=== PATIENT | male | born 1945 | race Caucasian/White ===

== ENCOUNTER 2016-05-21 11:07 | Observation (INO) | payer MEDICARE ==
[~2016-05-21] VITALS: Ht 165.1 cm; Wt 73.2 kg
[~2016-05-21 11:07] MED LIST changes: -ALDA25TA2 PO; -AMLO10TA2 PO; -ATOR40TA PO; -BENZ200C44 PO; -BISO10TA PO; -BISO5TAB5 PO; -DIGO0.127 PO; -ECOT81TA5 PO; -FERR325T PO; -FURO20TA2 PO; -FURO40TA2 PO; -HYDR10T PO; -LEVO50TA5 PO; -LISI40TAB PO; -NITR4TASL SL; -OMEP20CA3 PO; -OPTI0.5D5 OU; -PLAV75TA38 PO; -PROT1TAB2 PO; -RANI150T PO
[2016-05-21] MEDS ORDERED: ATOR40TA PO (11:36)
[2016-05-21] MEDS ORDERED: LEVO50TA5 PO (11:36)
[2016-05-21] MEDS ORDERED: DIGO0.127 PO (11:36)
[2016-05-21] MEDS ORDERED: PROT1TAB2 PO (11:36)
[2016-05-21] MEDS ORDERED: ALLO100T PO (11:36)
[2016-05-21] MEDS ORDERED: PLAV75TA38 PO (11:36)
[2016-05-21] MEDS ORDERED: ECOT81TA5 PO (11:36)
[2016-05-21] MEDS ORDERED: LISI40TAB PO (11:36)
[2016-05-21] MEDS ORDERED: FURO20TA2 PO (11:36)
[2016-05-21] MEDS ORDERED: AMLO10TA2 PO (11:36)
[2016-05-21] MEDS ORDERED: BISO10TA PO (11:36)
[2016-05-21 12:00] LABS: BASO % 0.5 % (0.0-1.0); EOS # 0.1 K/mm3 (0.0-0.50); EOS % 1.3 % (0.0-3.0); LARGE UNSTAINED CELL # 0.2 K/mm3 (0.0-0.4); MEAN CORPUSCULAR HEMOGLOBIN 33.9 pg (27.0-33.0); MEAN CORPUSCULAR HGB CONC 33.2 g/dl (32.0-36.5); MEAN CORPUSCULAR VOLUME 102.2 fl (80.0-96.0); MONO # 0.6 K/mm3 (0.0-0.8); MONO % 7.6 % (0.0-5.0); NEUTROPHILS # 6.4 K/mm3 (1.8-7.7); NEUTROPHILS % 78.7 % (36.0-66.0); PLATELET COUNT, AUTOMATED 271 k/mm3 (150-450); RED CELL DISTRIBUTION WIDTH 15.5 % (11.5-14.5); WHITE BLOOD COUNT 8.1 K/mm3 (4.0-10.0)
[2016-05-21 12:06] LABS: INR 1.14
[2016-05-21 12:20] LABS: ALBUMIN 3.9 GM/DL (3.2-5.2); ALBUMIN/GLOBULIN RATIO 1.08 (1.00-1.93); ALKALINE PHOSPHATASE 52 U/L (45-117); ALT/SGPT 45 U/L (12-78); ANION GAP 10 MEQ/L (8-16); AST/SGOT 20 U/L (15-37); BILIRUBIN,DIRECT 0.2 MG/DL (0.0-0.2); BILIRUBIN,TOTAL 0.8 MG/DL (0.2-1.0); BLOOD UREA NITROGEN 24 MG/DL (7-18); CALCIUM LEVEL 8.7 MG/DL (8.8-10.2); CARBON DIOXIDE LEVEL 22 MEQ/L (21-32); CHLORIDE LEVEL 102 MEQ/L (98-107); GLOMERULAR FILTRATION RATE 49.1 (>42); GLUCOSE, FASTING 101 MG/DL (83-110); POTASSIUM SERUM 4.1 MEQ/L (3.5-5.1); SODIUM LEVEL 134 MEQ/L (136-145); TOTAL PROTEIN 7.5 GM/DL (6.4-8.2)
[2016-05-21 12:29] LABS: DIGOXIN LEVEL 1.2 NG/ML (0.5-2.0)
[2016-05-21 13:22] LABS: MAGNESIUM LEVEL 2.5 MG/DL (1.8-2.4)
[2016-05-21] MEDS ORDERED: FUROSEMIDE 40 MG/4 ML VIAL (J1940) IV ONE (14:30)
[2016-05-21 14:38] LABS: T UPTAKE 39 % (33-40); THYROXINE (T4) 9.1 UG/DL (4.5-12.0)
--- NOTE | 2016-05-21 14:42 | HPEPDOC ---
Medical History and Physical Date of Admission 05/21/16 History and Physical ATTENDING: Dr. Black PCP: Dr Cerda Shipping Coordinator: Dr Newell CC: AICD discharge this AM. Sent to ED by Dr Newell. HPI: 70yoM with a past medical history significant for Ischemic CMP, AICD. Pt was treated for flu with tamiflu approximately 4 weeks ago as per Pt. States he has not been feeling better. Went back to PCP reporting fatigue, cough with clear sputum, chills, rhinorrhea, ORTIZ 1 weeks ago. Was treated with Prednisone and tessalon. He did not feel better and went back with persistent weakness and cough Tuesday. Prednisone was d/cd and was started on Levaquin 750mg daily. He still did not feel well with persistent cough. wheeze and clear sputum, and went again today. Tests were ordered and he went home to rest. When he lied down he had an AICD discharge. He had no CP/heaviness/SOB, lightheadedness, dizziness, palpitaions or assoc symptoms. He was referred to ED as per Dr Newell. Denies any ORTIZ, CP, abdominal pain, N/V/D or changes in bowel or bladder habits. Upon presentation to the hospital the patient was found to have B/L pleural effusions, thus the hospitalist team was consulted. PMHx: Ischemic CMP/Systolic CHF Cath 12/11 [facility] EF 25%. TTE 03/14 EF 35%. 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 ROS: As noted in HPI, otherwise 11pt ROS of systems reviewed and unremarkable. PE: GEN: 70yoM, appears stated age. Well-nourished, well developed. No acute distress. Alert and oriented x 3. Pleasant, interactive. HEENT: Normocephalic, atraumatic. Pupils are equal, round, and reactive to light. Extraocular movements are intact. No nystagmus appreciated. Sclera are nonicteric. Conjunctiva without injection. Nose midline. Nasal turbinates without bogginess. EACs both patent BL. TMs both visualized and ceballos with good cone of light, no bulging or erythema. No facial asymmetry. Moist mucous membranes. Dentition fair. Pharynx pink and moist, no cobblestoning. Neck supple , trachea midline. No lymphadenopathy or thyromegaly appreciated. CHEST: Regular rate and rhythm, +S1, +S2. systolic murmur noted. JVD elevated. LUNGS:reduced BS and insp rales bases bilaterally. No wheezes, rhonchi. Breathing appears symmetric and easy. Patient is speaking in full sentences. No accessory muscle use. ABD: Round, soft, non-tender, non-distended. +Bowel sounds throughout. No rebound or guarding. No costovertebral angle tenderness. EXT: Pulses 2+ bilaterally dorsalis pedis and radial. No lower extremity edema appreciated. SKIN: [place], dry, warm. Capillary refill <2sec. No rashes. NEURO: Alert and oriented x 3. Cranial nerves III-XII are intact. No focal deficits appreciated. CXR: Bilateral perihilar and lower lobe infiltrates (left greater than right). Small left effusion. CT: Chest Pending EKG: SR, first degree AVB, occas PVC, ST-T abn. BC x 2pending Resp panel pending. LA 1.6 A&P: HPI: 70yoM with a past medical history significant for Ischemic CMP, AICD. Pt was treated for flu with tamiflu approximately 4 weeks ago as per Pt. States he has not been feeling better. Went back to PCP reporting fatigue, cough with clear sputum, chills, rhinorrhea, ORTIZ 1 weeks ago. Was treated with Prednisone and tessalon. He did not feel better and went back with persistent weakness and cough Tuesday. Prednisone was d/cd and was started on Levaquin 750mg daily. He still did not feel well with persistent cough. wheeze and clear sputum, and went again today. Tests were ordered and he went home to rest. When he lied down he had an AICD discharge. He had no CP/heaviness/SOB, lightheadedness, dizziness, palpitaions or assoc symptoms. He was referred to ED as per Dr Newell. The patient will be admitted to PCU for at least [address] Black's service. The pt is discussed and reviewed with Dr Pena. 1. Ischemic CMP/Systolic CHF. Pt with signs of fluid overload and decompensation on exam. Hold PO Lasix. IV Lasix 40mg IV Q8 for net neg ordered. Monitor Labs. I/O, daily WT. Dig level WNL. 2. Recent influenza and URI. BC x 2 pending. Respiratory panel pending. Pt s/p tx with Tamiflu and Levaquin. Have not added any additional antibiotic at this time pending further results. 3. CAD/Cardiac stent. CIP/Troponin x 3. Zebeta with hold paramters/ASA/Plavix 4. HTN. Continue Norvasc, (ACEI on hold) 5. AICD/S/P AICD discharge. PCU/TM. Dr Newell to follow. K WNL. Mag 2.5. 6. RALPH. Baseline SCr 1.28, 1.55 today. No further Levaquin. Avoid nephrotoxins. Hold ACEI. 7. Hypothyroid. Continue Supplement. TSH noted to be 4.53. Recheck TFT in AM. 8. Gout. Allopurinol 9. HLD. Statin. 10. GERD. PPI. DVT prophylaxis. The patient is a full code. Vital Signs Vital Signs Label Value Date Time Patient Temperature 97.4 degrees F 05/21/16 1416 Temperature Source Oral 05/21/16 1416 Pulse 66 05/21/16 1307 Respiratory Rate 18 bpm 05/21/16 1416 Blood Pressure Assessment 168/70 (102) 05/21/16 1351 Source Automatic Cuff (NIBP) Bedside Pulse Oximetry 95 % 05/21/16 1416 Bedside Pulse Oximetry 92 % 05/21/16 1307 Item Value Date Time Oxygen Delivery Method Room Air 05/21/16 1108 Laboratory Data Labs 24H Laboratory Tests 2 05/21/16 11:27: White Blood Count 8.1, Red Blood Count 3.13L, Hemoglobin 10.6L, Hematocrit 32.0L , Mean Corpuscular Volume 102.2H, Mean Corpuscular Hemoglobin 33.9H, Mean Corpuscular Hemoglobin Concent 33.2, Red Cell Distribution Width 15.5H, Platelet Count 271, Neutrophils (%) (Auto) 78.7H, Lymphocytes (%) (Auto) 10.0L, Monocytes (%) (Auto) 7.6H, Eosinophils (%) (Auto) 1.3, Basophils (%) (Auto) 0.5 , Neutrophils # (Auto) 6.4, Lymphocytes # (Auto) 1.0L, Monocytes # (Auto) 0.6, Eosinophils # (Auto) 0.1, Basophils # (Auto) 0.0, Large Unclassified Cells # 0.2 , Large Unclassified Cells % 2.0 05/21/16 11:49: Aspartate Amino Transf (AST/SGOT) 20, Alanine Aminotransferase (ALT/SGPT) 45, Alkaline Phosphatase 52, Total Bilirubin 0.8, Direct Bilirubin 0.2, Albumin 3.9 , Albumin/Globulin Ratio 1.08, Anion Gap 10, B-Type Natriuretic Peptide 1040H, Calcium Level 8.7L, Creatine Kinase MB 1.7, Creatine Kinase MB Relative Index 2.17, Digoxin Level 1.2, Glomerular Filtration Rate 49.1, Lactic Acid Level 1.6 , Magnesium Level 2.5H, Prothromb Time International Ratio 1.14, Prothrombin Time 14.7H, Thyroid Stimulating Hormone (TSH) 4.530H, Total Creatine Kinase 78, Total Protein 7.5, Troponin I < 0.02 CBC/BMP Laboratory Tests 05/21/16 11:27 Red Blood Count 3.13 L, Mean Corpuscular Volume 102.2 H, Mean Corpuscular Hemoglobin 33.9 H, Mean Corpuscular Hemoglobin Concent 33.2, Red Cell Distribution Width 15.5 H, Neutrophils (%) (Auto) 78.7 H, Lymphocytes (%) (Auto ) 10.0 L, Monocytes (%) (Auto) 7.6 H, Eosinophils (%) (Auto) 1.3, Basophils (%) (Auto) 0.5, Neutrophils # (Auto) 6.4, Lymphocytes # (Auto) 1.0 L, Monocytes # ( Auto) 0.6, Eosinophils # (Auto) 0.1, Basophils # (Auto) 0.0 05/21/16 11:49 Microbiology Microbiology 05/21/16 Blood Culture, Received Pending 05/21/16 Blood Culture, Received Pending 05/21/16 Respiratory Virus Panel (PCR) (BRIAN), Received Pending Home Medications Scheduled Allopurinol (Allopurinol) 100 Mg Tab 100 MG PO DAILY Amlodipine Besylate (Amlodipine Besylate) 10 Mg Tab 10 MG PO QHS Aspirin (Ecotrin Low Strength) 81 Mg Tab 81 MG PO DAILY Atorvastatin Calcium (Atorvastatin Calcium) 40 Mg Tab 40 MG PO QHS Bisoprolol Fumarate (Bisoprolol Fumarate) 5 Mg Tab 5 MG PO BID Clopidogrel Bisulfate (Plavix) 75 Mg Tab 75 MG PO DAILY Digoxin (Digox) 0.125 Mg Tab 0.125 MG PO QHS Ferrous Sulfate (Ferrous Sulfate) 325 Mg Tab 325 MG PO BID Furosemide (Furosemide) 20 Mg Tab 20 MG PO DAILY Levofloxacin Hemihydrate (Levofloxacin) 750 Mg Tab 750 MG PO DAILY STARTED 05/18/16 FOR 5 DAYS, HAS ONE TABLET LEFT FOR 05/22/16 THEN IS TO START 500MG DAILY FOR 5 DAYS ON 05/23/16 Levothyroxine Sodium (Synthroid) 50 Mcg Tab 50 MCG PO DAILY Lisinopril (Lisinopril) 40 Mg Tab 40 MG PO DAILY Omeprazole (Omeprazole) 20 Mg Cap 20 MG PO QHS Ranitidine HCl (Ranitidine HCl) 150 Mg Tab 1 TAB PO QHS Scheduled PRN (Refresh Optive 0.5-0.9 %) 1 Jose A Jose A 1 DROP OU QID PRN PRN DRY EYES Benzonatate (Benzonatate) 200 Mg Cap 200 MG PO TID PRN PRN COUGH Hydroxyzine HCl (Hydroxyzine HCl) 10 Mg Tab 10 MG PO QID PRN PRN ITCHING Nitroglycerin (Nitrostat) 0.4 Mg Subl 0.4 MG SL Q5MP PRN PRN CHEST PAIN Allergies Coded Allergies: Penicillins (Verified Allergy, Unknown, 06/05/12) Penicillins Cross Reactors (Verified Allergy, Unknown, 06/05/12) Quinolones (Verified Allergy, Unknown, 06/05/12) Sulfa Antibiotics (Verified Allergy, Unknown, 09/25/14) Lidya Escamilla May 21, 2016 14:42
--- NOTE | 2016-05-21 15:10 | REP ---
CT CHEST WITHOUT IV CONTRAST: CT of the chest is performed without IV contrast. Moderate bilateral pleural effusions are seen with adjacent bibasilar atelectasis/infiltrate. There are mild patchy infiltrates in the upper lobes diffusely. Calcified granuloma is seen in the right lower lobe as well as in the left lower lobe. Several mediastinal and hilar lymph nodes are present measuring up to 10 mm in short access dimension, not significantly enlarged. There are atherosclerotic calcifications of the arterial structures. There is no aneurysm of the thoracic aorta. There is cardiomegaly. There is no pericardial effusion. There are degenerative changes of the spine. Left adrenal adenoma is again seen and was present on prior studies. IMPRESSION: Moderate bilateral effusions with bilateral infiltrates. Findings are suggestive of CHF and pulmonary edema. However, underlying pneumonia cannot be excluded. Signed by Dae Ayala MD 05/21/2016 04:18 P
[2016-05-21] MEDS ORDERED: BENZ200C44 PO (15:48)
[2016-05-21] MEDS ORDERED: HYDR10T PO (15:48)
[2016-05-21] MEDS ORDERED: OMEP20CA3 PO (15:48)
[2016-05-21] MEDS ORDERED: NITR4TASL SL (15:48)
[2016-05-21] MEDS ORDERED: RANI150T PO (15:48)
[2016-05-21] MEDS ORDERED: BISO5TAB5 PO (15:48)
[2016-05-21] MEDS ORDERED: FERR325T PO (15:48)
[2016-05-21] MEDS ORDERED: OPTI0.5D5 OU (15:48)
--- NOTE | 2016-05-21 16:28 | ECGEPIP ---
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
[2016-05-21 16:45] VITALS: BP 163/79
[2016-05-21 20:00] VITALS: BP 169/78
[2016-05-21] MEDS: DIGOXIN 0.125 MG TAB PO SCH (20:28)
[2016-05-21] MEDS: BISOPROLOL FUMARATE 5 MG TAB PO SCH (20:28)
[2016-05-21] MEDS: LISINOPRIL 40 MG TAB PO SCH (20:28)
--- NOTE | 2016-05-21 20:39 | CR ---
DATE OF CONSULTATION: 05/21/2016 Referring provider: WYATT Villa Diagnosis: Ventricular tachycardia, stp. ICD discharge Mr. Li called me this morning complaining about receiving implantable cardioverter defibrillator (ICD) shock. He made telephonic transmission and it indeed revealed very fast ventricular tachycardia, degenerating to ventricular fibrillation terminated by single ICD discharge. This is the first time ever that received a shock. When I talked to him, he was telling me that he has not been feeling well for about two weeks and consequently I instructed to go to emergency room for further evaluation. In the emergency room, he was relatively comfortable. His brain natriuretic peptide (BNP) though was very high over 1000, and consequently the imaging of the chest was performed. Chest x-ray is suggestive of bilateral pleural effusions and mild congestive heart failure (CHF). CT scan indeed reveals moderate bilateral pleural effusions and no distinct infiltrates as such. He was consequently admitted for further management. Mr. Li is known to me. He has known severe cardiomyopathy with low left ventricular ejection fraction with concomitant coronary artery disease. He has been clinically stable on standard medication therapy. He tells me that approximately two weeks ago, he had symptoms of upper respiratory infection that included runny nose, some sore throat, some cough and fever. He also felt a little more short of breath than baseline, but not much. After a few days when his symptoms were not improving, he was prescribed a Z-Hardeep, but even completed the Z-Hardeep did not bring relief and he was prescribed Levaquin. He took approximately three days. This morning he actually went to see Dr. Cerda, his primary care physician. He was sent to have an x-ray and blood work and when he came home, he ate some breakfast. He felt tired, sat on the couch, and as he was putting on his blanket, he suddenly felt "weird." He describes a sensation like "frying meyer." Shortly thereafter he received a shock. He denies any recent chest discomfort. He does admit that his dyspnea is worse than his baseline, but not much. He did not notice any change in his weight. There were no recent palpitations. PAST MEDICAL HISTORY: 1. Coronary artery disease. Cardiac catheterization in November 2013, revealed single-vessel coronary artery disease and he received drug-eluting stent to right coronary artery. Ejection fraction was 25%. Last evaluation of ejection fraction was multiple-gaited acquisition (MUGA) scan in February 2014, that revealed calculated left ventricular ejection fraction (LVEF) 26%. 2. Gout. 3. Hypertension. 4. Gastroesophageal reflux disease (GERD). 5. Dyslipidemia. 6. Carotid artery disease. Last carotid ultrasound was May 2015, revealing 50-70% right internal carotid artery stenosis. SURGICAL HISTORY Is positive for pyloric resection in 1962, ICD implant in May 2014, and bilateral cataract surgery. ALLERGIES: He reports allergies to PENICILLIN and PENICILLIN ANALOGS causing anaphylactic shock, and allergy to SULFA OUTPATIENT MEDICATIONS: - allopurinol 100 a day - amlodipine 10 a day - aspirin 81 a day - Lipitor 40 a day - bisoprolol five twice a day - clopidogrel 25 a day - digoxin 0.125 a day - furosemide 20 mg a day - levothyroxine 50 mcg a day - lisinopril 40 a day - omeprazole 20 a day - ranitidine 150 a day FAMILY HISTORY: Father of coronary artery disease in premature age. Same applies for his mother. SOCIAL HISTORY: The patient is and has children. He is retired from [employer]. He quit smoking 2013. He has 1-2 beers a day. REVIEW OF SYSTEMS: He denies any history of stroke. There was recent fever, cough and sore throat as per history of present illness (HPI). No recent chest pain, no palpitations. No syncope, near syncope. No abdominal pain, nausea, vomiting or diarrhea. No peripheral edema. No change in his weight and no visible bleeding. PHYSICAL EXAMINATION: Mr. Li is an elderly man who appears approximately his age. When I walked into the room, he was sleeping almost in horizontal position. Blood pressure 163/79, heart rate in 60s. He is afebrile. Saturation is 98% on room air. His weight was documented at 77.1 kg. He is alert and oriented and appropriate. His jugular venous pulse (JVP) is about 2 cm above clavicle. Lungs are surprisingly clear to auscultation. I do not appreciate any wheezing or crackles. Heart exam reveals somewhat muffled heart sounds but regular rhythm. No gallop. I do not appreciate any murmur or rubs either. Abdomen is obese but soft. No shifting dullness. I do not appreciate hepatosplenomegaly. There is no peripheral edema. Peripheral pulses are palpable. LABORATORY DATA: WBC count 8.1, hemoglobin 10.6, hematocrit 32 and platelet count 271,000. Basic metabolic panel potassium 4.1, BUN 24, creatinine 1.5, glucose 101. Normal liver function test. Magnesium is 2.5. Negative cardiac enzymes times two. BNP is 1040. TSH is 4.5. IMAGING: Chest x-ray as per HPI. There is a cardiomegaly, vascular redistribution. Probably small bilateral pleural effusions and appropriate position of ICD lead in RV apex. The CT of the chest revealed bilateral pleural effusions approximately moderate. No distinct infiltrate. ECG reveals presence of sinus rhythm with nonspecific repolarization abnormalities and suggestive of LVH. There is an isolated paced ventricular beat. ASSESSMENT AND PLAN: Mr. Li is a 70-year-old man who has known probably nonischemic cardiomyopathy with concomitant coronary artery disease. He received shock for fast ventricular tachycardia that was appropriate. He is in a decompensated congestive heart failure even though the volume overload is fairly minor. I am not certain what precipitated his ventricular tachycardia (VT). I suspect that the infection and possibly quinolone antibiotic may have played a role. In any case, I do not see convincing evidence for underlying bacterial infection. It is probable that his illness started with viral infection about two weeks ago. I would continue chronic beta-adela, angiotension-converting enzyme (SALLIE) inhibitor and digoxin. The digoxin level is relatively low which is appropriate. I would diurese him with IV Lasix as has been ordered. I will add spironolactone while monitoring his potassium level and renal function. I hope that there will not be any recurrent arrhythmias and he will be able to be discharged home with fairly modest diuresis. If there are recurrent events or if there is deteriorating renal function or recurring dyspnea, then more aggressive diuresis may be undertaken. I talked about the patient with Dr. Arevalo, but I do not believe that he necessarily has to see the patient over the weekend. But please if you have problems with management, contact him with questions over the weekend. Otherwise I will be back on Tuesday. I believe it is likely that he will be discharged before though. ANNIE
[2016-05-21] MEDS: FUROSEMIDE 40 MG/4 ML VIAL (J1940) IV SCH (23:25)
[2016-05-21 23:59] VITALS: BP 168/77
[2016-05-22 04:00] VITALS: BP 150/72
[2016-05-22 04:52] LABS: BASO % 0.4 % (0.0-1.0); EOS # 0.1 K/mm3 (0.0-0.50); EOS % 1.6 % (0.0-3.0); LARGE UNSTAINED CELL # 0.2 K/mm3 (0.0-0.4); LARGE UNSTAINED CELL % 2.1 % (0.0-4.0); LYMPH # 1.2 K/mm3 (1.5-4.5); MEAN CORPUSCULAR HEMOGLOBIN 33.5 pg (27.0-33.0); MEAN CORPUSCULAR HGB CONC 32.8 g/dl (32.0-36.5); MEAN CORPUSCULAR VOLUME 102.1 fl (80.0-96.0); MONO # 0.6 K/mm3 (0.0-0.8); MONO % 8.2 % (0.0-5.0); NEUTROPHILS # 5.9 K/mm3 (1.8-7.7); NEUTROPHILS % 74.8 % (36.0-66.0); PLATELET COUNT, AUTOMATED 289 k/mm3 (150-450); RED CELL DISTRIBUTION WIDTH 15.4 % (11.5-14.5); WHITE BLOOD COUNT 7.9 K/mm3 (4.0-10.0)
[2016-05-22 05:23] LABS: ALBUMIN 3.5 GM/DL (3.2-5.2); ALBUMIN/GLOBULIN RATIO 1.17 (1.00-1.93); BILIRUBIN,TOTAL 0.6 MG/DL (0.2-1.0); CALCIUM LEVEL 8.2 MG/DL (8.8-10.2); CREATININE FOR GFR 1.56 MG/DL (0.70-1.30); GLOMERULAR FILTRATION RATE 46.9 (>42); MAGNESIUM LEVEL 2.2 MG/DL (1.8-2.4); PERCENT SATURATION 12.1 % (19.7-37.4); POTASSIUM SERUM 4.8 MEQ/L (3.5-5.1); THYROXINE (T4) 9.2 UG/DL (4.5-12.0); TOTAL PROTEIN 6.5 GM/DL (6.4-8.2)
[2016-05-22 08:00] VITALS: BP 170/77
[2016-05-22] MEDS: ATORVASTATIN 20 MG TAB PO SCH (08:07)
[2016-05-22] MEDS: FUROSEMIDE 40 MG/4 ML VIAL (J1940) IV SCH ×3 (08:07→23:29)
[2016-05-22] MEDS: LEVOTHYROXINE 0.05 MG TAB (50 MCG) PO SCH (08:07)
[2016-05-22] MEDS: PANTOPRAZOLE 40MG TAB (PROTONIX) PO SCH (08:07)
[2016-05-22] MEDS: ASPIRIN 81 MG ENTERIC TAB PO SCH (08:07)
[2016-05-22] MEDS: SPIRONOLACTONE 12.5MG PER 1/2 TABLET PO SCH (08:07)
[2016-05-22] MEDS: BISOPROLOL FUMARATE 5 MG TAB PO SCH ×2 (08:07→20:52)
[2016-05-22] MEDS: CLOPIDOGREL 75 MG TAB PO SCH (08:08)
[2016-05-22] MEDS: LISINOPRIL 40 MG TAB PO SCH (08:08)
[2016-05-22] MEDS: ALLOPURINOL 100 MG TAB PO SCH (08:08)
[2016-05-22] MEDS: amLODIPine 10 MG TAB PO SCH (08:08)
[2016-05-22] MEDS: ENOXAPARIN 40 MG/0.4 ML SYRINGE (J1650) SC SCH (08:08)
--- NOTE | 2016-05-22 11:13 | IPNPDOC ---
Subjective Date Seen The patient was seen on 05/22/16. Subjective Chief Complaint/HPI The patient is a 70-year-old male admitted with a reason for visit of CHF. Events since last encounter Feeling better, sob has improved a little and cough seems a little better, had low grade fever last night. no nausea or vomiting or diarrhea , no chest pain. Objective Physical Examination General Exam: Positive: Alert, Cooperative, No Acute Distress Eye Exam: Positive: Conjunctiva & lids normal, EOMI, PERRLA, Negative: Sclera icteric ENT Exam: Positive: Atraumatic, Mucous membr. moist/pink, Pharynx Normal Neck Exam: Positive: Supple, Negative: JVD, thyromegaly Chest Exam: Positive: Diminished, Rales Heart Exam: Positive: Normal S1, Normal S2, Rate Normal, Regular Rhythm, Negative: Murmurs, Rubs Telemetry: Positive: PVCs Abdomen Exam: Positive: Normal bowel sounds, Soft, Negative: Hepatospenomegaly, Tenderness Extremity Exam: Positive: Normal pulses, Negative: Clubbing, Cyanosis, Edema Skin Exam: Positive: Nl turgor and temperature, Negative: Breakdown, Rash Assessment /Plan Problems (1) AICD discharge Status: Acute Problem Text: had fast v tach and AICD discharged appropriately this was probably due to respiratory infection and being on quinolone. (2) Congestive heart disease Status: Acute Problem Text: systolic and diastolic congestive heart failure will continue with lasix before AICD EF was about 25% now upto 55% has ischemic cardiomyopathy (3) Mitral regurgitation Status: Chronic Problem Text: from degenerative mitral valve disease (4) Right heart failure Status: Chronic (5) Pulmonary hypertension Status: Chronic (6) CAD (coronary artery disease) Status: Chronic Problem Text: s/p stenting in the past. (7) Gout Status: Chronic (8) Hypothyroid Status: Chronic (9) Hyperlipidemia Status: Chronic (10) Hypertension Status: Chronic Plan/VTE VTE Prophylaxis Ordered?: Yes VS, I&O, 24H, Fishbone Vital Signs/I&O Vital Signs Date Time Temp Pulse Resp B/P Pulse Ox O2 Delivery O2 Flow Rate FiO2 05/22/16 08:07 70 170/77 05/22/16 08:00 100.2 20 92 Room Air I&O- Last 24 Hours up to 6 AM 05/22/16 06:00 Intake Total 560 ml Output Total 4350 ml Balance -3790 ml Laboratory Data 24H LABS Laboratory Tests 2 05/21/16 11:27: White Blood Count 8.1, Red Blood Count 3.13L, Hemoglobin 10.6L, Hematocrit 32.0L , Mean Corpuscular Volume 102.2H, Mean Corpuscular Hemoglobin 33.9H, Mean Corpuscular Hemoglobin Concent 33.2, Red Cell Distribution Width 15.5H, Platelet Count 271, Neutrophils (%) (Auto) 78.7H, Lymphocytes (%) (Auto) 10.0L, Monocytes (%) (Auto) 7.6H, Eosinophils (%) (Auto) 1.3, Basophils (%) (Auto) 0.5 , Neutrophils # (Auto) 6.4, Lymphocytes # (Auto) 1.0L, Monocytes # (Auto) 0.6, Eosinophils # (Auto) 0.1, Basophils # (Auto) 0.0, Large Unclassified Cells # 0.2 , Large Unclassified Cells % 2.0 05/21/16 11:49: Aspartate Amino Transf (AST/SGOT) 20, Alanine Aminotransferase (ALT/SGPT) 45, Alkaline Phosphatase 52, Total Bilirubin 0.8, Direct Bilirubin 0.2, Albumin 3.9 , Albumin/Globulin Ratio 1.08, Anion Gap 10, B-Type Natriuretic Peptide 1040H, Calcium Level 8.7L, Creatine Kinase MB 1.7, Creatine Kinase MB Relative Index 2.17, Digoxin Level 1.2, Free Thyroxine Index 3.5, Glomerular Filtration Rate 49.1, Lactic Acid Level 1.6, Magnesium Level 2.5H, Prothromb Time International Ratio 1.14, Prothrombin Time 14.7H, Thyroid Stimulating Hormone (TSH) 4.530H, Thyroxine (T4) 9.1, Total Creatine Kinase 78, Total Protein 7.5, Triiodothyronine (T3) Uptake 39, Troponin I < 0.02 05/21/16 17:44: Creatine Kinase MB 1.3, Creatine Kinase MB Relative Index 1.68, Total Creatine Kinase 77, Troponin I 0.04# 05/22/16 04:00: White Blood Count 7.9, Red Blood Count 3.27L, Hemoglobin 10.9L, Hematocrit 33.4L , Mean Corpuscular Volume 102.1H, Mean Corpuscular Hemoglobin 33.5H, Mean Corpuscular Hemoglobin Concent 32.8, Red Cell Distribution Width 15.4H, Platelet Count 289, Neutrophils (%) (Auto) 74.8H, Lymphocytes (%) (Auto) 13.0L, Monocytes (%) (Auto) 8.2H, Eosinophils (%) (Auto) 1.6, Basophils (%) (Auto) 0.4 , Neutrophils # (Auto) 5.9, Lymphocytes # (Auto) 1.2L, Monocytes # (Auto) 0.6, Eosinophils # (Auto) 0.1, Basophils # (Auto) 0.0, Large Unclassified Cells # 0.2 , Large Unclassified Cells % 2.1, Aspartate Amino Transf (AST/SGOT) 20, Alanine Aminotransferase (ALT/SGPT) 38, Alkaline Phosphatase 52, Total Bilirubin 0.6, Albumin 3.5, Albumin/Globulin Ratio 1.17, Anion Gap 11, Calcium Level 8.2L, Creatine Kinase MB 1.4, Creatine Kinase MB Relative Index 2.33, Free Thyroxine Index 3.6, Glomerular Filtration Rate 46.9, Magnesium Level 2.2, Thyroid Stimulating Hormone (TSH) 3.960H, Thyroxine (T4) 9.2, Total Creatine Kinase 60, Total Protein 6.5, Triiodothyronine (T3) Uptake 39, Troponin I 0.03#, Blood Urea Nitrogen 23H, Creatinine 1.56H, Sodium Level 139, Potassium Level 4.8, Chloride Level 103, Carbon Dioxide Level 25, Iron Level 44L, Total Iron Binding Capacity 364, Transferrin % Saturation 12.1L 05/22/16 09:55: Creatine Kinase MB 1.1, Creatine Kinase MB Relative Index 1.74, Total Creatine Kinase 63, Troponin I 0.02# CBC/BMP Laboratory Tests 05/21/16 11:27 Red Blood Count 3.13 L, Mean Corpuscular Volume 102.2 H, Mean Corpuscular Hemoglobin 33.9 H, Mean Corpuscular Hemoglobin Concent 33.2, Red Cell Distribution Width 15.5 H, Neutrophils (%) (Auto) 78.7 H, Lymphocytes (%) (Auto ) 10.0 L, Monocytes (%) (Auto) 7.6 H, Eosinophils (%) (Auto) 1.3, Basophils (%) (Auto) 0.5, Neutrophils # (Auto) 6.4, Lymphocytes # (Auto) 1.0 L, Monocytes # ( Auto) 0.6, Eosinophils # (Auto) 0.1, Basophils # (Auto) 0.0 05/21/16 11:49 05/22/16 04:00 Red Blood Count 3.27 L, Mean Corpuscular Volume 102.1 H, Mean Corpuscular Hemoglobin 33.5 H, Mean Corpuscular Hemoglobin Concent 32.8, Red Cell Distribution Width 15.4 H, Neutrophils (%) (Auto) 74.8 H, Lymphocytes (%) (Auto ) 13.0 L, Monocytes (%) (Auto) 8.2 H, Eosinophils (%) (Auto) 1.6, Basophils (%) (Auto) 0.4, Neutrophils # (Auto) 5.9, Lymphocytes # (Auto) 1.2 L, Monocytes # ( Auto) 0.6, Eosinophils # (Auto) 0.1, Basophils # (Auto) 0.0, Calcium Level 8.2 L , Aspartate Amino Transf (AST/SGOT) 20, Alanine Aminotransferase (ALT/SGPT) 38, Alkaline Phosphatase 52, Total Bilirubin 0.6, Total Protein 6.5, Albumin 3.5 Microbiology Microbiology 05/21/16 Blood Culture, Received Pending 05/21/16 Blood Culture, Received Pending 05/21/16 Respiratory Virus Panel (PCR) (BRIAN) - Final, Complete CAREN STEWART MD May 22, 2016 11:13
[2016-05-22 12:00] VITALS: BP 169/74
[2016-05-22 16:00] VITALS: BP 137/65
[2016-05-22 20:00] VITALS: BP 141/65
[2016-05-22] MEDS: DIGOXIN 0.125 MG TAB PO SCH (20:51)
[2016-05-22 23:59] VITALS: BP 162/70
[2016-05-23 04:00] VITALS: BP 139/72
[2016-05-23 05:20] LABS: BASO % 0.4 % (0.0-1.0); EOS # 0.2 K/mm3 (0.0-0.50); EOS % 1.8 % (0.0-3.0); LARGE UNSTAINED CELL # 0.3 K/mm3 (0.0-0.4); LARGE UNSTAINED CELL % 3.8 % (0.0-4.0); LYMPH # 1.7 K/mm3 (1.5-4.5); LYMPH % 15.3 % (24.0-44.0); MEAN CORPUSCULAR HEMOGLOBIN 33.2 pg (27.0-33.0); MEAN CORPUSCULAR HGB CONC 32.5 g/dl (32.0-36.5); MEAN CORPUSCULAR VOLUME 102.3 fl (80.0-96.0); MONO # 0.9 K/mm3 (0.0-0.8); MONO % 9.8 % (0.0-5.0); NEUTROPHILS # 6.1 K/mm3 (1.8-7.7); PLATELET COUNT, AUTOMATED 319 k/mm3 (150-450); RED CELL DISTRIBUTION WIDTH 15.2 % (11.5-14.5); WHITE BLOOD COUNT 8.8 K/mm3 (4.0-10.0)
[2016-05-23 05:33] LABS: ALBUMIN 3.5 GM/DL (3.2-5.2); ALKALINE PHOSPHATASE 54 U/L (45-117); ALT/SGPT 36 U/L (12-78); ANION GAP 11 MEQ/L (8-16); AST/SGOT 20 U/L (15-37); BILIRUBIN,TOTAL 0.7 MG/DL (0.2-1.0); BLOOD UREA NITROGEN 28 MG/DL (7-18); CALCIUM LEVEL 8.8 MG/DL (8.8-10.2); CARBON DIOXIDE LEVEL 28 MEQ/L (21-32); CHLORIDE LEVEL 99 MEQ/L (98-107); CREATININE FOR GFR 1.78 MG/DL (0.70-1.30); GLOMERULAR FILTRATION RATE 40.3 (>42); GLUCOSE, FASTING 116 MG/DL (83-110); MAGNESIUM LEVEL 2.1 MG/DL (1.8-2.4); POTASSIUM SERUM 4.4 MEQ/L (3.5-5.1); SODIUM LEVEL 138 MEQ/L (136-145); TOTAL PROTEIN 7.4 GM/DL (6.4-8.2)
[2016-05-23] MEDS ORDERED: ALDA25TA2 PO (07:33)
[2016-05-23] MEDS ORDERED: FURO40TA2 PO (07:33)
[2016-05-23 08:00] VITALS: BP 158/72
[2016-05-23] MEDS: ALLOPURINOL 100 MG TAB PO SCH (08:01)
[2016-05-23 08:08] VITALS: BP 158/72
[2016-05-23] MEDS: PANTOPRAZOLE 40MG TAB (PROTONIX) PO SCH (08:08)
[2016-05-23] MEDS: LISINOPRIL 40 MG TAB PO SCH (08:08)
[2016-05-23] MEDS: BISOPROLOL FUMARATE 5 MG TAB PO SCH (08:08)
[2016-05-23] MEDS: amLODIPine 10 MG TAB PO SCH (08:08)
[2016-05-23] MEDS: LEVOTHYROXINE 0.05 MG TAB (50 MCG) PO SCH (08:08)
[2016-05-23] MEDS: ASPIRIN 81 MG ENTERIC TAB PO SCH (08:08)
[2016-05-23] MEDS: SPIRONOLACTONE 12.5MG PER 1/2 TABLET PO SCH (08:08)
[2016-05-23] MEDS: CLOPIDOGREL 75 MG TAB PO SCH (08:08)
[2016-05-23] MEDS: ENOXAPARIN 40 MG/0.4 ML SYRINGE (J1650) SC SCH (08:09)
[2016-05-23] MEDS: ATORVASTATIN 20 MG TAB PO SCH (08:09)
[2016-05-23] MEDS ORDERED: FUROSEMIDE 40 MG TAB PO SCH (09:00)
--- NOTE | 2016-05-23 13:33 | ECGEPIP ---
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 Electronically Signed On 05-23-2016 13:33:09 EDT by Reynold Arevalo
--- NOTE | 2016-05-23 13:36 | ECGEPIP ---
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 Electronically Signed On 05-23-2016 13:36:32 EDT by Reynold Arevalo
--- NOTE | 2016-05-23 16:05 | DSES ---
DATE OF ADMISSION: 05/21/2016 DATE OF DISCHARGE: 05/23/2016 PRIMARY CARE PROVIDER: Dr. Cerda SUPERVISOR FEED HOUSE: Dr. Newell DISCHARGE DIAGNOSES: 1. AICD discharge for fast rate ventricular tachycardia. 2. History of diastolic congestive heart failure (CHF) exacerbation. 3. Ischemic cardiomyopathy. 4. History of coronary artery disease, status post stents. 5. Mitral regurgitation from mitral valve disease. 6. Pulmonary hypertension. 7. Right heart failure. 8. Gout. 9. Hypothyroidism. 10. Hyperlipidemia. 11. Hypertension. 12. Chronic kidney disease stage III. 13. Coronary artery disease with 50 to 70% right internal carotid artery stenosis. 14. Gastroesophageal reflux disease (GERD). 15. AICD implant in May 2014. 16. History of pyloric resection in 1962. 17. Rate control atrial fibrillation seen on EKG. 18. Nonischemic cardiomyopathy. DISCHARGE MEDICATIONS: - Lasix 40 mg by mouth daily - spironolactone 12.5 mg by mouth daily - allopurinol 100 mg by mouth daily - amlodipine 10 mg by mouth at bedtime - aspirin 81 mg daily - atorvastatin 40 mg at bedtime - bisoprolol 5 mg by mouth by mouth twice a day - 75 mg by mouth daily - digoxin 0.125 mg at bedtime - ferrous sulfate 325 mg by mouth twice a day - hydroxyzine 10 mg by mouth four times a day as needed for itching - Synthroid 50 mcg by mouth daily - Lisinopril 40 mg by mouth daily - nitroglycerin 0.4 mg sublingually every 5 minutes as needed for chest pain - omeprazole 20 mg by mouth at bedtime - ranitidine one tablet by mouth at bedtime - Refresh tears HOSPITAL COURSE: This is a 70-year-old male with a history of non-ischemic cardiomyopathy with concomitant coronary artery disease and had an ejection fraction of 25% in 2013. Cardiac catheterization revealed single vessel coronary artery disease and got a drug eluting stent in the right coronary artery. The patient had an AICD placement in May 2015, now with ejection fraction of around 50%, came in after AICD discharge for rapid ventricular tachycardia and also acute exacerbation of chronic systolic and diastolic congestive heart failure. The AICD discharge was thought to be related to an upper respiratory infection that the patient had been battling for the past 2 weeks prior to admission, along with being on fluoroquinolones prescribed by his primary care provider. CT scan in the hospital showed moderate bilateral pleural effusions with no distinct infiltrates so that the patient was diagnosed with congestive heart failure exacerbation. The patient was aggressive diuresed in the hospital with loss of 2.5 kg of weight over 2 days with resolution of his symptoms with improvement in his basic metabolic panel (BMP). The patient was monitored in telemetry. The patient did have some PVCs and also two short runs of nonsustained ventricular tachycardia and also one episode of rate control atrial fibrillation with a rate around 50 to 55, for which the patient was asymptomatic. The patient was seen by Dr. Newell and a followup appointment with him has been arranged in 1 week. At present, the patient is functioning at baseline, stable vitals and symptom free and is going to be discharged home in stable condition. PHYSICAL EXAMINATION: VITAL SIGNS: Temperature 99.1, pulse 60, respiratory rate 20, blood pressure 158/72, pulse oximetry 97% on room air. GENERAL : The patient is awake, alert, oriented times three. Sitting on the chair in no acute distress. HEENT: Normocephalic, atraumatic. Moist mucous membranes. Anicteric eyes. CHEST: Clear to auscultation. CARDIOVASCULAR: S1, S2. Irregular. No rub, murmur, or gallop. ABDOMEN: Soft, nontender. Bowel sounds present. EXTREMITIES: No edema. LABORATORY DATA: WBC 8.8, hemoglobin 11.6, platelets 319. Sodium 138, potassium 4.4, chloride 99, bicarbonate 28, BUN 28, creatinine 1.78, glucose 116, calcium 8.1, magnesium 2.2. Liver function tests are normal. BNP 140. Blood cultures are negative after 24 hours. Respiratory panel: Negative. DISPOSITION: The patient is discharged home in stable condition. DISCHARGE INSTRUCTIONS: The patient is to followup with Dr. Newell within 1 week. The patient is to followup with primary care provider in 2 weeks. 2-gram sodium diet. Fluid restriction of 1.8 liters. Activity as tolerated.
== END 2016-05-23 10:42 | disposition home or self-care (01) ==
LOC: M ED 12:47 → M ED INP 15:41 → INTOOBSV 15:41 → M PCU 16:42
PROVIDERS: ADMIT Internal Medicine; ATTEND Internal Medicine Nephrology
DX: I47.2 Ventricular tachycardia (principal); T82.198A Other mechanical complication of other cardiac electronic device, initial encounter; Y71.2 Prosthetic and other implants, materials and accessory cardiovascular devices associated with adverse incidents; I50.43 Acute on chronic combined systolic (congestive) and diastolic (congestive) heart failure; I42.9 Cardiomyopathy, unspecified; I25.10 Atherosclerotic heart disease of native coronary artery without angina pectoris; I34.9 Nonrheumatic mitral valve disorder, unspecified; I27.2 Other secondary pulmonary hypertension; M10.9 Gout, unspecified; E03.9 Hypothyroidism, unspecified; E78.5 Hyperlipidemia, unspecified; I12.9 Hypertensive chronic kidney disease with stage 1 through stage 4 chronic kidney disease, or unspecified chronic kidney disease; N18.3 Chronic kidney disease, stage 3 (moderate); I65.21 Occlusion and stenosis of right carotid artery; K21.9 Gastro-esophageal reflux disease without esophagitis; I48.91 Unspecified atrial fibrillation; J20.9 Acute bronchitis, unspecified; J90 Pleural effusion, not elsewhere classified; R91.8 Other nonspecific abnormal finding of lung field; R50.9 Fever, unspecified; M54.5 Low back pain; M25.551 Pain in right hip; M25.552 Pain in left hip; Z88.0 Allergy status to penicillin; Z88.2 Allergy status to sulfonamides; Z88.1 Allergy status to other antibiotic agents; Z79.899 Other long term (current) drug therapy; Z79.82 Long term (current) use of aspirin; Z79.02 Long term (current) use of antithrombotics/antiplatelets; Z79.2 Long term (current) use of antibiotics; Z87.891 Personal history of nicotine dependence; Z86.73 Personal history of transient ischemic attack (TIA), and cerebral infarction without residual deficits
CPT/HCPCS: 36415; 71020; 71250; 80053; 80162; 82550; 82553; 83550; 83605; 83735; 83880; 84436; 84443; 84479; 84484; 85025; 85610; 87040; 87486; 87581; 87633; 87798; 93005; 93041; 94760; 96372; 96374; 96376; 99285; G0378; J1650; J1940

== ENCOUNTER → 2016-05-21 | Outpatient (CLI) | payer MEDICARE ==
[~2016-05-21] MED LIST: ADAL30TA OR; ALBU17IN INH; ALDA25TA2 PO; ALLO100T PO; AMLO10TA2 PO; ASPI81TA83 OR; ATOR40TA PO; BENZ200C44 PO; BISO10TA PO; BISO5TAB5 PO; CIAL5TAB PO; CLOBETASOL CREAM TOP; DIGO0.127 PO; ECOT81TA5 PO; FERR325T PO; FURO20TA2 PO; FURO40TA2 PO; HYDR10T PO; LASI40TA PO; LEVO50TA5 PO; LEVO750T33 PO; LISI40TAB PO; NIFE60TA OR; NITR4TASL SL; NYSTPOW4 TOP; OMEP20CA3 PO; OPTI0.5D5 OU; PLAV75TA38 PO; PRED10TA PO; PROT1TAB2 PO; RANI150T PO; TYLE325T5 PO; ZANT150T OR; lotrimin TOP
--- NOTE | 2016-05-21 09:39 | REP ---
Clinical: Acute bronchitis and dyspnea. Comparison: 07/20/2014. Findings: Bilateral perihilar and bibasilar infiltrates (left greater than right) and possible small left effusion noted. No pneumothorax. Mediastinum and cardiac silhouette stable. Skeletal structures intact. Impression: Bilateral perihilar and lower lobe infiltrates (left greater than right). Small left effusion. Signed by Chase Garcia MD 05/21/2016 09:31 A
[2016-05-21 13:30] LABS: BASO % 0.2 % (0.0-1.0); EOS # 0.1 K/mm3 (0.0-0.50); EOS % 0.9 % (0.0-3.0); LARGE UNSTAINED CELL # 0.2 K/mm3 (0.0-0.4); LARGE UNSTAINED CELL % 3.1 % (0.0-4.0); LYMPH # 1.1 K/mm3 (1.5-4.5); LYMPH % 13.4 % (24.0-44.0); MEAN CORPUSCULAR HEMOGLOBIN 33.6 pg (27.0-33.0); MEAN CORPUSCULAR HGB CONC 32.6 g/dl (32.0-36.5); MEAN CORPUSCULAR VOLUME 103.2 fl (80.0-96.0); MONO # 0.7 K/mm3 (0.0-0.8); MONO % 8.8 % (0.0-5.0); NEUTROPHILS # 5.7 K/mm3 (1.8-7.7); NEUTROPHILS % 73.7 % (36.0-66.0); PLATELET COUNT, AUTOMATED 282 k/mm3 (150-450); RED CELL DISTRIBUTION WIDTH 15.3 % (11.5-14.5); WHITE BLOOD COUNT 7.8 K/mm3 (4.0-10.0)
[2016-05-21 13:56] LABS: ALBUMIN/GLOBULIN RATIO 1.25 (1.00-1.93); BILIRUBIN,TOTAL 0.8 MG/DL (0.2-1.0); CALCIUM LEVEL 9.3 MG/DL (8.8-10.2); CREATININE FOR GFR 1.55 MG/DL (0.70-1.30); GLOMERULAR FILTRATION RATE 47.3 (>42); POTASSIUM SERUM 5.1 MEQ/L (3.5-5.1); TOTAL PROTEIN 7.2 GM/DL (6.4-8.2)
== END ==
LOC: M SMT 08:37
PROVIDERS: ATTEND Emergency Medicine
DX: J20.9 Acute bronchitis, unspecified (principal); J90 Pleural effusion, not elsewhere classified; R91.8 Other nonspecific abnormal finding of lung field

== ENCOUNTER → 2016-06-10 | Outpatient (REF) | payer MEDICARE ==
[~2016-06-10] MED LIST changes: +ALDA25TA2 PO; +AMLO10TA2 PO; +ATOR40TA PO; +BENZ200C44 PO; +BISO10TA PO; +BISO5TAB5 PO; +DIGO0.127 PO; +ECOT81TA5 PO; +FERR325T PO; +FURO20TA2 PO; +FURO40TA2 PO; +HYDR10T PO; +LEVO50TA5 PO; +LISI40TAB PO; +NITR4TASL SL; +OMEP20CA3 PO; +OPTI0.5D5 OU; +PLAV75TA38 PO; +PROT1TAB2 PO; +RANI150T PO; +SPIR25TA2 PO
== END ==
LOC: M LAB REF 10:20
PROVIDERS: ATTEND Internal Medicine Cardiovascular Disease
DX: I50.22 Chronic systolic (congestive) heart failure (principal); I48.0 Paroxysmal atrial fibrillation; Z98.61 Coronary angioplasty status

== ENCOUNTER 2016-06-12 00:37 | Emergency (ER) | payer MEDICARE ==
[~2016-06-12] VITALS: Ht 166.4 cm; Wt 73.5 kg
[~2016-06-12 00:37] MED LIST changes: -SPIR25TA2 PO
[2016-06-12] MEDS ORDERED: CETACAINE SPRAY 20GM (FLOOR STOCK) As Ordered ONE (00:52)
[2016-06-12] MEDS ORDERED: SPIR25TA2 PO (00:53)
[2016-06-12 04:24] LABS: MEAN CORPUSCULAR HEMOGLOBIN 34.4 pg (27.0-33.0); MEAN CORPUSCULAR HGB CONC 34.2 g/dl (32.0-36.5); MEAN CORPUSCULAR VOLUME 100.7 fl (80.0-96.0); RED CELL DISTRIBUTION WIDTH 14.1 % (11.5-14.5); WHITE BLOOD COUNT 5.3 K/mm3 (4.0-10.0)
[2016-06-12 04:33] LABS: ALBUMIN 3.5 GM/DL (3.2-5.2); ALBUMIN/GLOBULIN RATIO 1.13 (1.00-1.93); BILIRUBIN,TOTAL 0.2 MG/DL (0.2-1.0); CALCIUM LEVEL 7.7 MG/DL (8.8-10.2); CREATININE FOR GFR 1.46 MG/DL (0.70-1.30); GLOMERULAR FILTRATION RATE 50.7 (>42); POTASSIUM SERUM 4.9 MEQ/L (3.5-5.1); TOTAL PROTEIN 6.6 GM/DL (6.4-8.2)
[2016-06-12 06:34] VITALS: BP 117/58
--- NOTE | 2016-06-12 08:36 | REP ---
REASON: Dyspnea. COMPARISON: 05/21/2016 There is cardiomegaly, status quo. There is a single chamber bipolar pacemaker device with AICD status quo. The lung gallegos have cleared compared to the prior exam. No acute patchy parenchymal opacities or pleural effusions have developed. There is no change in the osseous structures. IMPRESSION: Cardiomegaly and other findings as described above, but no evidence of acute cardiopulmonary disease. Signed by Asad Goodson DO 06/12/2016 08:49 A
== END 2016-06-12 06:42 | disposition home or self-care (01) ==
LOC: M ED 02:06
DX: I50.9 Heart failure, unspecified (principal); I51.7 Cardiomegaly; I10 Essential (primary) hypertension; I25.10 Atherosclerotic heart disease of native coronary artery without angina pectoris; K21.9 Gastro-esophageal reflux disease without esophagitis; D64.9 Anemia, unspecified; Z95.0 Presence of cardiac pacemaker; Z95.5 Presence of coronary angioplasty implant and graft; Z87.891 Personal history of nicotine dependence; Z88.0 Allergy status to penicillin; Z88.2 Allergy status to sulfonamides; Z79.899 Other long term (current) drug therapy; Z79.82 Long term (current) use of aspirin; Z79.02 Long term (current) use of antithrombotics/antiplatelets; Z79.01 Long term (current) use of anticoagulants

== ENCOUNTER → 2016-06-22 | Outpatient (CLI) | payer MEDICARE ==
[~2016-06-22] MED LIST changes: +SPIR25TA2 PO
[2016-06-22 19:03] LABS: CALCIUM LEVEL 8.7 MG/DL (8.8-10.2); CREATININE FOR GFR 1.81 MG/DL (0.70-1.30); GLOMERULAR FILTRATION RATE 39.5 (>42); PERCENT SATURATION 21.1 % (19.7-37.4)
[2016-06-22 19:07] LABS: POTASSIUM SERUM 5.7 MEQ/L (3.5-5.1)
[2016-06-22 20:06] LABS: MEAN CORPUSCULAR HEMOGLOBIN 33.6 pg (27.0-33.0); MEAN CORPUSCULAR HGB CONC 32.2 g/dl (32.0-36.5); MEAN CORPUSCULAR VOLUME 104.5 fl (80.0-96.0); RED CELL DISTRIBUTION WIDTH 16.7 % (11.5-14.5); WHITE BLOOD COUNT 6.5 K/mm3 (4.0-10.0)
== END ==
LOC: M SMT 15:35
PROVIDERS: ATTEND Internal Medicine Cardiovascular Disease
DX: D64.9 Anemia, unspecified (principal); I48.91 Unspecified atrial fibrillation; I42.9 Cardiomyopathy, unspecified

== ENCOUNTER → 2016-06-25 | Outpatient (CLI) | payer MEDICARE ==
[2016-06-25 13:47] LABS: ALBUMIN 3.7 GM/DL (3.2-5.2); ALBUMIN/GLOBULIN RATIO 1.23 (1.00-1.93); ALKALINE PHOSPHATASE 51 U/L (45-117); ALT/SGPT 27 U/L (12-78); ANION GAP 8 MEQ/L (8-16); AST/SGOT 19 U/L (15-37); BILIRUBIN,TOTAL 0.3 MG/DL (0.2-1.0); BLOOD UREA NITROGEN 44 MG/DL (7-18); CALCIUM LEVEL 8.5 MG/DL (8.8-10.2); CARBON DIOXIDE LEVEL 22 MEQ/L (21-32); CHLORIDE LEVEL 100 MEQ/L (98-107); CREATININE FOR GFR 1.87 MG/DL (0.70-1.30); GLOMERULAR FILTRATION RATE 38.1 (>42); GLUCOSE, FASTING 107 MG/DL (83-110); SODIUM LEVEL 130 MEQ/L (136-145); TOTAL PROTEIN 6.7 GM/DL (6.4-8.2)
[2016-06-25 13:48] LABS: POTASSIUM SERUM 5.5 MEQ/L (3.5-5.1)
[2016-06-25 13:52] LABS: MEAN CORPUSCULAR HEMOGLOBIN 34.5 pg (27.0-33.0); MEAN CORPUSCULAR HGB CONC 32.9 g/dl (32.0-36.5); MEAN CORPUSCULAR VOLUME 104.9 fl (80.0-96.0); RED CELL DISTRIBUTION WIDTH 17.1 % (11.5-14.5); WHITE BLOOD COUNT 5.9 K/mm3 (4.0-10.0)
== END ==
LOC: M SMT 09:56
PROVIDERS: ATTEND Internal Medicine Cardiovascular Disease
DX: I50.9 Heart failure, unspecified (principal); D64.9 Anemia, unspecified

== ENCOUNTER → 2016-06-30 | Outpatient (REF) | payer MEDICARE | LOC: M LAB REF 06:05 | PROVIDERS: ATTEND Internal Medicine Cardiovascular Disease | DX: D64.9 Anemia, unspecified (principal); I50.9 Heart failure, unspecified ==

== ENCOUNTER → 2016-07-01 | Outpatient (CLI) | payer MEDICARE ==
[2016-07-01 18:19] LABS: CALCIUM LEVEL 9.2 MG/DL (8.8-10.2); CREATININE FOR GFR 1.57 MG/DL (0.70-1.30); GLOMERULAR FILTRATION RATE 46.6 (>42)
[2016-07-01 18:21] LABS: POTASSIUM SERUM 5.8 MEQ/L (3.5-5.1)
[2016-07-01 18:23] LABS: PERCENT SATURATION 7.4 % (19.7-37.4)
[2016-07-01 20:05] LABS: MEAN CORPUSCULAR HEMOGLOBIN 35.4 pg (27.0-33.0); MEAN CORPUSCULAR HGB CONC 32.2 g/dl (32.0-36.5); MEAN CORPUSCULAR VOLUME 110.1 fl (80.0-96.0); RED CELL DISTRIBUTION WIDTH 15.9 % (11.5-14.5); WHITE BLOOD COUNT 5.3 K/mm3 (4.0-10.0)
== END ==
LOC: M SMT 10:13
PROVIDERS: ATTEND Internal Medicine Cardiovascular Disease
DX: D64.9 Anemia, unspecified (principal)

== ENCOUNTER → 2016-07-29 | Outpatient (CLI) | payer MEDICARE ==
[2016-07-29 14:40] LABS: BASO % 0.3 % (0.0-1.0); EOS # 0.1 K/mm3 (0.0-0.50); EOS % 2.1 % (0.0-3.0); LARGE UNSTAINED CELL # 0.1 K/mm3 (0.0-0.4); LYMPH # 1.1 K/mm3 (1.5-4.5); LYMPH % 17.7 % (24.0-44.0); MEAN CORPUSCULAR HEMOGLOBIN 33.5 pg (27.0-33.0); MEAN CORPUSCULAR HGB CONC 30.9 g/dl (32.0-36.5); MEAN CORPUSCULAR VOLUME 108.3 fl (80.0-96.0); MONO # 0.5 K/mm3 (0.0-0.8); MONO % 7.4 % (0.0-5.0); NEUTROPHILS # 4.5 K/mm3 (1.8-7.7); NEUTROPHILS % 70.5 % (36.0-66.0); PLATELET COUNT, AUTOMATED 313 k/mm3 (150-450); RED CELL DISTRIBUTION WIDTH 16.2 % (11.5-14.5); WHITE BLOOD COUNT 6.4 K/mm3 (4.0-10.0)
[2016-07-29 14:52] LABS: ALBUMIN 3.7 GM/DL (3.2-5.2); ALBUMIN/GLOBULIN RATIO 1.12 (1.00-1.93); ALKALINE PHOSPHATASE 59 U/L (45-117); ALT/SGPT 26 U/L (12-78); ANION GAP 9 MEQ/L (8-16); AST/SGOT 21 U/L (15-37); BILIRUBIN,TOTAL 0.5 MG/DL (0.2-1.0); BLOOD UREA NITROGEN 16 MG/DL (7-18); CARBON DIOXIDE LEVEL 28 MEQ/L (21-32); CHLORIDE LEVEL 101 MEQ/L (98-107); CHOLESTEROL LEVEL 168 MG/DL (<200); CREATININE FOR GFR 1.25 MG/DL (0.70-1.30); FREE T4 1.24 NG/DL (0.76-1.46); GLOMERULAR FILTRATION RATE > 60.0 (>42); GLUCOSE, FASTING 99 MG/DL (83-110); MAGNESIUM LEVEL 2.3 MG/DL (1.8-2.4); PERCENT SATURATION 60.7 % (19.7-37.4); SODIUM LEVEL 138 MEQ/L (136-145); TOTAL IRON BINDING CAPACITY 471 UG/DL (250-450); TRIGLYCERIDES LEVEL 82 MG/DL (<150)
== END ==
LOC: M SMT 09:08
PROVIDERS: ATTEND Emergency Medicine
DX: I10 Essential (primary) hypertension (principal); D50.9 Iron deficiency anemia, unspecified; E78.2 Mixed hyperlipidemia; E03.9 Hypothyroidism, unspecified; M10.9 Gout, unspecified; I47.2 Ventricular tachycardia

== ENCOUNTER → 2016-09-14 | Outpatient (CLI) | payer MEDICARE ==
[~2016-09-14] MED LIST changes: -ATOR40TA PO; +ATOR40TA75 PO; -BENZ200C44 PO; +BENZ200C53 PO; +DEMA20TA6 PO; +ELIQ2.5T PO; +FERR1TAB8 PO; -FERR325T PO; +FLAX100012 PO; +HYDR-643 PO; -HYDR10T PO; +HYDR10TAB PO; +LEVO750T13 PO; -LEVO750T33 PO; +LISI2.5T4 PO; +PLAV1TAB2 PO; -PLAV75TA38 PO; +TORS100T PO
[2016-09-14 12:59] LABS: CALCIUM LEVEL 9.2 MG/DL (8.8-10.2); CREATININE FOR GFR 1.51 MG/DL (0.70-1.30); GLOMERULAR FILTRATION RATE 48.6 (>42); POTASSIUM SERUM 4.7 MEQ/L (3.5-5.1)
== END ==
LOC: M SMT 08:50
PROVIDERS: ATTEND Internal Medicine Cardiovascular Disease
DX: I48.91 Unspecified atrial fibrillation (principal); I10 Essential (primary) hypertension; I42.9 Cardiomyopathy, unspecified

== ENCOUNTER → 2016-09-22 | Outpatient (CLI) | payer MEDICARE ==
[~2016-09-22] VITALS: Ht 165.1 cm; Wt 78.0 kg
[~2016-09-22] MED LIST changes: +ASPIRIN 81 MG CHEW TABLET As Ordered ONE; +ASPIRIN 81 MG CHEW TABLET PO ONE; +LIDOCAINE 2% INJ 100 MG/5 ML SDV (FOR ANES.) As Ordered ONE; +NS 1,000 ML IV SCH; +PHENYLephrine HCL 500 MCG/5 ML (100MCG/ML) SYRINGE (J2370) As Ordered ONE; +PROPOFOL 500 MG/50 ML VIAL As Ordered ONE
--- NOTE | 2016-09-22 11:39 | ROOR ---
Patient Name: Marvin Li Procedure Date: 09/22/2016 11:00 AM Date of : 1945 Age: 71 Room: [facility] Gender: Male Note Status: Finalized Procedure: Upper GI endoscopy Indications: Iron deficiency anemia Providers: DO Christopher Cruz MD: PERLA NGUYEN MD Requesting Provider: Medicines: Propofol per Anesthesia Complications: No immediate complications. Estimated blood loss: Minimal. Procedure: Pre-Anesthesia Assessment: - Prior to the procedure, a History and Physical was performed, and patient medications and allergies were reviewed. The patient is competent. The risks and benefits of the procedure and the sedation options and risks were discussed with the patient. All questions were answered and informed consent was obtained. Patient identification and proposed procedure were verified by the physician, the nurse, the anesthesiologist and the domestic technician in the endoscopy suite. Mental Status Examination: alert and oriented. Airway Examination: normal oropharyngeal airway and neck mobility. Respiratory Examination: clear to auscultation. CV Examination: normal. Prophylactic Antibiotics: The patient does not require prophylactic antibiotics. Prior Anticoagulants: The patient has taken no previous anticoagulant or antiplatelet agents. ASA Grade Assessment: II - A patient with mild systemic disease. After reviewing the risks and benefits, the patient was deemed in satisfactory condition to undergo the procedure. The anesthesia plan was to use monitored anesthesia care (MAC). Immediately prior to administration of medications, the patient was re-assessed for adequacy to receive sedatives. The heart rate, respiratory rate, oxygen saturations, blood pressure, adequacy of pulmonary ventilation, and response to care were monitored throughout the procedure. The physical status of the patient was re-assessed after the procedure. The Endoscope was introduced through the mouth, and advanced to the second part of duodenum. The upper GI endoscopy was accomplished without difficulty. The patient tolerated the procedure well. Findings: The Z-line was irregular. Biopsies were taken with a cold forceps for histology. Estimated blood loss was minimal. A small hiatal hernia was present. Non-severe esophagitis with bleeding was found. Biopsies were taken with a cold forceps for histology. Impression: - Z-line irregular. Biopsied. - Small hiatal hernia. - Non-severe reflux esophagitis. Rule out Ruiz's esophagus. Biopsied. Recommendation: - Patient has a contact number available for emergencies. The signs and symptoms of potential delayed complications were discussed with the patient. Return to normal activities tomorrow. Written discharge instructions were provided to the patient. - Telephone my office for pathology results in 1 week. Dae Burks DO 09/22/2016 11:38:37 AM This report has been signed electronically. Number of Addenda: 0 Note Initiated On: 09/22/2016 11:00 AM Estimated Blood Loss: Estimated blood loss was minimal.
--- NOTE | 2016-09-22 11:46 | ROOR ---
Patient Name: Marvin Li Procedure Date: 09/22/2016 11:00 AM Date of : 1945 Age: 71 Room: [facility] Gender: Male Note Status: Finalized Procedure: Colonoscopy Indications: Iron deficiency anemia Providers: DO Christopher Cruz MD: PERLA NGUYEN MD Requesting Provider: Medicines: Propofol per Anesthesia Complications: No immediate complications. Procedure: Pre-Anesthesia Assessment: - Prior to the procedure, a History and Physical was performed, and patient medications and allergies were reviewed. The patient is competent. The risks and benefits of the procedure and the sedation options and risks were discussed with the patient. All questions were answered and informed consent was obtained. Patient identification and proposed procedure were verified by the physician, the nurse, the insert molding operator and the theater technician in the endoscopy suite. Mental Status Examination: alert and oriented. Airway Examination: normal oropharyngeal airway and neck mobility. Respiratory Examination: clear to auscultation. CV Examination: normal. Prophylactic Antibiotics: The patient does not require prophylactic antibiotics. Prior Anticoagulants: The patient has taken aspirin. ASA Grade Assessment: III - A patient with severe systemic disease. After reviewing the risks and benefits, the patient was deemed in satisfactory condition to undergo the procedure. The anesthesia plan was to use monitored anesthesia care (MAC). Immediately prior to administration of medications, the patient was re-assessed for adequacy to receive sedatives. The heart rate, respiratory rate, oxygen saturations, blood pressure, adequacy of pulmonary ventilation, and response to care were monitored throughout the procedure. The physical status of the patient was re-assessed after the procedure. The Colonoscope was introduced through the anus and advanced to the cecum, identified by the appendiceal orifice, ileocecal valve and palpation. The colonoscopy was performed without difficulty. The patient tolerated the procedure well. Findings: Multiple small and large-mouthed diverticula were found in the sigmoid colon. Three hyperplastic polyps were found in the sigmoid colon and transverse colon. The polyps were less than 5 mm in size. These polyps were removed with a jumbo cold forceps. Resection and retrieval were complete. Estimated blood loss was minimal. The exam was otherwise without abnormality on direct and retroflexion views. Impression: - Diverticulosis in the sigmoid colon. - Three less than 5 mm polyps in the sigmoid colon and in the transverse colon, removed with a jumbo cold forceps. Resected and retrieved. - The examination was otherwise normal on direct and retroflexion views. Recommendation: - Patient has a contact number available for emergencies. The signs and symptoms of potential delayed complications were discussed with the patient. Return to normal activities tomorrow. Written discharge instructions were provided to the patient. - Repeat colonoscopy in 5-10 years for surveillance based on pathology results. - Return to my office PRN. Dae Burks DO 09/22/2016 11:46:03 AM This report has been signed electronically. Number of Addenda: 0 Note Initiated On: 09/22/2016 11:00 AM Estimated Blood Loss: Estimated blood loss was minimal.
[2016-09-22 12:12] VITALS: BP 150/81
== END ==
LOC: M OPP 10:19
PROVIDERS: ATTEND Surgery
DX: D50.9 Iron deficiency anemia, unspecified (principal); K57.30 Diverticulosis of large intestine without perforation or abscess without bleeding; D12.5 Benign neoplasm of sigmoid colon; D12.3 Benign neoplasm of transverse colon; K44.9 Diaphragmatic hernia without obstruction or gangrene; K21.0 Gastro-esophageal reflux disease with esophagitis; I11.9 Hypertensive heart disease without heart failure; E78.00 Pure hypercholesterolemia, unspecified; I50.9 Heart failure, unspecified; I48.91 Unspecified atrial fibrillation; E03.9 Hypothyroidism, unspecified; J44.9 Chronic obstructive pulmonary disease, unspecified; M10.9 Gout, unspecified; Z87.891 Personal history of nicotine dependence; Z86.010 Personal history of colon polyps; Z79.899 Other long term (current) drug therapy; Z79.82 Long term (current) use of aspirin; Z88.0 Allergy status to penicillin; Z88.1 Allergy status to other antibiotic agents; Z88.2 Allergy status to sulfonamides; Z95.810 Presence of automatic (implantable) cardiac defibrillator; Z96.89 Presence of other specified functional implants; Z86.74 Personal history of sudden cardiac arrest
CPT/HCPCS: 43239; 45380; 88305; J2370

== ENCOUNTER → 2016-09-28 | Outpatient (CLI) | payer MEDICARE ==
[~2016-09-28] MED LIST changes: -ASPIRIN 81 MG CHEW TABLET As Ordered ONE; -ASPIRIN 81 MG CHEW TABLET PO ONE; -LIDOCAINE 2% INJ 100 MG/5 ML SDV (FOR ANES.) As Ordered ONE; -NS 1,000 ML IV SCH; -PHENYLephrine HCL 500 MCG/5 ML (100MCG/ML) SYRINGE (J2370) As Ordered ONE; -PROPOFOL 500 MG/50 ML VIAL As Ordered ONE
--- NOTE | 2016-09-28 13:57 | REP ---
CHEST, TWO VIEWS: HISTORY: Cough. COMPARISON: 06/12/2016. A minimal increase in interstitial markings is present in the lungs. There is blunting of the right costophrenic angle due to a small pleural effusion. The cardiac silhouette is enlarged. The pulmonary vasculature is prominent. IMPRESSION: Findings consistent with interstitial edema or infiltrates. Signed by Petey Cain MD 09/28/2016 02:03 P
== END ==
LOC: M SMT 11:35
PROVIDERS: ATTEND Internal Medicine Cardiovascular Disease
DX: R06.02 Shortness of breath (principal); R05 Cough

== ENCOUNTER 2016-09-30 03:33 | Inpatient (IN) | payer MEDICARE ==
[~2016-09-30] VITALS: Ht 167.6 cm; Wt 75.1 kg
[~2016-09-30 03:33] MED LIST changes: -DEMA20TA6 PO; -ELIQ2.5T PO; -FLAX100012 PO; -HYDR10TAB PO; -LISI2.5T4 PO; -TORS100T PO
[2016-09-30] MEDS ORDERED: NITROGLYCERIN 2% OINT 1 GM *U/D* PKT TOP ONE (05:45)
[2016-09-30] MEDS ORDERED: FUROSEMIDE 100 MG/10 ML VIAL (J1940) IV ONE (05:45)
[2016-09-30 06:11] LABS: BASO # 0.1 K/mm3 (0.0-0.2); BASO % 1.4 % (0.0-1.0); EOS # 0.1 K/mm3 (0.0-0.50); EOS % 1.1 % (0.0-3.0); LARGE UNSTAINED CELL # 0.2 K/mm3 (0.0-0.4); LARGE UNSTAINED CELL % 2.1 % (0.0-4.0); LYMPH # 1.1 K/mm3 (1.5-4.5); LYMPH % 11.9 % (24.0-44.0); MEAN CORPUSCULAR HEMOGLOBIN 33.8 pg (27.0-33.0); MEAN CORPUSCULAR HGB CONC 33.3 g/dl (32.0-36.5); MEAN CORPUSCULAR VOLUME 101.3 fl (80.0-96.0); MONO # 0.4 K/mm3 (0.0-0.8); MONO % 5.2 % (0.0-5.0); NEUTROPHILS % 78.3 % (36.0-66.0); PLATELET COUNT, AUTOMATED 192 k/mm3 (150-450); RED CELL DISTRIBUTION WIDTH 15.1 % (11.5-14.5); WHITE BLOOD COUNT 7.7 K/mm3 (4.0-10.0)
[2016-09-30 06:39] LABS: ABG BASE EXCESS 0.6 (-2.0-2.0); ABG HCO3 23.7 MEQ/L (22.0-26.0); ABG PARTIAL PRESSURE CO2 33.8 mmHg (35.0-45.0); ABG PARTIAL PRESSURE O2 70.9 mmHg (75.0-100.0); ABG STANDARD HCO3 24.9 MEQ/L (22.0-26.0); ABG TOTAL CO2 24.7 MEQ/L (23.0-31.0); ABG pH (ARTERIAL) 7.463 UNITS (7.350-7.450)
[2016-09-30] MEDS: IPRATROPIUM 0.5MG/ALBUTEROL 2.5MG INH SOL UD 3ML (DUONEB)(J7620) NEB SCH ×3 (07:07→07:24)
[2016-09-30 07:38] LABS: CALCIUM LEVEL 9.1 MG/DL (8.8-10.2); CREATININE FOR GFR 1.52 MG/DL (0.70-1.30); GLOMERULAR FILTRATION RATE 48.2 (>42)
--- NOTE | 2016-09-30 08:36 | REP ---
PA and lateral chest: Comparison is 09/28/2016. There is cardiomegaly, unchanged. There is a single lead pacemaker entering from the right, unchanged. On the lateral view there is effacement right costophrenic angle. This is difficult to lateralize on the PA view but it is compatible with a pleural effusion. The vinicio, mediastinum, and bony thorax unremarkable. Impression: Pleural effusion as described. Cardiomegaly and pacemaker, unchanged. Signed by Dae Worley MD 09/30/2016 08:26 A
[2016-09-30] MEDS ORDERED: NITROGLYCERIN 0.4 MG SUBL TABLET SL PRN (10:15)
[2016-09-30 12:18] VITALS: BP 180/81
[2016-09-30] MEDS: FUROSEMIDE 40 MG/4 ML VIAL (J1940) IV SCH ×2 (12:43→17:45)
[2016-09-30] MEDS: ASPIRIN 81 MG ENTERIC TAB PO SCH (12:43)
[2016-09-30] MEDS: ALLOPURINOL 100 MG TAB PO SCH (12:44)
[2016-09-30] MEDS: LEVOTHYROXINE 50MCG TABLET (0.05MG) PO SCH (12:44)
[2016-09-30] MEDS: ATORVASTATIN 20 MG TAB PO SCH (12:44)
[2016-09-30 13:18] LABS: CALCIUM LEVEL 9.4 MG/DL (8.8-10.2); CREATININE FOR GFR 1.67 MG/DL (0.70-1.30); GLOMERULAR FILTRATION RATE 43.3 (>42); MAGNESIUM LEVEL 2.1 MG/DL (1.8-2.4); POTASSIUM SERUM 4.3 MEQ/L (3.5-5.1)
[2016-09-30] MEDS: HEPARIN SOD (PORCINE) 5000 UNITS/ML VIAL SC SCH ×2 (14:15→21:09)
[2016-09-30 16:00] VITALS: BP 135/82
--- NOTE | 2016-09-30 17:06 | HPEPDOC ---
General Date of Admission Sep 30, 2016 at 10:03 Chief Complaint The patient is a 71-year-old male Presented to the ER with complaints of worsening shortness of breath. History of Present Illness Patient is a 71 year old male with a PMHx of Systolic heart failure 2/ 2 Ischemic cardiomyopathy s/p AICD (EF: 02/2014: of 35%), CAD s/p PCI (Hx of [place], JEAN at RCA), A. fibrillation (not on anticoagulation), HTN, DLP, TIA, Hypothyroidism, MELVINA and Gout who presented to the ER with complaints of shortness of breath. Patient has noted that he has been short of breath since his admission in April 2016. He notes that he has been following outpatient with cardiology and has had his Lasix dose adjusted. He was previously on 40mg earlier this month and was increased to 60mg daily. He was taken off spironolactone because of low blood pressure. Patient has noted that over the last few days he has been having worsening shortness of breath, orthopnea of 1 pillow and PND. He reports a productive cough with clear sputum. Denies any fevers and chills. Denies any chest pain or palpitations. Patient was diagnosed with atrial fibrillation 04/2016 and was started on rate control and anticoagulation with Eliquis. He noted that he had stool guiac tests completed as well that were positive and he was found to be anemic. He was taken off anticoagulation and was sent for an EGD and Colonoscopy that turned out to be negative for any acute pathology. Denies any nausea, vomiting, abdominal pain, constipation, diarrhea or dysuria. Home Medications Scheduled Allopurinol (Allopurinol) 100 Mg Tab, 100 MG PO DAILY, (Reported) Aspirin (Ecotrin Low Strength) 81 Mg Tab, 81 MG PO DAILY, (Reported) Atorvastatin Calcium (Atorvastatin Calcium) 40 Mg Tab, 40 MG PO DAILY, (Reported ) Bisoprolol Fumarate (Bisoprolol Fumarate) 5 Mg Tab, 5 MG PO BID, (Reported) Ferrous Sulfate (Ferrous Sulfate) 325 Mg Tab, 325 MG PO BID, (Reported) Furosemide (Lasix) 40 Mg Tab, 60 MG PO DAILY, (Reported) Levothyroxine Sodium (Synthroid) 50 Mcg Tab, 50 MCG PO DAILY, (Reported) Omeprazole (Omeprazole) 20 Mg Cap, 20 MG PO QHS, (Reported) Ranitidine HCl (Ranitidine HCl) 150 Mg Tab, 1 TAB PO QHS, (Reported) Scheduled PRN Nitroglycerin (Nitrostat) 0.4 Mg Subl, 0.4 MG SL Q5MP PRN for CHEST PAIN, ( Reported) Allergies Coded Allergies: Penicillins (Verified Allergy, Unknown, 09/15/16) Penicillins Cross Reactors (Verified Allergy, Unknown, 06/05/12) Quinolones (Verified Allergy, Unknown, 06/05/12) Sulfa Antibiotics (Verified Allergy, Unknown, 09/25/14) Past Medical History Medical History Systolic heart failure 2/2 Ischemic cardiomyopathy s/p AICD (EF: 02/2014: of 35%) , CAD s/p PCI (Hx of [place], JEAN at RCA), A. 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 Review of Symptoms Other systems Constitutional: Denies weight loss, change in appetite, or recent trauma Eyes: No visual changes or eye pain Ears, Nose, Throat: Denies nose bleeds, or difficulty swallowing Cardiovascular: Denies chest pain, sweating Respiratory: Positive cough and shortness of breath; No wheezing GI: Rell nausea, vomiting, abdominal pain, diarrhea or constipation : Denies pain with urination or frequency Musculoskeletal: Denies joint pain or swelling Neuro / Psych: Denies muscle weakness or sensory loss Skin: No skin rashes noted All other review of systems negative; otherwise stated in history of present illness Vital Signs - Vitals: BP 180/81, HR 82, RR 18, Sat 95%RA, Temp 97.6F - General: Lying in bed, No acute distress, Speaking in full sentences, AAOx3 - HEENT: NC, AT, PERRLA - CVS: IrIr, +S1S2 - Lungs: Fair air entry bilaterally, Mild crackles bilaterally - Abdomen: Soft, Non-distended, Non-tender, + Bowel sounds x 4 - Extremities: Trace lower extremity edema, No calf tenderness - Neuro: No focal motor or sensory deficit - Skin: No visible rashes Laboratory Data Labs 24H Laboratory Tests 2 09/30/16 05:55: White Blood Count 7.7, Red Blood Count 4.15L, Hemoglobin 14.0, Hematocrit 42.1, Mean Corpuscular Volume 101.3H, Mean Corpuscular Hemoglobin 33.8H, Mean Corpuscular Hemoglobin Concent 33.3, Red Cell Distribution Width 15.1H, Platelet Count 192, Neutrophils (%) (Auto) 78.3H, Lymphocytes (%) (Auto) 11.9L, Monocytes (%) (Auto) 5.2H, Eosinophils (%) (Auto) 1.1, Basophils (%) (Auto) 1.4H , Neutrophils # (Auto) 6.0, Lymphocytes # (Auto) 1.1L, Monocytes # (Auto) 0.4, Eosinophils # (Auto) 0.1, Basophils # (Auto) 0.1, Large Unclassified Cells % 2.1 , Large Unclassified Cells # 0.2, B-Type Natriuretic Peptide 1630H 09/30/16 06:19: Blood Gas Bicarbonate Standard 24.9, Arterial Blood pH 7.463H, Arterial Blood Partial Pressure CO2 33.8L, Arterial Blood Partial Pressure O2 70.9L, Arterial Blood Total CO2 24.7, Arterial Blood HCO3 23.7, Arterial Blood Base Excess 0.6, Arterial Blood Oxygen Saturation 93.0L 09/30/16 07:08: Anion Gap 10, Glomerular Filtration Rate 48.2, Blood Urea Nitrogen 34H, Creatinine 1.52H, Sodium Level 136, Potassium Level 4.0, Chloride Level 102, Carbon Dioxide Level 24, Calcium Level 9.1, Total Creatine Kinase 232, Creatine Kinase MB 6.8H, Creatine Kinase MB Relative Index 2.93, Troponin I 0.02 09/30/16 12:45: Anion Gap 11, Glomerular Filtration Rate 43.3, Blood Urea Nitrogen 35H, Creatinine 1.67H, Sodium Level 136, Potassium Level 4.3, Chloride Level 97L, Carbon Dioxide Level 28, Calcium Level 9.4, Total Creatine Kinase 225, Creatine Kinase MB 6.3H, Creatine Kinase MB Relative Index 2.80, Troponin I 0.02, Magnesium Level 2.1 CBC/BMP Laboratory Tests 09/30/16 05:55 Red Blood Count 4.15 L, Mean Corpuscular Volume 101.3 H, Mean Corpuscular Hemoglobin 33.8 H, Mean Corpuscular Hemoglobin Concent 33.3, Red Cell Distribution Width 15.1 H, Neutrophils (%) (Auto) 78.3 H, Lymphocytes (%) (Auto ) 11.9 L, Monocytes (%) (Auto) 5.2 H, Eosinophils (%) (Auto) 1.1, Basophils (%) (Auto) 1.4 H, Neutrophils # (Auto) 6.0, Lymphocytes # (Auto) 1.1 L, Monocytes # (Auto) 0.4, Eosinophils # (Auto) 0.1, Basophils # (Auto) 0.1 09/30/16 07:08 Calcium Level 9.1 09/30/16 12:45 Calcium Level 9.4, Total Creatine Kinase 225 Plan / VTE VTE Prophylaxis Ordered?: Yes Plan Plan Shortness of breath likely 2/2 decompensated systolic heart failure - Presented with worsening shortness of breath, orthopnea and PND - Physical reveals crackles at bilateral lung bases and trace LE edema, no appreciable JVD - BNP elevated at 1630 - CXR 09/30: pleural effusions noted on right - s/p Lasix 80mg IV in ER - will continue with fluid restrictions, Lasix net negative protocol - Will get follow CXR in [place] Systolic heart failure 2/2 Ischemic cardiomyopathy s/p AICD - EF: 02/2014: of 35% - Will get repeat ECHO at this time CAD s/p PCI - Hx of AR - JEAN at RCA - Will trend cardiac markers - c/w ASA A. fibrillation - EKG with rate controlled atrial fibrillation - rate controlled with bisoprolol - not on anticoagulation for anemia and GI bleed history HTN - c/w bisoprolol DLP - c/w atorvastatin TIA - c/w ASA Hypothyroidism - c/w levothyroxine Iron deficiency anemia - c/w ferrous sulfate Gout - c/w allopurinol GERD - c/w Famotidine and Omeprazole DVT prophylaxis - Will start Heparin ANDRES SMALLS MD Sep 30, 2016 17:06
[2016-09-30 20:00] VITALS: BP 139/88
[2016-09-30] MEDS: FERROUS SULFATE 325MG TAB PO SCH (21:06)
[2016-09-30] MEDS: FAMOTIDINE 20 MG TAB PO SCH (21:06)
[2016-09-30] MEDS: OMEPRAZOLE 20 MG CAP PO SCH (21:07)
[2016-09-30] MEDS: BISOPROLOL FUMARATE 5 MG TAB PO SCH (21:08)
[2016-09-30 21:14] VITALS: BP 147/87
--- NOTE | 2016-09-30 21:36 | ECGEPIP ---
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
[2016-09-30 22:19] LABS: CALCIUM LEVEL 8.8 MG/DL (8.8-10.2); CREATININE FOR GFR 1.81 MG/DL (0.70-1.30); GLOMERULAR FILTRATION RATE 39.4 (>42); MAGNESIUM LEVEL 2.1 MG/DL (1.8-2.4)
[2016-09-30 23:59] VITALS: BP 149/85
[2016-10-01] MEDS: FUROSEMIDE 40 MG/4 ML VIAL (J1940) IV SCH ×3 (01:30→17:41)
[2016-10-01 04:00] VITALS: BP 145/93
[2016-10-01 05:34] LABS: BASO % 0.7 % (0.0-1.0); EOS # 0.1 K/mm3 (0.0-0.50); EOS % 1.7 % (0.0-3.0); LARGE UNSTAINED CELL # 0.2 K/mm3 (0.0-0.4); LARGE UNSTAINED CELL % 2.7 % (0.0-4.0); LYMPH % 15.8 % (24.0-44.0); MEAN CORPUSCULAR HEMOGLOBIN 34.3 pg (27.0-33.0); MEAN CORPUSCULAR HGB CONC 33.9 g/dl (32.0-36.5); MONO # 0.6 K/mm3 (0.0-0.8); MONO % 9.5 % (0.0-5.0); NEUTROPHILS # 4.4 K/mm3 (1.8-7.7); NEUTROPHILS % 69.6 % (36.0-66.0); PLATELET COUNT, AUTOMATED 175 k/mm3 (150-450); RED CELL DISTRIBUTION WIDTH 15.2 % (11.5-14.5); WHITE BLOOD COUNT 6.3 K/mm3 (4.0-10.0)
[2016-10-01 05:48] LABS: ALBUMIN 3.4 GM/DL (3.2-5.2); ALBUMIN/GLOBULIN RATIO 1.1 (1.00-1.93); BILIRUBIN,TOTAL 1.1 MG/DL (0.2-1.0); CALCIUM LEVEL 8.9 MG/DL (8.8-10.2); CREATININE FOR GFR 1.56 MG/DL (0.70-1.30); GLOMERULAR FILTRATION RATE 46.8 (>42); MAGNESIUM LEVEL 2.1 MG/DL (1.8-2.4); POTASSIUM SERUM 3.5 MEQ/L (3.5-5.1); TOTAL PROTEIN 6.5 GM/DL (6.4-8.2)
[2016-10-01] MEDS: HEPARIN SOD (PORCINE) 5000 UNITS/ML VIAL SC SCH ×3 (06:05→21:17)
[2016-10-01] MEDS: LEVOTHYROXINE 50MCG TABLET (0.05MG) PO SCH (06:06)
[2016-10-01 08:00] VITALS: BP 172/82
[2016-10-01] MEDS: ATORVASTATIN 20 MG TAB PO SCH (08:52)
[2016-10-01] MEDS: ASPIRIN 81 MG ENTERIC TAB PO SCH (08:52)
[2016-10-01] MEDS: FERROUS SULFATE 325MG TAB PO SCH ×2 (08:52→21:17)
[2016-10-01] MEDS: ALLOPURINOL 100 MG TAB PO SCH (08:52)
[2016-10-01] MEDS: BISOPROLOL FUMARATE 5 MG TAB PO SCH ×2 (08:52→21:17)
--- NOTE | 2016-10-01 09:27 | REP ---
Portable chest, single AP view, the patient semi upright, 07:03 a.m.: Comparison is 09/30/2016. There is effacement of the right lateral costophrenic angle compatible with a small right pleural effusion. The lung gallegos otherwise clear. Cardiac size is enlarged, unchanged. Pacemaker/AICD is again identified entering from the right, unchanged. Impression: Small right pleural effusion. Cardiomegaly Signed by Dae Worley MD 10/01/2016 09:18 A
--- NOTE | 2016-10-01 11:27 | IPNPDOC ---
Text Note Date of Service The patient was seen on 10/01/16. NOTE Subjective: Patient is a 71 year old male with a PMHx of Systolic heart failure 2/ 2 Ischemic cardiomyopathy s/p AICD (EF: 02/2014: of 35%), CAD s/p PCI (Hx of [place], JEAN at RCA), A. fibrillation (not on anticoagulation), HTN, DLP, TIA, Hypothyroidism, MELVINA and Gout who presented to the ER with complaints of shortness of breath. He noted PND and orthopnea. He was found to have decompensated systolic heart failure and admitted to PCU. Patient was seen and examined at the bedside. Currently he notes that his breathing has improved. He still notes a mild cough. Objective: Vitals (See below) General: Lying in bed, no acute distress, comfortable, AAOx3 HEENT: NC, AT CVS: IrIr, +S1S2 Lungs: Fair air entry b/l, mild crackles at right lung base Abdomen: Soft, ND, NT, +BSx4 Extremities: No appreciable lower extremity edema, - Calf tenderness Assessment and plan: 1. Dyspnea - likely 2/2 decompensated systolic heart failure - 2/2 Ischemic cardiomyopathy s/p AICD - Presented with worsening shortness of breath, orthopnea and PND - improving - Physical reveals mild right sided crackles, no appreciable JVD - BNP elevated on admission at 1630 - EF from 02/2014 of 35%; will get repeat ECHO - CXR 09/30 and 10/01: pleural effusions noted on right - Has remained negative fluid balance - Will decrease dose of Laix 2. CAD s/p PCI - Hx of [place] - JEAN at RCA - Negative enzymes x 3 sets - c/w ASA 3. A. fibrillation - EKG with rate controlled atrial fibrillation - rate controlled with bisoprolol - not on anticoagulation for anemia and GI bleed history - Will have outpatient follow up with Cardiology for restarting anticoagulation 4. HTN - c/w bisoprolol 5. DLP - c/w atorvastatin 6. TIA - c/w ASA 7. Hypothyroidism - c/w levothyroxine 8. Iron deficiency anemia - c/w ferrous sulfate 9. Gout - c/w allopurinol 10. GERD - c/w Famotidine and Omeprazole 11. DVT prophylaxis - c/w Heparin VS,Fishbone, I+O VS, Fishbone, I+O Laboratory Tests 8/3/17 12:45 Calcium Level 9.4, Total Creatine Kinase 225 09/30/16 21:46 Calcium Level 8.8 10/01/16 05:12 Calcium Level 8.9, Red Blood Count 4.03 L, Mean Corpuscular Volume 101.0 H, Mean Corpuscular Hemoglobin 34.3 H, Mean Corpuscular Hemoglobin Concent 33.9, Red Cell Distribution Width 15.2 H, Neutrophils (%) (Auto) 69.6 H, Lymphocytes ( %) (Auto) 15.8 L, Monocytes (%) (Auto) 9.5 H, Eosinophils (%) (Auto) 1.7, Basophils (%) (Auto) 0.7, Neutrophils # (Auto) 4.4, Lymphocytes # (Auto) 1.0 L, Monocytes # (Auto) 0.6, Eosinophils # (Auto) 0.1, Basophils # (Auto) 0.0, Aspartate Amino Transf (AST/SGOT) 33, Alanine Aminotransferase (ALT/SGPT) 35, Alkaline Phosphatase 49, Total Bilirubin 1.1 H, Total Protein 6.5, Albumin 3.4 Vital Signs Date Time Temp Pulse Resp B/P (MAP) Pulse Ox O2 Delivery O2 Flow Rate FiO2 10/01/16 08:52 99 172/82 10/01/16 08:00 97.8 18 98 Room Air I&O- Last 24 Hours up to 6 AM 10/01/16 06:00 Intake Total 960 ml Output Total 4200 ml Balance -3240 ml ANDRES SMALLS MD Oct 01, 2016 11:27
[2016-10-01] MEDS ORDERED: SLF 3 ML SYR IV PRN (11:30)
[2016-10-01 12:00] VITALS: BP 160/86
--- NOTE | 2016-10-01 13:00 | ECGEPIP ---
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 Isolated PVC. Prominent precordial voltage with strain pattern in keeping with LVH. Different precordial lead placement from 09/30/16. Electronically Signed On 10-01-2016 13:00:38 EDT by Juan Izquierdo
[2016-10-01] MEDS: SLF 3 ML SYR IV SCH (14:03)
[2016-10-01 16:00] VITALS: BP 156/80
[2016-10-01 20:00] VITALS: BP 133/89
[2016-10-01] MEDS: OMEPRAZOLE 20 MG CAP PO SCH (21:17)
[2016-10-01] MEDS: FAMOTIDINE 20 MG TAB PO SCH (21:17)
[2016-10-02] VITALS: BP 138/89
[2016-10-02] MEDS: SLF 3 ML SYR IV SCH ×2 (00:29→05:37)
[2016-10-02 04:00] VITALS: BP 138/82
[2016-10-02] MEDS ORDERED: ONDANSETRON 4MG/2ML VIAL (J2405) IV ONE (05:30)
[2016-10-02 05:33] LABS: BASO # 0.1 K/mm3 (0.0-0.2); EOS # 0.1 K/mm3 (0.0-0.50); EOS % 1.6 % (0.0-3.0); LARGE UNSTAINED CELL # 0.1 K/mm3 (0.0-0.4); LARGE UNSTAINED CELL % 1.8 % (0.0-4.0); LYMPH # 1.2 K/mm3 (1.5-4.5); LYMPH % 14.4 % (24.0-44.0); MEAN CORPUSCULAR HEMOGLOBIN 33.8 pg (27.0-33.0); MEAN CORPUSCULAR HGB CONC 32.7 g/dl (32.0-36.5); MEAN CORPUSCULAR VOLUME 103.4 fl (80.0-96.0); MONO # 0.4 K/mm3 (0.0-0.8); MONO % 5.5 % (0.0-5.0); NEUTROPHILS # 5.7 K/mm3 (1.8-7.7); NEUTROPHILS % 75.7 % (36.0-66.0); PLATELET COUNT, AUTOMATED 222 k/mm3 (150-450); RED CELL DISTRIBUTION WIDTH 15.3 % (11.5-14.5); WHITE BLOOD COUNT 7.5 K/mm3 (4.0-10.0)
[2016-10-02] MEDS: FUROSEMIDE 40 MG/4 ML VIAL (J1940) IV SCH (05:36)
[2016-10-02] MEDS: HEPARIN SOD (PORCINE) 5000 UNITS/ML VIAL SC SCH (05:36)
[2016-10-02] MEDS: LEVOTHYROXINE 50MCG TABLET (0.05MG) PO SCH (05:36)
[2016-10-02 05:54] LABS: ALBUMIN 3.7 GM/DL (3.2-5.2); ALBUMIN/GLOBULIN RATIO 0.95 (1.00-1.93); BILIRUBIN,TOTAL 1.1 MG/DL (0.2-1.0); CALCIUM LEVEL 9.5 MG/DL (8.8-10.2); CREATININE FOR GFR 1.91 MG/DL (0.70-1.30); GLOMERULAR FILTRATION RATE 37.1 (>42); MAGNESIUM LEVEL 2.3 MG/DL (1.8-2.4); POTASSIUM SERUM 4.4 MEQ/L (3.5-5.1); TOTAL PROTEIN 7.6 GM/DL (6.4-8.2)
[2016-10-02 08:00] VITALS: BP 136/77
[2016-10-02] MEDS: ATORVASTATIN 20 MG TAB PO SCH (08:36)
[2016-10-02 08:37] VITALS: BP 136/77
[2016-10-02] MEDS: BISOPROLOL FUMARATE 5 MG TAB PO SCH (08:37)
[2016-10-02] MEDS: ASPIRIN 81 MG ENTERIC TAB PO SCH (08:37)
[2016-10-02] MEDS: FERROUS SULFATE 325MG TAB PO SCH (08:37)
[2016-10-02] MEDS: ALLOPURINOL 100 MG TAB PO SCH (08:37)
[2016-10-02] MEDS ORDERED: LASI40TA PO (10:18)
--- NOTE | 2016-10-02 16:24 | DSES ---
DATE OF ADMISSION: 09/30/2016 DATE OF DISCHARGE: 10/02/2016 PRIMARY CARE PHYSICIAN: Epi Cerda. REFERRING PHYSICIAN: None. CONSULTING PHYSICIAN: None. CONDITION ON DISCHARGE: Stable. FINAL DIAGNOSIS: Decompensated systolic heart failure. PROCEDURES: None. HISTORY OF PRESENT ILLNESS: The patient is a 71-year-old male with past medical history of systolic heart failure secondary to ischemic cardiomyopathy, status post automatic implantable cardioverter defibrillator (AICD), ejection fraction in February 2014, of 35%, coronary artery disease status post percutaneous coronary intervention (PCI), history of myocardial infarction (NC), drug-eluting stent in the right coronary artery, atrial fibrillation not on anticoagulation, hypertension, dyslipidemia, transient ischemic attack (TIA), hypothyroidism, iron-deficiency anemia, and gout, who presented to the emergency room (ER) with complaints of shortness of breath. He was noted to have paroxysmal nocturnal dyspnea (PND) and orthopnea. He was found to have decompensated systolic heart failure and admitted to progressive care unit (PCU). The patient was seen and examined at bedside. HOSPITAL COURSE: 1. Dyspnea, likely secondary to decompensated systolic heart failure secondary to ischemic cardiomyopathy status post AICD. Presented with worsening shortness of breath, orthopnea, PND. Has been improving. Has completely resolved throughout hospital course. Physical reveals mild crackles on admission and trace lower extremity edema. However, upon discharge, there have been no crackles and no lower extremity edema. No jugular venous distention (JVD) was appreciated throughout hospital course. Brain natriuretic peptide (BNP) was elevated at admission at 1630. Ejection fraction from February 2014, was 35%. Repeat echocardiogram was acquired. Chest x-ray on 09/30 and 10/01 revealed pleural effusion on the right side. The patient had remained in negative fluid balance throughout the last 48 hours, throughout hospital course. The patient was put on Lasix intravenous (IV) throughout the hospital course to maintain this status, and has been transitioned back to oral Lasix upon discharge. 2. Coronary artery disease status post PCI. History of NC, drug-eluting stent placement on the right coronary artery. Negative enzymes times three tests. Continue aspirin. 3. Atrial fibrillation. Electrocardiogram (EKG) with rate-controlled atrial fibrillation. Rate control with bisoprolol. Not on any anticoagulation for anemia and gastrointestinal (GI) bleed history. The patient recently has had a GI evaluation with a colonoscopy and esophagogastroduodenoscopy (EGD), and has been negative for any cause for bleeding. The patient will be referred to his outpatient automation consultant for restarting his anticoagulation. 4. Hypertension. Continue with bisoprolol. 5. Dyslipidemia. Continue with atorvastatin. 6. TIA. Continue with aspirin. 7. Hypothyroidism. Continue with levothyroxine. 8. Iron-deficiency anemia. Continue with ferrous sulfate. 9. Gout. Continue with allopurinol. 10. Gastroesophageal reflux disease (GERD). Continue with ranitidine and omeprazole. 11. Deep venous thrombosis (DVT) prophylaxis. Continue with heparin. DISCHARGE MEDICATIONS: The patient is being discharged home with the following medication list: - allopurinol 100 mg by mouth daily - aspirin 81 mg by mouth daily - atorvastatin 40 mg by mouth daily - bisoprolol 5 mg by mouth twice a day - ferrous sulfate 325 mg by mouth twice a day - levothyroxine 50 mcg by mouth daily - nitroglycerin 0.4 mg sublingual every five minutes as needed for chest pain - omeprazole 20 mg by mouth at bedtime - ranitidine one tablet by mouth at bedtime Changes in medications include: Lasix new dose is 40 mg in the morning and 20 mg in the evening. DISCHARGE INSTRUCTIONS: The patient has been advised to followup with his primary care provider and cardiology within the next seven days. He has been advised to remain compliant with treatment plan and medications, and return to the emergency room if he experiences any problems. TIME SPENT ON DISCHARGE: 35 minutes.
--- NOTE | 2016-10-03 06:53 | ECHO ---
DATE OF STUDY: 10/01/2016 REFERRING PHYSICIAN: Dr. Lars Smith INDICATION: Heart failure. HEIGHT: 168 cm. WEIGHT: 77 kilograms. 2D MEASUREMENTS: Left atrium: 2.8 cm Aortic root: 3.1 cm Ventricular septum: 1.03 cm Posterior wall: 1.11 cm Left ventricle diastole: 5.0 cm LVOT: 2.3 cm Inferior vena cava: 2.4 cm DOPPLER MEASUREMENTS: Aortic valve velocity: 164 cm/s Mild aortic regurgitation. LVOT velocity: 56.4 cm/s LVOT VTI: 9.0 cm Mild mitral regurgitation. Mild tricuspid regurgitation. Estimated right ventricle systolic pressure: 50-60 mmHg assuming a right atrial pressure of 10-20 mmHg Mild to moderate regurgitation. Pulmonary artery systolic pressure: 49 mmHg by pulmonary acceleration time method MITRAL ANNULAR TISSUE DOPPLER: E prime lateral: 6.9 cm/s DESCRIPTION: Rhythm was probably atrial fibrillation. This was a moderately technically difficult echocardiogram. This was a 2D, M-mode, color flow Doppler, and pulse wave Doppler examination and included mitral annular tissue Doppler. No pericardial effusion. CONCLUSIONS: 1. Left ventricle normal in size and diastole, but dilated in systole. Severe reduction overall left ventricle (LV) systolic function. Left ventricular ejection fraction (LVEF) 20% by visual estimate. Appearance is low cardiac output state. 2. Multiple regional wall motion abnormalities as follows: Akinesis of the basal, mid, and apical inferior V segments. Probably kinesis of the basal and mid antral septal segments. Basal intraseptal segment was several hypokinetic and mid inferior segment was probably akinetic. The apical cap segment and the septal-apical, anterior-apical, and lateral-apical segments were probably hypokinetic. Hypokinesis of the basal and mid inferolateral segments. Probably normal contraction of the basal and mid anterolateral segments. Technically difficulty but suspect hypokinesis of the basal and mid anterior segments. 3. Suggestive of moderate elevation of estimated right ventricle systolic pressure (50-60 mmHg). Moderate tricuspid regurgitation. Normal right ventricle (RV) size and systolic function. 4. Moderate left atrial dilatation. 5. Moderate aortic valve sclerosis of a three-cusp aortic valve. No aortic stenosis. Mild aortic regurgitation. 6. Mild mitral annular calcification. Mild mitral regurgitation. 7. Presence of an ICD coursing toward the right ventricular apex position.
== END 2016-10-02 11:28 | disposition home or self-care (01) | DRG 293 ==
LOC: M ED 03:33 → M ED INP 10:03 → M PCU 12:03
PROVIDERS: ADMIT Internal Medicine; ATTEND Internal Medicine
DX: I11.0 Hypertensive heart disease with heart failure (principal); I50.23 Acute on chronic systolic (congestive) heart failure; I25.5 Ischemic cardiomyopathy; I25.10 Atherosclerotic heart disease of native coronary artery without angina pectoris; I25.2 Old myocardial infarction; I48.91 Unspecified atrial fibrillation; D50.9 Iron deficiency anemia, unspecified; E78.5 Hyperlipidemia, unspecified; K21.9 Gastro-esophageal reflux disease without esophagitis; E03.9 Hypothyroidism, unspecified; M10.9 Gout, unspecified; Z79.82 Long term (current) use of aspirin; Z79.899 Other long term (current) drug therapy; Z88.0 Allergy status to penicillin; Z88.2 Allergy status to sulfonamides; Z88.1 Allergy status to other antibiotic agents; Z95.810 Presence of automatic (implantable) cardiac defibrillator; Z87.891 Personal history of nicotine dependence; Z86.73 Personal history of transient ischemic attack (TIA), and cerebral infarction without residual deficits

== ENCOUNTER 2016-10-07 05:26 | Observation (INO) | payer MEDICARE ==
[~2016-10-07] VITALS: Ht 165.1 cm; Wt 77.4 kg
[2016-10-07] MEDS ORDERED: ELIQ2.5T PO (05:41)
[2016-10-07] MEDS ORDERED: FLAX100012 PO (05:41)
[2016-10-07] MEDS ORDERED: BISO5TAB5 PO (05:41)
[2016-10-07] MEDS ORDERED: TORS100T PO (05:41)
[2016-10-07] MEDS ORDERED: HYDR10TAB PO (05:41)
[2016-10-07 06:34] LABS: BASO % 0.7 % (0.0-1.0); EOS # 0.1 K/mm3 (0.0-0.50); EOS % 0.9 % (0.0-3.0); LARGE UNSTAINED CELL # 0.1 K/mm3 (0.0-0.4); LARGE UNSTAINED CELL % 1.2 % (0.0-4.0); LYMPH # 0.9 K/mm3 (1.5-4.5); LYMPH % 12.3 % (24.0-44.0); MEAN CORPUSCULAR HEMOGLOBIN 33.2 pg (27.0-33.0); MEAN CORPUSCULAR HGB CONC 32.1 g/dl (32.0-36.5); MEAN CORPUSCULAR VOLUME 103.6 fl (80.0-96.0); MONO # 0.4 K/mm3 (0.0-0.8); MONO % 5.3 % (0.0-5.0); NEUTROPHILS # 5.6 K/mm3 (1.8-7.7); NEUTROPHILS % 79.7 % (36.0-66.0); PLATELET COUNT, AUTOMATED 241 k/mm3 (150-450); RED CELL DISTRIBUTION WIDTH 15.5 % (11.5-14.5); WHITE BLOOD COUNT 7.1 K/mm3 (4.0-10.0)
[2016-10-07 06:50] LABS: ALBUMIN 3.7 GM/DL (3.2-5.2); ALBUMIN/GLOBULIN RATIO 0.95 (1.00-1.93); BILIRUBIN,DIRECT 0.5 MG/DL (0.0-0.2); BILIRUBIN,TOTAL 1.3 MG/DL (0.2-1.0); CALCIUM LEVEL 8.7 MG/DL (8.8-10.2); CREATININE FOR GFR 1.63 MG/DL (0.70-1.30); GLOMERULAR FILTRATION RATE 44.5 (>42); POTASSIUM SERUM 4.3 MEQ/L (3.5-5.1); TOTAL PROTEIN 7.6 GM/DL (6.4-8.2)
[2016-10-07 06:56] LABS: ABG BASE EXCESS -1.7 (-2.0-2.0); ABG HCO3 20.6 MEQ/L (22.0-26.0); ABG PARTIAL PRESSURE CO2 28.8 mmHg (35.0-45.0); ABG PARTIAL PRESSURE O2 68.7 mmHg (75.0-100.0); ABG STANDARD HCO3 22.9 MEQ/L (22.0-26.0); ABG TOTAL CO2 21.5 MEQ/L (23.0-31.0); ABG pH (ARTERIAL) 7.472 UNITS (7.350-7.450)
--- NOTE | 2016-10-07 07:13 | ECGEPIP ---
Stationary ECG Study [facility] - ED Test Date: 2016-10-07 Pat Name: BRYCE KNOX Department: Room: - Gender: M Typer: nereida : 1945 Requested By: CHASE WATERS Order Number: [id number] Reading MD: Marina Mead Measurements Intervals [place] Rate: 92 P: [place]: 0 QRS: -16 QRSD: 92 T: 60 QT: 395 QTc: 489 Interpretive Statements ATRIAL FIBRILLATION ST DEVIATION AND MODERATE T-WAVE ABNORMALITY, CONSIDER ISCHEMIA LVH Electronically Signed On 10-07-2016 7:13:18 EDT by Marina Mead
[2016-10-07] MEDS ORDERED: NITROGLYCERIN 0.4 MG SUBL TABLET SL PRN (09:15)
--- NOTE | 2016-10-07 09:42 | REP ---
PA and lateral chest: Comparisons are 10/01/2016 and 09/30/2016. Cardiomegaly and pacemaker are unchanged. There is a pleural effusion on the lateral view. This may be bilateral. The lung gallegos otherwise clear. The vinicio, mediastinum, and bony thorax are unremarkable. Signed by Dae Worley MD 10/07/2016 07:53 A
[2016-10-07] MEDS: APIXABAN 2.5 MG TAB (ELIQUIS) PO SCH ×2 (10:28→21:30)
[2016-10-07] MEDS: **hydrALAZINE** 10 MG TAB PO SCH ×3 (10:29→21:29)
[2016-10-07] MEDS: BISOPROLOL FUMARATE 5 MG TAB PO SCH ×2 (10:29→21:28)
[2016-10-07] MEDS: ATORVASTATIN 20 MG TAB PO SCH (10:34)
[2016-10-07] MEDS: ALLOPURINOL 100 MG TAB PO SCH (11:21)
[2016-10-07] MEDS: TORSEMIDE 20 MG TAB PO SCH (11:21)
[2016-10-07] MEDS: LEVOTHYROXINE 50MCG TABLET (0.05MG) PO SCH (11:21)
[2016-10-07] MEDS: ASPIRIN 81 MG ENTERIC TAB PO SCH (11:31)
[2016-10-07] MEDS: hydrALAZINE INJ 20 MG/ML VIAL IV SCH ×2 (12:00→18:00)
--- NOTE | 2016-10-07 16:59 | HPEPDOC ---
Medical History and Physical Date of Admission Oct 07, 2016 at 09:15 History and Physical PRIMARY CARE PROVIDER: Dr. Cerda ATTENDING: Cecilia Mabry CHIEF COMPLAINT: Shortness of breath HISTORY OF PRESENT ILLNESS: This is a 71-year-old male past medical history of ischemic cardiomyopathy EF 20 % on 09/2016, CAD status post PCI, atrial fibrillation on Eliquis, history of TIA , hypertension, hypothyroidism, CK D stage III baseline creatinine 1.5-1.6, gout , hypothyroidism, hyperlipidemia who presents complaining of shortness of breath. Patient states she was recently discharged and followed up with Dr. Newell, who had changed his Lasix to torsemide however he has not started this yet. He also states he had recently had a colonoscopy, and was restarted on anticoagulation (Eliquis). The patient does states that last nights he developed watery diarrhea that was nonbloody in nature. He had eaten pork/potato/corn at the time. He then developed bilious nonbloody vomiting. This has all subsided since then. He does have two-pillow orthopnea, increased lower extremity edema, PND. Denies chest pain/palpitations/syncopal episodes. PAST MEDICAL HISTORY: As per HPI PAST SURGICAL HISTORY: Pyloric resection 1962, Appendectomy, AICD 05/2014, Bilateral cataracts 2014 SOCIAL HISTORY: Occasionally drinks per. History of 20 year tobacco use, quit in 2013. Lives with . FAMILY HISTORY: Noncontributory ALLERGIES: Please see below. REVIEW OF SYSTEMS: HEENT: Denies sore throat/headache CARDIOVASCULAR: Denies chest pain/palpitations RESPIRATORY: + shortness of breath/cough GASTROINTESTINAL: denies nausea/vomiting GENITOURINARY: Denies dysuria/urinary urgency. MUSCULOSKELETAL: Denies myalgias/arthralgias NEUROLOGICAL: Denies any focal weakness HOME MEDICATIONS: Please see below. PHYSICAL EXAMINATION: Vitals: (see below) General: No acute distress, laying comfortably in bed. HEENT: Moist mucous membranes. Neck: Mild JVD. No lymphadenopathy Cardiac: RRR, No murmurs Pulm: Coarse crackles at the bases b/l. No wheezing, rhonchi Abd: NT/ND + BS Ext: 1+ pitting edema BLE. No cyanosis LABORATORY DATA: See below. IMAGING: CXR 10/07/16 There is a pleural effusion on the lateral view. This may be bilateral. The lung gallegos otherwise clear. The vinicio, mediastinum, and bony thorax are unremarkable. MICROBIOLOGY: Please see below. ASSESSMENT/PLAN: 1. Acute decompensated systolic heart failure- EF of 20% on 09/2016 status post ICD. We will continue the patient's torsemide which she has not started yet. We'll also trend cardiac enzymes. EKG with atrial fibrillation that's rate controlled, minimal ST changes which have been noted on prior EKGs as well. 2. History of CAD status post PCI- continue home meds 3. Hypothyroidism- continue home meds 4. Atrial fibrillation- rate controlled. Continue Eliquis 5. Hypertension- uncontrolled. Increase hydralazine. Continue the rest of home medications 6. History of TIA on aspirin and statin 7. History of hyperlipidemia on statin 8. CK D stage III at baseline currently 1.5-1.6 9. Gastroenteritis - resolved. DVT prophy - Eliquis Vital Signs Vital Signs Date Time Temp Pulse Resp B/P (MAP) Pulse Ox O2 Delivery O2 Flow Rate FiO2 10/07/16 16:28 139/76 (97) 10/07/16 16:13 84 91 10/07/16 15:28 18 Room Air 10/07/16 14:42 97.3 Laboratory Data Labs 24H Laboratory Tests 2 10/07/16 06:17: White Blood Count 7.1, Red Blood Count 4.41, Hemoglobin 14.7, Hematocrit 45.7, Mean Corpuscular Volume 103.6H, Mean Corpuscular Hemoglobin 33.2H, Mean Corpuscular Hemoglobin Concent 32.1, Red Cell Distribution Width 15.5H, Platelet Count 241, Neutrophils (%) (Auto) 79.7H, Lymphocytes (%) (Auto) 12.3L, Monocytes (%) (Auto) 5.3H, Eosinophils (%) (Auto) 0.9, Basophils (%) (Auto) 0.7 , Neutrophils # (Auto) 5.6, Lymphocytes # (Auto) 0.9L, Monocytes # (Auto) 0.4, Eosinophils # (Auto) 0.1, Basophils # (Auto) 0.0, Large Unclassified Cells % 1.2 , Large Unclassified Cells # 0.1, Anion Gap 12, Glomerular Filtration Rate 44.5 , Calcium Level 8.7L, Aspartate Amino Transf (AST/SGOT) 30, Alanine Aminotransferase (ALT/SGPT) 36, Alkaline Phosphatase 55, Total Bilirubin 1.3H, Direct Bilirubin 0.5H, Total Creatine Kinase 224, Creatine Kinase MB 7.9H, Creatine Kinase MB Relative Index 3.52, Troponin I 0.02, B-Type Natriuretic Peptide 2510H, Total Protein 7.6, Albumin 3.7, Albumin/Globulin Ratio 0.95L, Amylase Level 76, Lipase 171 10/07/16 06:33: Blood Gas Bicarbonate Standard 22.9, Arterial Blood pH 7.472H, Arterial Blood Partial Pressure CO2 28.8L, Arterial Blood Partial Pressure O2 68.7L, Arterial Blood Total CO2 21.5L, Arterial Blood HCO3 20.6L, Arterial Blood Base Excess - 1.7, Arterial Blood Oxygen Saturation 93.2L CBC/BMP Laboratory Tests 10/07/16 06:17 Red Blood Count 4.41, Mean Corpuscular Volume 103.6 H, Mean Corpuscular Hemoglobin 33.2 H, Mean Corpuscular Hemoglobin Concent 32.1, Red Cell Distribution Width 15.5 H, Neutrophils (%) (Auto) 79.7 H, Lymphocytes (%) (Auto ) 12.3 L, Monocytes (%) (Auto) 5.3 H, Eosinophils (%) (Auto) 0.9, Basophils (%) (Auto) 0.7, Neutrophils # (Auto) 5.6, Lymphocytes # (Auto) 0.9 L, Monocytes # ( Auto) 0.4, Eosinophils # (Auto) 0.1, Basophils # (Auto) 0.0 Home Medications Scheduled Allopurinol (Allopurinol) 100 Mg Tab, 100 MG PO DAILY Apixaban Base (Eliquis) 2.5 Mg Tab, 2.5 MG PO BID Aspirin (Ecotrin Low Strength) 81 Mg Tab, 81 MG PO DAILY Atorvastatin Calcium (Atorvastatin Calcium) 40 Mg Tab, 40 MG PO DAILY Bisoprolol Fumarate (Bisoprolol Fumarate) 5 Mg Tab, 5 MG PO BID Ferrous Sulfate (Ferrous Sulfate) 325 Mg Tab, 325 MG PO BID Hydralazine HCl (Hydralazine HCl) 10 Mg Tab, 10 MG PO TID Levothyroxine Sodium (Synthroid) 50 Mcg Tab, 50 MCG PO DAILY Omeprazole (Omeprazole) 20 Mg Cap, 20 MG PO QHS Ranitidine HCl (Ranitidine HCl) 150 Mg Tab, 1 TAB PO QHS Torsemide (Torsemide) 100 Mg Tab, 100 MG PO DAILY Scheduled PRN Nitroglycerin (Nitrostat) 0.4 Mg Subl, 0.4 MG SL Q5MP PRN for CHEST PAIN Allergies Coded Allergies: Penicillins (Verified Allergy, Unknown, 09/15/16) Penicillins Cross Reactors (Verified Allergy, Unknown, 06/05/12) Quinolones (Verified Allergy, Unknown, 06/05/12) Sulfa Antibiotics (Verified Allergy, Unknown, 09/25/14) CECILIA MABRY MD Oct 07, 2016 16:59
[2016-10-07 18:05] VITALS: BP 140/76
[2016-10-07] MEDS: OMEPRAZOLE 20 MG CAP PO SCH (21:30)
[2016-10-07 23:59] VITALS: BP 142/76
[2016-10-08] VITALS (7 sets, daily range): BP systolic 129–146; BP diastolic 58–83
[2016-10-08 01:59] LABS: CALCIUM LEVEL 9.4 MG/DL (8.8-10.2); CREATININE FOR GFR 1.54 MG/DL (0.70-1.30); GLOMERULAR FILTRATION RATE 47.5 (>42); MAGNESIUM LEVEL 2.1 MG/DL (1.8-2.4); POTASSIUM SERUM 4.2 MEQ/L (3.5-5.1)
[2016-10-08] MEDS: LEVOTHYROXINE 50MCG TABLET (0.05MG) PO SCH (05:11)
[2016-10-08] MEDS: hydrALAZINE INJ 20 MG/ML VIAL IV SCH ×2 (05:13)
[2016-10-08] MEDS: SLF 3 ML SYR IV SCH ×3 (06:00→21:54)
[2016-10-08] MEDS: TORSEMIDE 20 MG TAB PO SCH (08:59)
[2016-10-08] MEDS: BISOPROLOL FUMARATE 10 MG TAB PO SCH ×2 (08:59→21:53)
[2016-10-08] MEDS: ATORVASTATIN 20 MG TAB PO SCH (09:00)
[2016-10-08] MEDS ORDERED: SLF 3 ML SYR IV PRN (09:00)
[2016-10-08] MEDS: APIXABAN 2.5 MG TAB (ELIQUIS) PO SCH ×2 (09:00→21:54)
[2016-10-08] MEDS: LISINOPRIL *2.5 MG* TAB PO SCH ×2 (09:00→21:54)
[2016-10-08] MEDS: ALLOPURINOL 100 MG TAB PO SCH (09:00)
[2016-10-08] MEDS: ASPIRIN 81 MG ENTERIC TAB PO SCH (09:00)
[2016-10-08] MEDS: SPIRONOLACTONE 25 MG TAB PO SCH (09:01)
--- NOTE | 2016-10-08 14:04 | REP ---
Renal ultrasound: The kidneys are in the low normal size range. The right kidney measures 9.5 x 5.2 by 4.0 cm. The left kidney measures 9.5 x 4.4 x 4.5 cm. Renal cortical echogenicity is normal bilaterally. There is a right renal exophytic 7.7 cm cyst. There are no renal calculi or masses. There is no hydronephrosis. Impression: 7.7 cm exophytic left renal cyst. Otherwise, negative renal ultrasound. Bladder ultrasound: The bladder is incompletely distended and cannot be further evaluated. Signed by Dae Worley MD 10/08/2016 01:55 P
--- NOTE | 2016-10-08 16:51 | IPNPDOC ---
Text Note Date of Service The patient was seen on 10/08/16. NOTE Subjective: Feeling well. Dyspnea improved. No CP/palpitations. Has asymptomatic VT overnight. PHYSICAL EXAMINATION: Vitals: (see below) General: No acute distress, laying comfortably in bed. HEENT: Moist mucous membranes. Neck: Mild JVD. No lymphadenopathy Cardiac: RRR, No murmurs Pulm: Coarse crackles at the bases b/l. No wheezing, rhonchi Abd: NT/ND + BS Ext: trace pitting edema BLE. No cyanosis LABORATORY DATA: See below. IMAGING: CXR 10/07/16 There is a pleural effusion on the lateral view. This may be bilateral. The lung gallegos otherwise clear. The vinicio, mediastinum, and bony thorax are unremarkable. Renal u/s 10/08/16 Impression: 7.7 cm exophytic left renal cyst. Otherwise, negative renal ultrasound. MICROBIOLOGY: Please see below. ASSESSMENT/PLAN: 1. Acute decompensated systolic heart failure- EF of 20% on 09/2016 status post ICD. We will continue the patient's torsemide which she has not started yet. We'll also trend cardiac enzymes. EKG with atrial fibrillation that's rate controlled, minimal ST changes which have been noted on prior EKGs as well. Started on ACEi/spirolactone. Spoke with Dr. Newell, and will increase BB dose, hold off on amiodarone. Restart ACEi/spironolactone, which was initially d/c outpt when pt had worsening renal function. Cont to monitor renal function. 2. History of CAD status post PCI- continue home meds 3. Hypothyroidism- continue home meds 4. Atrial fibrillation- rate controlled. Continue Eliquis 5. Hypertension- uncontrolled. Increase hydralazine. Continue the rest of home medications 6. History of TIA on aspirin and statin 7. History of hyperlipidemia on statin 8. CK D stage III at baseline currently 1.5-1.6 9. Gastroenteritis - resolved. 10. Left renal cyst - outpt nephro f/u. DVT prophy - Eliquis VS,Fishbone, I+O VS, Fishbone, I+O Laboratory Tests 10/08/16 01:18 Calcium Level 9.4, Total Creatine Kinase 195 Vital Signs Date Time Temp Pulse Resp B/P (MAP) Pulse Ox O2 Delivery O2 Flow Rate FiO2 10/08/16 16:30 97.5 79 20 140/58 (85) 96 Room Air I&O- Last 24 Hours up to 6 AM 10/08/16 06:00 Intake Total 1074 ml Output Total 4325 ml Balance -3251 ml CECILIA MABRY MD Oct 08, 2016 16:51
--- NOTE | 2016-10-08 19:20 | ECGEPIP ---
Stationary ECG Study [facility] Test Date: 2016-10-08 Pat Name: BRYCE KNOX Department: Room: [place] [address] Gender: M Grip Boss: MEGGAN : 1945 Requested By: CELE TORRES Order Number: [id number] Reading MD: Radames Mueller Measurements Intervals Turner Rate: 92 P: ID: 0 QRS: -8 QRSD: 93 T: 180 QT: 388 QTc: 480 Interpretive Statements ATRIAL FIBRILLATION ST DEVIATION AND MODERATE T-WAVE ABNORMALITY, CONSIDER LATERAL ISCHEMIA COMPARED TO THE LAST 2 TRACINGS IN THE SYSTEM, NO SIGNIFICANT CHANGES Electronically Signed On 10-08-2016 19:19:58 EDT by Radames Mueller
[2016-10-08] MEDS: OMEPRAZOLE 20 MG CAP PO SCH (21:54)
[2016-10-09] MEDS ORDERED: ACETAMINOPHEN TAB 650MG DOSE (2X325MG) PO PRN (00:30)
[2016-10-09] MEDS: SLF 3 ML SYR IV SCH (05:36)
[2016-10-09] MEDS: LEVOTHYROXINE 50MCG TABLET (0.05MG) PO SCH (06:06)
[2016-10-09 07:50] VITALS: BP 145/73
[2016-10-09 08:45] VITALS: BP 145/73
[2016-10-09] MEDS: ASPIRIN 81 MG ENTERIC TAB PO SCH (08:45)
[2016-10-09] MEDS: BISOPROLOL FUMARATE 10 MG TAB PO SCH (08:45)
[2016-10-09] MEDS: APIXABAN 2.5 MG TAB (ELIQUIS) PO SCH (08:45)
[2016-10-09] MEDS: TORSEMIDE 20 MG TAB PO SCH (08:45)
[2016-10-09] MEDS: LISINOPRIL *2.5 MG* TAB PO SCH (08:46)
[2016-10-09] MEDS: ALLOPURINOL 100 MG TAB PO SCH (08:46)
[2016-10-09] MEDS: ATORVASTATIN 20 MG TAB PO SCH (08:46)
[2016-10-09] MEDS: SPIRONOLACTONE 25 MG TAB PO SCH (08:46)
[2016-10-09 09:12] LABS: MEAN CORPUSCULAR HEMOGLOBIN 33.9 pg (27.0-33.0); MEAN CORPUSCULAR HGB CONC 32.9 g/dl (32.0-36.5); MEAN CORPUSCULAR VOLUME 103.2 fl (80.0-96.0); RED CELL DISTRIBUTION WIDTH 15.1 % (11.5-14.5); WHITE BLOOD COUNT 5.3 K/mm3 (4.0-10.0)
[2016-10-09 09:14] LABS: CALCIUM LEVEL 8.8 MG/DL (8.8-10.2); CREATININE FOR GFR 1.63 MG/DL (0.70-1.30); GLOMERULAR FILTRATION RATE 44.5 (>42); MAGNESIUM LEVEL 2.3 MG/DL (1.8-2.4)
[2016-10-09 09:22] LABS: POTASSIUM SERUM 3.3 MEQ/L (3.5-5.1)
[2016-10-09] MEDS ORDERED: POTASSIUM CHLORIDE 10 MEQ SR TABLET PO ONE (10:15)
[2016-10-09] MEDS ORDERED: DEMA20TA6 PO (10:20)
[2016-10-09] MEDS ORDERED: SPIR25TA2 PO (10:20)
[2016-10-09] MEDS ORDERED: LISI2.5T4 PO (10:20)
[2016-10-09] MEDS ORDERED: BISO10TA PO (10:20)
--- NOTE | 2016-10-09 12:12 | DS.PDOC ---
Discharge Summary General Date of Admission Oct 07, 2016 at 09:15 Date of Discharge 10/09/16 Attending Physician: CECILIA MABRY MD Discharge Summary PROCEDURES PERFORMED DURING STAY: None. ADMITTING/DISCHARGE DIAGNOSES: 1. Acute decompensated systolic heart failure 2. Nonsustained ventricular tachycardia, asymptomatic 2. History of CAD status post PCI 4. Atrial fibrillation 5. Hypertension 6. History of TIA on aspirin and statin 7. History of hyperlipidemia on statin 8. CKD stage III at baseline currently 1.5-1.6 9. Gastroenteritis - resolved. 10. Left renal cyst - Pt preferred to have outpt nephro f/u 11. Hypothyroidism COMPLICATIONS/CHIEF COMPLAINT: Shortness of breath HISTORY OF PRESENT ILLNESS/HOSPITAL COURSE: This is a 71-year-old male past medical history of ischemic cardiomyopathy EF of 20% on 10/14 status post ICD, CAD, atrial fibrillation on Eliquis who presents complaining of dyspnea on exertion as well as lower extremity edema. Patient was recently seen by his barmaid , and had been started on Eliquis and Torsemide. Patient states he has not started taking this torsemide. Patient was admitted and was noted to have nonsustained ventricular tachycardia for which his beta adela was increased. Given that the patient has ischemic cardiomyopathy, his SALLIE inhibitor as well as spironolactone was restarted. I had spoken to and he agrees with this plan. These medications were initially stopped this patient's renal function was deteriorating a few months ago however given that his baseline creatinine is 1.1-1.6, we will continue to monitor. The patient also had a prescription to have an outpatient renal ultrasound done by his welder tech. He did have his ultrasound completed here, which is noted below. The patient was updated on the results of this ultrasound and prefers to have outpatient nephrology follow-up. Patient is symptomatically improved. His dyspnea has resolved. He is hemodynamically stable and ready to be discharged home. Patient is to return to ED if symptoms worsen. DISCHARGE MEDICATIONS: Please see below. ALLERGIES: Please see below. PHYSICAL EXAMINATION ON DISCHARGE: Vitals: (see below) General: No acute distress, laying comfortably in bed. HEENT: Moist mucous membranes. Neck: No JVD or lymphadenopathy Cardiac: RRR, No murmurs Pulm: Clear to auscultation b/l. No wheezing, rhonchi Abd: NT/ND + BS Ext: No edema or cyanosis LABORATORY DATA: Please see below. IMAGING: CXR 10/07/16 There is a pleural effusion on the lateral view. This may be bilateral. The lung gallegos otherwise clear. The vinicio, mediastinum, and bony thorax are unremarkable. Renal u/s 10/08/16 Impression: 7.7 cm exophytic left renal cyst. Otherwise, negative renal ultrasound. PROGNOSIS: ACTIVITY: As tolerated. DIET: DISCHARGE PLAN/DISPOSITION: DISCHARGE INSTRUCTIONS: 1. DISCHARGE CONDITION: Stable. TIME SPENT ON DISCHARGE: Greater than 30 minutes. Vital Signs/I&Os Vital Signs Date Time Temp Pulse Resp B/P (MAP) Pulse Ox O2 Delivery O2 Flow Rate FiO2 10/09/16 08:45 73 145/73 10/09/16 07:50 98.0 20 97 Room Air I&O- Last 24 Hours up to 6 AM 10/09/16 06:00 Intake Total 860 ml Output Total 2600 ml Balance -1740 ml Laboratory Data Labs 24H Laboratory Tests 2 10/09/16 08:42: Anion Gap 11, Glomerular Filtration Rate 44.5, Blood Urea Nitrogen 52H, Creatinine 1.63H, Sodium Level 142, Potassium Level 3.3#L, Chloride Level 102, Carbon Dioxide Level 29, Calcium Level 8.8, Magnesium Level 2.3 CBC/BMP Laboratory Tests 10/09/16 08:42 Red Blood Count 3.94 L, Mean Corpuscular Volume 103.2 H, Mean Corpuscular Hemoglobin 33.9 H, Mean Corpuscular Hemoglobin Concent 32.9, Red Cell Distribution Width 15.1 H, Calcium Level 8.8 Discharge Medications Scheduled Allopurinol (Allopurinol) 100 Mg Tab, 100 MG PO DAILY, (Reported) Apixaban Base (Eliquis) 2.5 Mg Tab, 2.5 MG PO BID, (Reported) Aspirin (Ecotrin Low Strength) 81 Mg Tab, 81 MG PO DAILY, (Reported) Atorvastatin Calcium (Atorvastatin Calcium) 40 Mg Tab, 40 MG PO DAILY, (Reported ) Bisoprolol Fumarate (Zebeta) 10 Mg Tab, 10 MG PO BID Ferrous Sulfate (Ferrous Sulfate) 325 Mg Tab, 325 MG PO BID, (Reported) Levothyroxine Sodium (Synthroid) 50 Mcg Tab, 50 MCG PO DAILY, (Reported) Lisinopril (Lisinopril) 2.5 Mg Tab, 2.5 MG PO DAILY Omeprazole (Omeprazole) 20 Mg Cap, 20 MG PO QHS, (Reported) Ranitidine HCl (Ranitidine HCl) 150 Mg Tab, 1 TAB PO QHS, (Reported) Spironolactone (Spironolactone) 25 Mg Tab, 25 MG PO QAM Torsemide (Demadex) 20 Mg Tab, 60 MG PO DAILY Scheduled PRN Nitroglycerin (Nitrostat) 0.4 Mg Subl, 0.4 MG SL Q5MP PRN for CHEST PAIN, ( Reported) Allergies Coded Allergies: Penicillins (Verified Allergy, Unknown, 09/15/16) Penicillins Cross Reactors (Verified Allergy, Unknown, 06/05/12) Quinolones (Verified Allergy, Unknown, 06/05/12) Sulfa Antibiotics (Verified Allergy, Unknown, 09/25/14) CECILIA MABRY MD Oct 09, 2016 12:12
== END 2016-10-09 12:02 | disposition home or self-care (01) ==
LOC: M ED 05:26 → M ED INP 09:15 → M PCU 18:06
PROVIDERS: ADMIT Internal Medicine; ATTEND Internal Medicine
DX: I50.21 Acute systolic (congestive) heart failure (principal); I47.2 Ventricular tachycardia; I25.10 Atherosclerotic heart disease of native coronary artery without angina pectoris; I48.91 Unspecified atrial fibrillation; I13.0 Hypertensive heart and chronic kidney disease with heart failure and stage 1 through stage 4 chronic kidney disease, or unspecified chronic kidney disease; Z86.73 Personal history of transient ischemic attack (TIA), and cerebral infarction without residual deficits; E78.5 Hyperlipidemia, unspecified; N18.3 Chronic kidney disease, stage 3 (moderate); N28.1 Cyst of kidney, acquired; J90 Pleural effusion, not elsewhere classified; E03.9 Hypothyroidism, unspecified; I25.5 Ischemic cardiomyopathy; Z98.61 Coronary angioplasty status; R06.02 Shortness of breath; R60.0 Localized edema; R06.01 Orthopnea; K21.9 Gastro-esophageal reflux disease without esophagitis; D50.9 Iron deficiency anemia, unspecified; Z79.899 Other long term (current) drug therapy; Z79.01 Long term (current) use of anticoagulants; Z79.82 Long term (current) use of aspirin; Z88.0 Allergy status to penicillin; Z88.2 Allergy status to sulfonamides; Z95.810 Presence of automatic (implantable) cardiac defibrillator; Z87.891 Personal history of nicotine dependence
CPT/HCPCS: 36415; 36600; 71020; 76775; 80048; 80076; 82150; 82550; 82553; 82803; 83690; 83735; 83880; 84484; 85025; 85027; 93005; 99285; G0378

== ENCOUNTER → 2016-10-14 | Outpatient (CLI) | payer MEDICARE ==
[~2016-10-14] MED LIST changes: +DEMA20TA6 PO; +ELIQ2.5T PO; +FLAX100012 PO; +HYDR10TAB PO; +LISI2.5T4 PO; +TORS100T PO
[2016-10-14 13:53] LABS: MEAN CORPUSCULAR HEMOGLOBIN 33.6 pg (27.0-33.0); MEAN CORPUSCULAR HGB CONC 32.3 g/dl (32.0-36.5); RED CELL DISTRIBUTION WIDTH 14.8 % (11.5-14.5); WHITE BLOOD COUNT 6.6 K/mm3 (4.0-10.0)
[2016-10-14 13:57] LABS: CALCIUM LEVEL 9.5 MG/DL (8.8-10.2); CREATININE FOR GFR 1.81 MG/DL (0.70-1.30); GLOMERULAR FILTRATION RATE 39.4 (>42)
[2016-10-14 14:17] LABS: POTASSIUM SERUM 5.7 MEQ/L (3.5-5.1)
== END ==
LOC: M SMT 09:36
PROVIDERS: ATTEND Internal Medicine Cardiovascular Disease
DX: I50.9 Heart failure, unspecified (principal); I48.91 Unspecified atrial fibrillation

== ENCOUNTER → 2016-10-18 | Outpatient (REF) | payer MEDICARE | LOC: M LAB REF 15:45 | PROVIDERS: ATTEND Nurse Practitioner Family | DX: L08.9 Local infection of the skin and subcutaneous tissue, unspecified (principal) ==

== ENCOUNTER 2017-01-24 10:43 | Inpatient (IN) | payer MEDICARE ==
[~2017-01-24] VITALS: Ht 165.1 cm; Wt 80.0 kg
[2017-01-24] MEDS ORDERED: HYDR10TAB PO (11:07)
[2017-01-24] MEDS ORDERED: TORS20TA2 PO (11:07)
[2017-01-24] MEDS ORDERED: NS 500 ML IV ONE (11:30)
[2017-01-24 12:10] LABS: BASO % 0.4 % (0.0-1.0); EOS % 0.4 % (0.0-3.0); IMMATURE GRANULOCYTE % 0.7 % (0-0); LYMPH # 0.6 10^3/uL (1.5-4.5); MEAN CORPUSCULAR HEMOGLOBIN 34.7 pg (27.0-33.0); MEAN CORPUSCULAR HGB CONC 33.2 g/dl (32.0-36.5); MEAN CORPUSCULAR VOLUME 104.4 fl (80.0-96.0); MONO # 0.6 10^3/uL (0.0-0.8); MONO % 5.4 % (0.0-5.0); NEUTROPHILS # 9.2 10^3/uL (1.8-7.7); NEUTROPHILS % 87.1 % (36.0-66.0); PLATELET COUNT, AUTOMATED 318 10^3/uL (150-450); RED CELL DISTRIBUTION WIDTH 14.2 % (11.5-14.5); WHITE BLOOD COUNT 10.6 10^3/uL (4.0-10.0)
[2017-01-24] MEDS ORDERED: ONDANSETRON 4MG/2ML VIAL (J2405) IV ONE ×2 (13:00)
[2017-01-24] MEDS ORDERED: MORPHINE 2 MG/ML 1ML SYRINGE IV ONE (13:00)
--- NOTE | 2017-01-24 13:01 | REP ---
Clinical: Cough. Comparison: 10/07/2016. Findings: Stable cardiomegaly and single lead pacemaker. Lung gallegos are clear. No focal consolidation, effusion, or pneumothorax. Skeletal structures intact. Impression: Stable portable chest x-ray. No acute cardiopulmonary process. Signed by Chase Garcia MD 01/24/2017 12:52 P
[2017-01-24 13:10] LABS: ALBUMIN 3.5 GM/DL (3.2-5.2); ALBUMIN/GLOBULIN RATIO 0.81 (1.00-1.93); BILIRUBIN,DIRECT 0.1 MG/DL (0.0-0.2); BILIRUBIN,TOTAL 0.5 MG/DL (0.2-1.0); CALCIUM LEVEL 9.5 MG/DL (8.8-10.2); CREATININE FOR GFR 1.41 MG/DL (0.70-1.30); GLOMERULAR FILTRATION RATE 52.6 (>42); POTASSIUM SERUM 4.2 MEQ/L (3.5-5.1); TOTAL PROTEIN 7.8 GM/DL (6.4-8.2)
--- NOTE | 2017-01-24 13:34 | REP ---
Clinical: Back pain with vomiting and diarrhea. Comparison: 12/11/2009. Findings: Lung bases demonstrate chronic fibroatelectatic changes. Liver, spleen, pancreas, gallbladder, bilateral adrenal glands and kidneys are within normal limits for noncontrast evaluation. The enteric system is without obstruction or acute inflammatory process. Sigmoid diverticulosis noted without acute diverticulitis. Pelvis demonstrates normal bladder and age appropriate prostate/seminal vesicles. Small fat containing left inguinal hernia remains stable. No ascites. No adenopathy. No free air. Atherosclerotic changes of the aorta noted without aneurysm. Musculoskeletal structures demonstrate degenerative changes. Impression: Diverticulosis without acute diverticulitis. Stable small fat containing left inguinal hernia. Chronic-appearing changes. No acute abdominopelvic pathology appreciated. Signed by Chase Garcia MD 01/24/2017 01:25 P
[2017-01-24] MEDS ORDERED: ISOVUE-370 76% 100ML VIAL (Q9967) As Ordered ONE (14:20)
--- NOTE | 2017-01-24 15:09 | REP ---
Clinical: Abdominal pain with nausea and vomiting. Comparison: 12/11/2009 Technique: Axial contrast enhanced images from the lung bases to the pubic symphysis using 100 ml Isovue 370 intravenous contrast material with coronal and sagittal re-formations. Findings: Lung bases demonstrate mild stable fibroatelectatic changes although trace acute atelectasis cannot be excluded. Cardiomegaly. Fatty infiltration to the liver noted. Spleen, pancreas, gallbladder, bilateral adrenal glands and kidneys are relatively normal / stable. Bilateral renal cysts including 6.2 cm exophytic left renal cyst remain stable. No perinephric stranding or hydroureteronephrosis. The enteric system is without obstruction or acute inflammatory process. Sigmoid diverticula noted without acute diverticulitis. Pelvis demonstrates normal bladder and age appropriate prostate/seminal vesicles. Small fat containing left inguinal hernia identified. Atherosclerotic changes of the aorta and vasculature noted without aneurysm or dissection. Musculoskeletal structures demonstrate degenerative changes without acute focal osseous abnormality. Impression: 1. Trace basilar atelectasis. 2. Sigmoid diverticulosis without acute diverticulitis. 3. Stable chronic changes including renal cysts. 4. No acute abdominopelvic pathology appreciated. Signed by Chase Garcia MD 01/24/2017 03:01 P
[2017-01-24] MEDS ORDERED: NITROGLYCERIN 0.4 MG SUBL TABLET SL PRN (15:15)
[2017-01-24] MEDS ORDERED: DEXTROMETHORPHAN 60MG/10ML SUSP 90ML BTL(DELSYM) PO PRN (16:15)
[2017-01-24] MEDS: **hydrALAZINE** 10 MG TAB PO SCH (16:19)
[2017-01-24] MEDS: ASPIRIN 81 MG ENTERIC TAB PO SCH (16:19)
[2017-01-24] MEDS: ATORVASTATIN 20 MG TAB PO SCH (16:20)
--- NOTE | 2017-01-24 16:23 | HPEPDOC ---
General Date of Admission 01/24/2017 Primary Care Physician: PERLA NGUYEN MD Other Providers Cardiology: Osiris Attending Physician: ERENDIRA RICHARDSON MD Chief Complaint The patient is a 71-year-old male admitted with a reason for visit of Nausea/ Emesis. Source: Patient Exam Limitations: No limitations Timing/Duration: Day(s) (1-2 days) Associated Symptoms: Cough (x3-4 weeks; productive of white sputum), Fever ( Subjective), Chills, Malaise, Nausea, Vomiting History of Present Illness Mr. Li is a 71 year old male who presents to [facility]'s Emergency Department with nausea/vomiting and diarrhea for 2 days, productive cough for 3-4 weeks, and worsening back pain for several weeks. Past medical history is significant for: congestive heart failure with reduced ejection fraction 20%, atrial fibrillation, hypothyroidism, chronic kidney disease-III, iron deficiency anemia, gout, gastroesophageal reflux disease, dyslipidemia, history of transient ischemic attack, hiatal hernia, left inguinal hernia, tubular adenoma, Ruiz's esophagus, ischemic cardiomyopathy, hypertension. Starting yesterday morning, Mr. Li reports sudden onset of diarrhea and vomiting; he states he has had 6-7 episodes of each, seemingly simultaneously, over the last two days. He denies any precipitating factors such as abnormal or unusual foods or activities; however, his was recently sick with identical symptoms 2-3 weeks ago. He also complains of a cough for the last 3- 4 weeks, productive for clear sputum, as well as rhinorrhea with clear mucus. Has been using Mucinex which provides some relief. During this time he also states he has an intermittent subjective fever, along with non-rigorous chills and night sweats. He admits to some weight gain, but states he has also been eating more; he states this is out of convenience and boredom rather than an increased appetite. Lastly, he also states he has had worsening back pain in the midthoracic region for the last several weeks; he also has a small 1cm healed burn dawson on the right mid thoracic region. He denies hemoptysis, hematemesis, abdominal pain, chest pain, melena, hematochezia. Reports dark stool due to iron supplementation. Hospitalist service was consulted for patient to be admitted for further medical management. Home Medications Scheduled Allopurinol (Allopurinol) 100 Mg Tab, 100 MG PO DAILY, (Reported) Apixaban Base (Eliquis) 2.5 Mg Tab, 2.5 MG PO BID, (Reported) Aspirin (Ecotrin Low Strength) 81 Mg Tab, 81 MG PO DAILY, (Reported) Atorvastatin Calcium (Atorvastatin Calcium) 40 Mg Tab, 40 MG PO DAILY, (Reported ) Bisoprolol Fumarate (Zebeta) 10 Mg Tab, 10 MG PO BID Ferrous Sulfate (Ferrous Sulfate) 325 Mg Tab, 325 MG PO BID, (Reported) Hydralazine HCl (Hydralazine HCl) 10 Mg Tab, 20 MG PO DAILY, (Reported) Levothyroxine Sodium (Synthroid) 50 Mcg Tab, 50 MCG PO DAILY, (Reported) Omeprazole (Omeprazole) 20 Mg Cap, 20 MG PO QHS, (Reported) Ranitidine HCl (Ranitidine HCl) 150 Mg Tab, 1 TAB PO QHS, (Reported) Torsemide (Torsemide) 20 Mg Tab, 20 MG PO BID, (Reported) Scheduled PRN Loperamide Hcl (Imodium A-D) 2 Mg Tab, 2 MG PO Q2HP PRN for DIARRHEA after each loose bowel movemement Nitroglycerin (Nitrostat) 0.4 Mg Subl, 0.4 MG SL Q5MP PRN for CHEST PAIN, ( Reported) Allergies Coded Allergies: Penicillins (Verified Allergy, Unknown, 09/15/16) Penicillins Cross Reactors (Verified Allergy, Unknown, 06/05/12) Quinolones (Verified Allergy, Unknown, 06/05/12) Sulfa Antibiotics (Verified Allergy, Unknown, 09/25/14) Past Medical History Medical History 1. Congestive heart failure with reduced ejection fraction 20% 2. Ischemic cardiomyopathy 3. Hypertension 4. Hypothyroidism 5. Atrial fibrillation 6. Iron deficiency anemia 7. Dyslipidemia 8. History of transient ischemic attack 9. Gastroesophageal reflux disease 10. Hiatal hernia 11. Gout 12. Tubular adenoma 13. Ruiz's esophagus 14. History of left inguinal hernia Surgical History 1. AICD placement 2. Colonoscopy 3. EGD 4. Bilateral blepharoplasty 5. Bilateral cataract surgery 6. Appendectomy 7. 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) Tobacco use: 100 pack-year history Alcohol use: Beer or scotch every night Drugs: Denies ever Travel history: Domestic and international ([place]) Review of Symptoms Constitutional: Reports: Chills, Fever, Malaise, Night Sweats, Denies: Weakness, Weight Loss Eyes: Denies: Pain, Vision change ENT: Denies: Head Aches, Ear Pain, Dysphagia Skin: Denies: Rash, Lesions, Jaundice, Breakdown Pulmonary: Reports: Cough, Denies: Dyspnea, Pleuritic Chest Pain Cardiovascular: Reports: Orthopnea (Only for last several weeks), Denies: Chest Pain, Palpitations, Lt Headedness Gastrointestinal: Reports: Nausea, Vomiting, Diarrhea, Denies: Abdominal Pain, Constipation, Melena, Hematochezia Genitourinary: Denies: Dysuria, Frequency, Incontinence Hematologic: Denies: Bruising, Bleeding Excessively Musculoskeletal: Reports: Back Pain (Midthoracic back pain), Denies: Neck Pain, Joint Pain, Muscle Pain, Spasms Neurological: Denies: Weakness, Numbness, Change in speech, Confusion Psych: Reports: Mood Normal, Denies: Depression, Memory Issues Physical Examination General Exam: Positive: Alert, No Acute Distress Eye Exam: Positive: Conjunctiva & lids normal, EOMI, Negative: Sclera icteric ENT Exam: Positive: Atraumatic, Mucous membr. moist/pink, Pharynx Normal Neck Exam: Positive: Supple, Negative: JVD, thyromegaly Chest Exam: Positive: Clear to auscultation (Except right lower lobe), Normal air movement, Rales (Right lower lobe) Heart Exam: Positive: Rate Normal, Irregular Rhythm, Normal S1, Normal S2, Negative: Murmurs, Rubs Telemetry: Positive: Atrial fibrillation Abdomen Exam: Positive: Normal bowel sounds, Soft, Negative: Tenderness, Hepatospenomegaly Extremity Exam: Positive: Normal pulses, Negative: Clubbing, Cyanosis, Edema Skin Exam: Positive: Nl turgor and temperature, Other skin issue (Healed burn on right midthoracic back, approx 1cm in diameter), Negative: Breakdown, Lesion Neuro Exam: Positive: Normal Speech, Cranial Nerves 3-12 NL Psych Exam: Positive: Mental status NL, Mood NL, Oriented x 3 Other physical findings Chest X-Ray Impression: Stable portable chest x-ray. No acute cardiopulmonary process. CT Abdomen/Pelvis without contrast Impression: Diverticulosis without acute diverticulitis. Stable small fat containing left inguinal hernia. Chronic-appearing changes. No acute abdominopelvic pathology appreciated. CT Abdomen/Pelvis with contrast Impression: Trace basilar atelectasis. Sigmoid diverticulosis without acute diverticulitis. Stable chronic changes including renal cysts. No acute abdominopelvic pathology appreciated. Vital Signs Vital Signs Date Time Temp Pulse Resp B/P (MAP) Pulse Ox O2 Delivery O2 Flow Rate FiO2 01/24/17 13:02 18 01/24/17 11:20 01/24/17 10:59 97.5 98 96 Room Air Height (in): 65 Weight (kg): 77.27 BMI (kg): 28.3 Laboratory Data Labs 24H Laboratory Tests 2 01/24/17 11:58: Immature Granulocyte % (Auto) 0.7H, White Blood Count 10.6H, Red Blood Count 3.17L, Hemoglobin 11.0L, Hematocrit 33.1L, Mean Corpuscular Volume 104.4H, Mean Corpuscular Hemoglobin 34.7H, Mean Corpuscular Hemoglobin Concent 33.2, Red Cell Distribution Width 14.2, Platelet Count 318, Neutrophils (%) (Auto) 87.1H, Lymphocytes (%) (Auto) 6.0L, Monocytes (%) (Auto) 5.4H, Eosinophils (%) (Auto) 0.4, Basophils (%) (Auto) 0.4, Neutrophils # (Auto) 9.2H, Lymphocytes # (Auto) 0.6L, Monocytes # (Auto) 0.6, Eosinophils # (Auto) 0.0, Basophils # (Auto) 0.0, Immature Granulocyte # (Auto) 0.1H, Nucleated Red Blood Cells % (auto) 0.0, Anion Gap 10, Glomerular Filtration Rate 52.6, Lactic Acid Level 1.8, Calcium Level 9.5, Aspartate Amino Transf (AST/SGOT) 19, Alanine Aminotransferase (ALT/ SGPT) 19, Alkaline Phosphatase 73, Total Bilirubin 0.5, Direct Bilirubin 0.1, Total Creatine Kinase 91, Creatine Kinase MB 3.9H, Creatine Kinase MB Relative Index 4.28H, Troponin I < 0.02, C-Reactive Protein, Quantitative 0.93H, NT-Pro-B -Type Natriuretic Peptide 6329H, Total Protein 7.8, Albumin 3.5, Albumin/ Globulin Ratio 0.81L, Amylase Level 80, Lipase 151 01/24/17 13:30: Total Creatine Kinase 86, Creatine Kinase MB 3.8H, Creatine Kinase MB Relative Index 4.41H, Troponin I < 0.02 CBC/BMP Laboratory Tests 01/24/17 11:58 Red Blood Count 3.17 L, Mean Corpuscular Volume 104.4 H, Mean Corpuscular Hemoglobin 34.7 H, Mean Corpuscular Hemoglobin Concent 33.2, Red Cell Distribution Width 14.2, Neutrophils (%) (Auto) 87.1 H, Lymphocytes (%) (Auto) 6.0 L, Monocytes (%) (Auto) 5.4 H, Eosinophils (%) (Auto) 0.4, Basophils (%) ( Auto) 0.4, Neutrophils # (Auto) 9.2 H, Lymphocytes # (Auto) 0.6 L, Monocytes # ( Auto) 0.6, Eosinophils # (Auto) 0.0, Basophils # (Auto) 0.0 Microbiology Microbiology 01/24/17 Blood Culture, Received Pending 01/24/17 Blood Culture, Received Pending Plan / VTE VTE Prophylaxis Ordered?: Yes (Eliquis 2.5mg BID) Plan Plan Nausea/vomiting, diarrhea - Suspected viral origin - No antibiotics at this time based on imaging; very mild leukocytosis likely reactive - Clear liquid diet - Ondanestron 4mg IV every 6 hours as needed for nausea/vomiting Cough - Mucinex - Dextromethorphan Back pain - Acetaminophen 650mg by mouth every 4 hours as needed for mild pain or fever Atrial fibrillation - Apixaban 2.5mg by mouth twice a day - Remote telemetry Hyperlipidemia - Atorvastatin 40mg by mouth every day Hypertension - Hydralazine 20mg by mouth every day - Bisoprolol 10mg by mouth twice a day - Torsemide 20mg by mouth every day at 9am and 5pm CAD - Aspirin 81mg by mouth every day - Nitroglycerin 0.4mg sublingual every 5 hours as needed for chest pain Hypothyroidism - Levothyroxine 50mcg by mouth daily at 6am Iron deficiency - Ferrous Sulfate 325mg by mouth twice a day Gastroesophageal reflux disease with history of Ruiz's esophagus - Omeprazole 20mg by mouth every day at bed time - Femotidine 20mg by mouth every day at bed time Gout - Allopurinol 100mg by mouth every day Disposition Admit: Medical-surgical with remote telemetry Anticipated hospitalization: 2 nights Attending: Dr. Vaca Diet: Continue Current (Clear liquids) Activity: Continue Current (Activity as tolerated) Diagnostics: Check Labs, Repeat Labs in AM, Obtain Cultures Anticipated Discharge: Home GME ATTESTATION GME ATTESTATION My faculty preceptor for this patient encounter was physically present during the encounter and was fully available. All aspects of the patient interview, examination, medical decision making process, and medical care plan development were reviewed and approved by the faculty preceptor. The faculty preceptor is aware and concurs with the plan as stated in the body of this note and will attest to such by his/her cosignature. ATTENDING NOTE I have both independently examined this patient as well as reviewed the H&P. I have discussed in detail with the resident the findings and plan of treatment as documented in the residents note. I will continue to follow the patient and offer further guidance to the patients care as necessary during this hospital stay. FRANCES Najera MD, DO Jan 24, 2017 15:06 ERENDIRA RICHARDSON MD Jan 31, 2017 09:30
[2017-01-24] MEDS: ALLOPURINOL 100 MG TAB PO SCH (16:48)
[2017-01-24] MEDS: TORSEMIDE 20 MG TAB PO SCH (16:48)
[2017-01-24 18:00] VITALS: BP 160/90
--- NOTE | 2017-01-24 18:32 | ECGEPIP ---
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
[2017-01-24] MEDS: ACETAMINOPHEN TAB 650MG DOSE (2X325MG) PO PRN (20:01)
[2017-01-24] MEDS: APIXABAN 2.5 MG TAB (ELIQUIS) PO SCH (20:53)
[2017-01-24] MEDS: guaiFENesin ER 600 MG TAB PO SCH (20:53)
[2017-01-24] MEDS: OMEPRAZOLE 20 MG CAP PO SCH (20:53)
[2017-01-24] MEDS: FERROUS SULFATE 325MG TAB PO SCH (20:53)
[2017-01-24] MEDS: BISOPROLOL FUMARATE 10 MG TAB PO SCH (20:54)
[2017-01-24] MEDS: FAMOTIDINE 20 MG TAB PO SCH (20:54)
[2017-01-24] MEDS: ONDANSETRON 4MG/2ML VIAL (J2405) IV PRN (20:54)
[2017-01-24 22:00] VITALS: BP 140/71
[2017-01-25 06:00] VITALS: BP 154/81
[2017-01-25 06:22] LABS: MEAN CORPUSCULAR HEMOGLOBIN 34.8 pg (27.0-33.0); MEAN CORPUSCULAR HGB CONC 33.1 g/dl (32.0-36.5); MEAN CORPUSCULAR VOLUME 105.1 fl (80.0-96.0); PLATELET COUNT, AUTOMATED 313 10^3/uL (150-450); RED CELL DISTRIBUTION WIDTH 14.2 % (11.5-14.5); WHITE BLOOD COUNT 9.1 10^3/uL (4.0-10.0)
[2017-01-25 06:41] LABS: ALBUMIN 3.4 GM/DL (3.2-5.2); ALBUMIN/GLOBULIN RATIO 0.74 (1.00-1.93); BILIRUBIN,TOTAL 0.6 MG/DL (0.2-1.0); CALCIUM LEVEL 9.4 MG/DL (8.8-10.2); CREATININE FOR GFR 1.69 MG/DL (0.70-1.30); GLOMERULAR FILTRATION RATE 42.7 (>42); MAGNESIUM LEVEL 2.2 MG/DL (1.8-2.4); POTASSIUM SERUM 4.8 MEQ/L (3.5-5.1)
[2017-01-25] MEDS: LEVOTHYROXINE 50MCG TABLET (0.05MG) PO SCH (06:56)
[2017-01-25] MEDS: APIXABAN 2.5 MG TAB (ELIQUIS) PO SCH ×2 (09:25→20:27)
[2017-01-25] MEDS: ATORVASTATIN 20 MG TAB PO SCH (09:25)
[2017-01-25] MEDS: guaiFENesin ER 600 MG TAB PO SCH ×2 (09:25→20:27)
[2017-01-25] MEDS: ACETAMINOPHEN TAB 650MG DOSE (2X325MG) PO PRN ×3 (09:25→21:51)
[2017-01-25] MEDS: ALLOPURINOL 100 MG TAB PO SCH (09:25)
[2017-01-25] MEDS: TORSEMIDE 20 MG TAB PO SCH ×2 (09:26→17:49)
[2017-01-25] MEDS: ASPIRIN 81 MG ENTERIC TAB PO SCH (09:26)
[2017-01-25] MEDS: FERROUS SULFATE 325MG TAB PO SCH ×2 (09:26→20:26)
[2017-01-25] MEDS: **hydrALAZINE** 10 MG TAB PO SCH (09:28)
[2017-01-25] MEDS: BISOPROLOL FUMARATE 10 MG TAB PO SCH ×2 (09:28→20:26)
[2017-01-25] MEDS ORDERED: MORPHINE 4 MG/ML 1ML SYRINGE IV ONE (10:15)
[2017-01-25] MEDS ORDERED: DEXTROMETHORPHAN 60MG/10ML SUSP 90ML BTL(DELSYM) PO PRN (11:45)
--- NOTE | 2017-01-25 13:50 | IPN ---
DATE: 01/25/2017 Patient is seen and examined at the bedside. Chart has been reviewed. The patient continues to have persistent pleuritic cough. No fever or chills. No nausea or vomiting. Diarrhea has subsided. He has had no repeat episodes in the hospital. No fevers or chills overnight. Troponins are negative times three. The patient has chronic kidney disease, currently at baseline 1.4 to 1.6, respiratory panel is negative. Sputum culture is pending. Vitals: Temperature 98.2, pulse 81, respiratory rate 20, blood pressure 143/81, 95% on room air. Generally, patient is awake, alert and oriented times three, answering questions appropriately. Face is symmetric. Tongue is midline. Moist mucous membranes. Lungs are clear to auscultation. No wheezing, rales or rhonchi. Heart S1, S2 sinus rhythm. Abdomen is soft, nontender, nondistended. Positive bowel sounds times four quadrants. Extremities no clubbing, cyanosis, or pitting edema. CT abdomen and pelvis diverticulosis without acute diverticulitis, chronic changes. Left inguinal hernia. No acute abdominopelvic pathology. Trace basilar atelectasis. ASSESSMENT/PLAN: This is a 71-year-old male who complains of two days nausea, vomiting and diarrhea, cough for 3-4 weeks, history of congestive heart failure (CHF), ejection fraction of 20%, atrial fibrillation, hypothyroidism, chronic kidney disease stage III, iron deficiency anemia, reflux, dyslipidemia, transient ischemic attack (TIA), hiatal hernia, Ruiz's, ischemic cardiomyopathy and hypertension, who presents with complaints of pleuritic chest pain, abdominal pain, nausea, vomiting and diarrhea, which have all subsided. CURRENT ISSUES: 1. Nausea, vomiting, and diarrhea. Possible viral gastroenteritis. No antibiotics. On clear liquids. Advance as tolerated. On Zofran as needed. Had cough, no signs of heart failure or acute infiltrate. No empiric antibiotics. 2. Chronic back pain. 3. Atrial fibrillation on apixaban. 4. Hyperlipidemia on atorvastatin. 5. Hydralazine. 6. Hypertension. On hydralazine, bisoprolol and torsemide. 7. Chronic kidney disease stage III at baseline creatinine. 8. Coronary artery disease on aspirin and nitroglycerin. 9. Hypothyroidism on levothyroxine. 10. Iron deficiency on ferrous sulfate. 11. Reflux and history of Ruiz's esophagus on omeprazole, famotidine, gout and allopurinol.
[2017-01-25 14:00] VITALS: BP 145/76
[2017-01-25] MEDS: FAMOTIDINE 20 MG TAB PO SCH (20:27)
[2017-01-25] MEDS: OMEPRAZOLE 20 MG CAP PO SCH (20:27)
[2017-01-25] MEDS: ONDANSETRON 4MG/2ML VIAL (J2405) IV PRN (21:51)
[2017-01-25 22:00] VITALS: BP 149/70
[2017-01-26] MEDS: ACETAMINOPHEN TAB 650MG DOSE (2X325MG) PO PRN ×4 (05:46→20:04)
[2017-01-26] MEDS: LEVOTHYROXINE 50MCG TABLET (0.05MG) PO SCH (05:46)
[2017-01-26 06:00] VITALS: BP 155/54
[2017-01-26 06:06] LABS: MEAN CORPUSCULAR HEMOGLOBIN 34.6 pg (27.0-33.0); MEAN CORPUSCULAR HGB CONC 32.7 g/dl (32.0-36.5); MEAN CORPUSCULAR VOLUME 105.8 fl (80.0-96.0); PLATELET COUNT, AUTOMATED 299 10^3/uL (150-450); RED CELL DISTRIBUTION WIDTH 14.1 % (11.5-14.5); WHITE BLOOD COUNT 9.2 10^3/uL (4.0-10.0)
[2017-01-26] MEDS ORDERED: IMOD2TAB16 PO (06:48)
[2017-01-26 06:54] LABS: ALBUMIN 3.3 GM/DL (3.2-5.2); ALBUMIN/GLOBULIN RATIO 0.75 (1.00-1.93); BILIRUBIN,TOTAL 0.5 MG/DL (0.2-1.0); CALCIUM LEVEL 8.8 MG/DL (8.8-10.2); CREATININE FOR GFR 1.78 MG/DL (0.70-1.30); GLOMERULAR FILTRATION RATE 40.2 (>42); MAGNESIUM LEVEL 1.9 MG/DL (1.8-2.4); POTASSIUM SERUM 3.8 MEQ/L (3.5-5.1); TOTAL PROTEIN 7.7 GM/DL (6.4-8.2)
--- NOTE | 2017-01-26 08:50 | REPUSA ---
CLINICAL HISTORY: Cough. TECHNIQUE: Multiple axial CT images were obtained through chest with IV contrast material. MPR suh l and sagittal sequences were obtained. COMMENTS: Comparison to prior exam performed on 05/21/2016. Decreased bilateral pleural effusions. Decreased bilateral basilar consolidations/ airspace disease in the lower lobes. Unchanged cardiomegaly. Unchanged pacemaker wires. There is no evidence of pleural or parenchymal mass. The visualized portions of the liver are of uniform attenuation without mass or defect. There is no i ntra or extrahepatic biliary ductal dilatation. The spleen is unremarkable. The visualized pancreas i s of normal contour and attenuation characteristics. There is no evidence of adrenal mass. The visual ized portions of the kidneys present no abnormalities. The bony structures are free of lytic or blastic lesions. Multilevel degenerative changes are seen in volving the thoracic spine. Scattered calcifications are seen involving the aorta and visualized ariel r branches compatible with atherosclerosis. IMPRESSION: Decreased bilateral pleural effusions. Decreased bilateral basilar consolidations/ airspace disease in the lower lobes. Unchanged cardiomegaly. Unchanged pacemaker wires. Diffuse bilateral groundglass densities of the lungs. Thank you for your kind referral of this patient.
[2017-01-26] MEDS ORDERED: INFLUENZA VIRUS VACCINE HIGH DOSE 0.5 ML SYRINGE (90662) IM ONE (09:00)
[2017-01-26] MEDS ORDERED: NS 1,000 ML IV SCH (09:45)
[2017-01-26] MEDS ORDERED: IPRATROPIUM 0.5MG/ALBUTEROL 2.5MG INH SOL UD 3ML (DUONEB)(J7620) NEB ONE (10:00)
[2017-01-26] MEDS: BISOPROLOL FUMARATE 10 MG TAB PO SCH ×2 (10:17→20:03)
[2017-01-26] MEDS: ATORVASTATIN 20 MG TAB PO SCH (10:17)
[2017-01-26] MEDS: ALLOPURINOL 100 MG TAB PO SCH (10:18)
[2017-01-26] MEDS: ASPIRIN 81 MG ENTERIC TAB PO SCH (10:18)
[2017-01-26] MEDS: FERROUS SULFATE 325MG TAB PO SCH ×2 (10:18→20:03)
[2017-01-26] MEDS: guaiFENesin ER 600 MG TAB PO SCH ×2 (10:18→20:03)
[2017-01-26] MEDS: APIXABAN 2.5 MG TAB (ELIQUIS) PO SCH ×2 (10:18→20:02)
[2017-01-26] MEDS: **hydrALAZINE** 10 MG TAB PO SCH (10:19)
--- NOTE | 2017-01-26 10:24 | IPN ---
DATE: 01/26/2017 Patient is seen and examined at the bedside. Chart has been reviewed. This morning, patient stated that he had three loose bowel movements yesterday. Creatinine increased to 1.78 this morning. He denies any shortness of breath. No chest pain, pressure or tightness. The patient complains of slight discomfort when he takes a deep breath. Heart rate has been irregular which is chronic. Ventricular rate of 83 to 97. No palpitations or lightheadedness. No abdominal pain. No constipation. No dysuric, urgency or frequency. Temperature 98.9, pulse 87, respiratory rate 20, blood pressure 155/54, 94% on room air. Generally, the patient is awake, alert and oriented times three, answering questions appropriately. Pupils are round and reactive to light and accommodation. Extraocular muscles are intact. No jugular venous distention. No thyromegaly. Lungs diminished with occasional wheezing. Heart: S1, S2, irregularly irregular. Abdomen is soft, nontender, nondistended. Positive bowel sounds times four quadrants. No rebound or guarding. Extremities: No cyanosis, clubbing or any pitting edema. Skin: Healed burn right mid thoracic back. LABORATORY DATA: CBC, metabolic panel and microbiology have been reviewed. GI panel and respiratory panel are all negative. Creatinine is 1.78, increased from admission of 1.41. ASSESSMENT/PLAN: This is a 71-year-old male with history of chronic kidney disease Stage 3, congestive heart failure, ejection fraction 20%, chronic atrial fibrillation on anticoagulation, iron deficiency anemia, gout, reflux, dysliipidemia, history of transient ischemic attack, hiatal hernia, left inguinal hernia, Ruiz's esophagus, ischemic cardiomyopathy, and hypertension admitted due to complaints of nausea, vomiting and diarrhea for 2 days and productive cough for 3-4 weeks, and worsening back pain for the past few weeks. The patient developed acute on chronic renal failure due to dehydration from diarrhea. GI panel is negative. Patient has the following issues: 1. Acute on chronic renal failure Stage 3. The patient's torsemide has been discontinued. He will be given one liter of fluids at 70 mL/hr. Monitor for respiratory distress and congestive heart failure exacerbation. Ins and out. Daily weights. Avoid nephrotoxins. Renally dose all medications. 2. Diarrhea. GI panel is negative. Loperamide as needed after each bowel movement. 3. Pleuritic chest pain. Troponins are negative. Chest x-ray has no infiltrate or consolidation. Will obtain CT of the chest. 4. Atrial fibrillation, rate controlled. Continue on Zebeta 10 twice a day, apixaban 2.5 twice a day. 5. Gout. On allopurinol. 6. History of ischemic cardiomyopathy. On aspirin, Lipitor, bisoprolol. 7. Hypothyroidism. On levothyroxine. 8. Hypertension. Stable on hydralazine, bisoprolol.
[2017-01-26] MEDS: IPRATROPIUM 0.5MG/ALBUTEROL 2.5MG INH SOL UD 3ML (DUONEB)(J7620) NEB SCH ×3 (11:04→21:11)
[2017-01-26 14:00] VITALS: BP 142/71
[2017-01-26] MEDS: ONDANSETRON 4MG/2ML VIAL (J2405) IV PRN (14:49)
[2017-01-26] MEDS: OMEPRAZOLE 20 MG CAP PO SCH (20:02)
[2017-01-26] MEDS: FAMOTIDINE 20 MG TAB PO SCH (20:03)
[2017-01-26 20:28] LABS: CALCIUM LEVEL 8.5 MG/DL (8.8-10.2); CREATININE FOR GFR 1.67 MG/DL (0.70-1.30); GLOMERULAR FILTRATION RATE 43.3 (>42); POTASSIUM SERUM 3.6 MEQ/L (3.5-5.1)
[2017-01-26 22:00] VITALS: BP 142/79
[2017-01-27] MEDS: ACETAMINOPHEN TAB 650MG DOSE (2X325MG) PO PRN (04:39)
[2017-01-27 06:00] VITALS: BP 134/70
[2017-01-27] MEDS: LEVOTHYROXINE 50MCG TABLET (0.05MG) PO SCH (06:05)
[2017-01-27] MEDS ORDERED: predniSONE 20 MG TAB PO ONE (06:30)
[2017-01-27] MEDS ORDERED: IPRATROPIUM 0.5MG/ALBUTEROL 2.5MG INH SOL UD 3ML (DUONEB)(J7620) NEB ONE (06:30)
[2017-01-27 06:54] LABS: MEAN CORPUSCULAR HEMOGLOBIN 34.2 pg (27.0-33.0); MEAN CORPUSCULAR HGB CONC 31.9 g/dl (32.0-36.5); MEAN CORPUSCULAR VOLUME 107.5 fl (80.0-96.0); PLATELET COUNT, AUTOMATED 260 10^3/uL (150-450); RED CELL DISTRIBUTION WIDTH 13.7 % (11.5-14.5); WHITE BLOOD COUNT 7.6 10^3/uL (4.0-10.0)
[2017-01-27 07:09] LABS: ALBUMIN 3.1 GM/DL (3.2-5.2); ALBUMIN/GLOBULIN RATIO 0.78 (1.00-1.93); BILIRUBIN,TOTAL 0.5 MG/DL (0.2-1.0); CALCIUM LEVEL 8.6 MG/DL (8.8-10.2); CREATININE FOR GFR 1.35 MG/DL (0.70-1.30); GLOMERULAR FILTRATION RATE 55.3 (>42); MAGNESIUM LEVEL 1.9 MG/DL (1.8-2.4); POTASSIUM SERUM 3.5 MEQ/L (3.5-5.1); TOTAL PROTEIN 7.1 GM/DL (6.4-8.2)
[2017-01-27] MEDS: IPRATROPIUM 0.5MG/ALBUTEROL 2.5MG INH SOL UD 3ML (DUONEB)(J7620) NEB SCH (07:19)
[2017-01-27 09:00] VITALS: BP 148/80
[2017-01-27] MEDS: BISOPROLOL FUMARATE 10 MG TAB PO SCH (09:03)
[2017-01-27] MEDS: ALLOPURINOL 100 MG TAB PO SCH (09:03)
[2017-01-27 09:04] VITALS: BP 148/80
[2017-01-27] MEDS: **hydrALAZINE** 10 MG TAB PO SCH (09:04)
[2017-01-27] MEDS: ATORVASTATIN 20 MG TAB PO SCH (09:05)
[2017-01-27] MEDS: guaiFENesin ER 600 MG TAB PO SCH (09:05)
[2017-01-27] MEDS: APIXABAN 2.5 MG TAB (ELIQUIS) PO SCH (09:05)
[2017-01-27] MEDS: ASPIRIN 81 MG ENTERIC TAB PO SCH (09:05)
[2017-01-27] MEDS: FERROUS SULFATE 325MG TAB PO SCH (09:05)
--- NOTE | 2017-01-27 12:26 | DSES ---
DATE OF ADMISSION: 01/24/2017 DATE OF DISCHARGE: 01/27/2017 PRIMARY DISCHARGE DIAGNOSES: 1. Gastroenteritis. 2. Acute on chronic renal failure secondary to dehydration. 3. History of congestive heart failure compensated. 4. Chronic atrial fibrillation on anticoagulation. 5. Iron deficiency anemia. 6. History of transient ischemic attack (TIA). 7. History of reflux. 8. Dyslipidemia. 9. Hiatal hernia. 10. History of Ruiz's esophagus. 11. Hypertension. DISCHARGE MEDICATIONS: - loperamide as needed for each bowel movement - allopurinol 100 mg daily - Eliquis 2.5 mg twice daily - aspirin 81 mg daily - atorvastatin 40 daily - bisoprolol 10 twice daily - ferrous sulfate 325 mg twice daily - hydralazine 20 daily - levothyroxine 50 mcg daily - nitroglycerine 0.4 as needed - Prilosec 20 daily - ranitidine one tablet daily at bedtime - torsemide 20 twice daily DISCHARGE INSTRUCTIONS: Repeat basic metabolic panel regarding acute on chronic renal failure and dehydration secondary to diarrhea to be done on 01/28/[address] Dilip Cerda. HOSPITAL COURSE: This is a 71-year-old male who presented to the emergency room with complaints of nausea, vomiting, abdominal pain, pleuritic chest, pain, malaise, and vomiting for 2 days with productive cough 3-4 weeks. Chest x-ray was unremarkable with no acute cardiopulmonary process. CT abdomen and pelvis was negative for acute pathology. Patient had no white count, no fever. He had three diarrhea episodes with microbiology showing negative GI panel. No Clostridium difficile. No bacterial diarrhea. Respiratory panel was negative. Urine culture, sputum culture pending. Blood culture is negative. CT chest shows bibasilar ground glass densities on the lungs. Patient was given nebulizer treatments with significant improvement. Patient did develop acute kidney injury due to dehydration from diarrhea with creatinine of 1.78 from baseline of 1.3- 1.6 given 1 liter of IV fluids which resolved to 1.35 with no signs of congestive heart failure decompensation. Patient is discharged in stable condition FOLLOWUP ISSUES: A repeat basic metabolic panel as outpatient on 01/28/2017 and call results to his primary care physician Dr. Dilip Cerda for adjustment diuretics if needed. LABS ON DISCHARGE 01/27/2017: White count 7.6, hemoglobin 10, hematocrit 31, platelet count 260. Metabolic panel: Sodium 135, potassium 3.5, chloride 100, bicarbonate 27, BUN 23, creatinine 1.35, previous creatinine was 1.78. Glucose of 10.6 Microbiology: GI panel on 01/25 negative. Respiratory panel negative. 01/24 urine culture final negative. Gram stain on 01/24 sputum culture: Few gram positive rods, few gram negative rods. Blood culture on 01/24 no growth. Imaging studies: Chest x-ray 01/24 no acute cardiopulmonary process. CT abdomen and pelvis 01/24/2017 shows trace basal atelectasis, sigmoid diverticulosis without acute diverticulitis, stable chronic changes including renal cysts. No acute abdominal or pelvic pathology. TIME SPENT ON DISCHARGE: 30 minutes. MTDD
== END 2017-01-27 11:58 | disposition home or self-care (01) | DRG 392 ==
LOC: M ED 10:43 → M ED INP 15:36 → M MSPAV 18:02
PROVIDERS: ADMIT Hospitalist; ATTEND General Practice
DX: A08.4 Viral intestinal infection, unspecified (principal); I13.0 Hypertensive heart and chronic kidney disease with heart failure and stage 1 through stage 4 chronic kidney disease, or unspecified chronic kidney disease; N17.9 Acute kidney failure, unspecified; I50.9 Heart failure, unspecified; I25.5 Ischemic cardiomyopathy; E03.9 Hypothyroidism, unspecified; I48.2 Chronic atrial fibrillation; E86.0 Dehydration; D50.9 Iron deficiency anemia, unspecified; E78.5 Hyperlipidemia, unspecified; M54.6 Pain in thoracic spine; K21.9 Gastro-esophageal reflux disease without esophagitis; K40.90 Unilateral inguinal hernia, without obstruction or gangrene, not specified as recurrent; K44.9 Diaphragmatic hernia without obstruction or gangrene; K22.70 Barrett's esophagus without dysplasia; N18.3 Chronic kidney disease, stage 3 (moderate); M10.9 Gout, unspecified; Z86.73 Personal history of transient ischemic attack (TIA), and cerebral infarction without residual deficits; Z95.810 Presence of automatic (implantable) cardiac defibrillator; Z87.891 Personal history of nicotine dependence; Z90.49 Acquired absence of other specified parts of digestive tract; Z79.82 Long term (current) use of aspirin; Z88.0 Allergy status to penicillin; Z88.1 Allergy status to other antibiotic agents; Z88.2 Allergy status to sulfonamides; Z79.899 Other long term (current) drug therapy

== ENCOUNTER → 2017-01-28 | Outpatient (CLI) | payer MEDICARE ==
[~2017-01-28] MED LIST changes: +IMOD2TAB16 PO; +TORS20TA2 PO
[2017-01-28 14:29] LABS: CALCIUM LEVEL 9.2 MG/DL (8.8-10.2); CREATININE FOR GFR 1.33 MG/DL (0.70-1.30); GLOMERULAR FILTRATION RATE 56.3 (>42); MAGNESIUM LEVEL 2.4 MG/DL (1.8-2.4); POTASSIUM SERUM 4.5 MEQ/L (3.5-5.1)
== END ==
LOC: M SMT 08:36
PROVIDERS: ATTEND General Practice
DX: R19.7 Diarrhea, unspecified (principal); N18.3 Chronic kidney disease, stage 3 (moderate)

== ENCOUNTER → 2017-04-06 | Outpatient (CLI) | payer MEDICARE ==
[2017-04-06 11:01] LABS: BASO % 0.4 % (0.0-1.0); EOS # 0.2 10^3/uL (0.0-0.50); EOS % 2.9 % (0.0-3.0); HEMATOCRIT 37.8 % (42.0-52.0); HEMOGLOBIN 11.7 g/dl (14.0-18.0); IMMATURE GRANULOCYTE % 0.4 % (0-0); LYMPH # 0.9 10^3/uL (1.5-4.5); MEAN CORPUSCULAR HEMOGLOBIN 32.7 pg (27.0-33.0); MEAN CORPUSCULAR VOLUME 105.6 fl (80.0-96.0); MONO # 0.6 10^3/uL (0.0-0.8); MONO % 10.8 % (0.0-5.0); NEUTROPHILS # 3.5 10^3/uL (1.8-7.7); NEUTROPHILS % 68.5 % (36.0-66.0); PLATELET COUNT, AUTOMATED 312 10^3/uL (150-450); RED BLOOD COUNT 3.58 10^6/uL (4.30-6.10); RED CELL DISTRIBUTION WIDTH 14.8 % (11.5-14.5); WHITE BLOOD COUNT 5.1 10^3/uL (4.0-10.0)
[2017-04-06 11:35] LABS: ALBUMIN 3.5 GM/DL (3.2-5.2); ALBUMIN/GLOBULIN RATIO 0.83 (1.00-1.93); ALKALINE PHOSPHATASE 82 U/L (45-117); ALT/SGPT 23 U/L (12-78); ANION GAP 11 MEQ/L (8-16); AST/SGOT 18 U/L (7-37); BILIRUBIN,TOTAL 0.7 MG/DL (0.2-1.0); BLOOD UREA NITROGEN 32 MG/DL (7-18); CALCIUM LEVEL 9.2 MG/DL (8.8-10.2); CARBON DIOXIDE LEVEL 28 MEQ/L (21-32); CHLORIDE LEVEL 103 MEQ/L (98-107); CHOLESTEROL LEVEL 118 MG/DL (<200); CHOLESTEROL RISK RATIO 3.025 (<5); FREE T4 1.13 NG/DL (0.76-1.46); GLUCOSE, FASTING 109 MG/DL (70-100); HDL CHOLESTEROL 39 MG/DL (>40); IRON (FE) 55 UG/DL (65-175); LDL CHOLESTEROL 44.6 MG/DL (<100); MAGNESIUM LEVEL 2.4 MG/DL (1.8-2.4); NON-HDL-C 79 MG/DL; PERCENT SATURATION 12.1 % (19.7-50.0); POTASSIUM SERUM 4.6 MEQ/L (3.5-5.1); SODIUM LEVEL 142 MEQ/L (136-145); TOTAL IRON BINDING CAPACITY 455 UG/DL (250-450); TOTAL PROTEIN 7.7 GM/DL (6.4-8.2); TRIGLYCERIDES LEVEL 172 MG/DL (<150)
== END ==
LOC: M SMT 08:33
DX: D50.9 Iron deficiency anemia, unspecified (principal); E78.2 Mixed hyperlipidemia; I47.2 Ventricular tachycardia; M10.9 Gout, unspecified; I11.0 Hypertensive heart disease with heart failure; I50.9 Heart failure, unspecified; I48.91 Unspecified atrial fibrillation
CPT/HCPCS: 83735

== ENCOUNTER → 2017-04-06 | Outpatient (CLI) | payer MEDICARE ==
[2017-04-06 11:07] LABS: HEMATOCRIT 37.7 % (42.0-52.0); HEMOGLOBIN 11.8 g/dl (14.0-18.0); MEAN CORPUSCULAR HGB CONC 31.3 g/dl (32.0-36.5); MEAN CORPUSCULAR VOLUME 105.3 fl (80.0-96.0); PLATELET COUNT, AUTOMATED 314 10^3/uL (150-450); RED BLOOD COUNT 3.58 10^6/uL (4.30-6.10); RED CELL DISTRIBUTION WIDTH 14.8 % (11.5-14.5)
[2017-04-06 11:28] LABS: ANION GAP 10 MEQ/L (8-16); BLOOD UREA NITROGEN 32 MG/DL (7-18); CALCIUM LEVEL 9.3 MG/DL (8.8-10.2); CARBON DIOXIDE LEVEL 29 MEQ/L (21-32); CHLORIDE LEVEL 102 MEQ/L (98-107); CREATININE FOR GFR 1.27 MG/DL (0.70-1.30); FERRITIN 68 NG/ML (26-388); GLOMERULAR FILTRATION RATE 59.3 (>42); GLUCOSE, FASTING 109 MG/DL (70-100); IRON (FE) 55 UG/DL (65-175); PERCENT SATURATION 11.9 % (19.7-50.0); POTASSIUM SERUM 4.3 MEQ/L (3.5-5.1); SODIUM LEVEL 141 MEQ/L (136-145); TOTAL IRON BINDING CAPACITY 463 UG/DL (250-450)
== END ==
LOC: M SMT 08:38
DX: D64.9 Anemia, unspecified (principal); I50.9 Heart failure, unspecified; I48.91 Unspecified atrial fibrillation

== ENCOUNTER → 2017-04-12 | Outpatient (CLI) | payer MEDICARE | LOC: M SMT 11:19 | DX: J84.9 Interstitial pulmonary disease, unspecified (principal); I50.9 Heart failure, unspecified; J90 Pleural effusion, not elsewhere classified; Z95.0 Presence of cardiac pacemaker | CPT/HCPCS: 71046 ==

== ENCOUNTER 2017-04-15 07:19 | Inpatient (IN) | payer MEDICARE ==
[2017-04-15 07:56] LABS: BASO % 0.6 % (0.0-1.0); EOS % 0.4 % (0.0-3.0); HEMATOCRIT 37.1 % (42.0-52.0); HEMOGLOBIN 11.8 g/dl (14.0-18.0); IMMATURE GRANULOCYTE % 0.3 % (0-3.0); LYMPH # 0.8 10^3/uL (1.5-4.5); LYMPH % 11.6 % (24.0-44.0); MEAN CORPUSCULAR HEMOGLOBIN 32.9 pg (27.0-33.0); MEAN CORPUSCULAR HGB CONC 31.8 g/dl (32.0-36.5); MEAN CORPUSCULAR VOLUME 103.3 fl (80.0-96.0); MONO # 0.8 10^3/uL (0.0-0.8); MONO % 11.5 % (0.0-5.0); NEUTROPHILS # 5.3 10^3/uL (1.8-7.7); NEUTROPHILS % 75.6 % (36.0-66.0); PLATELET COUNT, AUTOMATED 254 10^3/uL (150-450); RED BLOOD COUNT 3.59 10^6/uL (4.30-6.10); RED CELL DISTRIBUTION WIDTH 15.7 % (11.5-14.5)
[2017-04-15] MEDS: FUROSEMIDE 40 MG/4 ML VIAL (J1940) IV ×3 (08:00→18:45)
[2017-04-15 08:20] LABS: ANION GAP 12 MEQ/L (8-16); BLOOD UREA NITROGEN 35 MG/DL (7-18); CALCIUM LEVEL 8.3 MG/DL (8.8-10.2); CARBON DIOXIDE LEVEL 28 MEQ/L (21-32); CHLORIDE LEVEL 98 MEQ/L (98-107); CK-MB VALUE MASS 2.4 NG/ML (0.0-3.6); CPK CREATINE PHOSPHOKINASE 109 U/L (39-308); CREATININE FOR GFR 1.64 MG/DL (0.70-1.30); GLOMERULAR FILTRATION RATE 44.2 (>42); GLUCOSE, FASTING 104 MG/DL (70-100); POTASSIUM SERUM 4.4 MEQ/L (3.5-5.1); SODIUM LEVEL 138 MEQ/L (136-145); TROPONIN I < 0.02 NG/ML (< 0.10)
[2017-04-15 08:26] LABS: THYROXINE (T4) 9.4 UG/DL (4.5-12.0)
[2017-04-15 08:26] LABS: NT-PRO BNP 12365 PG/ML (<125)
[2017-04-15 08:32] LABS: MAGNESIUM LEVEL 1.9 MG/DL (1.8-2.4)
[2017-04-15] MEDS ORDERED: ACETAMINOPHEN TAB 650MG DOSE (2X325MG) PO (10:30)
[2017-04-15] MEDS ORDERED: SLF 3 ML SYR IV (17:00)
[2017-04-15] MEDS: ASPIRIN 81 MG ENTERIC TAB PO (18:45)
[2017-04-15] MEDS: SLF 3 ML SYR IV (21:52)
[2017-04-15] MEDS: ALLOPURINOL 100 MG TAB PO (21:52)
[2017-04-15] MEDS: OMEPRAZOLE 20 MG CAP PO (21:52)
[2017-04-15] MEDS: **hydrALAZINE** 10 MG TAB PO (21:52)
[2017-04-15] MEDS: APIXABAN 2.5 MG TAB (ELIQUIS) PO (21:52)
[2017-04-15] MEDS: FERROUS SULFATE 325MG TAB PO (21:52)
[2017-04-15] MEDS: BENZONATATE 100 MG CAP PO (22:06)
[2017-04-16] MEDS: FUROSEMIDE 40 MG/4 ML VIAL (J1940) IV ×5 (00:14→23:35)
[2017-04-16 02:20] LABS: ANION GAP 11 MEQ/L (8-16); BLOOD UREA NITROGEN 36 MG/DL (7-18); CALCIUM LEVEL 8.5 MG/DL (8.8-10.2); CARBON DIOXIDE LEVEL 30 MEQ/L (21-32); CHLORIDE LEVEL 100 MEQ/L (98-107); CREATININE FOR GFR 1.53 MG/DL (0.70-1.30); GLOMERULAR FILTRATION RATE 47.9 (>42); GLUCOSE, FASTING 107 MG/DL (70-100); POTASSIUM SERUM 3.9 MEQ/L (3.5-5.1); SODIUM LEVEL 141 MEQ/L (136-145)
[2017-04-16 05:23] LABS: HEMATOCRIT 35.1 % (42.0-52.0); HEMOGLOBIN 11.4 g/dl (14.0-18.0); MEAN CORPUSCULAR HEMOGLOBIN 32.7 pg (27.0-33.0); MEAN CORPUSCULAR HGB CONC 32.5 g/dl (32.0-36.5); MEAN CORPUSCULAR VOLUME 100.6 fl (80.0-96.0); PLATELET COUNT, AUTOMATED 244 10^3/uL (150-450); RED BLOOD COUNT 3.49 10^6/uL (4.30-6.10); RED CELL DISTRIBUTION WIDTH 15.5 % (11.5-14.5); WHITE BLOOD COUNT 5.4 10^3/uL (4.0-10.0)
[2017-04-16 05:41] LABS: ANION GAP 9 MEQ/L (8-16); BLOOD UREA NITROGEN 35 MG/DL (7-18); CALCIUM LEVEL 8.5 MG/DL (8.8-10.2); CARBON DIOXIDE LEVEL 30 MEQ/L (21-32); CHLORIDE LEVEL 101 MEQ/L (98-107); GLUCOSE, FASTING 105 MG/DL (70-100); MAGNESIUM LEVEL 2.1 MG/DL (1.8-2.4); POTASSIUM SERUM 3.5 MEQ/L (3.5-5.1); SODIUM LEVEL 140 MEQ/L (136-145)
[2017-04-16] MEDS: LEVOTHYROXINE 50MCG TABLET (0.05MG) PO (05:56)
[2017-04-16] MEDS: SLF 3 ML SYR IV ×3 (05:57→21:12)
[2017-04-16] MEDS: BISOPROLOL FUMARATE 10 MG TAB PO (09:33)
[2017-04-16] MEDS: FERROUS SULFATE 325MG TAB PO ×2 (09:33→21:12)
[2017-04-16] MEDS: ATORVASTATIN 20 MG TAB PO (09:33)
[2017-04-16] MEDS: APIXABAN 2.5 MG TAB (ELIQUIS) PO ×2 (09:33→21:12)
[2017-04-16] MEDS: BENZONATATE 100 MG CAP PO ×2 (09:33→21:12)
[2017-04-16] MEDS: **hydrALAZINE** 10 MG TAB PO ×2 (09:33→21:11)
[2017-04-16] MEDS: ALLOPURINOL 100 MG TAB PO ×2 (09:33→21:12)
[2017-04-16] MEDS: ASPIRIN 81 MG ENTERIC TAB PO (09:33)
[2017-04-16] MEDS: OMEPRAZOLE 20 MG CAP PO (21:11)
[2017-04-16 22:52] LABS: ANION GAP 8 MEQ/L (8-16); BLOOD UREA NITROGEN 42 MG/DL (7-18); CALCIUM LEVEL 8.3 MG/DL (8.8-10.2); CARBON DIOXIDE LEVEL 32 MEQ/L (21-32); CHLORIDE LEVEL 100 MEQ/L (98-107); CREATININE FOR GFR 1.66 MG/DL (0.70-1.30); GLOMERULAR FILTRATION RATE 43.6 (>42); GLUCOSE, FASTING 115 MG/DL (70-100); MAGNESIUM LEVEL 2.2 MG/DL (1.8-2.4); POTASSIUM SERUM 4.2 MEQ/L (3.5-5.1); SODIUM LEVEL 140 MEQ/L (136-145)
[2017-04-17 05:27] LABS: HEMATOCRIT 36.1 % (42.0-52.0); HEMOGLOBIN 11.5 g/dl (14.0-18.0); MEAN CORPUSCULAR HEMOGLOBIN 32.5 pg (27.0-33.0); MEAN CORPUSCULAR HGB CONC 31.9 g/dl (32.0-36.5); PLATELET COUNT, AUTOMATED 253 10^3/uL (150-450); RED BLOOD COUNT 3.54 10^6/uL (4.30-6.10); RED CELL DISTRIBUTION WIDTH 15.4 % (11.5-14.5); WHITE BLOOD COUNT 6.3 10^3/uL (4.0-10.0)
[2017-04-17 05:47] LABS: ANION GAP 7 MEQ/L (8-16); BLOOD UREA NITROGEN 38 MG/DL (7-18); CALCIUM LEVEL 8.5 MG/DL (8.8-10.2); CARBON DIOXIDE LEVEL 30 MEQ/L (21-32); CHLORIDE LEVEL 102 MEQ/L (98-107); CREATININE FOR GFR 1.47 MG/DL (0.70-1.30); GLOMERULAR FILTRATION RATE 50.1 (>42); GLUCOSE, FASTING 108 MG/DL (70-100); MAGNESIUM LEVEL 2.2 MG/DL (1.8-2.4); POTASSIUM SERUM 3.5 MEQ/L (3.5-5.1); SODIUM LEVEL 139 MEQ/L (136-145)
[2017-04-17] MEDS: FUROSEMIDE 40 MG/4 ML VIAL (J1940) IV ×2 (06:21→12:20)
[2017-04-17] MEDS: SLF 3 ML SYR IV ×3 (06:21→21:37)
[2017-04-17] MEDS: LEVOTHYROXINE 50MCG TABLET (0.05MG) PO (06:21)
[2017-04-17] MEDS: FERROUS SULFATE 325MG TAB PO ×2 (09:06→21:36)
[2017-04-17] MEDS: BISOPROLOL FUMARATE 10 MG TAB PO (09:06)
[2017-04-17] MEDS: **hydrALAZINE** 10 MG TAB PO ×2 (09:06→21:36)
[2017-04-17] MEDS: ASPIRIN 81 MG ENTERIC TAB PO (09:06)
[2017-04-17] MEDS: BENZONATATE 100 MG CAP PO ×2 (09:06→21:36)
[2017-04-17] MEDS: ATORVASTATIN 20 MG TAB PO (09:07)
[2017-04-17] MEDS: APIXABAN 2.5 MG TAB (ELIQUIS) PO ×2 (09:07→21:36)
[2017-04-17] MEDS: ALLOPURINOL 100 MG TAB PO ×2 (09:07→21:36)
[2017-04-17] MEDS: OMEPRAZOLE 20 MG CAP PO (21:36)
[2017-04-18 05:24] LABS: HEMATOCRIT 35.8 % (42.0-52.0); HEMOGLOBIN 11.4 g/dl (14.0-18.0); MEAN CORPUSCULAR HEMOGLOBIN 32.7 pg (27.0-33.0); MEAN CORPUSCULAR HGB CONC 31.8 g/dl (32.0-36.5); MEAN CORPUSCULAR VOLUME 102.6 fl (80.0-96.0); PLATELET COUNT, AUTOMATED 254 10^3/uL (150-450); RED BLOOD COUNT 3.49 10^6/uL (4.30-6.10); RED CELL DISTRIBUTION WIDTH 15.7 % (11.5-14.5); WHITE BLOOD COUNT 6.8 10^3/uL (4.0-10.0)
[2017-04-18 05:36] LABS: ANION GAP 8 MEQ/L (8-16); BLOOD UREA NITROGEN 40 MG/DL (7-18); CALCIUM LEVEL 8.7 MG/DL (8.8-10.2); CARBON DIOXIDE LEVEL 29 MEQ/L (21-32); CHLORIDE LEVEL 104 MEQ/L (98-107); CREATININE FOR GFR 1.53 MG/DL (0.70-1.30); GLOMERULAR FILTRATION RATE 47.9 (>42); GLUCOSE, FASTING 115 MG/DL (70-100); MAGNESIUM LEVEL 2.3 MG/DL (1.8-2.4); POTASSIUM SERUM 3.7 MEQ/L (3.5-5.1); SODIUM LEVEL 141 MEQ/L (136-145)
[2017-04-18] MEDS: SLF 3 ML SYR IV ×3 (06:28→22:00)
[2017-04-18] MEDS: LEVOTHYROXINE 50MCG TABLET (0.05MG) PO (06:28)
[2017-04-18] MEDS ORDERED: TORSEMIDE (DEMADEX) 50 MG PER 1/2 TAB PO (09:00)
[2017-04-18] MEDS: BENZONATATE 100 MG CAP PO ×2 (09:02→21:23)
[2017-04-18] MEDS: APIXABAN 2.5 MG TAB (ELIQUIS) PO ×2 (09:02→21:23)
[2017-04-18] MEDS: BISOPROLOL FUMARATE 10 MG TAB PO (09:02)
[2017-04-18] MEDS: ATORVASTATIN 20 MG TAB PO (09:02)
[2017-04-18] MEDS: ALLOPURINOL 100 MG TAB PO ×2 (09:02→21:23)
[2017-04-18] MEDS: **hydrALAZINE** 10 MG TAB PO ×2 (09:02→21:23)
[2017-04-18] MEDS: ASPIRIN 81 MG ENTERIC TAB PO (09:03)
[2017-04-18] MEDS: TORSEMIDE 20 MG TAB PO ×2 (09:03→17:32)
[2017-04-18] MEDS: FERROUS SULFATE 325MG TAB PO ×2 (09:03→21:23)
[2017-04-18] MEDS: OMEPRAZOLE 20 MG CAP PO (21:23)
[2017-04-19] MEDS: SLF 3 ML SYR IV ×3 (05:56→22:07)
[2017-04-19] MEDS: LEVOTHYROXINE 50MCG TABLET (0.05MG) PO (05:56)
[2017-04-19 06:33] LABS: HEMATOCRIT 38.1 % (42.0-52.0); HEMOGLOBIN 12.3 g/dl (14.0-18.0); MEAN CORPUSCULAR HEMOGLOBIN 33.2 pg (27.0-33.0); MEAN CORPUSCULAR HGB CONC 32.3 g/dl (32.0-36.5); MEAN CORPUSCULAR VOLUME 102.7 fl (80.0-96.0); PLATELET COUNT, AUTOMATED 259 10^3/uL (150-450); RED BLOOD COUNT 3.71 10^6/uL (4.30-6.10); WHITE BLOOD COUNT 6.4 10^3/uL (4.0-10.0)
[2017-04-19 06:57] LABS: ANION GAP 10 MEQ/L (8-16); BLOOD UREA NITROGEN 39 MG/DL (7-18); CALCIUM LEVEL 9.2 MG/DL (8.8-10.2); CARBON DIOXIDE LEVEL 30 MEQ/L (21-32); CHLORIDE LEVEL 101 MEQ/L (98-107); CREATININE FOR GFR 1.49 MG/DL (0.70-1.30); GLOMERULAR FILTRATION RATE 49.4 (>42); GLUCOSE, FASTING 103 MG/DL (70-100); MAGNESIUM LEVEL 2.3 MG/DL (1.8-2.4); POTASSIUM SERUM 3.8 MEQ/L (3.5-5.1); SODIUM LEVEL 141 MEQ/L (136-145)
[2017-04-19] MEDS: **hydrALAZINE** 10 MG TAB PO ×2 (09:37→22:07)
[2017-04-19] MEDS: BISOPROLOL FUMARATE 10 MG TAB PO (09:37)
[2017-04-19] MEDS: ATORVASTATIN 20 MG TAB PO (09:37)
[2017-04-19] MEDS: ALLOPURINOL 100 MG TAB PO ×2 (09:37→22:06)
[2017-04-19] MEDS: APIXABAN 2.5 MG TAB (ELIQUIS) PO ×2 (09:37→22:07)
[2017-04-19] MEDS: FERROUS SULFATE 325MG TAB PO ×2 (09:37→22:07)
[2017-04-19] MEDS: ASPIRIN 81 MG ENTERIC TAB PO (09:37)
[2017-04-19] MEDS: BENZONATATE 100 MG CAP PO ×2 (09:37→22:07)
[2017-04-19] MEDS: TORSEMIDE 20 MG TAB PO ×2 (09:38→17:58)
[2017-04-19] MEDS: OMEPRAZOLE 20 MG CAP PO (22:07)
[2017-04-20 05:41] LABS: HEMATOCRIT 38.7 % (42.0-52.0); HEMOGLOBIN 12.4 g/dl (14.0-18.0); MEAN CORPUSCULAR VOLUME 102.9 fl (80.0-96.0); PLATELET COUNT, AUTOMATED 270 10^3/uL (150-450); RED BLOOD COUNT 3.76 10^6/uL (4.30-6.10); RED CELL DISTRIBUTION WIDTH 15.9 % (11.5-14.5); WHITE BLOOD COUNT 6.6 10^3/uL (4.0-10.0)
[2017-04-20 06:10] LABS: ANION GAP 8 MEQ/L (8-16); BLOOD UREA NITROGEN 45 MG/DL (7-18); CALCIUM LEVEL 9.5 MG/DL (8.8-10.2); CARBON DIOXIDE LEVEL 31 MEQ/L (21-32); CHLORIDE LEVEL 101 MEQ/L (98-107); CREATININE FOR GFR 1.65 MG/DL (0.70-1.30); GLOMERULAR FILTRATION RATE 43.9 (>42); GLUCOSE, FASTING 103 MG/DL (70-100); MAGNESIUM LEVEL 2.3 MG/DL (1.8-2.4); SODIUM LEVEL 140 MEQ/L (136-145)
[2017-04-20] MEDS: LEVOTHYROXINE 50MCG TABLET (0.05MG) PO (06:43)
[2017-04-20] MEDS: SLF 3 ML SYR IV (06:43)
[2017-04-20] MEDS: FERROUS SULFATE 325MG TAB PO (09:09)
[2017-04-20] MEDS: BENZONATATE 100 MG CAP PO (09:09)
[2017-04-20] MEDS: BISOPROLOL FUMARATE 10 MG TAB PO (09:09)
[2017-04-20] MEDS: TORSEMIDE 20 MG TAB PO (09:09)
[2017-04-20] MEDS: ASPIRIN 81 MG ENTERIC TAB PO (09:09)
[2017-04-20] MEDS: ATORVASTATIN 20 MG TAB PO (09:10)
[2017-04-20] MEDS: ALLOPURINOL 100 MG TAB PO (09:10)
[2017-04-20] MEDS: APIXABAN 2.5 MG TAB (ELIQUIS) PO (09:10)
[2017-04-20] MEDS: **hydrALAZINE** 10 MG TAB PO (09:10)
== END 2017-04-20 12:34 | disposition home or self-care (01) | DRG 291 ==
LOC: M PCU 04-18 02:42 → M ED 07:19 → M ED INP 10:18 → M PCU 20:30
DX: I13.0 Hypertensive heart and chronic kidney disease with heart failure and stage 1 through stage 4 chronic kidney disease, or unspecified chronic kidney disease (principal); I50.23 Acute on chronic systolic (congestive) heart failure; E03.9 Hypothyroidism, unspecified; E78.5 Hyperlipidemia, unspecified; I48.91 Unspecified atrial fibrillation; N18.3 Chronic kidney disease, stage 3 (moderate); K21.9 Gastro-esophageal reflux disease without esophagitis; M10.9 Gout, unspecified; Z95.810 Presence of automatic (implantable) cardiac defibrillator; Z98.41 Cataract extraction status, right eye; Z98.42 Cataract extraction status, left eye; Z87.891 Personal history of nicotine dependence; Z79.01 Long term (current) use of anticoagulants; Z79.82 Long term (current) use of aspirin; Z79.899 Other long term (current) drug therapy; Z86.73 Personal history of transient ischemic attack (TIA), and cerebral infarction without residual deficits

== ENCOUNTER → 2017-04-25 | Outpatient (CLI) | payer MEDICARE ==
[2017-04-25 18:54] LABS: ANION GAP 11 MEQ/L (8-16); BLOOD UREA NITROGEN 47 MG/DL (7-18); CALCIUM LEVEL 9.4 MG/DL (8.8-10.2); CARBON DIOXIDE LEVEL 29 MEQ/L (21-32); CHLORIDE LEVEL 99 MEQ/L (98-107); CREATININE FOR GFR 1.73 MG/DL (0.70-1.30); GLOMERULAR FILTRATION RATE 41.5 (>42); GLUCOSE, FASTING 96 MG/DL (70-100); POTASSIUM SERUM 4.5 MEQ/L (3.5-5.1); SODIUM LEVEL 139 MEQ/L (136-145)
== END ==
LOC: M SMT 14:36
DX: I50.23 Acute on chronic systolic (congestive) heart failure (principal)
CPT/HCPCS: 80048

== ENCOUNTER 2017-09-13 09:10 | Emergency (ER) | payer MEDICARE ==
[2017-09-13 10:25] LABS: BASO # 0.1 10^3/uL (0.0-0.2); BASO % 0.7 % (0.0-1.0); EOS # 0.1 10^3/uL (0.0-0.50); EOS % 1.1 % (0.0-3.0); HEMATOCRIT 37.3 % (42.0-52.0); HEMOGLOBIN 12.2 g/dl (13.5-17.5); IMMATURE GRANULOCYTE % 0.7 % (0-3.0); LYMPH # 0.6 10^3/uL (1.5-4.5); LYMPH % 8.5 % (24.0-44.0); MEAN CORPUSCULAR HEMOGLOBIN 34.1 pg (27.0-33.0); MEAN CORPUSCULAR HGB CONC 32.7 g/dl (32.0-36.5); MEAN CORPUSCULAR VOLUME 104.2 fl (80.0-96.0); MONO # 0.7 10^3/uL (0.0-0.8); MONO % 9.9 % (0.0-5.0); NEUTROPHILS # 5.6 10^3/uL (1.8-7.7); NEUTROPHILS % 79.1 % (36.0-66.0); PLATELET COUNT, AUTOMATED 219 10^3/uL (150-450); RED BLOOD COUNT 3.58 10^6/uL (4.30-6.10); RED CELL DISTRIBUTION WIDTH 17.3 % (11.5-14.5); WHITE BLOOD COUNT 7.1 10^3/uL (4.0-10.0)
[2017-09-13 10:38] LABS: INR 1.65; PROTHROMBIN TIME 19.8 SECONDS (12.1-14.4)
[2017-09-13 10:53] LABS: ERYTHROCYTE SEDIMENTATION RATE 40 mm/hr (0-20)
[2017-09-13 11:02] LABS: ANION GAP 11 MEQ/L (8-16); BLOOD UREA NITROGEN 44 MG/DL (7-18); CALCIUM LEVEL 8.6 MG/DL (8.8-10.2); CARBON DIOXIDE LEVEL 30 MEQ/L (21-32); CHLORIDE LEVEL 100 MEQ/L (98-107); CREATININE FOR GFR 2.14 MG/DL (0.70-1.30); GLOMERULAR FILTRATION RATE 32.4 (>42); GLUCOSE, FASTING 116 MG/DL (70-100); POTASSIUM SERUM 3.2 MEQ/L (3.5-5.1); SODIUM LEVEL 141 MEQ/L (136-145)
[2017-09-13] MEDS: POTASSIUM CHLORIDE 10 MEQ SR TABLET PO (11:21)
[2017-09-15 14:40] LABS: Lyme Disease IgG Ab 18 kDa Ban Absent (.); Lyme Disease IgG Ab 23 kDa Ban Absent (.); Lyme Disease IgG Ab 28 kDa Ban Absent (.); Lyme Disease IgG Ab 30 kDa Ban Absent (.); Lyme Disease IgG Ab 39 kDa Ban Absent (.); Lyme Disease IgG Ab 41 kDa Ban Absent (.); Lyme Disease IgG Ab 45 kDa Ban Absent (.); Lyme Disease IgG Ab 58 kDa Ban Absent (.); Lyme Disease IgG Ab 66 kDa Ban Absent (.); Lyme Disease IgG Ab 93 kDa Ban Absent (.); Lyme Disease IgG West Blot Int Negative (.); Lyme Disease IgG/IgM Antibodie 1.49 ISR (0.00-0.90); Lyme Disease IgM Ab 23 kDa Ban Present (.); Lyme Disease IgM Ab 39 kDa Ban Absent (.); Lyme Disease IgM Ab 41 kDa Ban Present (.); Lyme Disease IgM West Blot Int Positive (.)
== END 2017-09-13 12:30 | disposition home or self-care (01) ==
LOC: M ED 09:10
DX: R20.2 Paresthesia of skin (principal); M21.371 Foot drop, right foot; I11.0 Hypertensive heart disease with heart failure; I50.9 Heart failure, unspecified; I48.91 Unspecified atrial fibrillation; E78.5 Hyperlipidemia, unspecified; E07.9 Disorder of thyroid, unspecified; Z86.73 Personal history of transient ischemic attack (TIA), and cerebral infarction without residual deficits; Z79.899 Other long term (current) drug therapy; Z79.82 Long term (current) use of aspirin; Z79.01 Long term (current) use of anticoagulants; Z79.890 Hormone replacement therapy; Z88.0 Allergy status to penicillin; Z88.1 Allergy status to other antibiotic agents; Z88.2 Allergy status to sulfonamides
CPT/HCPCS: 73590

== ENCOUNTER → 2017-09-26 | Outpatient (CLI) | payer MEDICARE ==
[2017-09-26 12:28] LABS: BASO # 0.1 10^3/uL (0.0-0.2); BASO % 0.7 % (0.0-1.0); EOS # 0.1 10^3/uL (0.0-0.50); EOS % 1.9 % (0.0-3.0); HEMATOCRIT 39.6 % (42.0-52.0); HEMOGLOBIN 12.7 g/dl (13.5-17.5); IMMATURE GRANULOCYTE % 0.4 % (0-3.0); LYMPH # 0.7 10^3/uL (1.5-4.5); LYMPH % 10.9 % (24.0-44.0); MEAN CORPUSCULAR HEMOGLOBIN 33.8 pg (27.0-33.0); MEAN CORPUSCULAR HGB CONC 32.1 g/dl (32.0-36.5); MEAN CORPUSCULAR VOLUME 105.3 fl (80.0-96.0); MONO # 0.8 10^3/uL (0.0-0.8); MONO % 12.1 % (0.0-5.0); PLATELET COUNT, AUTOMATED 215 10^3/uL (150-450); RED BLOOD COUNT 3.76 10^6/uL (4.30-6.10); RED CELL DISTRIBUTION WIDTH 17.2 % (11.5-14.5); WHITE BLOOD COUNT 6.8 10^3/uL (4.0-10.0)
[2017-09-26 13:00] LABS: ALBUMIN 3.5 GM/DL (3.2-5.2); ALKALINE PHOSPHATASE 72 U/L (45-117); ALT/SGPT 25 U/L (12-78); ANION GAP 12 MEQ/L (8-16); AST/SGOT 25 U/L (7-37); BILIRUBIN,TOTAL 1.7 MG/DL (0.2-1.0); BLOOD UREA NITROGEN 39 MG/DL (7-18); CALCIUM LEVEL 8.9 MG/DL (8.8-10.2); CARBON DIOXIDE LEVEL 30 MEQ/L (21-32); CHLORIDE LEVEL 101 MEQ/L (98-107); CHOLESTEROL LEVEL 79 MG/DL (<200); CHOLESTEROL RISK RATIO 2.468 (<5); CREATININE FOR GFR 1.87 MG/DL (0.70-1.30); FREE T4 1.62 NG/DL (0.76-1.46); GLOMERULAR FILTRATION RATE 37.9 (>42); GLUCOSE, FASTING 98 MG/DL (70-100); HDL CHOLESTEROL 32 MG/DL (>40); IRON (FE) 59 UG/DL (65-175); LDL CHOLESTEROL 30.8 MG/DL (<100); MAGNESIUM LEVEL 1.9 MG/DL (1.8-2.4); NON-HDL-C 47 MG/DL; PERCENT SATURATION 16.5 % (19.7-50.0); POTASSIUM SERUM 3.9 MEQ/L (3.5-5.1); SODIUM LEVEL 143 MEQ/L (136-145); TOTAL IRON BINDING CAPACITY 357 UG/DL (250-450); TOTAL PROTEIN 7.4 GM/DL (6.4-8.2); TRIGLYCERIDES LEVEL 81 MG/DL (<150); URIC ACID 5.8 MG/DL (3.5-7.2)
[2017-09-26 13:11] LABS: ESTIMATED AVERAGE GLUCOSE 146 MG/DL (60-110); HEMOGLOBIN A1c 6.7 %
== END ==
LOC: M SMT 08:41
DX: I10 Essential (primary) hypertension (principal); D50.9 Iron deficiency anemia, unspecified; E78.2 Mixed hyperlipidemia; E03.9 Hypothyroidism, unspecified; M10.9 Gout, unspecified; I47.2 Ventricular tachycardia; R73.01 Impaired fasting glucose
CPT/HCPCS: 83550

== ENCOUNTER 2017-10-25 01:05 | Emergency (ER) | payer MEDICARE ==
[2017-10-25 01:53] LABS: VENOUS BASE EXCESS -0.9 (-2.0-2.0); VENOUS HCO3 24.5 MEQ/L (23.0-27.0); VENOUS O2 SATURATION 54.6 % (60.0-80.0); VENOUS PARTIAL PRESSURE CO2 43.5 mmHg (38.0-50.0); VENOUS PARTIAL PRESSURE O2 33.3 mmHg (30.0-50.0); VENOUS PH 7.369 UNITS (7.330-7.430); VENOUS STANDARD HCO3 22.7 MEQ/L; VENOUS TOTAL CO2 25.9 MEQ/L (24.0-28.0)
[2017-10-25 02:04] LABS: BASO % 0.5 % (0.0-1.0); EOS # 0.1 10^3/uL (0.0-0.50); EOS % 1.6 % (0.0-3.0); HEMATOCRIT 38.6 % (42.0-52.0); HEMOGLOBIN 12.6 g/dl (13.5-17.5); IMMATURE GRANULOCYTE % 0.4 % (0-3.0); LYMPH # 0.8 10^3/uL (1.5-4.5); LYMPH % 9.6 % (24.0-44.0); MEAN CORPUSCULAR HEMOGLOBIN 34.5 pg (27.0-33.0); MEAN CORPUSCULAR HGB CONC 32.6 g/dl (32.0-36.5); MEAN CORPUSCULAR VOLUME 105.8 fl (80.0-96.0); MONO # 0.9 10^3/uL (0.0-0.8); MONO % 10.4 % (0.0-5.0); NEUTROPHILS # 6.5 10^3/uL (1.8-7.7); NEUTROPHILS % 77.5 % (36.0-66.0); PLATELET COUNT, AUTOMATED 209 10^3/uL (150-450); RED BLOOD COUNT 3.65 10^6/uL (4.30-6.10); RED CELL DISTRIBUTION WIDTH 16.3 % (11.5-14.5); WHITE BLOOD COUNT 8.3 10^3/uL (4.0-10.0)
[2017-10-25 02:13] LABS: ANION GAP 12 MEQ/L (8-16); BLOOD UREA NITROGEN 36 MG/DL (7-18); CALCIUM LEVEL 8.5 MG/DL (8.8-10.2); CARBON DIOXIDE LEVEL 28 MEQ/L (21-32); CHLORIDE LEVEL 99 MEQ/L (98-107); CPK CREATINE PHOSPHOKINASE 86 U/L (39-308); CREATININE FOR GFR 1.84 MG/DL (0.70-1.30); GLOMERULAR FILTRATION RATE 38.6 (>42); GLUCOSE, FASTING 101 MG/DL (70-100); POTASSIUM SERUM 3.4 MEQ/L (3.5-5.1); SODIUM LEVEL 139 MEQ/L (136-145); TROPONIN I 0.02 NG/ML (< 0.10)
[2017-10-25 02:14] LABS: CK-MB VALUE MASS 2.1 NG/ML (<3.6); MB/CK RELATIVE INDEX 2.44 (< OR =4); NT-PRO BNP 18740 PG/ML (<125)
[2017-10-25] MEDS: FUROSEMIDE 100 MG/10 ML VIAL (J1940) IV (02:33)
[2017-10-25] MEDS: NITROGLYCERIN 2% OINT 1 GM *U/D* PKT TOP (02:34)
== END 2017-10-25 05:03 | disposition home or self-care (01) ==
LOC: M ED 01:05
DX: I11.0 Hypertensive heart disease with heart failure (principal); I48.91 Unspecified atrial fibrillation; I25.10 Atherosclerotic heart disease of native coronary artery without angina pectoris; E78.5 Hyperlipidemia, unspecified; N28.9 Disorder of kidney and ureter, unspecified; D50.9 Iron deficiency anemia, unspecified; K21.9 Gastro-esophageal reflux disease without esophagitis; E03.9 Hypothyroidism, unspecified; Z86.73 Personal history of transient ischemic attack (TIA), and cerebral infarction without residual deficits; Z95.5 Presence of coronary angioplasty implant and graft; Z79.899 Other long term (current) drug therapy; Z79.01 Long term (current) use of anticoagulants; Z79.890 Hormone replacement therapy; Z88.0 Allergy status to penicillin; Z88.1 Allergy status to other antibiotic agents; Z88.2 Allergy status to sulfonamides; Z87.891 Personal history of nicotine dependence
CPT/HCPCS: J1940

== ENCOUNTER 2017-11-16 10:41 | Inpatient (IN) | payer MEDICARE ==
[2017-11-16 12:01] LABS: HEMATOCRIT 37.6 % (42.0-52.0); HEMOGLOBIN 12.5 g/dl (13.5-17.5); MEAN CORPUSCULAR HEMOGLOBIN 34.2 pg (27.0-33.0); MEAN CORPUSCULAR HGB CONC 33.2 g/dl (32.0-36.5); PLATELET COUNT, AUTOMATED 202 10^3/uL (150-450); RED BLOOD COUNT 3.65 10^6/uL (4.30-6.10); RED CELL DISTRIBUTION WIDTH 16.2 % (11.5-14.5); WHITE BLOOD COUNT 6.6 10^3/uL (4.0-10.0)
[2017-11-16] MEDS: FUROSEMIDE 100 MG/10 ML VIAL (J1940) IV ×3 (12:34→23:31)
[2017-11-16 12:52] LABS: ALBUMIN 3.4 GM/DL (3.2-5.2); ALBUMIN/GLOBULIN RATIO 0.83 (1.00-1.93); ALKALINE PHOSPHATASE 93 U/L (45-117); ALT/SGPT 20 U/L (12-78); ANION GAP 10 MEQ/L (8-16); AST/SGOT 26 U/L (7-37); BILIRUBIN,TOTAL 1.7 MG/DL (0.2-1.0); BLOOD UREA NITROGEN 34 MG/DL (7-18); CALCIUM LEVEL 8.9 MG/DL (8.8-10.2); CARBON DIOXIDE LEVEL 31 MEQ/L (21-32); CHLORIDE LEVEL 100 MEQ/L (98-107); CREATININE FOR GFR 1.96 MG/DL (0.70-1.30); GLOMERULAR FILTRATION RATE 35.9 (>42); GLUCOSE, FASTING 97 MG/DL (70-100); MAGNESIUM LEVEL 2.3 MG/DL (1.8-2.4); POTASSIUM SERUM 3.5 MEQ/L (3.5-5.1); SODIUM LEVEL 141 MEQ/L (136-145); TOTAL PROTEIN 7.5 GM/DL (6.4-8.2)
[2017-11-16 14:12] LABS: APPEARANCE, URINE CLEAR (CLEAR); BACTERIA, URINE AUTO 1+ (NEGATIVE); BILIRUBIN, URINE AUTO NEGATIVE (NEGATIVE); BLOOD, URINE BLOOD NEGATIVE (NEGATIVE); COLOR, URINE YELLOW (YELLOW); GLUCOSE, URINE (UA) AUTO NEGATIVE (NEGATIVE); KETONE, URINE AUTO NEGATIVE (NEGATIVE); LEUKOCYTE ESTERASE, URINE AUTO NEGATIVE (NEGATIVE); NITRITE, URINE AUTO NEGATIVE (NEGATIVE); PROTEIN, URINE AUTO NEGATIVE (NEGATIVE); RBC, URINE AUTO 1 /HPF (0-3); SPECIFIC GRAVITY URINE AUTO 1.008 (1.002-1.035); SQUAMOUS EPITHELIAL CELL UR AU 0 /HPF (0-6); UROBILINOGEN, URINE AUTO 0.2 mg/dL (0.0-2.0); WBC, URINE AUTO 0 /HPF (0-3)
[2017-11-16] MEDS: BISOPROLOL FUMARATE 5 MG TAB PO (14:31)
[2017-11-16] MEDS: POTASSIUM CHLORIDE 10 MEQ SR TABLET PO (14:32)
[2017-11-16] MEDS: **hydrALAZINE HCL** 25 MG TAB PO ×2 (16:14→20:36)
[2017-11-16] MEDS: ISOSORBIDE DIN (ISORDIL) 10 MG TAB PO ×2 (16:14→20:36)
[2017-11-16] MEDS: OMEPRAZOLE 20 MG CAP PO (20:35)
[2017-11-16] MEDS: APIXABAN 5 MG TAB (ELIQUIS) PO (20:36)
[2017-11-17 05:27] LABS: ANION GAP 11 MEQ/L (8-16); BLOOD UREA NITROGEN 40 MG/DL (7-18); CALCIUM LEVEL 9.3 MG/DL (8.8-10.2); CARBON DIOXIDE LEVEL 30 MEQ/L (21-32); CHLORIDE LEVEL 99 MEQ/L (98-107); CREATININE FOR GFR 1.89 MG/DL (0.70-1.30); GLOMERULAR FILTRATION RATE 37.4 (>42); GLUCOSE, FASTING 106 MG/DL (70-100); POTASSIUM SERUM 3.6 MEQ/L (3.5-5.1); SODIUM LEVEL 140 MEQ/L (136-145)
[2017-11-17] MEDS: FUROSEMIDE 100 MG/10 ML VIAL (J1940) IV ×4 (05:37→23:23)
[2017-11-17] MEDS: LEVOTHYROXINE 50MCG TABLET (0.05MG) PO (05:37)
[2017-11-17] MEDS: APIXABAN 5 MG TAB (ELIQUIS) PO ×2 (08:38→20:08)
[2017-11-17] MEDS: ISOSORBIDE DIN (ISORDIL) 10 MG TAB PO ×3 (08:40→20:08)
[2017-11-17] MEDS: SPIRONOLACTONE 12.5MG PER 1/2 TABLET PO (08:41)
[2017-11-17] MEDS: **hydrALAZINE HCL** 25 MG TAB PO ×3 (08:43→20:08)
[2017-11-17] MEDS: BISOPROLOL FUMARATE 5 MG TAB PO (08:44)
[2017-11-17] MEDS: ATORVASTATIN 20 MG TAB PO (08:48)
[2017-11-17] MEDS: OMEPRAZOLE 20 MG CAP PO (20:07)
[2017-11-17] MEDS: ALLOPURINOL 100 MG TAB PO (20:08)
[2017-11-18] MEDS: LEVOTHYROXINE 50MCG TABLET (0.05MG) PO (05:24)
[2017-11-18] MEDS: FUROSEMIDE 100 MG/10 ML VIAL (J1940) IV ×3 (05:24→17:39)
[2017-11-18 05:32] LABS: ANION GAP 11 MEQ/L (8-16); BLOOD UREA NITROGEN 42 MG/DL (7-18); CALCIUM LEVEL 9.2 MG/DL (8.8-10.2); CARBON DIOXIDE LEVEL 30 MEQ/L (21-32); CHLORIDE LEVEL 100 MEQ/L (98-107); GLOMERULAR FILTRATION RATE 37.2 (>42); GLUCOSE, FASTING 100 MG/DL (70-100); POTASSIUM SERUM 4.2 MEQ/L (3.5-5.1); SODIUM LEVEL 141 MEQ/L (136-145)
[2017-11-18] MEDS: ISOSORBIDE DIN (ISORDIL) 10 MG TAB PO ×3 (08:32→20:49)
[2017-11-18] MEDS: **hydrALAZINE HCL** 25 MG TAB PO ×3 (08:33→20:48)
[2017-11-18] MEDS: APIXABAN 5 MG TAB (ELIQUIS) PO ×2 (08:33→20:48)
[2017-11-18] MEDS: SPIRONOLACTONE 12.5MG PER 1/2 TABLET PO (08:33)
[2017-11-18] MEDS: BISOPROLOL FUMARATE 5 MG TAB PO (08:34)
[2017-11-18] MEDS: ATORVASTATIN 20 MG TAB PO (08:34)
[2017-11-18] MEDS: ALLOPURINOL 100 MG TAB PO ×2 (08:34→20:49)
[2017-11-18] MEDS ORDERED: SLF 3 ML SYR IV (18:45)
[2017-11-18] MEDS: OMEPRAZOLE 20 MG CAP PO (20:49)
[2017-11-18] MEDS: SLF 3 ML SYR IV (20:49)
[2017-11-19] MEDS: FUROSEMIDE 100 MG/10 ML VIAL (J1940) IV ×4 (00:23→18:38)
[2017-11-19 05:48] LABS: ANION GAP 11 MEQ/L (8-16); BLOOD UREA NITROGEN 42 MG/DL (7-18); CALCIUM LEVEL 9.6 MG/DL (8.8-10.2); CARBON DIOXIDE LEVEL 30 MEQ/L (21-32); CHLORIDE LEVEL 99 MEQ/L (98-107); CREATININE FOR GFR 1.81 MG/DL (0.70-1.30); GLOMERULAR FILTRATION RATE 39.3 (>42); GLUCOSE, FASTING 101 MG/DL (70-100); POTASSIUM SERUM 3.6 MEQ/L (3.5-5.1); SODIUM LEVEL 140 MEQ/L (136-145)
[2017-11-19] MEDS: SLF 3 ML SYR IV ×3 (06:00→22:00)
[2017-11-19] MEDS: LEVOTHYROXINE 50MCG TABLET (0.05MG) PO (06:05)
[2017-11-19] MEDS: APIXABAN 5 MG TAB (ELIQUIS) PO ×2 (09:34→20:19)
[2017-11-19] MEDS: BISOPROLOL FUMARATE 5 MG TAB PO (09:35)
[2017-11-19] MEDS: ATORVASTATIN 20 MG TAB PO (09:35)
[2017-11-19] MEDS: **hydrALAZINE HCL** 25 MG TAB PO ×3 (09:36→22:14)
[2017-11-19] MEDS: SPIRONOLACTONE 12.5MG PER 1/2 TABLET PO (09:36)
[2017-11-19] MEDS: ALLOPURINOL 100 MG TAB PO ×2 (09:36→20:20)
[2017-11-19] MEDS: ISOSORBIDE DIN (ISORDIL) 10 MG TAB PO (09:36)
[2017-11-19] MEDS: ISOSORBIDE DIN. (ISORDIL) 20 MG TAB PO ×2 (14:28→22:14)
[2017-11-19] MEDS: OMEPRAZOLE 20 MG CAP PO (20:19)
[2017-11-19] MEDS ORDERED: PILL CRUSHER/CUTTER 1 EACH XX (22:00)
[2017-11-20] MEDS: FUROSEMIDE 100 MG/10 ML VIAL (J1940) IV ×5 (00:34→23:49)
[2017-11-20 05:39] LABS: HEMATOCRIT 35.3 % (42.0-52.0); HEMOGLOBIN 11.8 g/dl (13.5-17.5); MEAN CORPUSCULAR HEMOGLOBIN 33.7 pg (27.0-33.0); MEAN CORPUSCULAR HGB CONC 33.4 g/dl (32.0-36.5); MEAN CORPUSCULAR VOLUME 100.9 fl (80.0-96.0); PLATELET COUNT, AUTOMATED 213 10^3/uL (150-450); RED CELL DISTRIBUTION WIDTH 15.9 % (11.5-14.5); WHITE BLOOD COUNT 6.5 10^3/uL (4.0-10.0)
[2017-11-20] MEDS: SLF 3 ML SYR IV ×3 (06:00→21:52)
[2017-11-20] MEDS: **hydrALAZINE HCL** 25 MG TAB PO (06:02)
[2017-11-20] MEDS: LEVOTHYROXINE 50MCG TABLET (0.05MG) PO (06:03)
[2017-11-20] MEDS: ISOSORBIDE DIN. (ISORDIL) 20 MG TAB PO ×3 (06:03→21:52)
[2017-11-20 06:04] LABS: ANION GAP 8 MEQ/L (8-16); BLOOD UREA NITROGEN 50 MG/DL (7-18); CARBON DIOXIDE LEVEL 30 MEQ/L (21-32); CHLORIDE LEVEL 99 MEQ/L (98-107); CREATININE FOR GFR 1.85 MG/DL (0.70-1.30); GLOMERULAR FILTRATION RATE 38.3 (>42); GLUCOSE, FASTING 98 MG/DL (70-100); MAGNESIUM LEVEL 2.5 MG/DL (1.8-2.4); POTASSIUM SERUM 3.6 MEQ/L (3.5-5.1); SODIUM LEVEL 137 MEQ/L (136-145)
[2017-11-20] MEDS: ALLOPURINOL 100 MG TAB PO ×2 (08:21→21:52)
[2017-11-20] MEDS: BISOPROLOL FUMARATE 5 MG TAB PO (08:21)
[2017-11-20] MEDS: ATORVASTATIN 20 MG TAB PO (08:21)
[2017-11-20] MEDS: SPIRONOLACTONE 12.5MG PER 1/2 TABLET PO ×2 (08:22→11:40)
[2017-11-20] MEDS: APIXABAN 5 MG TAB (ELIQUIS) PO ×2 (08:22→21:52)
[2017-11-20] MEDS: **hydrALAZINE** 50 MG TAB PO ×2 (14:45→21:52)
[2017-11-20] MEDS: OMEPRAZOLE 20 MG CAP PO (21:51)
[2017-11-21] MEDS: FUROSEMIDE 100 MG/10 ML VIAL (J1940) IV (05:28)
[2017-11-21] MEDS: LEVOTHYROXINE 50MCG TABLET (0.05MG) PO (05:29)
[2017-11-21] MEDS: ISOSORBIDE DIN. (ISORDIL) 20 MG TAB PO (05:29)
[2017-11-21] MEDS: SLF 3 ML SYR IV (05:29)
[2017-11-21] MEDS: **hydrALAZINE** 50 MG TAB PO (05:29)
[2017-11-21 06:00] LABS: ANION GAP 11 MEQ/L (8-16); BLOOD UREA NITROGEN 52 MG/DL (7-18); CARBON DIOXIDE LEVEL 27 MEQ/L (21-32); CHLORIDE LEVEL 101 MEQ/L (98-107); CREATININE FOR GFR 1.84 MG/DL (0.70-1.30); GLOMERULAR FILTRATION RATE 38.6 (>42); GLUCOSE, FASTING 94 MG/DL (70-100); POTASSIUM SERUM 3.5 MEQ/L (3.5-5.1); SODIUM LEVEL 139 MEQ/L (136-145)
[2017-11-21] MEDS: ATORVASTATIN 20 MG TAB PO (09:03)
[2017-11-21] MEDS: ALLOPURINOL 100 MG TAB PO (09:03)
[2017-11-21] MEDS: SPIRONOLACTONE 25 MG TAB PO (09:03)
[2017-11-21] MEDS: APIXABAN 5 MG TAB (ELIQUIS) PO (09:03)
[2017-11-21] MEDS: BISOPROLOL FUMARATE 5 MG TAB PO (09:05)
[2017-11-21] MEDS: INFLUENZA VIRUS VACCINE HIGH DOSE 0.5 ML SYRINGE (90662) IM (12:14)
== END 2017-11-21 12:33 | disposition home or self-care (01) | DRG 291 ==
LOC: M ICU 10:41 → M PCU 11-18 18:06
DX: I13.0 Hypertensive heart and chronic kidney disease with heart failure and stage 1 through stage 4 chronic kidney disease, or unspecified chronic kidney disease (principal); I50.43 Acute on chronic combined systolic (congestive) and diastolic (congestive) heart failure; I47.2 Ventricular tachycardia; N18.3 Chronic kidney disease, stage 3 (moderate); I25.10 Atherosclerotic heart disease of native coronary artery without angina pectoris; I25.2 Old myocardial infarction; I48.2 Chronic atrial fibrillation; M10.9 Gout, unspecified; I25.5 Ischemic cardiomyopathy; E87.6 Hypokalemia; I27.20 Pulmonary hypertension, unspecified; I08.1 Rheumatic disorders of both mitral and tricuspid valves; Z95.810 Presence of automatic (implantable) cardiac defibrillator; Z95.5 Presence of coronary angioplasty implant and graft; Z90.49 Acquired absence of other specified parts of digestive tract; Z87.891 Personal history of nicotine dependence; Z79.01 Long term (current) use of anticoagulants; Z79.899 Other long term (current) drug therapy; Z88.0 Allergy status to penicillin; Z88.1 Allergy status to other antibiotic agents; Z88.2 Allergy status to sulfonamides

== ENCOUNTER → 2017-12-05 | Outpatient (CLI) | payer MEDICARE ==
[2017-12-05 13:57] LABS: ANION GAP 13 MEQ/L (8-16); BLOOD UREA NITROGEN 102 MG/DL (7-18); CALCIUM LEVEL 9.7 MG/DL (8.8-10.2); CARBON DIOXIDE LEVEL 26 MEQ/L (21-32); CHLORIDE LEVEL 98 MEQ/L (98-107); CREATININE FOR GFR 2.23 MG/DL (0.70-1.30); GLOMERULAR FILTRATION RATE 30.9 (>42); GLUCOSE, FASTING 98 MG/DL (70-100); POTASSIUM SERUM 4.5 MEQ/L (3.5-5.1); SODIUM LEVEL 137 MEQ/L (136-145)
== END ==
LOC: M SMT 10:02
DX: I50.9 Heart failure, unspecified (principal); I48.91 Unspecified atrial fibrillation
CPT/HCPCS: 80048

== ENCOUNTER → 2018-02-03 | Outpatient (CLI) | payer MEDICARE ==
[2018-02-03 14:01] LABS: CHOLESTEROL LEVEL 84 MG/DL (<200); CHOLESTEROL RISK RATIO 2.709 (<5); FREE T4 1.26 NG/DL (0.76-1.46); HDL CHOLESTEROL 31 MG/DL (>40); LDL CHOLESTEROL 42 MG/DL (<100); NON-HDL-C 53 MG/DL; TRIGLYCERIDES LEVEL 55 MG/DL (<150)
== END ==
LOC: M SMT 12:00
DX: E03.9 Hypothyroidism, unspecified (principal); E78.2 Mixed hyperlipidemia
CPT/HCPCS: 84443

== ENCOUNTER → 2018-02-06 | Outpatient (CLI) | payer MEDICARE ==
[2018-02-06 18:30] LABS: ANION GAP 10 MEQ/L (8-16); BLOOD UREA NITROGEN 120 MG/DL (7-18); CALCIUM LEVEL 8.7 MG/DL (8.8-10.2); CARBON DIOXIDE LEVEL 27 MEQ/L (21-32); CHLORIDE LEVEL 95 MEQ/L (98-107); CREATININE FOR GFR 2.96 MG/DL (0.70-1.30); GLOMERULAR FILTRATION RATE 22.3 (>42); GLUCOSE, FASTING 95 MG/DL (70-100); POTASSIUM SERUM 5.1 MEQ/L (3.5-5.1); SODIUM LEVEL 132 MEQ/L (136-145)
[2018-02-06 18:33] LABS: EOS % 0.2 % (0.0-3.0); HEMATOCRIT 24.7 % (42.0-52.0); HEMOGLOBIN 7.6 g/dl (13.5-17.5); LYMPH # 0.7 10^3/uL (1.5-4.5); LYMPH % 7.3 % (24.0-44.0); MEAN CORPUSCULAR HEMOGLOBIN 29.3 pg (27.0-33.0); MEAN CORPUSCULAR HGB CONC 30.8 g/dl (32.0-36.5); MEAN CORPUSCULAR VOLUME 95.4 fl (80.0-96.0); MONO # 1.6 10^3/uL (0.0-0.8); MONO % 17.4 % (0.0-5.0); NEUTROPHILS # 6.9 10^3/uL (1.8-7.7); NEUTROPHILS % 74.1 % (36.0-66.0); PLATELET COUNT, AUTOMATED 392 10^3/uL (150-450); RED BLOOD COUNT 2.59 10^6/uL (4.30-6.10); RED CELL DISTRIBUTION WIDTH 15.3 % (11.5-14.5); WHITE BLOOD COUNT 9.3 10^3/uL (4.0-10.0)
== END ==
LOC: M SMT 13:52
DX: I51.7 Cardiomegaly (principal); R91.8 Other nonspecific abnormal finding of lung field; J20.9 Acute bronchitis, unspecified; N17.9 Acute kidney failure, unspecified
CPT/HCPCS: 80048

== ENCOUNTER 2018-02-24 16:42 | Inpatient (IN) | payer MEDICARE ==
[~2018-02-24] VITALS: Ht 167.6 cm; Wt 72.1 kg
[~2018-02-24 16:42] MED LIST changes: -AMLO10TA2 PO; +AMLO10TA5 PO; -BENZ200C53 PO; +BENZ200C70 PO; +BISO10TA6 PO; +CALC1CAP31 PO; +ELIQ5TAB PO; +HYDR-3911 PO; -LASI40TA PO; +LASI40TA9 PO; +LASI80TA3 PO; -LISI2.5T4 PO; +LISI2.5T76 PO; +LISI40TA PO; -LISI40TAB PO; +MAGN250T11 PO; +NITR0.4D6 TD; +NITR0.4S14 SL; +POTA10CA32 PO; +SPIR-10 PO; -SPIR25TA2 PO; +VITA-122 PO; +[UNRECOGNIZED DRUG - CODE] PO
[2018-02-24 17:45] LABS: BASO % 0.1 % (0.0-1.0); EOS # 0.2 10^3/uL (0.0-0.50); EOS % 1.8 % (0.0-3.0); LYMPH # 0.7 10^3/uL (1.5-4.5); LYMPH % 6.4 % (24.0-44.0); MEAN CORPUSCULAR HEMOGLOBIN 27.5 pg (27.0-33.0); MEAN CORPUSCULAR HGB CONC 30.6 g/dl (32.0-36.5); MONO # 0.9 10^3/uL (0.0-0.8); MONO % 7.9 % (0.0-5.0); NEUTROPHILS # 9.2 10^3/uL (1.8-7.7); NEUTROPHILS % 82.3 % (36.0-66.0); PLATELET COUNT, AUTOMATED 182 10^3/uL (150-450); WHITE BLOOD COUNT 11.2 10^3/uL (4.0-10.0)
[2018-02-24 17:48] LABS: HEMOGLOBIN 5.5 g/dl (13.5-17.5)
--- NOTE | 2018-02-24 17:52 | REP ---
Clinical: Trauma/fall. Comparison: 07/05/2014 . Findings: Age-related atrophy with periventricular leukomalacia, microvascular ischemic changes and evidence for old small lacunar infarcts are appreciated. The ventricles and sulci are symmetric. Ayala-white differentiation is maintained. There is no evidence for acute intracranial hemorrhage, mass/mass effect, pathology or infarction. No extra-axial fluid collection. Calvarium is intact. Paranasal sinuses and mastoid air cells are clear. Impression: Age related atrophy and microvascular ischemic changes. No acute intracranial hemorrhage, infarction, or mass/mass effect. Electronically Signed by Chase Garcia MD 02/24/2018 05:44 P
--- NOTE | 2018-02-24 17:54 | REP ---
Clinical: Trauma/fall. Technique: Axial noncontrast images from T11 through mid sacrum with coronal and sagittal re-formations. Findings: Age-related osteopenia and diffuse spondylosis is appreciated. Chronic-appearing compression deformity at L1 remains stable compared to sagittal re-formations from abdominal CT dated 01/24/2017. Alignment and lordosis maintained. No acute fracture / compression injury or subluxation. Extensive atherosclerotic changes to the aorta and branch vessels noted. Impression: Osteopenia and diffuse spondylosis. No acute fracture / compression injury or subluxation. Electronically Signed by Chase Garcia MD 02/24/2018 05:47 P
[2018-02-24 18:01] LABS: INR 2.65; PROTHROMBIN TIME 28.8 SECONDS (12.1-14.4)
[2018-02-24 18:19] LABS: BILIRUBIN,DIRECT 0.2 MG/DL (0.0-0.2); BILIRUBIN,TOTAL 0.6 MG/DL (0.2-1.0); CALCIUM LEVEL 8.3 MG/DL (8.8-10.2); CREATININE FOR GFR 2.1 MG/DL (0.70-1.30); GLOMERULAR FILTRATION RATE 33.1 (>42); POTASSIUM SERUM 4.2 MEQ/L (3.5-5.1); TOTAL PROTEIN 6.6 GM/DL (6.4-8.2)
[2018-02-24] MEDS ORDERED: NITR4TASL SL (18:30)
[2018-02-24] MEDS ORDERED: HYDR-643 PO (18:30)
--- NOTE | 2018-02-24 18:47 | ECGEPIP ---
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
[2018-02-24] MEDS ORDERED: hydrOXYzine 10 MG TAB PO PRN (20:30)
[2018-02-24] MEDS ORDERED: NITROGLYCERIN 0.4 MG SUBL TABLET SL PRN (20:30)
--- NOTE | 2018-02-24 20:38 | HPEPDOC ---
[facility] Medical History & Physical Date of Admission Feb 24, 2018 Attending Physician: CECILIA MABRY MD History and Physical CHIEF COMPLAINT: [weakness and sob for 6 weeks] HISTORY OF PRESENT ILLNESS: [72-year-old male with past medical history coronary artery disease, systolic/diastolic congestive heart failure, gout, CKD3, GERD, hypertension, hyperlipidemia, atrial fibrillation on Eliquis, ICD placement sent by his intelligence applications due to anemia. Patient has been weak and short of breath with exertion for the past 6 weeks. In his cardiologists office patient was was noted to have severe anemia acute on chronic. Patient was sent to emergency room for further evaluation and treatment. Hemoglobin and hematocrit on Nov 20 (11.8/35.3) down to Feb 06 (7.6/24.7) and today (5.5/18). CKD stable. INR 2.6 as patient states that he had a colonoscopy and EGD twice last one having been 2018 both negative for any bleeding or any abnormality. Patient as per ER physician guaiac-negative in the emergency room. Patient denies of any blood loss. Patient denies of any hematuria, hematemesis, hemoptysis, or blood in his stool. Patient did have a fall last night and hit his head and therefore CT head and CT spine was done which did not show any acute process. Patient is being admitted for further evaluation and treatment. Review system: 10 point review systems negative than those described in HPI PAST MEDICAL HISTORY: 1. Coronary artery disease status post percutaneous coronary intervention (PCI) to right coronary artery (RCA) with drug-eluting stent (JEAN) in 11/2013 for single-vessel coronary artery disease (CAD. At that point, he was found to have left ventricle ejection fraction approximately 20%. 2. Chronic systolic/diastolic congestive heart failure. Most recent hospitalization was in 03/2017. He has known severe left ventricular systolic dysfunction, but his last evaluation of left ventricular ejection function (LVEF) was nuclear stress test in May 2016 that revealed large inferior and inferolateral infarct and no demonstrable ischemia and calculated LVEF 46%. 3. Gout. 4. Chronic renal insufficiency stage III. 5. Gastroesophageal reflux disease (GERD). 6. Arterial hypertension. 7. Dyslipidemia. 8. Atrial fibrillation since approximately spring 2017. 9. History of ICD placement. SURGICAL HISTORY: Positive for: 1. ICD placement in 2014. It is a Medtronic single-chamber defibrillator. 2. Cataract surgery. 3. Pyloric resection. SOCIAL HISTORY: Patient is and lives with his . He was an active smoker until 2013. No alcohol use. FAMILY HISTORY: Is positive for coronary artery disease. ALLERGIES: Please see below. HOME MEDICATIONS: Please see below. PHYSICAL EXAMINATION: VITAL SIGNS: Please see below GENERAL APPEARANCE: Resting comfortably HEENT: Normocephalic, PERRLA, Mucous moist, CARDIOVASCULAR: S1,S2, pulse present, irregularly irregular LUNGS: Equal air entry b/l, no wheezes or crackle ABDOMEN: Soft, BS present, no tenderness, no guarding GENITOURINARY: No Miller EXTREMITIES: B/L no edema, capillary refill present SKIN: Warm, No fever NEUROLOGICAL: Cranial nerves grossly intact PSYCHIATRIC: Normal mood and affect for current situation, at the bedside LABORATORY DATA: See below. IMAGING: [CT spine and lumbar: Osteopenia and diffuse spondylosis. No acute fracture / compression injury or subluxation. CT head: Age related atrophy and microvascular ischemic changes. No acute intracranial hemorrhage, infarction, or mass/mass effect. EKG heart rate of 79, atrial fibrillation, flipped T waves diffuse with PVC] MICROBIOLOGY: Please see below. Assessment and plan: 72-year-old male with past medical history coronary artery disease, systolic/diastolic congestive heart failure, gout, CKD3, GERD, hypertension, hyperlipidemia, atrial fibrillation on Eliquis, ICD placement sent by his intelligence applications due to anemia. Symptomatic acute on chronic anemia Patient receiving 2 units of red blood cell transfusion, serial H&H Occult stool, patient had endoscopy studies 2 (last evaluation 2017 negative as per patient). Iron suppl & Iron studies PRN GI consult or hematology/oncology in a.m., defer to a.m. team Hold anticoagulant overnight resume as soon as possible NPO IV Protonix use iv lasix post transfusion and prn as hx of sCHF&dCHF CAD, Atrial fibrillation Resume rate control home medication hydralazine, isosorbide but hold eliquis Dr. Cruz in am PRN, defer to am team hx of sCHF&dCHF Resume spironolactone, torsemide 11/15/17 echo 1. Study is of good technical quality. 2. Borderline dilated left ventricle with global hypokinesis and estimated LVEF approximately 20%. 3. Aortic sclerosis with no stenosis and mild insufficiency. 4. Probably moderately severe mitral insufficiency. 5. Moderate tricuspid insufficiency. 6. High central venous pressure and probably moderately severe pulmonary hypertension. 7. Severe biatrial enlargement. Hypothyroidism Resume levothyroxine, TSH level Resume allopurinol DVT prop SCD Vital Signs Vital Signs Date Time Temp Pulse Resp B/P (MAP) Pulse Ox O2 Delivery O2 Flow Rate FiO2 02/24/18 19:31 82 18 131/56 (81) 98 Room Air 02/24/18 19:27 97.8 Laboratory Data Labs 24H Laboratory Tests 2 02/24/18 17:29: Immature Granulocyte % (Auto) 1.5, White Blood Count 11.2H, Red Blood Count 2.00L, Hemoglobin 5.5*L, Hematocrit 18.0L, Mean Corpuscular Volume 90.0, Mean Corpuscular Hemoglobin 27.5, Mean Corpuscular Hemoglobin Concent 30.6L, Red Cell Distribution Width 17.9H, Platelet Count 182, Neutrophils (%) (Auto) 82.3H, Lymphocytes (%) (Auto) 6.4L, Monocytes (%) (Auto) 7.9H, Eosinophils (%) (Auto) 1.8, Basophils (%) (Auto) 0.1, Neutrophils # (Auto) 9.2H, Lymphocytes # (Auto) 0.7L, Monocytes # (Auto) 0.9H, Eosinophils # (Auto) 0.2, Basophils # (Auto) 0.0, Nucleated Red Blood Cells % (auto) 0.5H, Prothrombin Time 28.8H, Prothromb Time International Ratio 2.65, Anion Gap 12, Glomerular Filtration Rate 33.1L, Calcium Level 8.3L, Aspartate Amino Transf (AST/SGOT) 12, Alanine Aminotransferase (ALT/SGPT) 18, Alkaline Phosphatase 54, Total Bilirubin 0.6, Direct Bilirubin 0.2, Total Protein 6.6, Albumin 3.0L, Albumin/Globulin Ratio 0.83L, Lipase 361 CBC/BMP Laboratory Tests 02/24/18 17:29 Red Blood Count 2.00 L, Mean Corpuscular Volume 90.0, Mean Corpuscular Hemoglobin 27.5, Mean Corpuscular Hemoglobin Concent 30.6 L, Red Cell Distribution Width 17.9 H, Neutrophils (%) (Auto) 82.3 H, Lymphocytes (%) (Auto) 6.4 L, Monocytes (%) (Auto) 7.9 H, Eosinophils (%) (Auto) 1.8, Basophils (%) (Auto) 0.1, Neutrophils # (Auto) 9.2 H, Lymphocytes # (Auto) 0.7 L, Monocytes # (Auto) 0.9 H, Eosinophils # (Auto) 0.2, Basophils # (Auto) 0.0 Home Medications Scheduled Allopurinol (Allopurinol) 100 Mg Tab, 100 MG PO DAILY Apixaban Base (Eliquis) 5 Mg Tab, 5 MG PO BID Atorvastatin Calcium (Atorvastatin Calcium) 40 Mg Tab, 40 MG PO DAILY Bisoprolol Fumarate (Bisoprolol Fumarate) 10 Mg Tab, 10 MG PO DAILY Bisoprolol Fumarate (Bisoprolol Fumarate) 5 Mg Tab, 5 MG PO QHS Calcitriol (Calcitriol) 0.25 Mcg Cap, 0.25 MCG PO 2XWK MON,FRI Cholecalciferol (Vitamin D3) 1,000 Unit Tab, 1,000 UNIT PO QHS Ferrous Sulfate (Ferrous Sulfate) 325 Mg Tab, 325 MG PO DAILY Hydralazine HCl (Hydralazine HCl) 50 Mg Tab, 50 MG PO BID Isosorbide Dinitrate (Isordil Titradose) 5 Mg Tab, 20 MG PO BID Levothyroxine Sodium (Synthroid) 50 Mcg Tab, 50 MCG PO DAILY Magnesium Oxide (Magnesium Oxide) 250 Mg Tab, 250 MG PO 2XW TUESDAY AND TUESDAY. Omeprazole (Omeprazole) 20 Mg Cap, 20 MG PO QHS Ranitidine HCl (Ranitidine HCl) 150 Mg Tab, 1 TAB PO QHS Spironolactone (Spironolactone) 25 Mg Tab, 25 MG PO DAILY Torsemide (Torsemide) 100 Mg Tab, 200 MG PO DAILY Scheduled PRN Benzonatate (Benzonatate) 200 Mg Cap, 200 MG PO PRN PRN for COUGH Hydroxyzine HCl (Hydroxyzine HCl) 10 Mg Tab, 20 MG PO QHS PRN for ITCHING Nitroglycerin (Nitrostat) 0.4 Mg Subl, 0.4 MG SL Q5MP PRN for CHEST PAIN Allergies Coded Allergies: Penicillins (Verified Allergy, Unknown, 02/24/18) PASSES OUT. Penicillins Cross Reactors (Verified Allergy, Unknown, 10/25/17) Quinolones (Verified Allergy, Unknown, 10/25/17) Sulfa Antibiotics (Verified Allergy, Unknown, 02/24/18) ITCH/BURN/THROAT TIGHTENS. MAMADOU YANSE MD Feb 24, 2018 20:38
[2018-02-24] MEDS: **hydrALAZINE** 50 MG TAB PO SCH (21:00)
[2018-02-24] MEDS: ISOSORBIDE DIN. (ISORDIL) 20 MG TAB PO SCH (21:00)
[2018-02-24 22:00] VITALS: BP 117/54
[2018-02-24] MEDS ORDERED: FUROSEMIDE 40 MG/4 ML VIAL (J1940) IV ONE (22:00)
[2018-02-24] MEDS: PANTOPRAZOLE 40MG INJ (PROTONIX) (C9113) IV SCH (23:05)
[2018-02-24] MEDS: VITAMIN D 1,000 INTERNATIONAL UNITS TABLET PO SCH (23:07)
[2018-02-24] MEDS: ACETAMINOPHEN TAB 650MG DOSE (2X325MG) PO PRN (23:07)
[2018-02-24] MEDS: BISOPROLOL FUMARATE 5 MG TAB PO SCH (23:07)
[2018-02-25] MEDS: NS 1,000 ML IV SCH ×2 (00:19→20:38)
[2018-02-25 03:11] LABS: HEMOGLOBIN 7.4 g/dl (13.5-17.5); MEAN CORPUSCULAR HGB CONC 32.2 g/dl (32.0-36.5); MEAN CORPUSCULAR VOLUME 87.1 fl (80.0-96.0); PLATELET COUNT, AUTOMATED 156 10^3/uL (150-450); RED BLOOD COUNT 2.64 10^6/uL (4.30-6.10); WHITE BLOOD COUNT 10.6 10^3/uL (4.0-10.0)
[2018-02-25 03:42] LABS: CALCIUM LEVEL 7.7 MG/DL (8.8-10.2); CREATININE FOR GFR 1.97 MG/DL (0.70-1.30); FREE THYROXINE INDEX 3.3 % (1.4-3.8); GLOMERULAR FILTRATION RATE 35.7 (>42); PERCENT SATURATION 36.4 % (19.7-50.0); POTASSIUM SERUM 4.4 MEQ/L (3.5-5.1); THYROID STIMULATING HORMONE 2.91 uIU/ML (0.358-3.740); THYROXINE (T4) 7.8 UG/DL (4.5-12.0)
[2018-02-25 06:00] VITALS: BP 111/57
[2018-02-25] MEDS: LEVOTHYROXINE 50MCG TABLET (0.05MG) PO SCH (06:03)
[2018-02-25] MEDS: BISOPROLOL FUMARATE 10 MG TAB PO SCH (08:51)
[2018-02-25] MEDS: ATORVASTATIN 20 MG TAB PO SCH (08:51)
[2018-02-25] MEDS: FERROUS SULFATE 325MG TAB PO SCH (08:52)
[2018-02-25] MEDS: **hydrALAZINE** 50 MG TAB PO SCH ×2 (08:52→20:43)
[2018-02-25] MEDS: ALLOPURINOL 100 MG TAB PO SCH (08:52)
[2018-02-25] MEDS: ISOSORBIDE DIN. (ISORDIL) 20 MG TAB PO SCH ×2 (08:52→20:42)
[2018-02-25] MEDS: SPIRONOLACTONE 25 MG TAB PO SCH (08:52)
[2018-02-25] MEDS: TORSEMIDE 100 MG TAB PO SCH (08:52)
[2018-02-25] MEDS ORDERED: PREVNAR 13 VACCINE SYRINGE (CPT CODE:90670) IM ONE (09:00)
[2018-02-25 09:02] LABS: HEMATOCRIT 23.2 % (42.0-52.0); HEMOGLOBIN 7.3 g/dl (13.5-17.5); MEAN CORPUSCULAR HEMOGLOBIN 27.9 pg (27.0-33.0); MEAN CORPUSCULAR HGB CONC 31.5 g/dl (32.0-36.5); MEAN CORPUSCULAR VOLUME 88.5 fl (80.0-96.0); PLATELET COUNT, AUTOMATED 151 10^3/uL (150-450); RED BLOOD COUNT 2.62 10^6/uL (4.30-6.10); WHITE BLOOD COUNT 9.4 10^3/uL (4.0-10.0)
[2018-02-25 09:26] LABS: INR 1.91; PROTHROMBIN TIME 22.3 SECONDS (12.1-14.4)
[2018-02-25 09:35] LABS: ALBUMIN 2.7 GM/DL (3.2-5.2); BILIRUBIN,TOTAL 1.6 MG/DL (0.2-1.0); CALCIUM LEVEL 7.8 MG/DL (8.8-10.2); CREATININE FOR GFR 1.92 MG/DL (0.70-1.30); GLOMERULAR FILTRATION RATE 36.7 (>42); POTASSIUM SERUM 4.7 MEQ/L (3.5-5.1); TOTAL PROTEIN 5.6 GM/DL (6.4-8.2)
--- NOTE | 2018-02-25 12:47 | REP ---
Clinical: Recent trauma/fall. Rule out retroperitoneal hematoma. Technique: Axial noncontrast images from the lung bases to the pubic symphysis with coronal and sagittal re-formations. Comparison: 01/24/2017 Findings: Lung bases demonstrate chronic changes. Cardiomegaly noted. Liver, spleen, pancreas, gallbladder, and bilateral adrenal glands are normal. Kidneys demonstrate bilateral hypodensities compatible with cysts and stable including 6.5 cm exophytic left lateral renal cyst. Calcified periportal lymph nodes are chronic and stable. The enteric system is without obstruction or acute inflammatory process. Pelvis demonstrates normal bladder and age appropriate prostate/seminal vesicles. Fat containing left inguinal hernia identified. No ascites. No intraperitoneal or retroperitoneal adenopathy. No free air. No obvious abdominopelvic or retroperitoneal hematoma. Atherosclerotic changes to the aorta and vasculature noted; infrarenal abdominal aorta measures 3.0 cm maximal diameter. Surrounding musculoskeletal structures demonstrate stable degenerative changes without focal osseous abnormality. Impression: 1. No obvious acute abdominopelvic pathology appreciated. Specifically, no ascites, hematoma, adenopathy or focal inflammatory stranding. 2. Chronic-appearing changes as detailed above including stable 6.5 cm exophytic left renal cyst, fat containing left inguinal hernia and significant atherosclerotic disease. Electronically Signed by Chase Garcia MD 02/25/2018 12:39 P
[2018-02-25 14:00] VITALS: BP 124/60
--- NOTE | 2018-02-25 15:33 | IPNPDOC ---
Text Note Date of Service The patient was seen on 02/25/18. NOTE Subjective: Pt denies hematuria/ melanotic stools/hematochezia/hemoptysis. No CP/SOB/Palpitations. Feels well after blood transfusion. Objective: Vitals: (see below) General: No acute distress, laying comfortably in bed. HEENT: Moist mucous membranes. Neck: No JVD or lymphadenopathy Cardiac: Irregularly irregular, No murmurs Pulm: Diniminished breath sounds at the bases b/l. No wheezing, rhonchi Abd: NT/ND + BS Ext: No edema or cyanosis Labs (see below) Images: CT Abd/pelvis negative for intraabdominal bleeding. Assessment/Plan 1. Acute on chronic anemia. Symptomatic anemia. No overt source of bleeding at this time. Had colonscopy/EGD that were negative for acute bleeding in 2017. Anemia panel completed after blood transfusion. CT abd/pelvis negative for in traabdominal bleeding. Will need close outpt f/u with GI, and possible endoscopies outpt. Hb stable, will trend. Hemolysis workup sent. Given no overt source, will restart eliquis and observe. 2. H/o CAD s/p PCI = cont home meds 3. h/o Systolic/diastolic HF. s/p ICD. compensated. cont home meds 4.H/o CKD stage 3. Outpt f/u. Avoid nephrotoxins. Cr stable. 5. HTN controlled. Cont current meds 6. HLD 7. AF rate controlled on eliquis. DVT prophy:Eliquis Plan to d/c in the next 24-48 hrs if remains stable. VS,Fishbone, I+O VS, Fishbone, I+O Laboratory Tests 02/24/18 17:29 Red Blood Count 2.00 L, Mean Corpuscular Volume 90.0, Mean Corpuscular He moglobin 27.5, Mean Corpuscular Hemoglobin Concent 30.6 L, Red Cell Distribution Width 17.9 H, Neutrophils (%) (Auto) 82.3 H, Lymphocytes (%) (Auto) 6.4 L, Monocytes (%) (Auto) 7.9 H, Eosinophils (%) (Auto) 1.8, Basophils (%) (Auto) 0.1, Neutrophils # (Auto) 9.2 H, Lymphocytes # (Auto) 0.7 L, Monocytes # (Auto) 0.9 H, Eosinophils # (Auto) 0.2, Basophils # (Auto) 0.0 02/25/18 02:53 Red Blood Count 2.64 L, Mean Corpuscular Volume 87.1, Mean Corpuscular Hemoglobin 28.0, Mean Corpuscular Hemoglobin Concent 32.2, Red Cell Distribution Width 16.2 H, Calcium Level 7.7 L 02/25/18 08:42 Red Blood Count 2.62 L, Mean Corpuscular Volume 88.5, Mean Corpuscular Hemoglobin 27.9, Mean Corpuscular Hemoglobin Concent 31.5 L, Red Cell Distribution Width 16.7 H, Calcium Level 7.8 L, Aspartate Amino Transf (AST/SGOT) 12, Alanine Aminotransferase (ALT/SGPT) 16, Alkaline Phosphatase 49, Total Bilirubin 1.6 #H, Total Protein 5.6 L, Albumin 2.7 L 02/25/18 13:12 Vital Signs Date Time Temp Pulse Resp B/P (MAP) Pulse Ox O2 Delivery O2 Flow Rate FiO2 02/25/18 14:00 96.8 82 18 124/60 (81) 97 Room Air I&O- Last 24 Hours up to 6 AM 02/25/18 06:00 Intake Total 0 ml Output Total 1400 ml Balance -1400 ml CECILIA MABRY MD Feb 25, 2018 15:33
[2018-02-25] MEDS: VITAMIN D 1,000 INTERNATIONAL UNITS TABLET PO SCH (20:38)
[2018-02-25] MEDS: PANTOPRAZOLE 40MG INJ (PROTONIX) (C9113) IV SCH (20:38)
[2018-02-25] MEDS: ACETAMINOPHEN TAB 650MG DOSE (2X325MG) PO PRN (20:39)
[2018-02-25] MEDS: BISOPROLOL FUMARATE 5 MG TAB PO SCH (20:42)
[2018-02-25] MEDS ORDERED: APIXABAN 5 MG TAB (ELIQUIS) PO SCH (21:00)
[2018-02-25 22:00] VITALS: BP 108/57
[2018-02-26] MEDS: LEVOTHYROXINE 50MCG TABLET (0.05MG) PO SCH (05:54)
[2018-02-26 06:00] VITALS: BP 130/60
[2018-02-26 06:16] LABS: BASO % 0.1 % (0.0-1.0); EOS # 0.2 10^3/uL (0.0-0.50); EOS % 2.4 % (0.0-3.0); HEMATOCRIT 23.7 % (42.0-52.0); HEMOGLOBIN 7.5 g/dl (13.5-17.5); LYMPH # 0.9 10^3/uL (1.5-4.5); LYMPH % 9.7 % (24.0-44.0); MEAN CORPUSCULAR HEMOGLOBIN 28.3 pg (27.0-33.0); MEAN CORPUSCULAR HGB CONC 31.6 g/dl (32.0-36.5); MEAN CORPUSCULAR VOLUME 89.4 fl (80.0-96.0); MONO # 0.8 10^3/uL (0.0-0.8); MONO % 9.1 % (0.0-5.0); NEUTROPHILS # 6.9 10^3/uL (1.8-7.7); NEUTROPHILS % 77.9 % (36.0-66.0); PLATELET COUNT, AUTOMATED 141 10^3/uL (150-450); RED BLOOD COUNT 2.65 10^6/uL (4.30-6.10); WHITE BLOOD COUNT 8.8 10^3/uL (4.0-10.0)
[2018-02-26 06:48] LABS: ALBUMIN 2.5 GM/DL (3.2-5.2); BILIRUBIN,TOTAL 0.7 MG/DL (0.2-1.0); CALCIUM LEVEL 8.1 MG/DL (8.8-10.2); CREATININE FOR GFR 1.95 MG/DL (0.70-1.30); GLOMERULAR FILTRATION RATE 36.1 (>42); MAGNESIUM LEVEL 2.4 MG/DL (1.8-2.4); POTASSIUM SERUM 4.2 MEQ/L (3.5-5.1); TOTAL PROTEIN 5.7 GM/DL (6.4-8.2)
[2018-02-26] MEDS: TORSEMIDE 100 MG TAB PO SCH (09:43)
[2018-02-26] MEDS: ATORVASTATIN 20 MG TAB PO SCH (09:44)
[2018-02-26] MEDS: ISOSORBIDE DIN. (ISORDIL) 20 MG TAB PO SCH ×2 (09:44→20:53)
[2018-02-26] MEDS: **hydrALAZINE** 50 MG TAB PO SCH ×2 (09:44→20:52)
[2018-02-26] MEDS: BISOPROLOL FUMARATE 10 MG TAB PO SCH (09:44)
[2018-02-26] MEDS: FERROUS SULFATE 325MG TAB PO SCH (09:45)
[2018-02-26] MEDS: SPIRONOLACTONE 25 MG TAB PO SCH (09:45)
[2018-02-26] MEDS: ALLOPURINOL 100 MG TAB PO SCH (09:45)
--- NOTE | 2018-02-26 12:00 | IPNPDOC ---
Text Note Date of Service The patient was seen on 02/26/18. NOTE Subjective: Pt reports No CP/SOB/Palpitations. Feels well after blood trans fusion. Objective: Vitals: (see below) General: No acute distress, laying comfortably in bed. HEENT: Moist mucous membranes. Neck: No JVD or lymphadenopathy Cardiac: Irregularly irregular, No murmurs Pulm: Diminished breath sounds at the bases b/l. No wheezing, rhonchi Abd: NT/ND + BS Ext: No edema or cyanosis Labs (see below) Images: CT Abd/pelvis negative for intraabdominal bleeding. Assessment/Plan 1. Acute on chronic anemia. Symptomatic anemia. No overt source of bleeding at this time. Had colonoscopy/EGD that were negative for acute bleeding in 2017. Anemia panel completed after blood transfusion. CT abd/pelvis negative for intraabdominal bleeding. Will need close outpt f/u with GI, and possible endoscopies outpt. Hb stable, will trend. Hemolysis workup sent. Trial of eliquis with drifting of Hb. Pt reports melanotic stools today. Discussed with Dr. Burks who will eval patient for endoscopy. s/p 3U PRBC. Transfuse additional unit of blood. 2. H/o CAD s/p PCI = cont home meds 3. h/o Systolic/diastolic HF. s/p ICD. compensated. cont home meds 4.H/o CKD stage 3. Outpt f/u. Avoid nephrotoxins. Cr stable. 5. HTN controlled. Cont current meds 6. HLD 7. AF rate controlled on eliquis. DVT prophy: SCDs VS,Fishbone, I+O VS, Fishbone, I+O Laboratory Tests 02/25/18 13:12 02/25/18 17:54 02/25/18 22:47 02/26/18 05:50 Red Blood Count 2.65 L, Mean Corpuscular Volume 89.4, Mean Corpuscular Hemoglobin 28.3, Mean Corpuscular Hemoglobin Concent 31.6 L, Red Cell Distribution Width 17.0 H, Neutrophils (%) (Auto) 77.9 H, Lymphocytes (%) (Auto) 9.7 L, Monocytes (%) (Auto) 9.1 H, Eosinophils (%) (Auto) 2.4, Basophils (%) (A uto) 0.1, Neutrophils # (Auto) 6.9, Lymphocytes # (Auto) 0.9 L, Monocytes # (Auto) 0.8, Eosinophils # (Auto) 0.2, Basophils # (Auto) 0.0, Calcium Level 8.1 L, Aspartate Amino Transf (AST/SGOT) 14, Alanine Aminotransferase (ALT/SGPT) 16, Alkaline Phosphatase 50, Total Bilirubin 0.7 #, Total Protein 5.7 L, Albumin 2.5 L Vital Signs Date Time Temp Pulse Resp B/P (MAP) Pulse Ox O2 Delivery O2 Flow Rate FiO2 02/26/18 09:44 141/63 02/26/18 09:44 70 02/26/18 06:00 96.3 20 96 Room Air I&O- Last 24 Hours up to 6 AM 02/26/18 06:00 Intake Total 780 ml Output Total 1750 ml Balance -970 ml CECILIA MABRY MD Feb 26, 2018 12:00
[2018-02-26 14:00] VITALS: BP 133/67
[2018-02-26] MEDS: ACETAMINOPHEN TAB 650MG DOSE (2X325MG) PO PRN ×2 (16:46→20:53)
[2018-02-26] MEDS: BISOPROLOL FUMARATE 5 MG TAB PO SCH (20:52)
[2018-02-26] MEDS: VITAMIN D 1,000 INTERNATIONAL UNITS TABLET PO SCH (20:53)
[2018-02-26] MEDS: PANTOPRAZOLE 40MG INJ (PROTONIX) (C9113) IV SCH (20:53)
[2018-02-26 22:00] VITALS: BP 129/60
[2018-02-27] MEDS: LEVOTHYROXINE 50MCG TABLET (0.05MG) PO SCH (05:21)
[2018-02-27 06:00] VITALS: BP 117/61
[2018-02-27 06:24] LABS: BASO % 0.2 % (0.0-1.0); EOS # 0.2 10^3/uL (0.0-0.50); EOS % 2.2 % (0.0-3.0); HEMATOCRIT 26.7 % (42.0-52.0); HEMOGLOBIN 8.6 g/dl (13.5-17.5); LYMPH # 0.8 10^3/uL (1.5-4.5); MEAN CORPUSCULAR HEMOGLOBIN 28.3 pg (27.0-33.0); MEAN CORPUSCULAR HGB CONC 32.2 g/dl (32.0-36.5); MEAN CORPUSCULAR VOLUME 87.8 fl (80.0-96.0); MONO # 0.7 10^3/uL (0.0-0.8); MONO % 8.6 % (0.0-5.0); NEUTROPHILS # 6.5 10^3/uL (1.8-7.7); NEUTROPHILS % 78.3 % (36.0-66.0); PLATELET COUNT, AUTOMATED 137 10^3/uL (150-450); RED BLOOD COUNT 3.04 10^6/uL (4.30-6.10); WHITE BLOOD COUNT 8.3 10^3/uL (4.0-10.0)
[2018-02-27 06:44] LABS: ALBUMIN 2.7 GM/DL (3.2-5.2); BILIRUBIN,TOTAL 0.6 MG/DL (0.2-1.0); CALCIUM LEVEL 8.3 MG/DL (8.8-10.2); CREATININE FOR GFR 1.93 MG/DL (0.70-1.30); GLOMERULAR FILTRATION RATE 36.5 (>42); MAGNESIUM LEVEL 2.1 MG/DL (1.8-2.4); POTASSIUM SERUM 3.7 MEQ/L (3.5-5.1); TOTAL PROTEIN 6.3 GM/DL (6.4-8.2)
[2018-02-27] MEDS: SPIRONOLACTONE 25 MG TAB PO SCH (08:37)
[2018-02-27] MEDS: TORSEMIDE 100 MG TAB PO SCH (08:37)
[2018-02-27] MEDS: ISOSORBIDE DIN. (ISORDIL) 20 MG TAB PO SCH ×2 (08:38→20:42)
[2018-02-27] MEDS: FERROUS SULFATE 325MG TAB PO SCH (08:38)
[2018-02-27] MEDS: ALLOPURINOL 100 MG TAB PO SCH (08:38)
[2018-02-27] MEDS: **hydrALAZINE** 50 MG TAB PO SCH ×2 (08:38→20:51)
[2018-02-27] MEDS: ATORVASTATIN 20 MG TAB PO SCH (08:39)
[2018-02-27] MEDS: ACETAMINOPHEN TAB 650MG DOSE (2X325MG) PO PRN ×2 (08:39→17:13)
[2018-02-27] MEDS: BISOPROLOL FUMARATE 10 MG TAB PO SCH (08:39)
[2018-02-27] MEDS: SUCRALFATE SUSP 1GM/10ML UD PO SCH ×4 (08:49→20:41)
--- NOTE | 2018-02-27 10:49 | IPNPDOC ---
Text Note Date of Service The patient was seen on 02/27/18. NOTE Subjective:No CP/SOB/Palpitations. No bleeding. Discussed case with Dr. Burks, who recommends carafate today, restarting Eliquis tomorrow, and observing. If hemoglobin drops or patient bleeds again, then Dr. Bursk will perform an EGD. Patient is agreeable to this plan. Objective: Vitals: (see below) General: No acute distress, laying comfortably in bed. HEENT: Moist mucous membranes. Neck: No JVD or lymphadenopathy Cardiac: Irregularly irregular, No murmurs Pulm: Diminished breath sounds at the bases b/l. No wheezing, rhonchi Abd: NT/ND + BS Ext: No edema or cyanosis Labs (see below) Images: CT Abd/pelvis negative for intraabdominal bleeding. Assessment/Plan 1. Acute on chronic anemia. Symptomatic anemia. No overt source of bleeding at this time. Had colonoscopy/EGD that were negative for acute bleeding in 2017. Anemia panel completed after blood transfusion. CT abd/pelvis negative for intraabdominal bleeding. Will need close outpt f/u with GI, and possible endoscopies outpt. Hb stable, will trend. Hemolysis workup sent. Trial of eliquis with drifting of Hb. Pt reports melanotic stools yesterday. Discussed with Dr. Burks - plan for Carafate today, restart eliquis tomorrow if hemoglobin stable. s/p 4U PRBC. Plan for EGD of hemoglobin drops/patient bleeds. Patient is currently hemodynamically stable. 2. H/o CAD s/p PCI = cont home meds 3. h/o Systolic/diastolic HF. s/p ICD. compensated. cont home meds 4.H/o CKD stage 3. Outpt f/u. Avoid nephrotoxins. Cr stable. 5. HTN controlled. Cont current meds 6. HLD 7. AF rate controlled on eliquis at home. DVT prophy: SCDs Overall prognosis guarded. VS,Fishbone, I+O VS, Fishbone, I+O Laboratory Tests 02/27/18 05:48 Red Blood Count 3.04 L, Mean Corpuscular Volume 87.8, Mean Corpuscular Hemoglobin 28.3, Mean Corpuscular Hemoglobin Concent 32.2, Red Cell Distribution Width 17.1 H, Neutrophils (%) (Auto) 78.3 H, Lymphocytes (%) (Auto) 10.0 L, Monocytes (%) (Auto) 8.6 H, Eosinophils (%) (Auto) 2.2, Basophils (%) (Auto) 0.2, Neutrophils # (Auto) 6.5, Lymphocytes # (Auto) 0.8 L, Monocytes # (Auto) 0.7, Eosinophils # (Auto) 0.2, Basophils # (Auto) 0.0, Calcium Level 8.3 L, Aspartate Amino Transf (AST/SGOT) 15, Alanine Aminotransferase (ALT/SGPT) 18, Alkaline Phosphatase 54, Total Bilirubin 0.6, Total Protein 6.3 L, Albumin 2.7 L Vital Signs Date Time Temp Pulse Resp B/P (MAP) Pulse Ox O2 Delivery O2 Flow Rate FiO2 02/27/18 08:39 76 117/61 02/27/18 06:00 98.2 20 97 Room Air I&O- Last 24 Hours up to 6 AM 02/27/18 06:00 Intake Total 2640 ml Output Total 2125 ml Balance 515 ml CECILIA MABRY MD Feb 27, 2018 10:49
[2018-02-27 12:17] LABS: FOLATE 8.8 NG/ML (>5.4)
[2018-02-27 14:00] VITALS: BP 124/58
[2018-02-27] MEDS: VITAMIN D 1,000 INTERNATIONAL UNITS TABLET PO SCH (20:41)
[2018-02-27] MEDS: PANTOPRAZOLE 40MG INJ (PROTONIX) (C9113) IV SCH (20:41)
[2018-02-27] MEDS: BISOPROLOL FUMARATE 5 MG TAB PO SCH (20:42)
[2018-02-27 22:00] VITALS: BP 122/58
[2018-02-28] MEDS: LEVOTHYROXINE 50MCG TABLET (0.05MG) PO SCH (05:39)
[2018-02-28 06:00] VITALS: BP 121/56
[2018-02-28 06:25] LABS: BASO % 0.3 % (0.0-1.0); EOS # 0.2 10^3/uL (0.0-0.50); EOS % 2.3 % (0.0-3.0); HEMATOCRIT 28.8 % (42.0-52.0); HEMOGLOBIN 9.1 g/dl (13.5-17.5); LYMPH # 0.7 10^3/uL (1.5-4.5); LYMPH % 8.7 % (24.0-44.0); MEAN CORPUSCULAR HEMOGLOBIN 28.4 pg (27.0-33.0); MEAN CORPUSCULAR HGB CONC 31.6 g/dl (32.0-36.5); MONO # 0.7 10^3/uL (0.0-0.8); MONO % 9.3 % (0.0-5.0); NEUTROPHILS # 6.3 10^3/uL (1.8-7.7); NEUTROPHILS % 78.8 % (36.0-66.0); PLATELET COUNT, AUTOMATED 153 10^3/uL (150-450); WHITE BLOOD COUNT 7.9 10^3/uL (4.0-10.0)
[2018-02-28 06:53] LABS: ALBUMIN 3.2 GM/DL (3.2-5.2); BILIRUBIN,TOTAL 0.6 MG/DL (0.2-1.0); CALCIUM LEVEL 8.6 MG/DL (8.8-10.2); CREATININE FOR GFR 1.96 MG/DL (0.70-1.30); GLOMERULAR FILTRATION RATE 35.9 (>42); MAGNESIUM LEVEL 2.2 MG/DL (1.8-2.4); TOTAL PROTEIN 7.2 GM/DL (6.4-8.2)
[2018-02-28] MEDS: TORSEMIDE 100 MG TAB PO SCH (08:05)
[2018-02-28] MEDS: FERROUS SULFATE 325MG TAB PO SCH (08:05)
[2018-02-28] MEDS: ALLOPURINOL 100 MG TAB PO SCH (08:05)
[2018-02-28] MEDS: ATORVASTATIN 20 MG TAB PO SCH (08:05)
[2018-02-28] MEDS: SUCRALFATE SUSP 1GM/10ML UD PO SCH ×4 (08:05→20:34)
[2018-02-28] MEDS: SPIRONOLACTONE 25 MG TAB PO SCH (08:05)
[2018-02-28 08:08] VITALS: BP 108/59
--- NOTE | 2018-02-28 08:44 | CR ---
DATE OF CONSULTATION: 02/27/2018 REASON FOR CONSULTATION: Gastrointestinal (GI) bleed. HISTORY OF PRESENT ILLNESS: The patient is a 72-year-old male patient who presented to the emergency room with a history of weakness and shortness of breath for about 6 weeks. He was admitted for symptomatic anemia. He was given 2 units of blood initially, restarted on his Eliquis and then started having signs of melanotic stools, so his Eliquis was stopped again. He was given a couple more units of blood and I was called to evaluate. At this point, his last dose of Eliquis was on the . He claims that he has been having black stools for many months since he was started on iron supplement outpatient. No bright red blood in his stool at any point in time. No vomiting blood. No bloody noses. No change in bowel movements or problems with abdominal pains of any kind. In August 2016, I did upper and lower endoscopy for him then which showed some erosive esophagitis and no other signs of any bleeding. He was then restarted back on his anticoagulation then and did not have any other complaints up until now. PAST MEDICAL HISTORY: Coronary artery disease, congestive heart failure (CHF), gout, chronic renal insufficiency, gastroesophageal reflux disease, hypertension, dyslipidemia, atrial fibrillation. PAST SURGICAL HISTORY: ICD placement ,upper and lower endoscopies, pyloric resections, cataract surgeries. SOCIAL HISTORY: Denies drug, alcohol or tobacco abuse. FAMILY HISTORY: Noncontributory. ALLERGIES: - PENICILLIN - QUINOLONES - SULFA ANTIBIOTICS HOME MEDICATIONS: Please see med record. REVIEW OF SYSTEMS: Pertinent positives and negative as stated in history of present illness (HPI). PHYSICAL EXAMINATION: General: Alert and oriented times three, in no acute stress. Vitals: Temperature 98.2, pulse 76, respirations 20, blood pressure 117/61, pulse oximetry 97% room air. HEENT: Pupils equal round and react to light and accommodation. Heart: S1, S2. Regular rate and rhythm. Lungs: Clear to auscultation bilaterally. Abdomen: Soft, nontender and nondistended. Extremities: No clubbing, cyanosis or edema. LABORATORIES: White count 8.3, hemoglobin 7.5 yesterday and up to 8.6 today, platelets 137, potassium 3.7, magnesium 2.1, creatinine 1.93. IMAGING STUDIES: CT of abdomen and pelvis with no obvious acute pathology appreciated. No ascites, hematoma, adenopathy or inflammatory stranding. ASSESSMENT/PLAN: The patient is a 72-year-old male with signs of melanotic stool and acute on chronic anemia likely secondary to GI source. He has had esophagogastroduodenoscopy (EGD) and colonoscopy about a year and a half ago that showed some erosive esophagitis, no other problems. I discussed the possibility of repeating endoscopy with him. However, he is already in the middle of his breakfast today, so the earliest we could do anything would be tomorrow morning. I explained that the likelihood of finding anything other than erosive esophagitis, again, would be small, and the chances of being able to do a therapeutic endoscopy would be even less than that. At this point, he is stable, so I gave him the option of waiting another 24 hours and then restarting his Eliquis and trending out his hemoglobin from there to see if he shows signs of dropping again versus prepping him today and doing a scope tomorrow. After discussion, he elected to wait it out, so we will keep him on some Protonix and Carafate today. Will hold Eliquis again today and restart it tomorrow morning. Monitor him for 24-48 hours. If his hemoglobin remains stable, we will discharge him. If he show signs of starting to drop again, then we will consider prepping him and scoping him later this week.
[2018-02-28] MEDS: APIXABAN 5 MG TAB (ELIQUIS) PO SCH ×2 (11:13→20:35)
[2018-02-28] MEDS: BISOPROLOL FUMARATE 10 MG TAB PO SCH (11:15)
[2018-02-28] MEDS: **hydrALAZINE** 50 MG TAB PO SCH ×2 (11:15→20:34)
[2018-02-28] MEDS: ISOSORBIDE DIN. (ISORDIL) 20 MG TAB PO SCH ×2 (11:15→20:35)
--- NOTE | 2018-02-28 13:21 | IPNPDOC ---
Text Note Date of Service The patient was seen on 02/28/18. NOTE Subjective: No complaints this am. Still continues to have dark soft stools but hh stable. Pateint thinks this is due to his iron supplements Physical Exam. Vitals: (see below) General: No acute distress, laying comfortably in bed. HEENT: Moist mucous membranes. Neck: No JVD or lymphadenopathy Cardiac: Irregularly irregular, No murmurs Pulm: Diminished breath sounds at the bases b/l. No wheezing, rhonchi Abd: NT/ND + BS Ext: No edema or cyanosis Labs and Radiology: reviewed. Assessment/Plan 72-year-old male with past medical history coronary artery disease, systol ic/diastolic congestive heart failure, gout, CKD3, GERD, hypertension, hyperlipidemia, atrial fibrillation on Eliquis, ICD placement sent by his internal combustion engine subassembler due to anemia. Patient has been weak and short of breath with exertion for the past 6 weeks. In his cardiologists office patient was was note d to have severe anemia acute on chronic. Patient was sent to emergency room for further evaluation and treatment. Hemoglobin and hematocrit on Nov 20 (11.8/35.3) down to Feb 06 (7.6/24.7) and today (5.5/18). CKD stable. INR 2.6 as patient states that he had a colonoscopy and EGD twice last one having been 2018 both negative for any bleeding or any abnormality. Patient as per ER physician guaiac-negative in the emergency room. Patient denies of any blood loss. Patient denies of any hematuria, hematemesis, hemoptysis, or blood in his stool. Patient did have a fall last night and hit his head and therefore CT head and CT spine was done which did not show any acute process. Patient is being admitted for further evaluation and treatment for symptomatic anemia. Acute on chronic anemia. Acute blood loss anemia received 4 units of PRBC Symptomatic anemia. No overt source of bleeding on admission. However a trail of eliquis caused pateint to have melanotic stools with drifting down of HH so possibly he does have intermittent GIB most probably due to Erosive gastritis. Had colonoscopy/EGD that were negative for acute bleeding in 2017. Anemia panel completed after blood transfusion. CT abd/pelvis negative for intraabdominal bleeding. Discussed with Dr. Burks - plan for Carafate to continue and restart eliquis Plan for EGD of hemoglobin drops/patient bleeds. Patient is currently hemodynamically stable. H/o CAD s/p PCI cont home meds h/o Systolic/diastolic HF. s/p ICD. compensated. cont home meds H/o CKD stage 3. Outpt f/u. Avoid nephrotoxins. Cr stable. HTN controlled. Cont current meds HLD AF rate controlled on eliquis at home. DVT prophy: SCDs VS,Fishbone, I+O VS, Fishbone, I+O Laboratory Tests 02/28/18 05:59 Red Blood Count 3.20 L, Mean Corpuscular Volume 90.0, Mean Corpuscular Hemoglobin 28.4, Mean Corpuscular Hemoglobin Concent 31.6 L, Red Cell Distribution Width 18.2 H, Neutrophils (%) (Auto) 78.8 H, Lymphocytes (%) (Auto) 8.7 L, Monocytes (%) (Auto) 9.3 H, Eosinophils (%) (Auto) 2.3, Basophils (%) (Auto) 0.3, Neutrophils # (Auto) 6.3, Lymphocytes # (Auto) 0.7 L, Monocytes # (Auto) 0.7, Eosinophils # (Auto) 0.2, Basophils # (Auto) 0.0, Calcium Level 8.6 L, Aspartate Amino Transf (AST/SGOT) 16, Alanine Aminotransferase (ALT/SGPT) 20, Alkaline Phosphatase 65, Total Bilirubin 0.6, Total Protein 7.2, Albumin 3.2 Vital Signs Date Time Temp Pulse Resp B/P (MAP) Pulse Ox O2 Delivery O2 Flow Rate FiO2 02/28/18 11:15 81 117/61 02/28/18 06:00 97.5 18 97 Room Air I&O- Last 24 Hours up to 6 AM 02/28/18 06:00 Intake Total 1600 ml Output Total 2475 ml Balance -875 ml CAREN STEWART MD Feb 28, 2018 13:21
[2018-02-28 14:00] VITALS: BP 135/60
[2018-02-28] MEDS: PANTOPRAZOLE 40MG INJ (PROTONIX) (C9113) IV SCH (20:34)
[2018-02-28] MEDS: VITAMIN D 1,000 INTERNATIONAL UNITS TABLET PO SCH (20:35)
[2018-02-28] MEDS: BISOPROLOL FUMARATE 5 MG TAB PO SCH (20:35)
[2018-02-28] MEDS: ACETAMINOPHEN TAB 650MG DOSE (2X325MG) PO PRN (20:35)
[2018-02-28 22:00] VITALS: BP 129/58
[2018-03-01] MEDS: LEVOTHYROXINE 50MCG TABLET (0.05MG) PO SCH (05:31)
[2018-03-01 06:00] VITALS: BP 107/54
[2018-03-01 06:05] LABS: BASO % 0.5 % (0.0-1.0); EOS # 0.2 10^3/uL (0.0-0.50); EOS % 3.2 % (0.0-3.0); HEMATOCRIT 26.8 % (42.0-52.0); HEMOGLOBIN 8.4 g/dl (13.5-17.5); LYMPH # 0.7 10^3/uL (1.5-4.5); LYMPH % 9.8 % (24.0-44.0); MEAN CORPUSCULAR HEMOGLOBIN 28.1 pg (27.0-33.0); MEAN CORPUSCULAR HGB CONC 31.3 g/dl (32.0-36.5); MEAN CORPUSCULAR VOLUME 89.6 fl (80.0-96.0); MONO # 0.7 10^3/uL (0.0-0.8); MONO % 10.8 % (0.0-5.0); NEUTROPHILS % 75.2 % (36.0-66.0); PLATELET COUNT, AUTOMATED 150 10^3/uL (150-450); RED BLOOD COUNT 2.99 10^6/uL (4.30-6.10); WHITE BLOOD COUNT 6.6 10^3/uL (4.0-10.0)
[2018-03-01 06:49] LABS: ALBUMIN 2.9 GM/DL (3.2-5.2); BILIRUBIN,TOTAL 0.5 MG/DL (0.2-1.0); CALCIUM LEVEL 8.6 MG/DL (8.8-10.2); CREATININE FOR GFR 1.97 MG/DL (0.70-1.30); GLOMERULAR FILTRATION RATE 35.7 (>42); MAGNESIUM LEVEL 2.1 MG/DL (1.8-2.4); POTASSIUM SERUM 4.1 MEQ/L (3.5-5.1); TOTAL PROTEIN 6.6 GM/DL (6.4-8.2)
[2018-03-01] MEDS: SUCRALFATE SUSP 1GM/10ML UD PO SCH ×4 (09:49→20:05)
[2018-03-01] MEDS: ALLOPURINOL 100 MG TAB PO SCH (09:51)
[2018-03-01] MEDS: TORSEMIDE 100 MG TAB PO SCH (09:51)
[2018-03-01] MEDS: ATORVASTATIN 20 MG TAB PO SCH (09:51)
[2018-03-01] MEDS: APIXABAN 5 MG TAB (ELIQUIS) PO SCH ×2 (09:52→20:05)
[2018-03-01] MEDS: SPIRONOLACTONE 25 MG TAB PO SCH (09:53)
[2018-03-01] MEDS: FERROUS SULFATE 325MG TAB PO SCH (09:53)
[2018-03-01] MEDS: ISOSORBIDE DIN. (ISORDIL) 20 MG TAB PO SCH ×2 (09:55→20:06)
[2018-03-01] MEDS: BISOPROLOL FUMARATE 10 MG TAB PO SCH (09:56)
--- NOTE | 2018-03-01 09:57 | IPNPDOC ---
Text Note Date of Service The patient was seen on 03/01/18. NOTE No acute events overnight. He is still having soft black stools. No complaints of any changes or weakness. Restarted on eliquis last evening, and Hgb is trending down again. VSSAF NAD abd - soft, NT, ND labs - below A) 72y/o male with likely UGI bleeding resulting in melanotic stools and anemia while on eliquis P) reg diet today NPO after midnight trend H+H if hgb continues to drop then we will plan on EGD tomorrow at noon Aniceto Burks DO VS,Fishbone, I+O VS, Fishbone, I+O Laboratory Tests 03/01/18 05:52 Red Blood Count 2.99 L, Mean Corpuscular Volume 89.6, Mean Corpuscular Hemoglobin 28.1, Mean Corpuscular Hemoglobin Concent 31.3 L, Red Cell Distribution Width 18.4 H, Neutrophils (%) (Auto) 75.2 H, Lymphocytes (%) (Auto) 9.8 L, Monocytes (%) (Auto) 10.8 H, Eosinophils (%) (Auto) 3.2 H, Basophils (%) (Auto) 0.5, Neutrophils # (Auto) 5.0, Lymphocytes # (Auto) 0.7 L, Monocytes # (Auto) 0.7, Eosinophils # (Auto) 0.2, Basophils # (Auto) 0.0, Calcium Level 8.6 L, Aspartate Amino Transf (AST/SGOT) 22, Alanine Aminotransferase (ALT/SGPT) 21, Alkaline Phosphatase 56, Total Bilirubin 0.5, Total Protein 6.6, Albumin 2.9 L Vital Signs Date Time Temp Pulse Resp B/P (MAP) Pulse Ox O2 Delivery O2 Flow Rate FiO2 03/01/18 06:00 97.2 63 19 107/54 (71) 98 Room Air I&O- Last 24 Hours up to 6 AM 03/01/18 06:00 Intake Total 1680 ml Output Total 2425 ml Balance -745 ml ESTELLA BURKS DO Mar 01, 2018 09:57
[2018-03-01] MEDS: **hydrALAZINE** 50 MG TAB PO SCH ×2 (10:06→20:06)
[2018-03-01 14:00] VITALS: BP 121/57
[2018-03-01 18:15] LABS: HEMATOCRIT 27.2 % (42.0-52.0); HEMOGLOBIN 8.7 g/dl (13.5-17.5); MEAN CORPUSCULAR HEMOGLOBIN 29.5 pg (27.0-33.0); MEAN CORPUSCULAR VOLUME 92.2 fl (80.0-96.0); PLATELET COUNT, AUTOMATED 158 10^3/uL (150-450); RED BLOOD COUNT 2.95 10^6/uL (4.30-6.10); WHITE BLOOD COUNT 6.8 10^3/uL (4.0-10.0)
[2018-03-01] MEDS: BISOPROLOL FUMARATE 5 MG TAB PO SCH (20:05)
[2018-03-01] MEDS: PANTOPRAZOLE 40MG INJ (PROTONIX) (C9113) IV SCH (20:05)
[2018-03-01] MEDS: VITAMIN D 1,000 INTERNATIONAL UNITS TABLET PO SCH (20:06)
--- NOTE | 2018-03-01 21:42 | IPNPDOC ---
Text Note Date of Service The patient was seen on 03/01/18. NOTE Subjective: No complaints this am. Did not have any bowel movements in the last 24 hours. No dizziness or light headedness. HH down from 9.1 to 8.4 this am. Hb this pm was 8.7 Physical Exam. Vitals: (see below) General: No acute distress, laying comfortably in bed. HEENT: Moist mucous membranes. Neck: No JVD or lymphadenopathy Cardiac: Irregularly irregular, systolic murmur present best heard at the base. Pulm: Diminished breath sounds at the bases b/l. No wheezing, rhonchi Abd: NT/ND + BS Ext: No edema or cyanosis Labs and Radiology: reviewed. Assessment/Plan 72-year-old male with past medical history coronary artery disease, systolic/diastolic congestive heart failure, gout, CKD3, GERD, hypertension, hyperlipidemia, atrial fibrillation on Eliquis, ICD placement sent by his speech pathologist due to anemia. Patient has been weak and short of breath with exertion for the past 6 weeks. In his cardiologists office patient was was noted to have severe anemia acute on chronic. Patient was sent to emergency room for further evaluation and treatment. Hemoglobin and hematocrit on Nov 20 (11.8/35.3) down to Feb 06 (7.6/24.7) and today (5.5/18). CKD stable. INR 2.6 as patient states that he had a colonoscopy and EGD twice last one having been 2018 both negative for any bleeding or any abnormality. Patient as per ER physician guaiac-negative in the emergency room. Patient denies of any blood loss. Patient denies of any hematuria, hematemesis, hemoptysis, or blood in his stool. Patient did have a fall last night and hit his head and therefore CT head and CT spine was done which did not show any acute process. Patient is being admitted for further evaluation and treatment for symptomatic anemia. Acute on chronic anemia. Acute blood loss anemia received 4 units of PRBC Symptomatic anemia. No overt source of bleeding on admission. However a trail of eliquis caused pateint to have melanotic stools with drifting down of HH so possibly he does have intermittent GIB most probably due to Erosive gastritis. Had colonoscopy/EGD that were negative for acute bleeding in 2017. Anemia panel completed after blood transfusion. CT abd/pelvis negative for intraabdominal bleeding. Discussed with Dr. Burks - plan for Carafate to continue and restart eliquis Plan for EGD of hemoglobin drops/patient bleeds. Patient is currently hemodynamically stable. H/o CAD s/p PCI cont home meds h/o Systolic/diastolic HF. s/p ICD. compensated. cont home meds H/o CKD stage 3. Outpt f/u. Avoid nephrotoxins. Cr stable. HTN controlled. Cont current meds HLD AF rate controlled on eliquis at home. DVT prophy: SCDs VS,Fishbone, I+O VS, Fishbone, I+O Laboratory Tests 03/01/18 05:52 Red Blood Count 2.99 L, Mean Corpuscular Volume 89.6, Mean Corpuscular Hemoglobin 28.1, Mean Corpuscular Hemoglobin Concent 31.3 L, Red Cell Distribution Width 18.4 H, Neutrophils (%) (Auto) 75.2 H, Lymphocytes (%) (Auto) 9.8 L, Monocytes (%) (Auto) 10.8 H, Eosinophils (%) (Auto) 3.2 H, Basophils (%) (Auto) 0.5, Neutrophils # (Auto) 5.0, Lymphocytes # (Auto) 0.7 L, Monocytes # (Auto) 0.7, Eosinophils # (Auto) 0.2, Basophils # (Auto) 0.0, Calcium Level 8.6 L, Aspartate Amino Transf (AST/SGOT) 22, Alanine Aminotransferase (ALT/SGPT) 21, Alkaline Phosphatase 56, Total Bilirubin 0.5, Total Protein 6.6, Albumin 2.9 L 03/01/18 18:02 Red Blood Count 2.95 L, Mean Corpuscular Volume 92.2, Mean Corpuscular H emoglobin 29.5, Mean Corpuscular Hemoglobin Concent 32.0, Red Cell Distribution Width 18.4 H Vital Signs Date Time Temp Pulse Resp B/P (MAP) Pulse Ox O2 Delivery O2 Flow Rate FiO2 03/01/18 20:05 76 131/68 03/01/18 14:00 97.5 20 96 Room Air I&O- Last 24 Hours up to 6 AM 03/01/18 06:00 Intake Total 1680 ml Output Total 2425 ml Balance -745 ml CAREN STEWART MD Mar 01, 2018 21:42
[2018-03-01 22:00] VITALS: BP 133/63
[2018-03-02] MEDS: LEVOTHYROXINE 50MCG TABLET (0.05MG) PO SCH (05:17)
[2018-03-02 06:00] VITALS: BP 115/56
[2018-03-02 06:34] LABS: BASO % 0.3 % (0.0-1.0); EOS # 0.2 10^3/uL (0.0-0.50); EOS % 2.7 % (0.0-3.0); HEMATOCRIT 25.9 % (42.0-52.0); HEMOGLOBIN 8.3 g/dl (13.5-17.5); LYMPH # 0.6 10^3/uL (1.5-4.5); LYMPH % 8.6 % (24.0-44.0); MEAN CORPUSCULAR HEMOGLOBIN 28.7 pg (27.0-33.0); MEAN CORPUSCULAR VOLUME 89.6 fl (80.0-96.0); MONO # 0.8 10^3/uL (0.0-0.8); MONO % 12.7 % (0.0-5.0); NEUTROPHILS # 4.8 10^3/uL (1.8-7.7); NEUTROPHILS % 75.2 % (36.0-66.0); PLATELET COUNT, AUTOMATED 157 10^3/uL (150-450); RED BLOOD COUNT 2.89 10^6/uL (4.30-6.10); WHITE BLOOD COUNT 6.4 10^3/uL (4.0-10.0)
[2018-03-02 06:55] LABS: ALBUMIN 2.9 GM/DL (3.2-5.2); BILIRUBIN,TOTAL 0.5 MG/DL (0.2-1.0); CALCIUM LEVEL 8.4 MG/DL (8.8-10.2); CREATININE FOR GFR 1.91 MG/DL (0.70-1.30); MAGNESIUM LEVEL 2.3 MG/DL (1.8-2.4); TOTAL PROTEIN 6.4 GM/DL (6.4-8.2)
[2018-03-02] MEDS ORDERED: LIDOCAINE 2% INJ 100 MG/5 ML SDV (FOR ANES.) As Ordered ONE (06:59)
[2018-03-02] MEDS ORDERED: PROPOFOL 200 MG/20 ML VIAL As Ordered ONE (06:59)
[2018-03-02] MEDS: SUCRALFATE SUSP 1GM/10ML UD PO SCH ×2 (07:15→12:00)
[2018-03-02] MEDS: ALLOPURINOL 100 MG TAB PO SCH (08:40)
[2018-03-02] MEDS: ATORVASTATIN 20 MG TAB PO SCH (08:40)
[2018-03-02] MEDS: FERROUS SULFATE 325MG TAB PO SCH (08:40)
[2018-03-02] MEDS: APIXABAN 5 MG TAB (ELIQUIS) PO SCH (08:40)
[2018-03-02] MEDS: SPIRONOLACTONE 25 MG TAB PO SCH (08:41)
[2018-03-02] MEDS: TORSEMIDE 100 MG TAB PO SCH (08:41)
--- NOTE | 2018-03-02 08:41 | IPNPDOC ---
Text Note Date of Service The patient was seen on 03/02/18. NOTE Subjective: No complaints this am. Did not have any bowel movements in the last 3 days. No dizziness or light headedness. HH stable at mid 8s. Planned for EGD today. Physical Exam. Vitals: (see below) General: No acute distress, laying comfortably in bed. HEENT: Moist mucous membranes. Neck: No JVD or lymphadenopathy Cardiac: Irregularly irregular, systolic murmur present best heard at the base. Pulm: Diminished breath sounds at the bases b/l. No wheezing, rhonchi Abd: NT/ND + BS Ext: No edema or cyanosis Labs and Radiology: reviewed. Assessment/Plan 72-year-old male with past medical history coronary artery disease, systolic/diastolic congestive heart failure, gout, CKD3, GERD, hypertension, hyperlipidemia, atrial fibrillation on Eliquis, ICD placement sent by his ward maid due to anemia. Patient has been weak and short of breath with exertion for the past 6 weeks. In his cardiologists office patient was was noted to have severe anemia acute on chronic. Patient was sent to emergency room for further evaluation and treatment. Hemoglobin and hematocrit on Nov 20 (11.8/35.3) down to Feb 06 (7.6/24.7) and today (5.5/18). CKD stable. INR 2.6 as patient states that he had a colonoscopy and EGD twice last one having been 2018 both negative for any bleeding or any abnormality. Patient as per ER physician guaiac-negative in the emergency room. Patient denies of any blood loss. Patient denies of any hematuria, hematemesis, hemoptysis, or blood in his stool. Patient did have a fall last night and hit his head and therefore CT head and CT spine was done which did not show any acute process. Patient is being admitted for further evaluation and treatment for symptomatic anemia. Acute on chronic anemia. Acute blood loss anemia received 4 units of PRBC Symptomatic anemia. No overt source of bleeding on admission. However a trail of eliquis caused pateint to have melanotic stools with drifting down of HH so possibly he does have intermittent GIB most probably due to Erosive gastritis. Had colonoscopy/EGD that were negative for acute bleeding in 2017. EGD showed Ruiz's esophagus, small hiatal hernia and reflux esophagitis. Colonoscopy showed sigmoid diverticulosis and several polyps . Path was tubular adenoma Anemia panel completed after blood transfusion. CT abd/pelvis negative for intraabdominal bleeding. Discussed with Dr. Burks - plan for Carafate to continue and restarted eliquis Plan for EGD today as HH drifted down to mid 8s from 9.1 after starting eliquis. H/o CAD s/p PCI cont home meds h/o Systolic/diastolic HF. s/p ICD. compensated. cont home meds H/o CKD stage 3. Outpt f/u. Avoid nephrotoxins. Cr stable. HTN controlled. Cont current meds HLD AF rate controlled on eliquis DVT prophy: SCDs VS,Fishbone, I+O VS, Fishbone, I+O Laboratory Tests 03/01/18 18:02 Red Blood Count 2.95 L, Mean Corpuscular Volume 92.2, Mean Corpuscular Hemoglobin 29.5, Mean Corpuscular Hemoglobin Concent 32.0, Red Cell Distribution Width 18.4 H 03/02/18 06:11 Red Blood Count 2.89 L, Mean Corpuscular Volume 89.6, Mean Corpuscular Hemoglobin 28.7, Mean Corpuscular Hemoglobin Concent 32.0, Red Cell Distribution Width 18.4 H, Neutrophils (%) (Auto) 75.2 H, Lymphocytes (%) (Auto) 8.6 L, Monocytes (%) (Auto) 12.7 H, Eosinophils (%) (Auto) 2.7, Basophils (%) (Auto) 0.3, Neutrophils # (Auto) 4.8, Lymphocytes # (Auto) 0.6 L, Monocytes # (Auto) 0.8, Eosinophils # (Auto) 0.2, Basophils # (Auto) 0.0, Calcium Level 8.4 L, Aspartate Amino Transf (AST/SGOT) 17, Alanine Aminotransferase (ALT/SGPT) 21, Alkaline Phosphatase 59, Total Bilirubin 0.5, Total Protein 6.4, Albumin 2.9 L Vital Signs Date Time Temp Pulse Resp B/P (MAP) Pulse Ox O2 Delivery O2 Flow Rate FiO2 03/02/18 06:00 97.7 75 18 115/56 (75) 97 Room Air I&O- Last 24 Hours up to 6 AM 03/02/18 06:00 Intake Total 1560 ml Output Total 1300 ml Balance 260 ml CAREN STEWART MD Mar 02, 2018 08:41
[2018-03-02] MEDS: BISOPROLOL FUMARATE 10 MG TAB PO SCH (09:23)
[2018-03-02] MEDS: **hydrALAZINE** 50 MG TAB PO SCH (09:23)
[2018-03-02 09:24] VITALS: BP 115/60
[2018-03-02] MEDS: ISOSORBIDE DIN. (ISORDIL) 20 MG TAB PO SCH (09:24)
--- NOTE | 2018-03-02 09:26 | IPNPDOC ---
Text Note Date of Service The patient was seen on 03/02/18. NOTE No acute events overnight. No complaints of any changes or weakness. Still on Eliquis, and Hgb has been stable. VSSAF NAD abd - soft, NT, ND labs - below A) 72y/o male with likely UGI bleeding resulting in melanotic stools and anemia while on eliquis P) NPO to OPP for EGD at noon today. Aniceto Burks DO VS,Alanna, I+O VS, Fishbone, I+O Laboratory Tests 03/01/18 18:02 Red Blood Count 2.95 L, Mean Corpuscular Volume 92.2, Mean Corpuscular Hemoglobin 29.5, Mean Corpuscular Hemoglobin Concent 32.0, Red Cell Distribution Width 18.4 H 03/02/18 06:11 Red Blood Count 2.89 L, Mean Corpuscular Volume 89.6, Mean Corpuscular Hemoglobin 28.7, Mean Corpuscular Hemoglobin Concent 32.0, Red Cell Distribution Width 18.4 H, Neutrophils (%) (Auto) 75.2 H, Lymphocytes (%) (Auto) 8.6 L, Monocytes (%) (Auto) 12.7 H, Eosinophils (%) (Auto) 2.7, Basophils (%) (Auto) 0.3, Neutrophils # (Auto) 4.8, Lymphocytes # (Auto) 0.6 L, Monocytes # (Auto) 0.8, Eosinophils # (Auto) 0.2, Basophils # (Auto) 0.0, Calcium Level 8.4 L, Aspartate Amino Transf (AST/SGOT) 17, Alanine Aminotransferase (ALT/SGPT) 21, Alkaline Phosphatase 59, Total Bilirubin 0.5, Total Protein 6.4, Albumin 2.9 L Vital Signs Date Time Temp Pulse Resp B/P (MAP) Pulse Ox O2 Delivery O2 Flow Rate FiO2 03/02/18 09:24 115/60 03/02/18 09:23 83 03/02/18 06:00 97.7 18 97 Room Air I&O- Last 24 Hours up to 6 AM 03/02/18 06:00 Intake Total 1560 ml Output Total 1300 ml Balance 260 ml ESTELLA BURKS DO Mar 02, 2018 09:26
--- NOTE | 2018-03-02 12:26 | ROOR ---
Patient Name: Marvin Li Procedure Date: 03/02/2018 12:10 PM Date of : 1945 Age: 72 Room: [facility] Gender: Male Note Status: Finalized Procedure: Upper GI endoscopy Indications: Melena Providers: DO Christopher Cruz MD: 2. Inpatient 2. Inpatient Requesting Provider: Medicines: Propofol per Anesthesia Complications: No immediate complications. Procedure: Pre-Anesthesia Assessment: - Prior to the procedure, a History and Physical was performed, and patient medications and allergies were reviewed. The patient is competent. The risks and benefits of the procedure and the sedation options and risks were discussed with the patient. All questions were answered and informed consent was obtained. Patient identification and proposed procedure were verified by the physician, the nurse and the telegraph service clerk in the endoscopy suite. Mental Status Examination: alert and oriented. Airway Examination: normal oropharyngeal airway and neck mobility. Respiratory Examination: clear to auscultation. CV Examination: normal. Prophylactic Antibiotics: The patient does not require prophylactic antibiotics. Prior Anticoagulants: The patient has taken Eliquis (apixaban), last dose was 1 day prior to procedure. ASA Grade Assessment: II - A patient with mild systemic disease. After reviewing the risks and benefits, the patient was deemed in satisfactory condition to undergo the procedure. The anesthesia plan was to use monitored anesthesia care (MAC). Immediately prior to administration of medications, the patient was re-assessed for adequacy to receive sedatives. The heart rate, respiratory rate, oxygen saturations, blood pressure, adequacy of pulmonary ventilation, and response to care were monitored throughout the procedure. The physical status of the patient was re-assessed after the procedure. The Endoscope was introduced through the mouth, and advanced to the second part of duodenum. The upper GI endoscopy was accomplished without difficulty. The patient tolerated the procedure well. Findings: LA Grade B (one or more mucosal breaks greater than 5 mm, not extending between the tops of two mucosal folds) esophagitis with no bleeding was found. Estimated blood loss: none. The exam was otherwise without abnormality. Impression: - LA Grade B chronic esophagitis. - The examination was otherwise normal. - No specimens collected. Recommendation: - Patient has a contact number available for emergencies. The signs and symptoms of potential delayed complications were discussed with the patient. Return to normal activities tomorrow. Written discharge instructions were provided to the patient. - Return to my office PRN. Dae Burks DO 03/02/2018 12:26:17 PM This report has been signed electronically. Number of Addenda: 0 Note Initiated On: 03/02/2018 12:10 PM Estimated Blood Loss: Estimated blood loss: none.
[2018-03-02 13:16] VITALS: BP 100/53
[2018-03-02] MEDS ORDERED: PANT40TA3 PO (13:56)
[2018-03-02] MEDS ORDERED: SUCR10SS PO (13:56)
[2018-03-02] MEDS ORDERED: CARA1TAB6 PO (14:18)
--- NOTE | 2018-03-18 02:46 | DS.PDOC ---
Discharge Summary General Date of Admission Feb 27, 2018 at 13:48 Date of Discharge 03/02/18 Attending Physician: CAREN STEWART MD Discharge Summary PROCEDURES PERFORMED DURING STAY: EGD DISCHARGE DIAGNOSES: GIB source not definitely found may be chronic Esophagitis. Chronic esophagitis Ruiz esophagus Acute blood loss anemia due to GIB Chronic anemia due to Iron deficiency Anemia and anemia of chronic disease Hiatal hernia Diverticulosis A fib Chronic Systolic and diastolic CHF CAD s/p stenting in the past Hypertension Hyperlipidemia Hypothyroid COMPLICATIONS/CHIEF COMPLAINT: Gi Bleed. HISTORY OF PRESENT ILLNESS: Please see history and physical HOSPITAL COURSE: 72-year-old male with past medical history coronary artery disease, systolic/diastolic congestive heart failure, gout, CKD3, GERD, hypertension, hyperlipidemia, atrial fibrillation on Eliquis, ICD placement sent by his surg rn due to anemia. Patient has been weak and short of breath with exertion for the past 6 weeks. In his cardiologists office patient was was noted to have severe anemia acute on chronic. Patient was sent to emergency room for further evaluation and treatment. Hemoglobin and hematocrit on Nov 20 (11.8/35.3) down to Feb 06 (7.6/24.7) and today (5.5/18). CKD stable. INR 2.6 as patient states that he had a colonoscopy and EGD twice last one having been 2018 both negative for any bleeding or any abnormality. Patient as per ER physician guaiac-negative in the emergency room. Patient denies of any blood loss. Patient denies of any hematuria, hematemesis, hemoptysis, or blood in his stool. Patient did have a fall last night and hit his head and therefore CT head and CT spine was done which did not show any acute process. Patient is being admitted for further evaluation and treatment for symptomatic anemia. Acute on chronic anemia. Acute blood loss anemia received 4 units of PRBC Symptomatic anemia. Due to upper GIB vs obscure GIB on the back ground of iron deficiency anemia and anemia of chronic disease due to CKD No overt source of bleeding on admission. However a trial of eliquis caused patient to have melanotic stools with drifting down of HH so possibly he does have intermittent GIB EGD showed chronic Esophagitis this admission Had colonoscopy/EGD that were negative for acute bleeding in 2017. EGD showed Ruiz's esophagus, small hiatal hernia and reflux esophagitis. Colonoscopy showed sigmoid diverticulosis and several polyps . Path was tubular adenoma continue PPI twice a day and Carafate Hold eliquis for at least 2 weeks. Needs referral to GI for capsule endoscopy or push enteroscopy There is iron deficiency, no Vit B12 or folate deficiency. CAD s/p PCI cont home meds Systolic/diastolic HF. s/p ICD. compensated. cont home meds follow up Dr Newell. CKD stage 3. Outpt f/u. Avoid nephrotoxins. Cr stable. follow up Dr Moseley HTN controlled. Cont current meds HLD AF rate controlled on eliquis DISCHARGE MEDICATIONS: Please see below. ALLERGIES: Please see below. PHYSICAL EXAMINATION ON DISCHARGE: VITAL SIGNS: Please see below. General: No acute distress, laying comfortably in bed. HEENT: Moist mucous membranes. Neck: No JVD or lymphadenopathy Cardiac: Irregularly irregular, systolic murmur present best heard at the base. Pulm: Diminished breath sounds at the bases b/l. No wheezing, rhonchi Abd: NT/ND + BS Ext: No edema or cyanosis LABORATORY DATA: Please see below. ACTIVITY: [As tolerated]. DIET: soft DISPOSITION: 01 Home, Self-Care. DISCHARGE INSTRUCTIONS: Follow up PMD in [address] Moseley in [address] newell in 2 to 4 weeks Referral to GI for evaluation for obscure GIB. DISCHARGE CONDITION: [Stable]. TIME SPENT ON DISCHARGE: Greater than 30 minutes. Vital Signs/I&Os Vital Signs Label Value Date Time Patient Temperature 97.2 degrees F 03/02/18 1316 Temperature Source Temporal 03/02/18 1316 Pulse 86 03/02/18 1316 Respiratory Rate 16 bpm 03/02/18 1316 Blood Pressure Assessment 100/53 (69) 03/02/18 1316 Bedside Pulse Oximetry 96 % 03/02/18 1316 Item Value Date Time Oxygen Delivery Method Room Air 03/02/18 1316 Laboratory Data CBC/BMP Item Value Date Time White Blood Count 6.4 10^3/uL 03/02/18 0611 Red Blood Count 2.89 10^6/uL L 03/02/18 0611 Hemoglobin 8.3 g/dl L 03/02/18 0611 Hematocrit 25.9 % L 03/02/18 0611 Mean Corpuscular Volume 89.6 fl 03/02/18 0611 Mean Corpuscular Hemoglobin 28.7 pg 03/02/1811 Mean Corpuscular Hemoglobin Concent 32.0 g/dl 03/02/1811 Red Cell Distribution Width 18.4 % H 03/02/1811 Platelet Count 157 10^3/uL 03/02/1811 Immature Granulocyte % (Auto) 0.5 % 03/02/1811 Neutrophils (%) (Auto) 75.2 % H 03/02/1811 Lymphocytes (%) (Auto) 8.6 % L 03/02/1811 Monocytes (%) (Auto) 12.7 % H 03/02/1811 Eosinophils (%) (Auto) 2.7 % 03/02/18610 Basophils (%) (Auto) 0.3 % 03/02/1811 Neutrophils # (Auto) 4.8 10^3/uL 03/02/1811 Lymphocytes # (Auto) 0.6 10^3/uL L 03/02/1811 Monocytes # (Auto) 0.8 10^3/uL 03/02/18 0611 Eosinophils # (Auto) 0.2 10^3/uL 03/02/1811 Basophils # (Auto) 0.0 10^3/uL 03/02/1811 Nucleated Red Blood Cells % (auto) 0.0 % 03/02/1811 Sodium Level 137 MEQ/L 03/02/1811 Potassium Level 4.0 MEQ/L 03/02/1811 Chloride Level 105 MEQ/L 03/02/1811 Carbon Dioxide Level 25 MEQ/L 03/02/1811 Anion Gap 7 MEQ/L L 03/02/1811 Blood Urea Nitrogen 90 MG/DL H 03/02/1811 Creatinine 1.91 MG/DL H 03/02/1811 Glomerular Filtration Rate 37.0 L 03/02/1811 Fasting Glucose 104 MG/DL H 03/02/1811 Calcium Level 8.4 MG/DL L 03/02/1811 Magnesium Level 2.3 MG/DL 03/02/1811 Total Bilirubin 0.5 MG/DL 03/02/1811 Aspartate Amino Transf (AST/SGOT) 17 U/L 03/02/1811 Alanine Aminotransferase (ALT/SGPT) 21 U/L 03/02/1811 Alkaline Phosphatase 59 U/L 03/02/1811 Total Protein 6.4 GM/DL 03/02/18610 Albumin 2.9 GM/DL L 03/02/18610 Albumin/Globulin Ratio 0.83 L 03/02/18610 Discharge Medications Scheduled Allopurinol (Allopurinol) 100 Mg Tab, 100 MG PO DAILY, (Reported) Atorvastatin Calcium (Atorvastatin Calcium) 40 Mg Tab, 40 MG PO DAILY, (Reported) Bisoprolol Fumarate (Bisoprolol Fumarate) 10 Mg Tab, 10 MG PO DAILY, (Reported) Bisoprolol Fumarate (Bisoprolol Fumarate) 5 Mg Tab, 5 MG PO QHS, (Reported) Calcitriol (Calcitriol) 0.25 Mcg Cap, 0.25 MCG PO 2XWK, (Reported) TUE,TUE Cholecalciferol (Vitamin D3) 1,000 Unit Tab, 1,000 UNIT PO QHS, (Reported) Ferrous Sulfate (Ferrous Sulfate) 325 Mg Tab, 325 MG PO DAILY, (Reported) Hydralazine HCl (Hydralazine HCl) 50 Mg Tab, 50 MG PO BID, (Reported) Isosorbide Dinitrate (Isordil Titradose) 5 Mg Tab, 20 MG PO BID, (Reported) Levothyroxine Sodium (Synthroid) 50 Mcg Tab, 50 MCG PO DAILY, (Reported) Magnesium Oxide (Magnesium Oxide) 250 Mg Tab, 250 MG PO 2XW, (Reported) TUESDAY AND TUESDAY. Pantoprazole Sodium (Pantoprazole Sodium) 40 Mg Tab, 40 MG PO BID Ranitidine HCl (Ranitidine HCl) 150 Mg Tab, 1 TAB PO QHS, (Reported) Spironolactone (Spironolactone) 25 Mg Tab, 25 MG PO DAILY, (Reported) Sucralfate (Carafate) 1 Gm Tab, 1 GM PO ACHS 4 times per day take on an empty stomach Torsemide (Torsemide) 100 Mg Tab, 200 MG PO DAILY, (Reported) Scheduled PRN Benzonatate (Benzonatate) 200 Mg Cap, 200 MG PO PRN PRN for COUGH, (Reported) Hydroxyzine HCl (Hydroxyzine HCl) 10 Mg Tab, 20 MG PO QHS PRN for ITCHING, (Reported) Nitroglycerin (Nitrostat) 0.4 Mg Subl, 0.4 MG SL Q5MP PRN for CHEST PAIN, (Reported) Allergies Coded Allergies: Penicillins (Verified Allergy, Unknown, 02/24/18) PASSES OUT. Penicillins Cross Reactors (Verified Allergy, Unknown, 10/25/17) Quinolones (Verified Allergy, Unknown, 10/25/17) Sulfa Antibiotics (Verified Allergy, Unknown, 02/24/18) ITCH/BURN/THROAT TIGHTENS. CAREN STEWART MD Mar 18, 2018 02:45
== END 2018-03-02 15:25 | disposition home or self-care (01) | DRG 378 ==
LOC: M ED 16:42 → M ED INP 19:36 → M MS5PR 21:50 → OBSVTOIN 02-27 13:48
PROVIDERS: ADMIT Internal Medicine; ATTEND Internal Medicine Nephrology
PROC: 30233N1 Transfusion of Nonautologous Red Blood Cells into Peripheral Vein, Percutaneous Approach (ICD-10-PCS; 2018-02-27)
PROC: 0DJ08ZZ Inspection of Upper Intestinal Tract, Via Natural or Artificial Opening Endoscopic (ICD-10-PCS; principal; 2018-03-02 12:00)
DX: K92.2 Gastrointestinal hemorrhage, unspecified (principal); D62 Acute posthemorrhagic anemia; I50.42 Chronic combined systolic (congestive) and diastolic (congestive) heart failure; I13.0 Hypertensive heart and chronic kidney disease with heart failure and stage 1 through stage 4 chronic kidney disease, or unspecified chronic kidney disease; I25.10 Atherosclerotic heart disease of native coronary artery without angina pectoris; M10.9 Gout, unspecified; N18.3 Chronic kidney disease, stage 3 (moderate); K21.9 Gastro-esophageal reflux disease without esophagitis; K22.70 Barrett's esophagus without dysplasia; E78.5 Hyperlipidemia, unspecified; I48.91 Unspecified atrial fibrillation; D50.9 Iron deficiency anemia, unspecified; K57.30 Diverticulosis of large intestine without perforation or abscess without bleeding; K44.9 Diaphragmatic hernia without obstruction or gangrene; E03.9 Hypothyroidism, unspecified; K20.8 Other esophagitis; Z95.810 Presence of automatic (implantable) cardiac defibrillator; Z98.49 Cataract extraction status, unspecified eye; Z90.49 Acquired absence of other specified parts of digestive tract; Z87.891 Personal history of nicotine dependence; Z79.01 Long term (current) use of anticoagulants; Z79.899 Other long term (current) drug therapy; Z88.0 Allergy status to penicillin; Z88.1 Allergy status to other antibiotic agents; Z88.2 Allergy status to sulfonamides; Z95.5 Presence of coronary angioplasty implant and graft

== ENCOUNTER 2018-12-21 05:41 | Day surgery (SDC) | payer MEDICARE ==
[~2018-12-21] VITALS: Ht 165.1 cm; Wt 73.9 kg
[2018-12-21] MEDS ORDERED: LR 1,000 ML IV ONE (06:00)
[2018-12-21] MEDS ORDERED: CETACAINE SPRAY 5GM As Ordered ONE (07:09)
[2018-12-21] MEDS ORDERED: LIDOCAINE VISCOUS 2% SOLN 15ML UDC As Ordered ONE (07:09)
[2018-12-21] MEDS ORDERED: LIDOCAINE 2% INJ 100 MG/5 ML SDV (FOR ANES.) As Ordered ONE (07:20)
[2018-12-21] MEDS ORDERED: PROPOFOL 200 MG/20 ML VIAL As Ordered ONE (07:20)
[2018-12-21] MEDS ORDERED: fentaNYL 100 MCG/2 ML INJECTION (J3010) As Ordered ONE (07:21)
[2018-12-21 09:05] VITALS: BP 130/60
--- NOTE | 2018-12-21 20:10 | T-ECHO ---
DATE OF PROCEDURE: 12/21/2018 INDICATION: Status post Watchman placement to establish its seating and seal. Anesthesia was provided by Buck Espinal CRNA BRIEF HISTORY: Mr. Li is a very pleasant 73-year-old man who has chronic atrial fibrillation and a history of pacemaker placement for sick sinus syndrome. Because of recurrent episodes of gastrointestinal (GI) bleeding, he underwent Watchman placement 4 weeks ago. He is being brought for transesophageal echocardiogram to evaluate the seal and position of the device. The nature of the procedures, indications and potential complications were discussed with the patient on an outpatient basis. He did sign appropriate consent. I went over the procedure with him and his again this morning, and all their questions were answered. PROCEDURE NOTE: Procedure was performed in the operating room. The patient presented in fasting condition. After appropriate time-out was taken and monitors were applied, his posterior pharynx was anesthetized using viscous lidocaine and Cetacaine spray. After this act was completed, he was positioned in the left lateral decubitus position. Bite block was placed. Oxygen mask was applied over his face. Probe was then introduced into esophagus and later stomach without difficulty. After appropriate images were obtained, it was withdrawn. There were no immediate complications, and the patient tolerated the procedure well. FINDINGS: There is severe left ventricular systolic dysfunction with global hypokinesis. I estimate left ventricular ejection fraction (LVEF) 25-30%. Right ventricle also appears dilated and hypokinetic. There is severe biatrial enlargement. There is normal flow in both right-sided and left-sided pulmonary veins. There is a Watchman device in left atrial appendage. It appears to be properly seated. There is no obvious motion and no communication was seen between the left atrium and left atrial appendage. Aortic valve was tricuspid. It appears structurally intact, by color Doppler imaging, there is no stenosis and mild insufficiency. There is approximately mild to moderate or moderate mitral insufficiency with MR jet being central, likely related to underlying left ventricular systolic dysfunction. No mitral stenosis is present. Tricuspid valve was relatively poorly seen. There is approximately mild tricuspid insufficiency with very eccentric TR jet, likely caused by pacemaker electrode. Atrial septum is intact based on 2D and color Doppler imaging. There is normal flow in both left and right-sided pulmonary veins. Pulmonic valve was relatively poorly seen but appears normal. There is no stenosis or insufficiency. There is very prominent atherosclerosis of aortic arch and descending aorta but no thrombi or ulcerations were visualized. CONCLUSIONS: 1. Watchman device in left atrial appendage is properly seated without evidence of any communication between left atrium and left atrial appendage itself. 2. Severe left ventricular systolic dysfunction. 3. Approximately moderate mitral insufficiency likely secondary to left ventricular (LV) dysfunction. 4. Mild aortic insufficiency. 5. Mild tricuspid insufficiency. 6. Intact atrial septum. 7. Very prominent atherosclerosis of thoracic aorta. COMMENTS: Subacute bacterial endocarditis (SBE) prophylaxis is recommended. I instructed the patient to discontinue Eliquis and continue aspirin 81 mg daily only.
== END 2018-12-21 09:11 | disposition home or self-care (01) ==
LOC: M SDC 05:41
PROVIDERS: ATTEND Internal Medicine Cardiovascular Disease
DX: I48.91 Unspecified atrial fibrillation (principal); I10 Essential (primary) hypertension; E03.9 Hypothyroidism, unspecified; E78.5 Hyperlipidemia, unspecified; K21.9 Gastro-esophageal reflux disease without esophagitis; M10.9 Gout, unspecified; Z95.810 Presence of automatic (implantable) cardiac defibrillator; Z98.61 Coronary angioplasty status; Z87.891 Personal history of nicotine dependence; Z79.899 Other long term (current) drug therapy; Z79.01 Long term (current) use of anticoagulants; Z88.0 Allergy status to penicillin; Z88.2 Allergy status to sulfonamides; Z88.8 Allergy status to other drugs, medicaments and biological substances
CPT/HCPCS: 36415; 84439; 84443; 93312; 93320; 93325; J3010

== ENCOUNTER → 2018-12-21 | Outpatient (CLI) | payer MEDICARE ==
[~2018-12-21] MED LIST changes: -BISO10TA PO; +BISO10TA10 PO; +BISO10TA13 PO; -BISO10TA6 PO; -BISO5TAB5 PO; +BISO5TAB9 PO; +CARA1TAB6 PO; +HYDR-3363 PO; +ISOS20TAB PO; -OMEP20CA3 PO; +OMEP20CA4 PO; +PANT40TA3 PO; +PRED-351 PO; -PRED10TA PO; +SUCR10SS PO; +XALA0.007 OU
[2018-12-21 13:42] LABS: FREE T4 1.37 NG/DL (0.76-1.46); THYROID STIMULATING HORMONE 3.53 uIU/ML (0.358-3.740)
== END ==
LOC: M SMT 09:29
PROVIDERS: ATTEND Physician Assistant
DX: E03.9 Hypothyroidism, unspecified (principal)

== ENCOUNTER 2019-10-16 13:30 | Inpatient (IN) | payer MEDICARE ==
[~2019-10-16 13:30] MED LIST changes: -AMLO10TA5 PO; +AMLO1TAB25 PO; -BISO10TA10 PO; +BISO10TA14 PO; +BISO5TAB14 PO; -BISO5TAB9 PO; -LISI2.5T76 PO; +LISI2.5T8 PO; +MAGNESIUM SULFATE 1GM/100ML D5W BAG (10MG/ML) As Ordered ONE; +OMEP1CAP73 PO; -OMEP20CA4 PO; +PANT40TA29 PO; -PANT40TA3 PO; +POTASSIUM CHLORIDE 10 MEQ SR TABLET As Ordered ONE; -SUCR10SS PO; +SUCR1ORA2 PO
[2019-10-16 20:45] VITALS: BP 137/75
[2019-10-16] MEDS ORDERED: ATORVASTATIN 20 MG TAB PO SCH (21:00)
[2019-10-16] MEDS ORDERED: CARA1TAB6 PO (22:35)
[2019-10-16] MEDS ORDERED: PANT40TA29 PO (22:35)
[2019-10-16] MEDS ORDERED: ASPI-161 PO (22:35)
[2019-10-16] MEDS ORDERED: HYDR-3363 PO (22:35)
[2019-10-16] MEDS ORDERED: ISOS20TAB PO (22:35)
[2019-10-16] MEDS: PANTOPRAZOLE 40MG TAB (PROTONIX) PO SCH (23:30)
[2019-10-16] MEDS: ASPIRIN 81 MG ENTERIC TAB PO SCH (23:30)
[2019-10-16] MEDS: FERROUS SULFATE 325MG TAB PO SCH (23:30)
[2019-10-16] MEDS: SUCRALFATE 1 GM TAB PO SCH (23:30)
[2019-10-16] MEDS: NS 1,000 ML IV SCH (23:31)
[2019-10-16] MEDS: **hydrALAZINE** 50 MG TAB PO SCH (23:37)
[2019-10-16] MEDS: ISOSORBIDE DIN. (ISORDIL) 20 MG TAB PO SCH (23:38)
[2019-10-16] MEDS: bisoproloL fumarate 5 MG TAB PO SCH (23:39)
[2019-10-17] VITALS: BP 129/65
[2019-10-17 04:00] VITALS: BP 129/60
[2019-10-17 04:02] LABS: CALCIUM LEVEL 8.7 MG/DL (8.8-10.2); CREATININE FOR GFR 1.78 MG/DL (0.70-1.30); GLOMERULAR FILTRATION RATE 39.9 (>42); POTASSIUM SERUM 3.2 MEQ/L (3.5-5.1)
[2019-10-17] MEDS ORDERED: POTASSIUM CHLORIDE 10 MEQ SR TABLET PO ONE ×2 (04:15→07:00)
[2019-10-17] MEDS: LATANOPROST 0.005% OPHTH SOLN 2.5 ML OU SCH ×2 (04:48→21:29)
[2019-10-17] MEDS: NS 1,000 ML IV SCH (05:44)
[2019-10-17] MEDS: LEVOTHYROXINE 50MCG TABLET (0.05MG) PO SCH (05:44)
[2019-10-17 06:17] LABS: HEMATOCRIT 35.1 % (42.0-52.0); HEMOGLOBIN 12.3 g/dl (13.5-17.5); MEAN CORPUSCULAR HEMOGLOBIN 34.1 pg (27.0-33.0); MEAN CORPUSCULAR VOLUME 97.2 fl (80.0-96.0); PLATELET COUNT, AUTOMATED 205 10^3/uL (150-450); RED BLOOD COUNT 3.61 10^6/uL (4.30-6.10); WHITE BLOOD COUNT 19.8 10^3/uL (4.0-10.0)
[2019-10-17 06:43] LABS: ALBUMIN 2.3 GM/DL (3.2-5.2); BILIRUBIN,TOTAL 1.4 MG/DL (0.2-1.0); CALCIUM LEVEL 8.3 MG/DL (8.8-10.2); CREATININE FOR GFR 1.63 MG/DL (0.70-1.30); GLOMERULAR FILTRATION RATE 44.1 (>42); MAGNESIUM LEVEL 1.9 MG/DL (1.8-2.4); POTASSIUM SERUM 2.9 MEQ/L (3.5-5.1); TOTAL PROTEIN 5.8 GM/DL (6.4-8.2)
[2019-10-17 07:38] VITALS: BP 113/58
[2019-10-17] MEDS: MAGNESIUM OXIDE 400 MG TAB (MAG-OX) PO SCH (08:03)
[2019-10-17] MEDS: PANTOPRAZOLE 40MG TAB (PROTONIX) PO SCH (08:03)
[2019-10-17] MEDS: SUCRALFATE 1 GM TAB PO SCH ×2 (08:03→21:28)
[2019-10-17] MEDS: allopurinoL 100 MG TAB PO SCH (08:03)
[2019-10-17] MEDS: **hydrALAZINE** 50 MG TAB PO SCH ×2 (08:05→21:28)
[2019-10-17] MEDS: FERROUS SULFATE 325MG TAB PO SCH (08:05)
[2019-10-17] MEDS: bisoproloL fumarate 5 MG TAB PO SCH ×2 (08:05→21:28)
[2019-10-17] MEDS: ISOSORBIDE DIN. (ISORDIL) 20 MG TAB PO SCH ×2 (08:05→21:29)
[2019-10-17 08:10] LABS: LYMPHOCYTES 3 % (16-44); MONOCYTES 3 % (0-5); NEUTROPHILS 94 % (28-66); PLATELET ESTIMATE NORMAL (NORMAL)
[2019-10-17 08:11] LABS: OVALOCYTES 1+
--- NOTE | 2019-10-17 08:59 | IPNPDOC ---
Text Note Date of Service The patient was seen on 10/17/19. NOTE Subjective: Patient seen and examined at bedside. Feeling much better today. No new medical complaints. Objective: General: NAD, lying comfortably in bed HEENT: NC/AT, EOMI Lungs: CTA B/L Heart: +S1S2, RRR Abd: soft, NT, +BS Ext: no edema A/P: 74 yo male for several week history of diarrhea, non-bloody, found to be in RALPH with electrolyte derangements. #diarrhea - GI panel pending - update - + CDiff - COVID negative #CDiff - severe/initial episode - vanco 500 q6h PO #RALPH/CKD - nephrology c/s pending - gentle hydration given severe heart failure - check UA #electrolyte derangement - continue to replete and follow #CHF/CAD/VA - severe systolic dysfunction LVEF 20-30% - s/p Watchman device left atrial appendage - continue home meds - lasix on hold for now #anemia - stable at this time #DVT prophylaxis - mechanical VS,Fishbone, I+O VS, Fishbone, I+O Laboratory Tests 10/17/19 02:10 10/17/19 05:47 Vital Signs Date Time Temp Pulse Resp B/P (MAP) Pulse Ox O2 Delivery O2 Flow Rate FiO2 10/17/19 08:05 113/58 10/17/19 08:05 95 10/17/19 07:38 97.6 18 97 Room Air I&O- Last 24 Hours up to 6 AM 10/17/19 06:00 Intake Total 420 ml Output Total 200 ml Balance 220 ml AISHA CLOUD MD Oct 17, 2019 08:59
[2019-10-17] MEDS ORDERED: SPIRONOLACTONE 25 MG TAB PO SCH (09:00)
[2019-10-17] MEDS ORDERED: metroNIDAZOLE 500 MG in IV 1 EA IV SCH (10:00)
[2019-10-17] MEDS: VANCOMYCIN ORAL SOL 250MG/5ML ORAL SYRINGE PO SCH ×2 (11:56→18:01)
[2019-10-17 12:00] VITALS: BP 142/73
[2019-10-17] MEDS: KCL 40MEQ IN D5/0.45NS 1000ML 1,000 ML IV SCH ×2 (12:00→21:30)
[2019-10-17 15:45] VITALS: BP 127/69
[2019-10-17 20:00] VITALS: BP 110/58
[2019-10-17] MEDS: ASPIRIN 81 MG ENTERIC TAB PO SCH (21:28)
[2019-10-18] VITALS: BP 99/59
[2019-10-18 00:35] LABS: CALCIUM LEVEL 7.8 MG/DL (8.8-10.2); CREATININE FOR GFR 1.64 MG/DL (0.70-1.30); GLOMERULAR FILTRATION RATE 43.8 (>42); POTASSIUM SERUM 4.1 MEQ/L (3.5-5.1)
[2019-10-18] MEDS: VANCOMYCIN ORAL SOL 250MG/5ML ORAL SYRINGE PO SCH ×5 (01:30→23:58)
[2019-10-18] MEDS ORDERED: NS 1,000 ML IV SCH (02:00)
[2019-10-18 04:00] VITALS: BP 109/65
[2019-10-18] MEDS: LEVOTHYROXINE 50MCG TABLET (0.05MG) PO SCH (05:50)
[2019-10-18 08:00] VITALS: BP 110/68
[2019-10-18] MEDS: **hydrALAZINE** 50 MG TAB PO SCH ×2 (09:00→21:03)
[2019-10-18] MEDS: bisoproloL fumarate 5 MG TAB PO SCH ×2 (10:35→21:03)
[2019-10-18] MEDS: allopurinoL 100 MG TAB PO SCH (10:35)
[2019-10-18] MEDS: CALCITRIOL 0.25 MCG CAP (S0169) PO SCH (10:36)
[2019-10-18] MEDS: ISOSORBIDE DIN. (ISORDIL) 20 MG TAB PO SCH ×2 (10:36→21:03)
[2019-10-18] MEDS: MAGNESIUM OXIDE 400 MG TAB (MAG-OX) PO SCH (10:36)
[2019-10-18] MEDS: SUCRALFATE 1 GM TAB PO SCH ×2 (10:37→21:03)
[2019-10-18 11:17] LABS: HEMATOCRIT 30.6 % (42.0-52.0); HEMOGLOBIN 10.5 g/dl (13.5-17.5); MEAN CORPUSCULAR HEMOGLOBIN 33.5 pg (27.0-33.0); MEAN CORPUSCULAR HGB CONC 34.3 g/dl (32.0-36.5); MEAN CORPUSCULAR VOLUME 97.8 fl (80.0-96.0); PLATELET COUNT, AUTOMATED 196 10^3/uL (150-450); RED BLOOD COUNT 3.13 10^6/uL (4.30-6.10); WHITE BLOOD COUNT 15.4 10^3/uL (4.0-10.0)
[2019-10-18 11:25] VITALS: BP 107/62
[2019-10-18] MEDS: SODIUM BICARBONATE 75 MEQ in NS 0.45% 1,000 ML IV SCH ×2 (11:30→23:58)
[2019-10-18 11:33] LABS: CALCIUM LEVEL 8.1 MG/DL (8.8-10.2); CREATININE FOR GFR 1.56 MG/DL (0.70-1.30); GLOMERULAR FILTRATION RATE 46.4 (>42); MAGNESIUM LEVEL 1.8 MG/DL (1.8-2.4); POTASSIUM SERUM 3.6 MEQ/L (3.5-5.1)
--- NOTE | 2019-10-18 13:48 | IPNPDOC ---
Date Seen The patient was seen on 10/18/19. Progress Note SUBJECTIVE: Patient seen and examined at the bedside this morning. He had ~10 bowel movements yesterday. He reports he is feeling somewhat better. Denies any abdominal pain. Very minimal movement with PT. Tolerating liquid diet. No nausea/vomiting. OBJECTIVE PHYSICAL EXAMINATION: VITAL SIGNS: Please see below. GENERAL: laying flat in bed, calm, cooperative, NAD, very pleasant HEENT: MMM, NC/AT, EOMI CARDIOVASCULAR: irregularly irregular, no obvious m/r/g RESPIRATORY: CTAB ABDOMINAL: somewhat distended, tympanic, +BS, no obvious masses/organomegaly, nontender to deep palpation EXTREMITIES: no c/c/e NEUROLOGICAL: no obvious focal deficits PSYCHOLOGICAL: normal mood/affect LABORATORY DATA, IMAGING STUDIES, MICROBIOLOGY: Please see below. DVT prophylaxis ordered?: Deferred, hx GIB, TEDs/SCDs ASSESSMENT AND PLAN: This is a 74 YO M with history of AF, CAD s/p stents, CKD3 presented with 3 weeks of diarrhea found to have C. dif infection and resolving RALPH PROBLEMS: 1. C. dif infection: -WBC initially 19.8, down to 15.4 today -Continue oral Vancomycin (day 04/09) -Continue IVF sodium bicarb 100cc/hr 2. RALPH on CKD: improving -Cr today 1.56, improved from 2.0 -Continue hydration -UA ordered, pending -Nephrology consulted. Appreciate recommendations. -Continue calcitriol, allopurinol 3. Hypokalemia: resolved -K 3.6 today 4. Hyponatremia: -Na improved from 122 to 128 today 5. History of sytolic CHF (last known EF 45%): -Holding Lasix at this time 2/2 RALPH. Patient does not appear to be hypervolemic 6. Atrial Fibrillation: -Looking back at old records, it appears Mr Li had a GIB in 02/2018 and trial of Eliquis resulted in melanotic stools. CHADsVASC score is 5, placing him at high risk but AC deferred at this time. -Continue ASA 7. HTN: -Continue hydralazine, Bisoprolol, Isordil DISPOSITION: pending improvement in diarrhea, patient can be med/surg VS, I&O, 24H, Fishbone Vital Signs/I&O Vital Signs Date Time Temp Pulse Resp B/P (MAP) Pulse Ox O2 Delivery O2 Flow Rate FiO2 10/18/19 11:25 96.9 78 18 107/62 (77) 98 Room Air I&O- Last 24 Hours up to 6 AM 10/18/19 06:00 Intake Total 2360 ml Output Total 0 ml Balance 2360 ml Laboratory Data 24H LABS Laboratory Tests 2 10/17/19 23:59: Anion Gap 9, Glomerular Filtration Rate 43.8, Calcium Level 7.8L 10/18/19 10:40: Anion Gap 8, Glomerular Filtration Rate 46.4, Calcium Level 8.1L, Nucleated Red Blood Cells % (auto) 0.0, Magnesium Level 1.8 CBC/BMP Laboratory Tests 10/17/19 23:59 10/18/19 10:40 Microbiology Microbiology 10/17/19 Gastrointestinal Tract Panel (PCR) - Final, Complete Clostridium Difficile A/B GME ATTESTATION GME ATTESTATION My faculty preceptor for this patient encounter was physically present during the encounter and was fully available. All aspects of the patient interview, examination, medical decision making process, and medical care plan development were reviewed and approved by the faculty preceptor. The faculty preceptor is aware and concurs with the plan as stated in the body of this note and will attest to such by his/her cosignature. ATTENDING NOTE Patient independently seen and examined. Agree with resident's note. DANIA SWANSON MD Oct 18, 2019 13:48 AISHA CLOUD MD Nov 13, 2019 11:15
[2019-10-18] MEDS: LACTOBACILLUS ACIDOPHILUS CAP (BACID) PO SCH (13:55)
[2019-10-18 15:39] VITALS: BP 103/56
[2019-10-18] MEDS ORDERED: ONDANSETRON 4MG/2ML VIAL IV PRN (16:30)
[2019-10-18 20:00] VITALS: BP 125/73
[2019-10-18] MEDS: LATANOPROST 0.005% OPHTH SOLN 2.5 ML OU SCH (21:03)
[2019-10-18] MEDS: ASPIRIN 81 MG ENTERIC TAB PO SCH (21:03)
[2019-10-19] VITALS: BP 125/70
[2019-10-19 03:40] LABS: OSMOLALITY URINE 302 MOSM/KG (500-800)
[2019-10-19 03:46] LABS: CHLORIDE,RANDOM URINE < 10 MEQ/L; CREATININE,RANDOM URINE 70.2 MG/DL; SODIUM,RANDOM URINE < 10 MEQ/L
[2019-10-19 04:00] VITALS: BP 133/65
[2019-10-19 04:20] LABS: HEMATOCRIT 29.4 % (42.0-52.0); HEMOGLOBIN 10.5 g/dl (13.5-17.5); MEAN CORPUSCULAR HEMOGLOBIN 34.1 pg (27.0-33.0); MEAN CORPUSCULAR HGB CONC 35.7 g/dl (32.0-36.5); MEAN CORPUSCULAR VOLUME 95.5 fl (80.0-96.0); PLATELET COUNT, AUTOMATED 185 10^3/uL (150-450); RED BLOOD COUNT 3.08 10^6/uL (4.30-6.10); WHITE BLOOD COUNT 13.1 10^3/uL (4.0-10.0)
[2019-10-19 04:57] LABS: CALCIUM LEVEL 8.1 MG/DL (8.8-10.2); CREATININE FOR GFR 1.37 MG/DL (0.70-1.30); GLOMERULAR FILTRATION RATE 53.9 (>42); MAGNESIUM LEVEL 1.7 MG/DL (1.8-2.4); PHOSPHORUS LEVEL 3.2 MG/DL (2.5-4.9); POTASSIUM SERUM 3.7 MEQ/L (3.5-5.1)
[2019-10-19] MEDS: LEVOTHYROXINE 50MCG TABLET (0.05MG) PO SCH (05:57)
[2019-10-19] MEDS: VANCOMYCIN ORAL SOL 250MG/5ML ORAL SYRINGE PO SCH ×3 (05:57→17:59)
[2019-10-19] MEDS ORDERED: MAG SULF 1GM/100ML (MAG RUN) 1 GM in IV 1 EA IV ONE (07:30)
[2019-10-19 08:00] VITALS: BP 120/61
[2019-10-19] MEDS: ISOSORBIDE DIN. (ISORDIL) 20 MG TAB PO SCH ×2 (09:48→21:50)
[2019-10-19] MEDS: bisoproloL fumarate 5 MG TAB PO SCH ×2 (09:48→21:49)
[2019-10-19] MEDS: SUCRALFATE 1 GM TAB PO SCH ×2 (09:49→21:49)
[2019-10-19] MEDS: MAGNESIUM OXIDE 400 MG TAB (MAG-OX) PO SCH (09:49)
[2019-10-19] MEDS: allopurinoL 100 MG TAB PO SCH (09:49)
[2019-10-19] MEDS: LACTOBACILLUS ACIDOPHILUS CAP (BACID) PO SCH (09:49)
[2019-10-19] MEDS: **hydrALAZINE** 50 MG TAB PO SCH ×2 (09:49→21:50)
--- NOTE | 2019-10-19 10:52 | IPNPDOC ---
Date Seen The patient was seen on 10/19/19. Progress Note SUBJECTIVE: Patient seen and examined at the bedside this morning. Had less BMs yesterday (6). Denies nausea or abdominal pain. Still has yet to be cleared by PT. OBJECTIVE PHYSICAL EXAMINATION: VITAL SIGNS: Please see below. GENERAL: laying flat in bed, calm, cooperative, NAD, very pleasant HEENT: MMM, NC/AT, EOMI CARDIOVASCULAR: irregularly irregular, no obvious m/r/g RESPIRATORY: CTAB ABDOMINAL: somewhat distended, tympanic, +BS, no obvious masses/organomegaly, nontender to deep palpation EXTREMITIES: no c/c/e NEUROLOGICAL: no obvious focal deficits PSYCHOLOGICAL: normal mood/affect LABORATORY DATA, IMAGING STUDIES, MICROBIOLOGY: Please see below. DVT prophylaxis ordered?: Deferred, hx GIB, TEDs/SCDs ASSESSMENT AND PLAN: This is a 74 YO M with history of AF, CAD s/p stents, CKD3 presented with 3 weeks of diarrhea found to have C. dif infection and resolving RALPH PROBLEMS: 1. C. dif infection: -WBC initially 19.8, down to 13.1 today -Continue oral Vancomycin (day 05/07) -s/p bicarb drip 2. RALPH on CKD: improving -Cr today 1.37, improved from 2.0 -Nephrology consulted. Appreciate recommendations. -Continue calcitriol, allopurinol 3. Hypokalemia: resolved -K 3.7 today 4. Hyponatremia: -Na 127 today 5. History of sytolic CHF (last known EF 45%): -Holding Lasix at this time 2/2 RALPH. Patient does not appear to be hypervolemic 6. Atrial Fibrillation: -Looking back at old records, it appears Mr Li had a GIB in 02/2018 and trial of Eliquis resulted in melanotic stools. CHADsVASC score is 5, placing him at high risk but AC deferred at this time. -Continue ASA 7. HTN: -Continue hydralazine, Bisoprolol, Isordil DISPOSITION: pending improvement in diarrhea, patient can be med/surg VS, I&O, 24H, Fishbone Vital Signs/I&O Vital Signs Date Time Temp Pulse Resp B/P (MAP) Pulse Ox O2 Delivery O2 Flow Rate FiO2 10/19/19 04:00 96.4 64 18 133/65 (87) 98 Room Air I&O- Last 24 Hours up to 6 AM 10/19/19 06:00 Intake Total 2020 ml Output Total 300 ml Balance 1720 ml Laboratory Data 24H LABS Laboratory Tests 2 10/18/19 10:40: Nucleated Red Blood Cells % (auto) 0.0, Anion Gap 8, Glomerular Filtration Rate 46.4, Calcium Level 8.1L, Magnesium Level 1.8 10/19/19 03:00: Urine Random Osmolality 302L, Urine Random Creatinine 70.2, Urine Random Sodium < 10, Urine Random Chloride < 10 10/19/19 03:45: Nucleated Red Blood Cells % (auto) 0.0, Anion Gap 4L, Glomerular Filtration Rate 53.9, Calcium Level 8.1L, Magnesium Level 1.7L, Phosphorus Level 3.2 CBC/BMP Laboratory Tests 10/18/19 10:40 10/19/19 03:45 Microbiology Microbiology 10/17/19 Gastrointestinal Tract Panel (PCR) - Final, Complete Clostridium Difficile A/B GME ATTESTATION GME ATTESTATION My faculty preceptor for this patient encounter was physically present during the encounter and was fully available. All aspects of the patient interview, examination, medical decision making process, and medical care plan development were reviewed and approved by the faculty preceptor. The faculty preceptor is aware and concurs with the plan as stated in the body of this note and will attest to such by his/her cosignature. ATTENDING NOTE Patient independently seen and examined. Agree with resident's note. DANIA SWANSON MD Oct 19, 2019 07:57 AISHA CLOUD MD Nov 13, 2019 11:16
[2019-10-19] MEDS ORDERED: KCL 20MEQ in NS 1000ML 1,000 ML IV SCH (12:00)
[2019-10-19] MEDS: SPIRONOLACTONE 25 MG TAB PO SCH (12:53)
[2019-10-19] MEDS: TORSEMIDE 20 MG TAB PO SCH ×2 (12:53→17:58)
[2019-10-19 15:45] VITALS: BP 114/71
[2019-10-19 20:00] VITALS: BP 113/65
[2019-10-19] MEDS: LATANOPROST 0.005% OPHTH SOLN 2.5 ML OU SCH (21:50)
[2019-10-19] MEDS: ASPIRIN 81 MG ENTERIC TAB PO SCH (21:52)
[2019-10-20] MEDS: VANCOMYCIN ORAL SOL 250MG/5ML ORAL SYRINGE PO SCH ×4 (00:10→17:14)
[2019-10-20] MEDS: LEVOTHYROXINE 50MCG TABLET (0.05MG) PO SCH (05:30)
[2019-10-20 06:17] VITALS: BP 108/65
[2019-10-20 06:58] LABS: HEMATOCRIT 30.4 % (42.0-52.0); HEMOGLOBIN 10.5 g/dl (13.5-17.5); MEAN CORPUSCULAR HEMOGLOBIN 33.7 pg (27.0-33.0); MEAN CORPUSCULAR HGB CONC 34.5 g/dl (32.0-36.5); MEAN CORPUSCULAR VOLUME 97.4 fl (80.0-96.0); PLATELET COUNT, AUTOMATED 215 10^3/uL (150-450); RED BLOOD COUNT 3.12 10^6/uL (4.30-6.10); WHITE BLOOD COUNT 8.5 10^3/uL (4.0-10.0)
[2019-10-20 07:47] LABS: CALCIUM LEVEL 8.4 MG/DL (8.8-10.2); CREATININE FOR GFR 1.28 MG/DL (0.70-1.30); GLOMERULAR FILTRATION RATE 58.3 (>42); PHOSPHORUS LEVEL 2.9 MG/DL (2.5-4.9); POTASSIUM SERUM 3.5 MEQ/L (3.5-5.1)
[2019-10-20 09:00] VITALS: BP 110/60
[2019-10-20] MEDS: bisoproloL fumarate 5 MG TAB PO SCH ×2 (09:00→21:50)
[2019-10-20] MEDS: **hydrALAZINE** 50 MG TAB PO SCH ×2 (09:00→21:51)
[2019-10-20] MEDS: CALCITRIOL 0.25 MCG CAP (S0169) PO SCH (09:13)
[2019-10-20] MEDS: SPIRONOLACTONE 25 MG TAB PO SCH (09:13)
[2019-10-20] MEDS: SUCRALFATE 1 GM TAB PO SCH ×2 (09:14→21:50)
[2019-10-20] MEDS: LACTOBACILLUS ACIDOPHILUS CAP (BACID) PO SCH (09:14)
[2019-10-20] MEDS: TORSEMIDE 20 MG TAB PO SCH ×2 (09:14→17:14)
[2019-10-20] MEDS: MAGNESIUM OXIDE 400 MG TAB (MAG-OX) PO SCH (09:15)
[2019-10-20] MEDS: allopurinoL 100 MG TAB PO SCH (09:15)
[2019-10-20] MEDS: ISOSORBIDE DIN. (ISORDIL) 20 MG TAB PO SCH ×2 (09:32→21:51)
[2019-10-20] MEDS: POTASSIUM CHLORIDE 10 MEQ SR TABLET PO SCH ×2 (12:36→21:50)
[2019-10-20 14:00] VITALS: BP 132/66
--- NOTE | 2019-10-20 15:31 | IPNPDOC ---
Date Seen The patient was seen on 10/20/19. Progress Note SUBJECTIVE: Patient seen and examined at the bedside this morning. He only had 2 BMs in the past 24h. He is interested in eating more than liquid diet today. Denies any N/V. No issues overnight. OBJECTIVE PHYSICAL EXAMINATION: VITAL SIGNS: Please see below. GENERAL: laying flat in bed, calm, cooperative, NAD, very pleasant HEENT: MMM, NC/AT, EOMI CARDIOVASCULAR: irregularly irregular, no obvious m/r/g RESPIRATORY: CTAB ABDOMINAL: somewhat distended, tympanic, +BS, no obvious masses/organomegaly, nontender to deep palpation EXTREMITIES: no c/c/e NEUROLOGICAL: no obvious focal deficits PSYCHOLOGICAL: normal mood/affect LABORATORY DATA, IMAGING STUDIES, MICROBIOLOGY: Please see below. DVT prophylaxis ordered?: Deferred, hx GIB, TEDs/SCDs ASSESSMENT AND PLAN: This is a 74 YO M with history of AF, CAD s/p stents, CKD3 presented with 3 weeks of diarrhea found to have C. dif infection and resolving RALPH. Diarrhea has mostly resolved. PROBLEMS: 1. C. dif infection: -WBC normalized to 8.5 today -Continue oral Vancomycin (day 06/07) -s/p bicarb drip 2. RALPH on CKD: resolved -Cr 1.28 today -Nephrology consulted. Appreciate recommendations. -Continue calcitriol, allopurinol 3. Hypokalemia: resolved -K 3.7 today 4. Hyponatremia: likely chronic -Na 129 today 5. History of sytolic CHF (last known EF 45%): -Holding Lasix at this time 2/2 RALPH. Patient does not appear to be hypervolemic 6. Atrial Fibrillation: -Looking back at old records, it appears Mr Li had a GIB in 02/2018 and trial of Eliquis resulted in melanotic stools. CHADsVASC score is 5, placing him at high risk but AC deferred at this time. -Continue ASA 7. HTN: -Continue hydralazine, Bisoprolol, Isordil DISPOSITION: likely dc within 24-48h VS, I&O, 24H, Fishbone Vital Signs/I&O Vital Signs Date Time Temp Pulse Resp B/P (MAP) Pulse Ox O2 Delivery O2 Flow Rate FiO2 10/20/19 14:00 97.3 65 20 132/66 (88) 98 Room Air I&O- Last 24 Hours up to 6 AM 10/20/19 05:59 Intake Total 1300 ml Output Total 200 ml Balance 1100 ml Laboratory Data 24H LABS Laboratory Tests 2 10/20/19 06:36: Nucleated Red Blood Cells % (auto) 0.0, Anion Gap 6L, Glomerular Filtration Rate 58.3, Calcium Level 8.4L, Phosphorus Level 2.9, Magnesium Level 2.0 CBC/BMP Laboratory Tests 10/20/19 06:36 Microbiology Microbiology 10/17/19 Gastrointestinal Tract Panel (PCR) - Final, Complete Clostridium Difficile A/B GME ATTESTATION GME ATTESTATION My faculty preceptor for this patient encounter was physically present during the encounter and was fully available. All aspects of the patient interview, examination, medical decision making process, and medical care plan development were reviewed and approved by the faculty preceptor. The faculty preceptor is aware and concurs with the plan as stated in the body of this note and will attest to such by his/her cosignature. ATTENDING NOTE Patient independently seen and examined. Agree with resident's note. DANIA SWANSON MD Oct 20, 2019 15:31 AISHA CLOUD MD Nov 13, 2019 11:18
[2019-10-20 20:00] VITALS: BP 130/58
[2019-10-20 20:03] LABS: ALBUMIN 2.7 GM/DL (3.2-5.2); BILIRUBIN,DIRECT 0.8 MG/DL (0.0-0.2); BILIRUBIN,TOTAL 1.5 MG/DL (0.2-1.0); CALCIUM LEVEL 8.7 MG/DL (8.8-10.2); CK-MB VALUE MASS 3.3 NG/ML (<3.6); CREATININE FOR GFR 2.1 MG/DL (0.70-1.30); GLOMERULAR FILTRATION RATE 32.9 (>42); MB/CK RELATIVE INDEX 0.96 (< OR =4); POTASSIUM SERUM 2.7 MEQ/L (3.5-5.1); TOTAL PROTEIN 6.5 GM/DL (6.4-8.2); TROPONIN I 0.05 NG/ML (< 0.10)
[2019-10-20] MEDS: ASPIRIN 81 MG ENTERIC TAB PO SCH (21:50)
[2019-10-20] MEDS: LATANOPROST 0.005% OPHTH SOLN 2.5 ML OU SCH (21:51)
[2019-10-21] MEDS: VANCOMYCIN ORAL SOL 250MG/5ML ORAL SYRINGE PO SCH ×4 (00:53→17:42)
[2019-10-21] MEDS: LEVOTHYROXINE 50MCG TABLET (0.05MG) PO SCH (05:43)
[2019-10-21 06:00] VITALS: BP 129/61
[2019-10-21 07:40] LABS: HEMOGLOBIN 10.4 g/dl (13.5-17.5); MEAN CORPUSCULAR HGB CONC 33.5 g/dl (32.0-36.5); MEAN CORPUSCULAR VOLUME 98.4 fl (80.0-96.0); PLATELET COUNT, AUTOMATED 233 10^3/uL (150-450); RED BLOOD COUNT 3.15 10^6/uL (4.30-6.10); WHITE BLOOD COUNT 6.3 10^3/uL (4.0-10.0)
[2019-10-21 07:59] LABS: CALCIUM LEVEL 8.4 MG/DL (8.8-10.2); CREATININE FOR GFR 1.44 MG/DL (0.70-1.30); GLOMERULAR FILTRATION RATE 50.9 (>42); MAGNESIUM LEVEL 1.9 MG/DL (1.8-2.4); PHOSPHORUS LEVEL 3.2 MG/DL (2.5-4.9); POTASSIUM SERUM 4.4 MEQ/L (3.5-5.1)
[2019-10-21] MEDS: LACTOBACILLUS ACIDOPHILUS CAP (BACID) PO SCH (08:18)
[2019-10-21] MEDS: MAGNESIUM OXIDE 400 MG TAB (MAG-OX) PO SCH (08:18)
[2019-10-21] MEDS: bisoproloL fumarate 5 MG TAB PO SCH ×2 (08:19→21:05)
[2019-10-21] MEDS: POTASSIUM CHLORIDE 10 MEQ SR TABLET PO SCH (08:19)
[2019-10-21] MEDS: TORSEMIDE 20 MG TAB PO SCH ×2 (08:20→17:41)
[2019-10-21] MEDS: SUCRALFATE 1 GM TAB PO SCH ×2 (08:20→21:05)
[2019-10-21] MEDS: **hydrALAZINE** 50 MG TAB PO SCH ×2 (08:20→21:05)
[2019-10-21] MEDS: allopurinoL 100 MG TAB PO SCH (08:20)
[2019-10-21] MEDS: SPIRONOLACTONE 25 MG TAB PO SCH (08:21)
[2019-10-21] MEDS: ISOSORBIDE DIN. (ISORDIL) 20 MG TAB PO SCH ×2 (08:22→21:06)
--- NOTE | 2019-10-21 17:18 | IPNPDOC ---
Text Note Date of Service The patient was seen on 10/21/19. NOTE SUBJECTIVE: Patient seen and examined at the bedside this morning. Continues to feel better. Anxious to return home. OBJECTIVE PHYSICAL EXAMINATION: VITAL SIGNS: Please see below. GENERAL: sitting up in bed eating breakfast, NAD, pleasant HEENT: NC/AT CARDIOVASCULAR: irregularly irregular, +S1S2 RESPIRATORY: CTAB ABDOMINAL: somewhat distended, tympanic, +BS, no obvious masses/organomegaly, nontender to deep palpation EXTREMITIES: no edema ASSESSMENT AND PLAN: This is a 74 YO M with history of AF, CAD s/p stents, CKD3 presented with 3 weeks of diarrhea found to have C. dif infection and resolving RALPH. Diarrhea has mostly resolved. #C. diff - essentially resolved - oral vanco - day 07/07 # RALPH on CKD: resolved -Cr 1.28 today -Nephrology consulted. Appreciate recommendations. -Continue calcitriol, allopurinol #Hypokalemia: resolved #Hyponatremia #HFrEF - severe reduced systolic dysfunction - diuretics resumed #Atrial Fibrillation: -Looking back at old records, it appears Mr Li had a GIB in 02/2018 and trial of Eliquis resulted in melanotic stools. CHADsVASC score is 5, - recent f/u with cardiology with recs for ASA #HTN: -Continue hydralazine, Bisoprolol, Isordil DISPOSITION: likely dc within 24-48h VS,Fishbone, I+O VS, Fishbone, I+O Laboratory Tests 10/21/19 06:19 Vital Signs Date Time Temp Pulse Resp B/P (MAP) Pulse Ox O2 Delivery O2 Flow Rate FiO2 10/21/19 14:00 97.1 74 16 96 Room Air 10/21/19 08:22 129/61 I&O- Last 24 Hours up to 6 AM 10/21/19 06:00 Intake Total 1405 ml Output Total 350 ml Balance 1055 ml AISHA CLOUD MD Oct 21, 2019 17:17
[2019-10-21] MEDS: ASPIRIN 81 MG ENTERIC TAB PO SCH (21:05)
[2019-10-21] MEDS: LATANOPROST 0.005% OPHTH SOLN 2.5 ML OU SCH (21:06)
[2019-10-21 22:00] VITALS: BP 111/49
[2019-10-22] MEDS: VANCOMYCIN ORAL SOL 250MG/5ML ORAL SYRINGE PO SCH ×3 (00:48→12:12)
[2019-10-22] MEDS: LEVOTHYROXINE 50MCG TABLET (0.05MG) PO SCH (05:24)
[2019-10-22 06:01] VITALS: BP 112/51
[2019-10-22] MEDS ORDERED: VANC250C3 PO (07:05)
[2019-10-22 07:29] LABS: HEMATOCRIT 34.1 % (42.0-52.0); HEMOGLOBIN 11.1 g/dl (13.5-17.5); MEAN CORPUSCULAR HEMOGLOBIN 32.7 pg (27.0-33.0); MEAN CORPUSCULAR HGB CONC 32.6 g/dl (32.0-36.5); MEAN CORPUSCULAR VOLUME 100.6 fl (80.0-96.0); PLATELET COUNT, AUTOMATED 247 10^3/uL (150-450); RED BLOOD COUNT 3.39 10^6/uL (4.30-6.10); WHITE BLOOD COUNT 6.6 10^3/uL (4.0-10.0)
[2019-10-22 07:57] LABS: CREATININE FOR GFR 1.47 MG/DL (0.70-1.30); GLOMERULAR FILTRATION RATE 49.7 (>42); MAGNESIUM LEVEL 1.7 MG/DL (1.8-2.4); PHOSPHORUS LEVEL 3.6 MG/DL (2.5-4.9); POTASSIUM SERUM 5.1 MEQ/L (3.5-5.1)
[2019-10-22] MEDS ORDERED: POTASSIUM CHLORIDE 10 MEQ SR TABLET PO SCH (09:00)
[2019-10-22] MEDS: SUCRALFATE 1 GM TAB PO SCH (09:30)
[2019-10-22] MEDS: bisoproloL fumarate 5 MG TAB PO SCH (09:30)
[2019-10-22 09:31] VITALS: BP 112/51
[2019-10-22] MEDS: LACTOBACILLUS ACIDOPHILUS CAP (BACID) PO SCH (09:31)
[2019-10-22] MEDS: ISOSORBIDE DIN. (ISORDIL) 20 MG TAB PO SCH (09:31)
[2019-10-22] MEDS: **hydrALAZINE** 50 MG TAB PO SCH (09:31)
[2019-10-22] MEDS: SPIRONOLACTONE 25 MG TAB PO SCH (09:31)
[2019-10-22] MEDS: TORSEMIDE 20 MG TAB PO SCH (09:32)
[2019-10-22] MEDS: MAGNESIUM OXIDE 400 MG TAB (MAG-OX) PO SCH (09:32)
[2019-10-22] MEDS: allopurinoL 100 MG TAB PO SCH (09:32)
[2019-10-22] MEDS: CALCITRIOL 0.25 MCG CAP (S0169) PO SCH (09:32)
--- NOTE | 2019-10-22 13:24 | DS.PDOC ---
Discharge Summary General Date of Admission Oct 16, 2019 at 13:30 Date of Discharge 10/22/2019 Primary Care Physician: ERROL WADE ([facility]) Attending Physician: AISHA CLOUD MD Specialist/Consultants Involve: Cecile Newell MD Specialist/Consultants Involve Dr Ondina Moseley Discharge Summary PROCEDURES PERFORMED DURING STAY: [None]. ADMITTING/DISCHARGE DIAGNOSES: 1. C Difficile colitis 2.RALPH on CKD 3.History of Systolic CHF with (LVEF) 25-30%. 4.History of HTN. 5.Atrial Fibrillation. CHIEF COMPLAINT: Non bloody diarrhea HISTORY OF PRESENT ILLNESS/HOSPITAL COURSE: The patient presented to the ED with the chief complaint of diarrhea for the past 3 weeks .He states that he went almost 11-12 times to the bathroom. The diarrhea was non bloody with no mucous. He had finished a previous course of unknown antibiotic course prescribed by his PCP a few days before. He looked really dehydrated, found to be in RALPH (Cr- 1.56 and BUN- 50)with electrolyte derangements ( low sodium , potassium and magnesium). Nephrology was consulted for and thought of it to be Pre Renal for which Intra venous fluids were started , recommended replacement by KCl and Magn esium. The patient felt much better and the GI panel was ordered which showed Clostridium difficile infection. He was started on oral Vancomycin 500 mg . His bowel movements became less frequent ( from 11 to 6 a day) over the course of 5 days. The patient also has a past medical history of HFrEF for which he continues to be on his home medications. Th patient's Creatinine and BUN went from 50 and 1.63 to 35 and 1.44 in 4 days. Today the patient has had only one bowel motion but loose . His energy is up. vitals were normal and we felt he is ready to be discharged home on oral vancomycin . The patient stayed for 5 days at the hospital. DISCHARGE MEDICATIONS: Please see below. PHYSICAL EXAMINATION ON DISCHARGE: VITAL SIGNS: Please see below. GENERAL: The patient is alert, oriented, to time, place and person. Comfortably sitting on his bed. HEENT: NC/AT.EOMI .No discharge from the eyes ears and nose. no scleral icterus. No nystagmus, No cyanosis NECK: no neck swellings, no thyromegaly, no LAD, no carotid bruit CARDIOVASCULAR EXAMINATION: Normal heart sounds. no murmurs RESPIRATORY EXAMINATION:breath sounds are clear bilaterally. no wheezing , rhonchi, crackles ABDOMINAL EXAMINATION: Non tender, distended, with tympanitic notes. His bowel sounds are hyperactive. No organomegaly palpated EXTREMITIES: No pedal edema, pulses -good in all the four extremities. Regular. NEUROLOGICAL EXAMINATION:Based on his ambulatory status, his neurological status looks normal. LABORATORY DATA: Please see below. IMAGING: No imaging done PROGNOSIS: Good ACTIVITY: [As tolerated]. DIET: As tolerated DISCHARGE PLAN: . DISPOSITION: HOME DISCHARGE INSTRUCTIONS: 1.Complete the Vancomycin dose at home . 2.Continue the probiotics 3.Continue home medications 4. Maintain Contact Precautions until the diarrhea resolves completely. 5.Regular handwashing with soap and water, especially after a bowel movement. 6. Keep separate towels and bedsheets for the patient. ITEMS TO FOLLOWUP ON ON OUTPATIENT: 1. Follow up visit with his PCP in 2 Weeks 2. Followup visit with his Chemical Equipment Controller for CKD in 2 weeks. 3. Keep his upcoming follow up with the Purchasing Buyer for CHF. DISCHARGE CONDITION: [Stable]. TIME SPENT ON DISCHARGE: 40 MINS Vital Signs/I&Os Vital Signs Date Time Temp Pulse Resp B/P (MAP) Pulse Ox O2 Delivery O2 Flow Rate FiO2 10/22/19 09:31 112/51 10/22/19 09:30 77 10/22/19 06:01 97.8 16 98 Room Air I&O- Last 24 Hours up to 6 AM 10/22/19 06:00 Intake Total 1200 ml Balance 1200 ml Laboratory Data Labs 24H Laboratory Tests 2 10/22/19 06:53: Nucleated Red Blood Cells % (auto) 0.0, Anion Gap 10, Glomerular Filtration Rate 49.7, Calcium Level 9.0, Phosphorus Level 3.6, Magnesium Level 1.7L CBC/BMP Laboratory Tests 10/22/19 06:53 Microbiology Microbiology 10/17/19 Gastrointestinal Tract Panel (PCR) - Final, Complete Clostridium Difficile A/B Discharge Medications Scheduled Allopurinol (Allopurinol) 100 Mg Tab, 100 MG PO DAILY, (Reported) Aspirin (Aspirin EC) 81 Mg Tablet.dr, 81 MG PO QHS, (Reported) Atorvastatin Calcium (Atorvastatin Calcium) 40 Mg Tab, 40 MG PO DAILY, (Reported) Bisoprolol Fumarate (Bisoprolol Fumarate) 5 Mg Tab, 5 MG PO BID, (Reported) Calcitriol (Calcitriol) 0.25 Mcg Cap, 0.25 MCG PO Q2D, (Reported) Ferrous Sulfate (Ferrous Sulfate) 325 Mg Tab, 325 MG PO BID, (Reported) Hydralazine HCl (Hydralazine HCl) 50 Mg Tab, 50 MG PO BID, (Reported) Isosorbide Dinitrate (Isosorbide Dinitrate) 20 Mg Tablet, 20 MG PO BID, (Reported) L.acidoph/L.bulg/B.bif/S.therm (Margaux-Bid Caplet) 1 Each Tablet, 1 EA PO DAILY Latanoprost (Xalatan) 0.005% 2.5ML Drops, 1 DROP OU QHS, (Reported) Levothyroxine Sodium (Levothyroxine Sodium) 50 Mcg Tab, 50 MCG PO DAILY, (Reported) Magnesium Oxide (Magnesium Oxide) 250 Mg Tab, 250 MG PO DAILY, (Reported) Pantoprazole Sodium (Pantoprazole Sodium) 40 Mg Tablet.dr, 40 MG PO BID, (Reported) Spironolactone (Spironolactone) 25 Mg Tab, 25 MG PO DAILY, (Reported) Sucralfate (Carafate) 1 Gm Tablet, 1 GM PO BID, (Reported) Torsemide (Torsemide) 100 Mg Tab, 100 MG PO DAILY, (Reported) Vancomycin Hcl (Vancomycin HCl) 250 Mg Capsule, 500 MG PO QID Scheduled PRN Benzonatate (Benzonatate) 200 Mg Cap, 200 MG PO TID PRN for COUGH, (Reported) Hydroxyzine HCl (Hydroxyzine HCl) 25 Mg Tablet, 25 MG PO DAILY PRN for ITCHING, (Reported) Nitroglycerin (Nitrostat) 0.4 Mg Subl, 0.4 MG SL NITRO PRN for CHEST PAIN, (Reported) Allergies Coded Allergies: Penicillins (Verified Allergy, Unknown, fainting/shock, 12/14/18) Quinolones (Verified Allergy, Unknown, unknown, 12/14/18) Sulfa (Sulfonamide Antibiotics) (Verified Allergy, Unknown, ITCH/BURN/THROAT TIGHTENS, 12/14/18) GME ATTESTATION GME ATTESTATION My faculty preceptor for this patient encounter was physically present during the encounter and was fully available. All aspects of the patient interview, examination, medical decision making process, and medical care plan development were reviewed and approved by the faculty preceptor. The faculty preceptor is aware and concurs with the plan as stated in the body of this note and will attest to such by his/her cosignature. ATTENDING NOTE Patient independently seen and examined. Agree with resident's note. Aruna Adan MD Oct 22, 2019 13:24 AISHA CLOUD MD Nov 13, 2019 11:19
[2019-10-22 14:00] VITALS: BP 127/55
[2019-10-22] MEDS ORDERED: RISATAB3 PO (14:17)
--- NOTE | 2019-10-29 15:48 | CR ---
DATE OF CONSULTATION: 10/17/2019 REQUESTING PHYSICIAN: Petey Robin MD CONSULTING PHYSICIAN: Cindy Wadsworth MD REASON FOR CONSULTATION: Management of acute renal failure and electrolyte abnormalities. CHIEF COMPLAINT: Patient presented to the hospital with diarrhea for almost three weeks. HISTORY OF PRESENT ILLNESS: Mr. Marvin Li is a 74-year-old male with a past medical history of chronic kidney disease, history of congestive heart failure, myocardial infarction (AR) in the past, and other comorbidities as mentioned below. He presented to the hospital with an almost three week history of abdominal pain, diarrhea, and loose stools. He was found to have acute renal failure. He was admitted under the hospitalist service and nephrology service was called for further help and the management of this patient. The patient was started on IV fluid hydration. I saw and examined the patient today in the morning. The patient reports that he is feeling better today as compared with yesterday. He was found to have a C diff. colitis and he has been started on oral vancomycin. PAST MEDICAL HISTORY: Chronic kidney disease with baseline creatinine of around 1.8 to 1.9. He has a history of congestive heart failure, coronary artery disease, history of AR in the past. PAST SURGICAL HISTORY: None significant. ALLERGIES: HE IS ALLERGIC TO PENICILLINS, QUINOLONES, AND SULFA. FAMILY HISTORY: No significant family history of end-stage renal disease requiring hemodialysis. SOCIAL HISTORY: The patient denies any illicit drug abuse or alcohol abuse. REVIEW OF SYSTEMS: CONSTITUTIONAL: Patient reports feeling weak and tired. EYES: He denies any blurry vision or double vision. ENT: He denies dysphagia or odynophagia. CARDIOVASCULAR: Denies any chest pain or palpitations. RESPIRATORY: He denies any shortness of breath. GASTROINTESTINAL: He reports nausea and diarrhea for almost three weeks. GENITOURINARY: He reports decreased urine output. MUSCULOSKELETAL: He denies any muscle aches and pains. SKIN: He denies any rashes or ulcers. PSYCHOLOGIC: He denies any depression or anxiety. ENDOCRINE: He denies any history of polyuria or polydipsia. HEMATOLOGIC/ONCOLOGIC: He denies any easy bleeding or bruising. HOST COORDINATOR: He denies any strokes or seizures. All other review of systems negative. PHYSICAL EXAMINATION: GENERAL: Patient is awake, alert, and oriented x3, sitting up. VITAL SIGNS: Temperature 97.6 degrees Fahrenheit, blood pressure 113/58, pulse 95, respiratory rate 18, saturating 97% on room air. HEAD AND NECK: Extraocular muscles intact. Pupils equal, round, reactive to light. Mucous membranes are moist. Neck is supple. There is no JVD. CARDIOVASCULAR: S1, S2. Regular rate. No edema of the bilateral lower extremities. RESPIRATORY: Chest is clear to auscultation bilaterally. Bilaterally currently no rales or rhonchi. ABDOMEN: Soft with positive bowel sounds. Nontender. No organomegaly. MUSCULOSKELETAL: No clubbing or cyanosis. Pulses are 2+. HOST COORDINATOR: No focal deficit. Power is 5/5 in all extremities. PSYCHOLOGIC: Normal mood and affect. LABORATORY DATA: CBC showed a WBC of 19.8, hemoglobin 12.3, platelets 205,000. BMP showed sodium 128, potassium 2.9, chloride 90, bicarb 26, BUN 50, creatinine 1.63 and it was 1.7 last night. Total bilirubin 1.4, AST 62, ALT 26, albumin 2.3. CURRENT INPATIENT MEDICATIONS: The patient was initially getting Flagyl IV, which has been stopped. He was getting normal saline at 90 mL/hour, which I have stopped. I have started the patient on Julianna Ciel 40 mEq and D5 half-normal saline at 100 mL/hour for a total of 2 liters. He is on allopurinol 100 mg daily, aspirin 81 mg p.o. daily, Lipitor 40 mg at bedtime. I am stopping the Lipitor because of elevated total bilirubin levels. He is on bisoprolol 5 mg p.o. twice a day, Calcitriol 0.25 mg p.o. every other day. He was getting an iron tablet, which I have stopped because of diarrhea. Hydralazine 50 mg p.o., twice a day, isosorbide 20 mg p.o. twice a day, levothyroxine 50 mcg p.o. daily, magnesium oxide 400 mg p.o. daily, Protonix 40 mg p.o. twice a day, potassium chloride 40 mEq p.o. x2 doses. He was on Spironolactone 25 mg p.o. daily, which I have stopped for now. He is on Carafate 1 gram p.o. twice a day and he has been started on vancomycin 500 mg p.o. every six hours. ASSESSMENT AND PLAN: 1. Acute renal failure superimposed on chronic kidney disease. Patient reports that he follows up with Dr. Moseley as an outpatient. As per previous records, he has at baseline chronic kidney disease (CKD) III. It looks like his renal function has improved back to his baseline; however, because of diarrhea and dehydration secondary to Clostridium difficile, I would continue the IV fluid hydration with the addition of potassium for an additional 2 liters. 2. Hyponatremia. The patient has hypovolemic hyponatremia. Sodium level is improving with IV fluid hydration. 3. Hypokalemia. This is secondary to diarrhea and use of diuretics at home. He was already given potassium chloride orally. I have added potassium to the IV fluids as well. Patient most likely has whole body potassium depletion because of diarrhea for almost three weeks and taking diuretics at home. 4. Congestive heart failure. Volume status is optimized. He is actually dry at this time and diuretics are on hold. Okay to continue bisoprolol at this time. 5. Clostridium difficile colitis. Continue current dose of vancomycin. I have stopped the Protonix at this time. 6. Hypothyroidism. Continue current dose of Levothyroxine 50 mg p.o. daily. 7. Hypertension. Continue current dose of bisoprolol, hydralazine, isosorbide. Diuretics are on hold because of acute renal failure and diarrhea. 8. Secondary hyperparathyroidism. Continue current dose of Calcitriol 0.25 mcg every other day. 9. Chronic gout secondary to chronic kidney disease. Continue current dose of allopurinol 100 mg p.o. daily. Thank you for involving me in the care of this patient. I will be happy to follow the patient along with you tomorrow morning. [facility]
--- NOTE | 2019-11-14 13:45 | IPN ---
"DATE: 10/18/2019 SUBJECTIVE: The patient was seen and examined at the beside today morning. He was lying in the bed. He continued to have loose stools yesterday despite starting oral Vancomycin. He reports that they are more formed today. He became hyponatremic last night with the I.V. fluids. I.V. fluids were changed to normal saline. Today morning, a renal profile is still pending. As of last night, his renal function is stable with a creatinine of 1.6. He denies any other active complaints apart from diarrhea. OBJECTIVE: Vital signs: Temperature 98.6 degrees Fahrenheit, blood pressure 114/57, pulse is 92, respiratory rate of 18, saturating 97% on room air. Intake and output: No urine output recorded because he is having voids and incontinent bowel movements. He had 11 bowel movements yesterday and 3 bowel movements overnight. Weight in the bed scale is 74.2 kg, which is about 3 kg above his |weight yesterday. PHYSICAL EXAMINATION: GENERAL: Patient is awake, alert and oriented x3, lying in bed in no apparent distress. HEAD & NECK: Extraocular muscles intact. Pupils equally round and reactive to light. Mucous membranes are moist. Neck is supple. There is no JVD. CARDIOVASCULAR: S1, S2, regular rate. No edema of the bilateral lower extremities. RESPIRATORY: Chest is clear to auscultation bilaterally. Bilateral equal air entry. No rales or rhonchi. ABDOMEN: Soft. Positive bowel sounds. Nontender. No organomegaly. MUSCULOSKELETAL: No clubbing or cyanosis. Pulses are 2+. CENTRAL NERVOUS SYSTEM: No focal deficit. Power is 5/5 in all extremities. LABORATORY REVIEW: CBC from yesterday. BMP from last night showed sodium 122, potassium 4.1, chloride 97, bicarb 16, BUN 46, creatinine 1.6, glucose 125, calcium 7.8. CURRENT INPATIENT MEDICATIONS: All reviewed by myself. He was getting normal saline at 100 cc an hour. I stopped the normal saline. I have started the patient on bicarb containing fluids. His Spironolactone was stopped yesterday. He continues to be on oral Vancomycin. ASSESSMENT & PLAN: 1. Acute kidney injury superimposed on chronic kidney disease: It is secondary to dehydration and volume depletion. renal function is close to baseline. Creatinine is 1.6, which is around his baseline. Continue the I.V. fluid hydration. 2. Hyponatremia: Most likely secondary to persistent diarrhea and hypotonic fluids and drinking water yesterday. Latest sodium 122. Repeat sodium level is pending today. I have also ordered a urine creatinine, urine sodium and urine chloride along with urine osmolality, which is pending. I have changed the fluids to isotonic fluids now. 3. Metabolic acidosis: It is secondary to diarrhea in the setting of chronic kidney disease. I have started the patient on half normal saline plus 75 mEq of bicarb at 100 cc an hour for a total of 2 liters. 4. C. diff colitis: Patient currently on oral Vancomycin and he reports that his stools are more formed now. 5. Hypertension: Blood pressure is currently well controlled with the current regimen. Okay to continue current dose of Bisoprolol, Hydralazine and Isosorbide with holding parameters. MTDD"
--- NOTE | 2019-11-14 14:04 | IPN ---
DATE: 10/19/2019 SUBJECTIVE: Patient was seen and examined at the bedside today morning. Patient is afebrile, hemodynamically stable. He reports his diarrhea is getting better. His stools are more formed. His renal function is also improving. His creatinine has improved to 1.3 today. He feels significantly much better toady as compared with yesterday. OBJECTIVE: Vital signs: Temperature is 97.3 degrees Fahrenheit, blood pressure 120/61, pulse is 77, respiratory rate of 16, saturating 98% on room air. Intake and output:: Urine output recorded is 500 mL since overnight. Weight in the bed scale is 74.2 kg, which is stable as of yesterday. PHYSICAL EXAMINATION: GENERAL: Patient is awake, alert oriented times three, lying in bed in no apparent distress.. HEAD AND NECK: Extraocular muscles intact. Pupils equally round and reactive to light. Mucous membranes are moist. Neck is supple. He has mildly elevated jugular venous distention (JVD). CARDIOVASCULAR: S1, S2, regular rate. No significant edema of the bilateral lower extremities. RESPIRATORY: Chest is clear to auscultation bilaterally. Bilateral equal air entry. No rales or rhonchi. ABDOMEN: Soft. Positive bowel sounds. Nontender. No organomegaly. MUSCULOSKELETAL: No clubbing or cyanosis. Pulses are 2+. CENTRAL NERVOUS SYSTEM: No focal deficit. Power is 5/5 in all extremities. LABORATORY REVIEW: CBC showed a WBC 13.1, hemoglobin 10.5, platelets are 195. Urine random osmolarity is 302. Urine sodium is less than 10, and chloride is less than 10. BMP showed sodium 127, potassium 3.7 chloride 99, bicarbonate 24, BUN 42, creatinine is 1.37, calcium 8.1, magnesium is 1.7. CURRENT INPATIENT MEDICATIONS: Patient's medications were all reviewed by myself. His intravenous (IV) bicarbonate-containing fluids have finished now. He was given a run of magnesium sulfate today morning. No other change in the medications today as compared with yesterday. Patient continues to be on oral vancomycin. ASSESSMENT AND PLAN: 1. Acute renal failure superimposed on chronic kidney disease. Patient's volume status is optimized. His creatinine is improved to 1.3, which is better than his baseline. If his renal function stays stable, then he will be started on torsemide and spironolactone. 2. Clostridium (C) difficile colitis. Patient is currently on vancomycin. White cell count is improving. Diarrhea is also getting better. 3. Chronic systolic congestive heart failure. Patient will be restarted on diuretics tomorrow morning. Previous echocardiogram was noted. 4. Hyponatremia. It is most likely secondary to chronic systolic congestive heart failure and recently having diarrhea. Sodium level is staying stable, around 127-128. Hopefully once he is started on diuretics, his sodium level should start getting better. 5. Hypertension with hypertensive heart disease. Continue current dose of bisoprolol, hydralazine, and isosorbide. MTDD
--- NOTE | 2019-11-14 14:18 | IPN ---
DATE: 10/20/2019 SUBJECTIVE: Mr. Li is seen this morning at his bedside. He has known history of congestive heart failure and was admitted with acute renal failure and C. diff colitis. He also has hyponatremia, which did get worse with sodium level down to 122 on 10/17/2019. He was given I.V. fluid and his diarrhea has now improved. His I.V. fluid has been stopped, and yesterday diuretic was resumed due to worsening volume status. Patient is feeling much better this morning and denies any nausea or vomiting. He feels that his diarrhea is much better now. He is sitting at the edge of the bed at the time of my visit. PHYSICAL EXAMINATION: Temperature 98 degrees Fahrenheit, heart rate 62 per minute, respiratory rate 18 per minute, blood pressure 110/60 mmHg and oxygen saturation 96% on room air. His neck veins are moderately distended. There is no thyroid enlargement and trachea is midline. Head is atraumatic. Pupils are equal and reactive to light and sclerae are anicteric. His heart sounds are regular. Lungs have a few basilar rales bilaterally. Abdomen is soft and nontender, bowel sounds are normal. Extremities without any cyanosis or clubbing. Trace edema is present on the legs. Neurologically, he is awake, alert and oriented x3. LABORATORY DATA: Today labs show sodium 129, potassium 3.5, chloride 97, CO2 26, BUN 37 and creatinine 1.28. WBC 8.5, hemoglobin 10.5, hematocrit 30.4, platelets 215,000. PROBLEMS: 1. Hyponatremia: Sodium level slightly better compared with yesterday. Will recheck his electrolytes again tomorrow. He should remain on limited fluid intake at this point. 2. Congestive heart failure: Volume status clinically slightly decompensated. Diuretic was started just yesterday and will continue with Torsemide 20 mg b.i.d. at this point. Kidney function and electrolytes should be monitored on a daily basis. 3. Hypokalemia: Potassium level is borderline low and diuretic was just started yesterday. I am going to put him on potassium chloride 20 mEq b.i.d. even though he is on Spironolactone. I think that he has more risk for hypokalemia at this point than hyperkalemia and we will monitoring his electrolytes on a daily basis. 4. C. diff colitis: His diarrhea has improved and he remains on oral Vancomycin. 5. Anemia: At this point, his anemia is stable and we will continue to monitor closely. MTDD
--- NOTE | 2019-11-14 14:44 | IPN ---
DATE: 10/21/2019 SUBJECTIVE: Mr. iL is seen this morning at his bedside. He was admitted with C. diff colitis and developed acute renal failure and hyponatremia. He also has congestive heart failure and diuretic was started on Tuesday. Patient reports improvement in his diarrhea. He denies any dyspnea, chest pain, nausea or vomiting. PHYSICAL EXAMINATION: Temperature 97.3 degrees Fahrenheit, heart rate 75 per minute, respiratory rate 20 per minute, blood pressure 129/60 mmHg and oxygen saturation 96% on room air. Head is atraumatic. Neck is supple and JVD about 7 to 8 cm above sternal angle. Heart sounds are regular. Lungs reveal a few basilar rales. Abdomen is soft, protuberant and nontender, bowel sounds are normal. Extremities without any cyanosis or clubbing. Lower extremity edema is at least 1+. Neurologically, he is awake, alert and oriented x3. LABORATORY DATA: Today labs show WBC 6.3, hemoglobin 10.4, hematocrit 31.0, platelets 233,000. Sodium 133, potassium 4.4, CO2 26, BUN 35, creatinine 1.44, glucose 75 and calcium 8.4. PROBLEMS: 1. Acute kidney injury superimposed on chronic kidney disease: Initially kidney function improved. There is slight increase in the creatinine today, which is related to diuresis, but would recheck his renal profile tomorrow. 2. Hyponatremia: Sodium level has improved up to 133 today. Will continue with current diuretic and recheck his electrolytes tomorrow. 3. Hypokalemia: Potassium level has also improved significantly and he remains on Torsemide and Spironolactone. I am going to cut down potassium chloride dose to just once a day. 4. C. diff colitis: Patient is doing better and remains on oral Vancomycin. 5. Anemia: At present, his anemia is stable. We will continue to monitor closely. JAYD
--- NOTE | 2019-11-14 15:04 | IPN ---
DATE: 10/22/2019 SUBJECTIVE: Mr. Li is seen this morning at his bedside. He is feeling well and is ready to go home today. He denies any nausea or vomiting and the diarrhea has improved. He has no dyspnea or chest pain. PHYSICAL EXAMINATION: VITAL SIGNS: Temperature 97.8 degrees Fahrenheit, heart rate is 78 per minute and respiratory rate is 16 per minute. Blood pressure 115/50 mmHg. Oxygen saturation 98% on room air. HEENT: Head is atraumatic. NECK: Supple without JVD or thyroid enlargement. LUNGS: A few basilar rales. HEART: Heart sounds are regular. ABDOMEN: Soft and nontender. EXTREMITIES: Without any cyanosis or clubbing. Lower extremity edema is still 1+. LABORATORY DATA: Todays labs showed a WBC count of 6.6, hemoglobin 11.1 and hematocrit 34.1, platelets 247,000. Sodium 135, potassium 5.1, CO2 24, BUN 35 and creatinine 1.47. Magnesium level is 1.7 and calcium is 9.0. PROBLEMS: 1. Hyponatremia. Sodium level is improving nicely and he will continue with his current diuretic regimen. 2. Acute kidney injury superimposed on chronic kidney disease. Kidney function is stable and this is probably his baseline function. Slight changes are related to diuretic use. Patient should be followed up in our office as an outpatient. 3. Congestive heart failure, volume status is reasonably well-compensated and the patient should continue with his current diuretic. He has been advised to continue with furosemide 20 mg b.i.d. and follow-up in our office in the next three to four days. 4. Disposition: From a renal standpoint the patient is ready for discharge and will be followed up in the office as an outpatient. ANNIE
--- NOTE | 2019-11-14 15:12 | ECGEPIP ---
ATRIAL FIBRILLATION WITH ABERRANT CONDUCTION OR VENTRICULAR PREMATURE COMPLEXES MODERATE INTRAVENTRICULAR CONDUCTION DELAY ST DEVIATION AND MODERATE T-WAVE ABNORMALITY, CONSIDER LATERAL ISCHEMIA ABNORMAL ECG SEE SCANNED DOWNTIME REPORT MTDD
[2019-11-26 08:24] LABS: HEMATOCRIT 34.4 % (42.0-52.0); HEMOGLOBIN 12.2 g/dl (13.5-17.5); MEAN CORPUSCULAR HEMOGLOBIN 34.2 pg (27.0-33.0); MEAN CORPUSCULAR HGB CONC 35.5 g/dl (32.0-36.5); MEAN CORPUSCULAR VOLUME 96.4 fl (80.0-96.0); PLATELET COUNT, AUTOMATED 207 10^3/uL (150-450); RED BLOOD COUNT 3.57 10^6/uL (4.30-6.10); WHITE BLOOD COUNT 19.7 10^3/uL (4.0-10.0)
[2019-11-26 08:29] LABS: LYMPHOCYTES 3 % (16-44); NEUTROPHILS 97 % (28-66)
[2019-11-26 08:30] LABS: PLATELET ESTIMATE NORMAL (NORMAL)
== END 2019-10-22 15:00 | disposition home or self-care (01) | DRG 372 ==
LOC: M PCU 13:30 → M MS5PR 10-19 15:35
PROVIDERS: ADMIT Internal Medicine; ATTEND Internal Medicine
DX: A04.72 Enterocolitis due to Clostridium difficile, not specified as recurrent (principal); N17.9 Acute kidney failure, unspecified; I50.22 Chronic systolic (congestive) heart failure; E87.1 Hypo-osmolality and hyponatremia; I13.0 Hypertensive heart and chronic kidney disease with heart failure and stage 1 through stage 4 chronic kidney disease, or unspecified chronic kidney disease; N25.81 Secondary hyperparathyroidism of renal origin; N18.3 Chronic kidney disease, stage 3 (moderate); I25.10 Atherosclerotic heart disease of native coronary artery without angina pectoris; I25.2 Old myocardial infarction; E03.9 Hypothyroidism, unspecified; M10.30 Gout due to renal impairment, unspecified site; I48.91 Unspecified atrial fibrillation; E87.6 Hypokalemia; D64.9 Anemia, unspecified; Z88.0 Allergy status to penicillin; Z88.1 Allergy status to other antibiotic agents; Z88.2 Allergy status to sulfonamides; Z79.82 Long term (current) use of aspirin; Z79.899 Other long term (current) drug therapy; Z95.5 Presence of coronary angioplasty implant and graft

== ENCOUNTER → 2019-11-01 | Outpatient (REF) | payer MEDICARE ==
[~2019-11-01] MED LIST changes: +ACET-683 PO; +ASPI-161 PO; +AZIT500T5 PO; +D31000TA2 PO; +DIFI200T PO; +KLOR10TA76 PO; -MAGNESIUM SULFATE 1GM/100ML D5W BAG (10MG/ML) As Ordered ONE; -POTASSIUM CHLORIDE 10 MEQ SR TABLET As Ordered ONE; +RISATAB3 PO; +SODI1TAB6 PO; +VANC125C3 PO; +VANC1CAP6 PO; +VANC250C3 PO
[2019-11-01 18:46] LABS: PERCENT SATURATION 37.3 % (19.7-50.0)
== END ==
LOC: M LAB REF 17:57
PROVIDERS: ATTEND Nurse Practitioner Family
DX: D50.9 Iron deficiency anemia, unspecified (principal)

== ENCOUNTER 2019-11-14 16:10 | Emergency (ER) | payer MEDICARE ==
[~2019-11-14] VITALS: Ht 167.6 cm; Wt 69.5 kg
[~2019-11-14 16:10] MED LIST changes: -ACET-683 PO; -AZIT500T5 PO; -D31000TA2 PO; -DIFI200T PO; -KLOR10TA76 PO; -SODI1TAB6 PO; -VANC125C3 PO; -VANC1CAP6 PO
[2019-11-14] MEDS ORDERED: VANCOMYCIN ORAL SOL 250MG/5ML ORAL SYRINGE PO ONE (16:45)
[2019-11-14] MEDS ORDERED: NS 1,000 ML IV ONE (17:00)
[2019-11-14 17:10] LABS: HEMATOCRIT 35.1 % (42.0-52.0); HEMOGLOBIN 11.9 g/dl (13.5-17.5); MEAN CORPUSCULAR HEMOGLOBIN 33.1 pg (27.0-33.0); MEAN CORPUSCULAR HGB CONC 33.9 g/dl (32.0-36.5); MEAN CORPUSCULAR VOLUME 97.5 fl (80.0-96.0); PLATELET COUNT, AUTOMATED 246 10^3/uL (150-450); WHITE BLOOD COUNT 11.4 10^3/uL (4.0-10.0)
[2019-11-14 17:34] LABS: ALBUMIN 2.9 GM/DL (3.2-5.2); BILIRUBIN,TOTAL 0.8 MG/DL (0.2-1.0); CALCIUM LEVEL 8.6 MG/DL (8.8-10.2); CREATININE FOR GFR 2.12 MG/DL (0.70-1.30); GLOMERULAR FILTRATION RATE 32.6 (>42); THYROID STIMULATING HORMONE 1.88 uIU/ML (0.358-3.740); TOTAL PROTEIN 6.9 GM/DL (6.4-8.2)
[2019-11-14] MEDS ORDERED: NS 500 ML IV ONE (18:30)
[2019-11-14] MEDS ORDERED: VANC1CAP6 PO (18:35)
[2019-11-14 18:58] LABS: CREATININE,RANDOM URINE 38.5 MG/DL
[2019-11-14] MEDS ORDERED: POTASSIUM CHLORIDE 10 MEQ SR TABLET PO ONE ×2 (19:00→20:15)
[2019-11-14 20:01] LABS: CALCIUM LEVEL 7.9 MG/DL (8.8-10.2); CREATININE FOR GFR 1.81 MG/DL (0.70-1.30); GLOMERULAR FILTRATION RATE 39.1 (>42); POTASSIUM SERUM 2.9 MEQ/L (3.5-5.1)
[2019-11-14] MEDS ORDERED: DIGOXIN INJ 0.5 MG/2 ML AMP (J1160) IV STA (20:01)
[2019-11-14] MEDS ORDERED: KCL 10MEQ/100ML SWI (KRUN) 10 MEQ in IV 1 EA IV ONE (21:45)
[2019-11-14 23:57] LABS: CALCIUM LEVEL 8.1 MG/DL (8.8-10.2); CREATININE FOR GFR 1.86 MG/DL (0.70-1.30); GLOMERULAR FILTRATION RATE 37.9 (>42); MAGNESIUM LEVEL 1.4 MG/DL (1.8-2.4); POTASSIUM SERUM 3.7 MEQ/L (3.5-5.1)
[2019-11-15] MEDS ORDERED: MAG SULF 1GM/100ML (MAG RUN) 1 GM in IV 1 EA IV ONE ×2
[2019-11-15 01:30] VITALS: BP 147/69
[2019-11-15] MEDS ORDERED: AZIT500T5 PO (08:55)
== END 2019-11-15 01:50 | disposition home or self-care (01) ==
LOC: M ED 16:10
DX: A04.72 Enterocolitis due to Clostridium difficile, not specified as recurrent (principal); N17.9 Acute kidney failure, unspecified; E87.6 Hypokalemia; E83.42 Hypomagnesemia; I50.9 Heart failure, unspecified; Z88.0 Allergy status to penicillin; Z88.2 Allergy status to sulfonamides; Z79.899 Other long term (current) drug therapy
CPT/HCPCS: 80047; 80048; 80053; 82570; 83735; 84300; 84443; 85027; 87507; 96361; 96365; 96367; 99285; J3475

== ENCOUNTER 2019-12-07 18:40 | Inpatient (IN) | payer MEDICARE ==
[~2019-12-07] VITALS: Ht 165.1 cm; Wt 72.4 kg
[~2019-12-07 18:40] MED LIST changes: +AZIT500T5 PO; +VANC1CAP6 PO
--- NOTE | 2019-12-07 20:03 | REPVR ---
PROCEDURE INFORMATION: Exam: CT Head Without Contrast Exam date and time: 12/07/2019 7:33 PM Age: 74 years old Clinical indication: Other: Weakness TECHNIQUE: Imaging protocol: Computed tomography of the head without contrast. Radiation optimization: All CT scans at this facility use at least one of these dose optimization techniques: automated exposure control; mA and/or kV adjustment per patient size (includes targeted exams where dose is matched to clinical indication); or iterative reconstruction. COMPARISON: CT Head without contrast 02/24/2018 5:23 PM FINDINGS: Brain: The brain demonstrates diffuse volume loss. There is white matter hypodensity most consistent with chronic small vessel ischemic change. No visible evolving territorial infarct. No hemorrhage. An old transcortical medial left frontoparietal infarct. Focal, chronic appearing cerebellar infarcts. Focal, chronic appearing lacunar infarcts in the thalami. There are chronic ischemic changes in the basal ganglia regions. These findings are unchanged compared to the prior study. Cerebral ventricles: The ventricles are enlarged in keeping with volume loss. Bones/joints: Unremarkable. No acute fracture. Paranasal sinuses: Visualized sinuses are unremarkable. No fluid levels. Mastoid air cells: Visualized mastoid air cells are well aerated. Orbital cavity: Thinning of the lenses of the globes consistent with prior lens surgery. Soft tissues: Unremarkable. IMPRESSION: No acute intracranial abnormality seen. Electronically signed by: Amie Sharpe On 12/07/2019 20:03:16 PM
[2019-12-07 20:08] LABS: INR 1.42; PARTIAL THROMBOPLASTIN TIME 29.7 SECONDS (24.2-38.5); PROTHROMBIN TIME 17.6 SECONDS (12.5-14.3)
[2019-12-07 20:09] LABS: BASO % 0.3 % (0.0-1.0); EOS % 0.3 % (0.0-3.0); HEMATOCRIT 30.6 % (42.0-52.0); HEMOGLOBIN 10.3 g/dl (13.5-17.5); LYMPH # 0.3 10^3/uL (1.5-5.0); LYMPH % 4.5 % (24.0-44.0); MEAN CORPUSCULAR HEMOGLOBIN 33.4 pg (27.0-33.0); MEAN CORPUSCULAR HGB CONC 33.7 g/dl (32.0-36.5); MEAN CORPUSCULAR VOLUME 99.4 fl (80.0-96.0); MONO # 0.8 10^3/uL (0.0-0.8); MONO % 11.6 % (0.0-5.0); NEUTROPHILS # 5.5 10^3/uL (1.5-8.5); NEUTROPHILS % 82.4 % (36.0-66.0); PLATELET COUNT, AUTOMATED 203 10^3/uL (150-450); RED BLOOD COUNT 3.08 10^6/uL (4.30-6.10); WHITE BLOOD COUNT 6.6 10^3/uL (4.0-10.0)
[2019-12-07 20:28] LABS: BLOOD UREA NITROGEN 24 MG/DL (7-18); CALCIUM LEVEL 8.7 MG/DL (8.8-10.2); CARBON DIOXIDE LEVEL 25 MEQ/L (21-32); CHLORIDE LEVEL 84 MEQ/L (98-107); CREATININE FOR GFR 1.91 MG/DL (0.70-1.30); GLOMERULAR FILTRATION RATE 36.8 (>42); GLUCOSE, FASTING 114 MG/DL (70-100); PHOSPHORUS LEVEL 3.9 MG/DL (2.5-4.9); POTASSIUM SERUM 4.3 MEQ/L (3.5-5.1); SODIUM LEVEL 119 MEQ/L (136-145)
[2019-12-07 20:29] LABS: ALBUMIN 3.4 GM/DL (3.2-5.2); ALT/SGPT 90 U/L (12-78); BILIRUBIN,DIRECT 0.8 MG/DL (0.0-0.2); BILIRUBIN,TOTAL 1.8 MG/DL (0.2-1.0); CK-MB VALUE MASS 2.9 NG/ML (<3.6); CPK CREATINE PHOSPHOKINASE 111 U/L (39-308); FREE T4 1.73 NG/DL (0.76-1.46); MAGNESIUM LEVEL 1.4 MG/DL (1.8-2.4); MB/CK RELATIVE INDEX 2.61 (< OR =4); TOTAL PROTEIN 6.8 GM/DL (6.4-8.2); TROPONIN I < 0.02 NG/ML (< 0.10)
--- NOTE | 2019-12-07 20:47 | REPVR ---
PROCEDURE INFORMATION: Exam: XR Chest, 1 View Exam date and time: 12/07/2019 8:13 PM Age: 74 years old Clinical indication: Chest pain; Additional info: Weakness TECHNIQUE: Imaging protocol: XR of the chest Views: 1 view. COMPARISON: 1. CT Chest without contrast 10/16/2019 3:52 PM 2. CR - Chest, 1 view 10/16/2019 11:53:07 AM 3. CR - CHEST 2 VIEWS 02/06/2018 2:02:56 PM FINDINGS: Tubes, catheters and devices: There is a right subclavian ICD device in place with its single lead projecting over the expected location of the right ventricle. Lungs: There is right basilar atelectasis. No lung consolidation or pulmonary edema is noted. Pleural space: Unremarkable. No pleural effusion or pneumothorax is identified. Heart/Mediastinum: The cardiac silhouette is enlarged, which is unchanged compared to the prior chest x-rays on 10/16/2019 and 02/06/2018. Vasculature: There are atherosclerotic calcifications of the aorta. Bones/joints: There are chronic compression deformities of T5, T6, and L1, which are better visualized in the CT chest on 10/16/2019 and can also be seen in the prior chest x-ray on 02/06/2018. IMPRESSION: 1. No radiographic evidence for an acute cardiopulmonary process. 2. Cardiomegaly, which is similar in appearance compared to the prior chest x-rays on 10/16/2019 and 02/06/2018. Electronically signed by: Maged Hagen On 12/07/2019 20:47:02 PM
[2019-12-07] MEDS ORDERED: NS 1,000 ML IV SCH ×2 (20:51→23:45)
[2019-12-07] MEDS ORDERED: MAGNESIUM OXIDE 400 MG TAB (MAG-OX) PO ONE (21:00)
[2019-12-07 21:05] LABS: OSMOLALITY SERUM 255 MOSM/KG (280-301)
[2019-12-07] MEDS ORDERED: VANC125C3 PO (21:46)
[2019-12-07 21:58] LABS: CREATININE,RANDOM URINE 21.6 MG/DL
[2019-12-07] MEDS ORDERED: HYDR-643 PO (22:08)
[2019-12-07] MEDS ORDERED: D31000TA2 PO (22:08)
[2019-12-07] MEDS ORDERED: hydrOXYzine 10 MG TAB PO PRN (23:45)
[2019-12-08 00:52] VITALS: BP 132/78
[2019-12-08] MEDS: LATANOPROST 0.005% OPHTH SOLN 2.5 ML OU SCH ×2 (01:44→20:56)
[2019-12-08] MEDS: ASPIRIN 81 MG ENTERIC TAB PO SCH ×2 (01:44→20:57)
[2019-12-08] MEDS: VANCOMYCIN ORAL SOL 250MG/5ML ORAL SYRINGE PO SCH ×5 (01:44→23:53)
[2019-12-08] MEDS: VITAMIN D 1,000 INTERNATIONAL UNITS TABLET PO SCH ×2 (01:44→20:56)
[2019-12-08] MEDS: FERROUS SULFATE 325MG TAB PO SCH ×3 (01:44→20:57)
[2019-12-08] MEDS: SUCRALFATE 1 GM TAB PO SCH ×3 (01:44→20:57)
[2019-12-08] MEDS: **hydrALAZINE** 50 MG TAB PO SCH ×3 (01:45→20:58)
[2019-12-08] MEDS: ISOSORBIDE DIN. (ISORDIL) 20 MG TAB PO SCH ×3 (01:45→20:58)
[2019-12-08] MEDS: bisoproloL fumarate 5 MG TAB PO SCH ×3 (01:46→20:58)
[2019-12-08] MEDS ORDERED: MAG SULF 1GM/100ML (MAG RUN) 1 GM in IV 1 EA IV ONE (02:15)
[2019-12-08 04:00] VITALS: BP 135/71
[2019-12-08 04:27] LABS: MEAN CORPUSCULAR HEMOGLOBIN 33.7 pg (27.0-33.0); MEAN CORPUSCULAR HGB CONC 34.5 g/dl (32.0-36.5); MEAN CORPUSCULAR VOLUME 97.6 fl (80.0-96.0); PLATELET COUNT, AUTOMATED 186 10^3/uL (150-450); RED BLOOD COUNT 2.97 10^6/uL (4.30-6.10); WHITE BLOOD COUNT 6.3 10^3/uL (4.0-10.0)
--- NOTE | 2019-12-08 04:36 | HPEPDOC ---
General Date of Admission Dec 07, 2019 at 21:56 Date of Service: Dec 07, 2019 Attending Physician: CELESTINO MCKAY MD Chief Complaint The patient is a 74-year-old male admitted with a reason for visit of Acute On Chronic Renal Insufficency. History of Present Illness Pt is a 74 y/o male who presents to ER due to generalized weakness x1 day. He was recently hospitalized and treated for C.diff. and discharged home with PO vancomycin which he states he has not finished yet. He states that he has on and off diarrhea still but his last bowel movement which was this am had formed stool. Denies CP, abdominal pain, n/v/d, fever chills. PAST MEDICAL HISTORY: 1. Coronary artery disease status post percutaneous coronary intervention (PCI) to right coronary artery (RCA) with drug-eluting stent (JEAN) in 11/2013 for single-vessel coronary artery disease (CAD. At that point, he was found to have left ventricle ejection fraction approximately 20%. 2. Chronic systolic/diastolic congestive heart failure. Most recent hospitalization was in 03/2017. He has known severe left ventricular systolic dysfunction, but his last evaluation of left ventricular ejection function (LVEF) was nuclear stress test in May 2016 that revealed large inferior and inferolateral infarct and no demonstrable ischemia and calculated LVEF 46%. 3. Gout. 4. Chronic renal insufficiency stage III. 5. Gastroesophageal reflux disease (GERD). 6. Arterial hypertension. 7. Dyslipidemia. 8. Atrial fibrillation since approximately spring 2017. 9. History of ICD placement. SURGICAL HISTORY: Positive for: 1. ICD placement in 2014. It is a [employer] single-chamber defibrillator. 2. Cataract surgery. 3. Pyloric resection. SOCIAL HISTORY: Patient is and lives with his . He was an active smoker until 2013. drinks 1-2 beers a day. no hx of alcohol withdrawal FAMILY HISTORY: Is positive for coronary artery disease. Home Medications Scheduled Allopurinol (Allopurinol) 100 Mg Tab, 100 MG PO DAILY, (Reported) Aspirin (Aspirin EC) 81 Mg Tablet.dr, 81 MG PO QHS, (Reported) Atorvastatin Calcium (Atorvastatin Calcium) 40 Mg Tab, 40 MG PO DAILY, (Reported) Bisoprolol Fumarate (Bisoprolol Fumarate) 5 Mg Tab, 5 MG PO BID, (Reported) Calcitriol (Calcitriol) 0.25 Mcg Cap, 0.25 MCG PO Q2D, (Reported) Cholecalciferol (Vitamin D3) (Vitamin D3) 1,000 Unit Tablet, 1,000 UNITS PO QHS, (Reported) Ferrous Sulfate (Ferrous Sulfate) 325 Mg Tab, 325 MG PO BID, (Reported) Hydralazine HCl (Hydralazine HCl) 50 Mg Tab, 50 MG PO BID, (Reported) Isosorbide Dinitrate (Isosorbide Dinitrate) 20 Mg Tablet, 20 MG PO BID, (Reported) Latanoprost (Xalatan) 0.005% 2.5ML Drops, 1 DROP OU QHS, (Reported) Levothyroxine Sodium (Levothyroxine Sodium) 50 Mcg Tab, 50 MCG PO DAILY, (Reported) Magnesium Oxide (Magnesium Oxide) 250 Mg Tab, 250 MG PO DAILY, (Reported) Pantoprazole Sodium (Pantoprazole Sodium) 40 Mg Tablet.dr, 40 MG PO BID, (Reported) Spironolactone (Spironolactone) 25 Mg Tab, 25 MG PO DAILY, (Reported) Sucralfate (Carafate) 1 Gm Tablet, 1 GM PO BID, (Reported) Torsemide (Torsemide) 100 Mg Tab, 100 MG PO DAILY, (Reported) Vancomycin Hcl (Vancomycin HCl) 125 Mg Capsule, 125 MG PO DAILY, (Reported) started 11/14/19 taper dose. 125mg 4x daily x14 day, 1 cap 2x daily x7 days, 1 cap daily x 7 days Scheduled PRN Hydroxyzine HCl (Hydroxyzine HCl) 10 Mg Tablet, 20 MG PO TID PRN for ITCHING, (Reported) Nitroglycerin (Nitrostat) 0.4 Mg Subl, 0.4 MG SL NITRO PRN for CHEST PAIN, (Reported) Allergies Coded Allergies: Penicillins (Verified Allergy, Severe, fainting/shock, 12/07/19) Sulfa (Sulfonamide Antibiotics) (Verified Allergy, Severe, ITCH/BURN/THROAT TIGHTENS, 12/07/19) Quinolones (Verified Allergy, Unknown, unknown, 12/07/19) A-FIB/CHADSVASC A-FIB History Current/History of A-Fib/PAF?: Yes Current PO Anticoag Therapy: No Review of Systems Constitutional: Denies: Chills, Fever, Malaise, Night Sweats, Weakness, Fatigue Eyes: Denies: Pain Skin: Denies: Rash Pulmonary: Denies: Dyspnea, Cough, Pleuritic Chest Pain Cardiovascular: Denies: Chest Pain, Palpitations Gastrointestinal: Denies: Nausea, Vomiting, Abdominal Pain, Constipation Genitourinary: Denies: Dysuria, Frequency Hematologic: Denies: Bruising, Bleeding Excessively Musculoskeletal: Denies: Shoulder Pain Neurological: Reports: Weakness; Denies: Numbness, Incoordination Physical Examination General Exam: Positive: Alert, Cooperative, No Acute Distress Eye Exam: Positive: PERRLA, Sclera icteric; Negative: Ptosis ENT Exam: Positive: Atraumatic, Tongue Midline; Negative: Mucous membr. moist/pink Neck Exam: Positive: Supple; Negative: thyromegaly, Lymphadenopathy Chest Exam: Positive: Clear to auscultation; Negative: Rales, Rhonchi, Wheezing, Diminished Heart Exam: Positive: Rate Normal, Irregular Rhythm, Normal S1; Negative: Tachycardic Telemetry: Positive: Atrial fibrillation Extremity Exam: Negative: Clubbing, Cyanosis, Edema, Tenderness, Swelling Skin Exam: Negative: Rash, Lesion, Pruritus Vital Signs Vital Signs Date Time Temp Pulse Resp B/P (MAP) Pulse Ox O2 Delivery O2 Flow Rate FiO2 12/08/19 04:00 98.0 61 20 135/71 (92) 99 Room Air Laboratory Data Labs 24H Laboratory Tests 2 12/07/19 19:14: Immature Granulocyte % (Auto) 0.9, Neutrophils (%) (Auto) 82.4H, Lymphocytes (%) (Auto) 4.5L, Monocytes (%) (Auto) 11.6H, Eosinophils (%) (Auto) 0.3, Basophils (%) (Auto) 0.3, Neutrophils # (Auto) 5.5, Lymphocytes # (Auto) 0.3L, Monocytes # (Auto) 0.8, Eosinophils # (Auto) 0.0, Basophils # (Auto) 0.0, Nucleated Red Blood Cells % (auto) 0.5H, Prothrombin Time 17.6H, Prothromb Time International Ratio 1.42, Activated Partial Thromboplast Time 29.7, Anion Gap 10, Glomerular Filtration Rate 36.8L, Osmolality 255L, Calcium Level 8.7L, Phosphorus Level 3.9, Magnesium Level 1.4L, Total Bilirubin 1.8H, Direct Bilirubin 0.8H, Aspartate Amino Transf (AST/SGOT) 206H, Alanine Aminotransferase (ALT/SGPT) 90H, Alkaline Phosphatase 112, Total Creatine Kinase 111, Creatine Kinase MB 2.9, Creatine Kinase MB Relative Index 2.61, Troponin I < 0.02, Total Protein 6.8, Albumin 3.4, Albumin/Globulin Ratio 1.0, Thyroid Stimulating Hormone (TSH) 5.140H, Free Thyroxine 1.73H 12/07/19 21:23: Urine Random Osmolality 140L, Urine Random Creatinine 21.6, Urine Random Sodium 37 12/08/19 04:04: Nucleated Red Blood Cells % (auto) 0.3H CBC/BMP Laboratory Tests 12/07/19 19:14 12/08/19 04:04 Assessment/Plan This is a 74 y/o male with a 1 day hx of generzlied weakness with is likely 2/2 to diarrhea. He was recently admitted for cdiff and was prescribed vancomycin PO which he has not yet finished course. Admitted for obs and GI panel ordered and empirically covering with vancomycin PO and IVF for ?RALPH on known CKD Plan / VTE VTE Prophylaxis Ordered?: Yes Plan Plan #Generalized weakness 2/2 to dehydration, and diarrhea -NS 0.9% NS Fluids 100cc/h -recent hx of cdiff took vancomycin PO but havent yet finished course -Continue vanco 500mg PO qid -C.w monitoring daily CBC -GI panel pending #RALPH on known CKD - 1.91 Cr -Continue IVF 100cc/h - Hold nephrotoxic drugs #Hypoatrenmia - Pt has baseline low Na+ running in the low 120s: 119 Na+ today - Pt states he drinks about 1-2 beers /day making hypoNa+ 2/2 to ETOH - Denies any hx alcohol withdrawal - NS 100cc/h - urine lytes pending - Continue to monitor BMP closely # Hx of sytolic CHF (last known EF 45%) -Holding Lasix at this time 2/2 RALPH. Patient does not appear to be hypervolemic #Hypothyroidism -TSH and T4 high - synthroid held - Am team consider brain MRI in am #Atrial Fibrillation - Afib currently rate controlled - no on AC; had a trail of eliquis but resulted in melanotic stools - CHADSVAC score : mod-high risk - Continue ASA # HTN - continue bisoprolol - continue hydralazine #HLD - continue atorvastatin Diet: 2g Na DVT ppx: Heaprin 5000mg SubQ TID GI ppx: protonix 40mg PO daily IVF: NS 0.9% 100cc/h Code: full GME ATTESTATION GME ATTESTATION My faculty preceptor for this patient encounter was physically present during the encounter and was fully available. All aspects of the patient interview, examination, medical decision making process, and medical care plan development were reviewed and approved by the faculty preceptor. The faculty preceptor is aware and concurs with the plan as stated in the body of this note and will attest to such by his/her cosignature. ATTENDING NOTE INinfa, have independently examined this patient and performed my own physical exam, as well as reviewed the documentation and edited where necessary. I have discussed in detail with the resident / student the findings and plan of treatment as documented by the resident / student and edited their note. I agree with their findings and treatment plan and have edited their documentation. I will continue to follow the patient during this hospital stay. Abdiaziz Ma DO Dec 08, 2019 04:36 CELESTINO MCKAY MD Dec 08, 2019 06:57
[2019-12-08 04:56] LABS: CALCIUM LEVEL 8.5 MG/DL (8.8-10.2); CREATININE FOR GFR 1.68 MG/DL (0.70-1.30); GLOMERULAR FILTRATION RATE 42.6 (>42); POTASSIUM SERUM 3.7 MEQ/L (3.5-5.1)
[2019-12-08] MEDS: HEPARIN SOD (PORCINE) 5000UNITS/ML 1ML VIAL/SYRINGE SC SCH ×3 (06:43→20:56)
--- NOTE | 2019-12-08 06:47 | ECGEPIP ---
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
[2019-12-08 07:40] VITALS: BP 128/68
[2019-12-08] MEDS: MAGNESIUM OXIDE 400 MG TAB (MAG-OX) PO SCH ×2 (08:22→20:57)
[2019-12-08] MEDS: PANTOPRAZOLE 40MG TAB (PROTONIX) PO SCH (08:22)
[2019-12-08] MEDS: ATORVASTATIN 20 MG TAB PO SCH (08:22)
[2019-12-08] MEDS: CALCITRIOL 0.25 MCG CAP (S0169) PO SCH (08:22)
[2019-12-08] MEDS: allopurinoL 100 MG TAB PO SCH (08:23)
[2019-12-08] MEDS ORDERED: TORSEMIDE 100 MG TAB PO SCH (09:00)
[2019-12-08] MEDS ORDERED: SPIRONOLACTONE 25 MG TAB PO SCH (09:00)
[2019-12-08] MEDS: POTASSIUM CHLORIDE 10 MEQ SR TABLET PO SCH (09:45)
--- NOTE | 2019-12-08 11:03 | IPNPDOC ---
Text Note Date of Service The patient was seen on 12/08/19. NOTE Subjective; patient feels much better this morning. He isn't does not feel any weakness or tiredness. Asking about when he can go home, did not have any further diarrhea overnight. Yesterday he had 4 stools, 3 of them were formed. The last one was semisolid. No fever or chills. No chest pain, shortness of breath. Physical exam Vital signs as below. Gen. patient awake, alert, oriented 3, laying down in bed in no acute distress. HEENT normocephalic and atraumatic, Moist mucous membranes. Anicteric eyes. Neck no JVD, no thyromegaly. Chest bilateral vesicular breath sounds clear to auscultation. No rhonchi, wheezing or crackles. Cardiovascular S1, S2, irregular, rate normal. Systolic murmur present. No rub or gallop Abdomen soft, nontender. Bowel sounds normal Extremities no edema, no cyanosis or clubbing Neuro No focal neuro deficits Labs and radiology reviewed Assessment and Plan: 74 y/o male with past medical history of CAD status post stents, chronic systolic and diastolic heart failure with EF of 20% in 2013, improved to 46% after AICD placement in 2014, gout, chronic renal insufficiency, stage III, GERD, hypertension, dyslipidemia, atrial fibrillation pyloric resection who presented to ER due to generalized weakness x1 day. He was recently hospitalized from 10/15 to 10/21 and treated for C.diff. diarrhea, RALPH, hyponatremia and discharged home with PO vancomycin which he states he has not finished yet. In November he was treated with 10 days of vancomycin. . He was started on vancomycin on November 13 as he had a repeat gastrointestinal panel done on November 13, which was positive for Campylobacter and C.diff. that he has on and off diarrhea still but his last bowel movements had formed stool. In ED, he was found to be hyponatremic to 119. Hyponatremia due to dehydration and hypovolemia due to ongoing diarrhea and dehydration and use of chronic diuretics Improved by 4 points overnight with NS. Will stop IVF. Continue to hold torsemi de and spironolactone consult nephrology. Generalized weakness 2/2 to dehydration, and hyponatremia C diff positive since september 2019. Continue vanco 500mg PO qid GI panel pending CKD stage 3 baseline creatinine about 1.8 creatinine is at baseline. Chronic systolic and diastolic CHF (last known EF 45%) euvolemic to hypovolemic will hold diuretics Atrial Fibrillation currently rate controlled had a trial of eliquis but resulted in melanotic stools so was stopped. ASA HTN bisoprolol, hydralazine HLD atorvastatin Hypomagnesemia, repleted. Gout/hyperuricemia. Allopurinol Glaucoma. Continue home meds DVT prophylaxis in place VS,Fishbone, I+O VS, Fishbone, I+O Laboratory Tests 12/07/19 19:14 12/08/19 04:04 Vital Signs Date Time Temp Pulse Resp B/P (MAP) Pulse Ox O2 Delivery O2 Flow Rate FiO2 12/08/19 08:23 128/68 12/08/19 08:23 66 12/08/19 07:40 96.9 18 95 Room Air I&O- Last 24 Hours up to 6 AM 12/08/19 06:00 Intake Total 470 ml Output Total 550 ml Balance -80 ml CAREN STEWART MD Dec 08, 2019 11:03
[2019-12-08 12:00] VITALS: BP 118/54
[2019-12-08 12:31] LABS: CREATININE FOR GFR 1.73 MG/DL (0.70-1.30); GLOMERULAR FILTRATION RATE 41.2 (>42)
[2019-12-08 12:32] LABS: CALCIUM LEVEL 8.5 MG/DL (8.8-10.2)
[2019-12-08 16:00] VITALS: BP 120/50
[2019-12-08 18:45] LABS: CALCIUM LEVEL 8.9 MG/DL (8.8-10.2); CREATININE FOR GFR 1.83 MG/DL (0.70-1.30); GLOMERULAR FILTRATION RATE 38.6 (>42); POTASSIUM SERUM 4.1 MEQ/L (3.5-5.1)
[2019-12-08 20:00] VITALS: BP 128/74
[2019-12-08] MEDS ORDERED: D5W 500 ML IV SCH (20:15)
[2019-12-09] VITALS: BP 120/72
[2019-12-09 05:16] LABS: BASO % 0.4 % (0.0-1.0); EOS # 0.1 10^3/uL (0.0-0.5); EOS % 0.9 % (0.0-3.0); HEMATOCRIT 29.9 % (42.0-52.0); HEMOGLOBIN 9.8 g/dl (13.5-17.5); LYMPH # 0.5 10^3/uL (1.5-5.0); LYMPH % 6.2 % (24.0-44.0); MEAN CORPUSCULAR HEMOGLOBIN 32.8 pg (27.0-33.0); MEAN CORPUSCULAR HGB CONC 32.8 g/dl (32.0-36.5); MONO # 0.7 10^3/uL (0.0-0.8); MONO % 9.9 % (0.0-5.0); NEUTROPHILS % 81.5 % (36.0-66.0); PLATELET COUNT, AUTOMATED 189 10^3/uL (150-450); RED BLOOD COUNT 2.99 10^6/uL (4.30-6.10); WHITE BLOOD COUNT 7.4 10^3/uL (4.0-10.0)
[2019-12-09 05:42] LABS: CALCIUM LEVEL 8.4 MG/DL (8.8-10.2); CREATININE FOR GFR 1.95 MG/DL (0.70-1.30); GLOMERULAR FILTRATION RATE 35.9 (>42); POTASSIUM SERUM 4.2 MEQ/L (3.5-5.1)
[2019-12-09] MEDS: VANCOMYCIN ORAL SOL 250MG/5ML ORAL SYRINGE PO SCH ×4 (06:12→23:33)
[2019-12-09] MEDS: HEPARIN SOD (PORCINE) 5000UNITS/ML 1ML VIAL/SYRINGE SC SCH ×3 (06:13→21:34)
[2019-12-09 07:45] VITALS: BP 138/70
[2019-12-09] MEDS: MAGNESIUM OXIDE 400 MG TAB (MAG-OX) PO SCH ×2 (09:06→21:34)
[2019-12-09] MEDS: PANTOPRAZOLE 40MG TAB (PROTONIX) PO SCH (09:06)
[2019-12-09] MEDS: POTASSIUM CHLORIDE 10 MEQ SR TABLET PO SCH (09:07)
[2019-12-09] MEDS: SUCRALFATE 1 GM TAB PO SCH ×2 (09:07→21:34)
[2019-12-09] MEDS: FERROUS SULFATE 325MG TAB PO SCH ×2 (09:07→21:35)
[2019-12-09] MEDS: allopurinoL 100 MG TAB PO SCH (09:07)
[2019-12-09] MEDS: ISOSORBIDE DIN. (ISORDIL) 20 MG TAB PO SCH ×2 (09:07→21:36)
[2019-12-09] MEDS: **hydrALAZINE** 50 MG TAB PO SCH ×2 (09:08→21:36)
[2019-12-09] MEDS: ATORVASTATIN 20 MG TAB PO SCH (09:08)
[2019-12-09] MEDS: bisoproloL fumarate 5 MG TAB PO SCH ×2 (09:08→21:35)
--- NOTE | 2019-12-09 10:55 | IPNPDOC ---
Text Note Date of Service The patient was seen on 12/09/19. NOTE Subjective: Feels more tired today since he hasn't been able to sleep at night. Has not had any bowel movements since the day of admission. Sodium remains at 126. Today encouraged to ambulate. Physical exam Vital signs as below. Gen. patient awake, alert, oriented 3, laying down in bed in no acute distress. HEENT normocephalic and atraumatic, Moist mucous membranes. Anicteric eyes. Neck no JVD, no thyromegaly. Chest bilateral vesicular breath sounds clear to auscultation. No rhonchi, wheezing or crackles. Cardiovascular S1, S2, irregular, rate normal. Systolic murmur present. No rub or gallop Abdomen soft, nontender. Bowel sounds normal Extremities no edema, no cyanosis or clubbing Neuro No focal neuro deficits Labs and radiology reviewed Assessment and Plan: 74 y/o male with past medical history of CAD status post stents, chronic systolic and diastolic heart failure with EF of 20% in 2013, improved to 46% after AICD placement in 2014, gout, chronic renal insufficiency, stage III, GERD, hypertension, dyslipidemia, atrial fibrillation pyloric resection who presented to ER due to generalized weakness x1 day. He was recently hospitalized from 10/15 to 10/21 and treated for C.diff. diarrhea, RALPH, hyponatremia and discharged home with PO vancomycin which he states he has not finished yet. In November he was treated with 10 days of vancomycin. . He was sta rted on vancomycin on November 13 as he had a repeat gastrointestinal panel done on November 13, which was positive for Campylobacter and C.diff. that he has on and off diarrhea still but his last bowel movements had formed stool. In ED, he was found to be hyponatremic to 119. Hyponatremia due to dehydration and hypovolemia due to ongoing diarrhea and dehydration and use of chronic diuretics Improved by 4 points overnight with NS. Will stop IVF. Continue to hold torsemide and spironolactone appreciate nephrology consultation Generalized weakness 2/2 to dehydration, and hyponatremia C diff positive since september 2019. Continue vanco 500mg PO qid GI panel pending , as has not had any bowel movement of admission CKD stage 3 baseline creatinine about 1.8 creatinine is at baseline. Chronic systolic and diastolic CHF (last known EF 45%) euvolemic to hypovolemic will hold diuretics Atrial Fibrillation currently rate controlled had a trial of eliquis but resulted in melanotic stools so was stopped. ASA HTN bisoprolol, hydralazine HLD atorvastatin Hypomagnesemia, repleted. Gout/hyperuricemia. Allopurinol Glaucoma. Continue home meds DVT prophylaxis in place VS,Fishbone, I+O VS, Fishbone, I+O Laboratory Tests 12/08/19 11:54 12/08/19 18:14 12/09/19 04:39 Vital Signs Date Time Temp Pulse Resp B/P (MAP) Pulse Ox O2 Delivery O2 Flow Rate FiO2 12/09/19 09:08 138/70 12/09/19 07:45 97.2 87 16 98 Room Air I&O- Last 24 Hours up to 6 AM 12/09/19 06:00 Intake Total 300 ml Output Total 525 ml Balance -225 ml CAREN STEWART MD Dec 09, 2019 10:55
--- NOTE | 2019-12-09 13:39 | CR ---
NEPHROLOGY CONSULTATION DATE OF CONSULTATION: 12/08/2019 CONSULTATION REQUESTED BY: Cat Black M.D. REASON FOR CONSULTATION: Hyponatremia. HISTORY OF PRESENT ILLNESS: Mr. Li is a 74-year-old gentleman, who was admitted to [facility] last evening due to ongoing diarrhea and weakness. He has known history of C. diff colitis during his prior hospitalization in September. He reports that his diarrhea never resolved and he was on a tapering dose of oral Vancomycin even at home. He was noticed to have a sodium level of 119 on admission. This morning, his sodium is up to 123. A nephrology consultation was requested and patient is seen this morning. PAST MEDICAL HISTORY: Significant for: 1. History of coronary artery disease with prior angioplasty with stent placement. 2. History of chronic combined systolic and diastolic congestive heart failure. 3. History of chronic kidney disease stage 3. 4. Gout. 5. Prior history of hyponatremia. 6. History of gastroesophageal reflux disease. 7. History of chronic hypertension. 8. Dyslipidemia. 9. History of atrial fibrillation. 10. History of AICD placement. SURGICAL HISTORY: Significant for: 1. AICD placement. 2. Cataract surgery. 3. History of pyloric resection in childhood. FAMILY HISTORY: Significant for coronary artery disease. PERSONAL AND SOCIAL HISTORY: Patient is and lives with his . He quit smoking in 2013, and drinks 1-2 beers a day. No history of any other recreational drugs. ALLERGIES: Patient has allergy to sulfa, penicillins and quinolones. HOME MEDICATIONS: Include: 1. Allopurinol 100 mg daily. 2. Aspirin 81 mg daily. 3. Atorvastatin 40 mg daily. 4. Bisoprolol 5 mg b.i.d. 5. Calcitriol 0.25 mcg every two days. 6. Vitamin D 1,000 units daily. 7. Ferrous Sulfate 325 mg b.i.d. 8. Hydralazine 50 mg b.i.d. 9. Isosorbide 20 mg b.i.d. 10. Levothyroxine 50 mcg daily. 11. Magnesium oxide 250 mg daily. 12. Pantoprazole 40 mg b.i.d. 13. Spironolactone 25 mg daily. 14. Torsemide 100 mg daily. 15. Carafate 1 gram b.i.d. 16. Vancomycin 125 mg t.i.d. at present. 17. He also uses Nitroglycerin as needed. 18. Hydroxyzine p.r.n. for itching. REVIEW OF SYSTEMS: Patient denies any fever or chills. He does have chronic diarrhea and known to have C. diff colitis. He denies any headache. Ears, nose and throat are unremarkable. Cardiovascular system significant for atrial fibrillation and a history of combined congestive heart failure. He denies any leg edema or dyspnea at present. Respiratory system is negative for cough or hemoptysis. GI system is significant for history of diarrhea for several weeks. He denies any vomiting this morning. There is no abdominal pain. system is negative for dysuria or hematuria. He has known history of stage 3 chronic kidney disease. Musculoskeletal system is negative for leg edema. He denies any significant arthritis or acute gout. Hematologic system is significant for chronic anemia and currently not on any anticoagulation. Skin is negative for rash or ulcers. PHYSICAL EXAMINATION: VITAL SIGNS: Temperature 96.9 degrees Fahrenheit, heart rate 66 per minute, respiratory rate 18 per minute, blood pressure 128/68 mmHg and oxygen saturation 95% on room air. HEENT: Head atraumatic. Pupils equal and reactive to light. Sclerae anicteric. Otherwise unremarkable. NECK: Supple. JVD is somewhat difficult to be assessed. HEART: Heart sounds are irregular in rhythm. LUNGS: Sound clear to auscultation. ABDOMEN: Soft and nontender. Bowel sounds are normal. EXTREMITIES: Without any cyanosis or clubbing. NEUROLOGIC: He is awake, alert and oriented x3. LABORATORY DATA: Sodium on admission 119, potassium 4.3, BUN 24, creatinine 1.91. Repeat sodium this morning is 123 and potassium 3.7. At noon, his sodium is up to 126 and potassium 4.0. BUN 23 and creatinine 1.73. Calcium level 8.5. WBC 6.3, hemoglobin 10.0, hematocrit 29.0, platelet count 186,000. Urine osmolality 140 and urine sodium 37. PROBLEMS: 1. Hyponatremia: Patient has acute hyponatremia superimposed on chronic hyponatremia. I feel this is multifactorial. He has diarrhea chronically and was also on diuretics and he drinks beer. I think all of the above are contributing to his hyponatremia. Now in the hospital, he did receive some I.V. normal saline and sodium level has already improved to 123. Most recent one is up to 126. His diuretic remains on hold and will continue to monitor his sodium level. I will consider giving him a small amount of D5W. I have encouraged him to continue with oral intake of fluids. 2. Acute kidney injury superimposed on chronic kidney disease: Most likely related to chronic diarrhea and possible dehydration. He was also on high dose diuretic. I agree with holding diuretic for now. 3. Congestive heart failure: Patient does have history of systolic and diastolic congestive heart failure. At present, he is either very well compensated or slightly over diuresed. His diuretics remain on hold. 4. Anemia: His anemia is chronic and stable. He does not need any urgent intervention. Thank you for involving me in the care of Mr. Li. I will follow him along with you. ANNIE
[2019-12-09 14:30] VITALS: BP 133/76
[2019-12-09 15:33] LABS: GLOMERULAR FILTRATION RATE 34.8 (>42); POTASSIUM SERUM 4.4 MEQ/L (3.5-5.1)
[2019-12-09] MEDS: ACETAMINOPHEN 500 MG TAB PO PRN (18:33)
[2019-12-09] MEDS: LATANOPROST 0.005% OPHTH SOLN 2.5 ML OU SCH (21:00)
[2019-12-09] MEDS: ASPIRIN 81 MG ENTERIC TAB PO SCH (21:35)
[2019-12-09] MEDS: SODIUM CHLORIDE 1 GM TAB PO SCH (21:35)
[2019-12-09] MEDS: VITAMIN D 1,000 INTERNATIONAL UNITS TABLET PO SCH (21:35)
[2019-12-09 21:44] LABS: SODIUM,RANDOM URINE < 10 MEQ/L
[2019-12-09 21:56] LABS: OSMOLALITY URINE 279 MOSM/KG (500-800)
[2019-12-09 22:00] VITALS: BP 143/79
[2019-12-10] MEDS: HEPARIN SOD (PORCINE) 5000UNITS/ML 1ML VIAL/SYRINGE SC SCH ×3 (05:53→21:30)
[2019-12-10] MEDS: VANCOMYCIN ORAL SOL 250MG/5ML ORAL SYRINGE PO SCH ×3 (05:53→18:07)
[2019-12-10] MEDS: ACETAMINOPHEN 500 MG TAB PO PRN (05:57)
[2019-12-10 06:00] VITALS: BP 146/69
[2019-12-10 07:31] LABS: BASO # 0.1 10^3/uL (0.0-0.2); BASO % 0.6 % (0.0-1.0); EOS # 0.1 10^3/uL (0.0-0.5); EOS % 0.8 % (0.0-3.0); HEMATOCRIT 30.4 % (42.0-52.0); HEMOGLOBIN 10.3 g/dl (13.5-17.5); LYMPH # 0.5 10^3/uL (1.5-5.0); LYMPH % 5.5 % (24.0-44.0); MEAN CORPUSCULAR HEMOGLOBIN 34.1 pg (27.0-33.0); MEAN CORPUSCULAR HGB CONC 33.9 g/dl (32.0-36.5); MEAN CORPUSCULAR VOLUME 100.7 fl (80.0-96.0); MONO # 1.1 10^3/uL (0.0-0.8); MONO % 12.9 % (0.0-5.0); NEUTROPHILS % 78.8 % (36.0-66.0); PLATELET COUNT, AUTOMATED 190 10^3/uL (150-450); RED BLOOD COUNT 3.02 10^6/uL (4.30-6.10); WHITE BLOOD COUNT 8.8 10^3/uL (4.0-10.0)
[2019-12-10 07:49] LABS: CALCIUM LEVEL 8.9 MG/DL (8.8-10.2); CREATININE FOR GFR 1.95 MG/DL (0.70-1.30); GLOMERULAR FILTRATION RATE 35.9 (>42); POTASSIUM SERUM 4.8 MEQ/L (3.5-5.1)
[2019-12-10 07:55] VITALS: BP 134/77
[2019-12-10] MEDS: PANTOPRAZOLE 40MG TAB (PROTONIX) PO SCH (08:07)
[2019-12-10] MEDS: bisoproloL fumarate 5 MG TAB PO SCH ×2 (08:07→21:28)
[2019-12-10] MEDS: FERROUS SULFATE 325MG TAB PO SCH ×2 (08:08→21:29)
[2019-12-10] MEDS: **hydrALAZINE** 50 MG TAB PO SCH ×2 (08:08→21:29)
[2019-12-10] MEDS: MAGNESIUM OXIDE 400 MG TAB (MAG-OX) PO SCH ×2 (08:08→21:28)
[2019-12-10] MEDS: CALCITRIOL 0.25 MCG CAP (S0169) PO SCH (08:08)
[2019-12-10] MEDS: SODIUM CHLORIDE 1 GM TAB PO SCH ×2 (08:09→21:29)
[2019-12-10] MEDS: POTASSIUM CHLORIDE 10 MEQ SR TABLET PO SCH (08:09)
[2019-12-10] MEDS: ATORVASTATIN 20 MG TAB PO SCH (08:09)
[2019-12-10] MEDS: allopurinoL 100 MG TAB PO SCH (08:10)
[2019-12-10] MEDS: ISOSORBIDE DIN. (ISORDIL) 20 MG TAB PO SCH ×2 (08:10→21:29)
[2019-12-10] MEDS: SUCRALFATE 1 GM TAB PO SCH ×2 (08:10→21:28)
--- NOTE | 2019-12-10 08:10 | IPN ---
DATE: 12/09/2019 Mr. Li is seen this morning on his bedside. He is sitting in the chair at present and reports feeling much better today. He did have a formed stool this morning and reports improvement in diarrhea. He denies any dyspnea, chest pain, or leg edema. His diuretic has been on hold in view of hyponatremia. Patient reports ambulating in the hallway without any difficulty. On physical exam, temperature 97.2 degrees Fahrenheit, heart rate 88 per minute, and respiratory rate 16 per minute. Blood pressure 138/70 mmHg and oxygen saturation 98% on room air. Head is atraumatic. Neck is supple and jugular venous distention (JVD) difficult to be assessed sitting upright. Lungs sound clear to auscultation bilaterally and heart sounds are regular. Abdomen is soft and nontender and bowel sounds are normal. Extremities are without any cyanosis or clubbing. There is no edema on his legs so far. Neurologically he is awake, alert, and oriented times three. Todays labs show WBC count 7.4, hemoglobin 9.8, and hematocrit 29.9. Platelets 189. Sodium 126, potassium 4.2, chloride 91, CO2 24, BUN 26, and creatinine 1.95. Glucose 97 and calcium 8.4. PROBLEMS: 1. Hyponatremia. His sodium level was 119 on admission and went up to 127 last evening. We gave him intravenous dextrose 5% in water (D5W) 500 mL and this morning sodium is 126. We did not want it to go up any further. His diuretic is still on hold and we anticipate further gradual increase in his sodium level. 2. Acute kidney injury superimposed on chronic kidney disease. His diuretics have been on hold. Slight increase in creatinine is noticed despite the IV fluid given through the night. His intake and output has been almost even. 3. Anemia. At present his anemia is stable and does not need any urgent intervention. 4. Congestive heart failure. Patient has known history of combined systolic and diastolic congestive heart failure. His volume status is very well compensated and we will continue to hold his diuretics for now. 5. Clostridium difficile colitis. Symptoms are gradually improving. He has been on oral vancomycin for several weeks. I would defer to hospitalist service to consider switching him to Dificid. [facility]
[2019-12-10 08:34] VITALS: BP 151/78
--- NOTE | 2019-12-10 12:53 | IPNPDOC ---
Text Note Date of Service The patient was seen on 12/10/19. NOTE Subjective: Feels tired today since he hasn't been able to sleep at night. S odium remains at 126. urine Na of only 10. Today encouraged to ambulate. Physical exam Vital signs as below. Gen. patient awake, alert, oriented 3, laying down in bed in no acute distress. HEENT normocephalic and atraumatic, Moist mucous membranes. Anicteric eyes. Neck no JVD, no thyromegaly. Chest bilateral vesicular breath sounds clear to auscultation. No rhonchi, wheezing or crackles. Cardiovascular S1, S2, irregular, rate normal. Systolic murmur present. No rub or gallop Abdomen soft, nontender. Bowel sounds normal Extremities no edema, no cyanosis or clubbing Neuro No focal neuro deficits Labs and radiology reviewed Assessment and Plan: 74 y/o male with past medical history of CAD status post stents, chronic systolic and diastolic heart failure with EF of 20% in 2013, improved to 46% after AICD placement in 2014, gout, chronic renal insufficiency, stage III, GERD, hypertension, dyslipidemia, atrial fibrillation pyloric resection who presented to ER due to generalized weakness x1 day. He was recently hospitalized from 10/15 to 10/21 and treated for C.diff. diarrhea, RALPH, hyponatremia and discharged home with PO vancomycin which he states he has not finished yet. In November he was treated with 10 days of vancomycin. . He was started on vancomycin on November 13 as he had a repeat gastrointestinal panel done on November 13, which was positive for Campylobacter and C.diff. that he has on and off diarrhea still but his last bowel movements had formed stool. In ED, he was found to be hyponatremic to 119. Hyponatremia due to dehydration and hypovolemia due to ongoing diarrhea and dehydration and use of chronic diuretics Continue to hold torsemide and spironolactone appreciate nephrology consultation started salt tabs x 3 doses Generalized weakness 2/2 to dehydration, and hyponatremia C diff positive since september 2019. Continue vanco PO qid GI panel pending CKD stage 3 baseline creatinine about 1.8 creatinine is at baseline. Chronic systolic and diastolic CHF (last known EF 45%) euvolemic to hypovolemic will hold diuretics Atrial Fibrillation currently rate controlled had a trial of eliquis but resulted in melanotic stools so was stopped. ASA HTN bisoprolol, hydralazine HLD atorvastatin Hypomagnesemia, repleted. Gout/hyperuricemia. Allopurinol Glaucoma. Continue home meds DVT prophylaxis in place VS,Fishbone, I+O VS, Fishbone, I+O Laboratory Tests 12/09/19 15:01 12/10/19 06:51 Vital Signs Date Time Temp Pulse Resp B/P (MAP) Pulse Ox O2 Delivery O2 Flow Rate FiO2 12/10/19 08:34 97.8 74 18 151/78 (102) 97 Room Air I&O- Last 24 Hours up to 6 AM 12/10/19 06:00 Intake Total 1210 ml Output Total 400 ml Balance 810 ml CAREN STEWART MD Dec 10, 2019 12:53
[2019-12-10 13:40] VITALS: BP 140/80
[2019-12-10 14:00] VITALS: BP 140/80
[2019-12-10] MEDS: LATANOPROST 0.005% OPHTH SOLN 2.5 ML OU SCH (21:00)
[2019-12-10] MEDS: VITAMIN D 1,000 INTERNATIONAL UNITS TABLET PO SCH (21:28)
[2019-12-10] MEDS: ASPIRIN 81 MG ENTERIC TAB PO SCH (21:29)
[2019-12-10 22:00] VITALS: BP 141/81
[2019-12-11] MEDS: VANCOMYCIN ORAL SOL 250MG/5ML ORAL SYRINGE PO SCH ×2 (00:29→05:46)
[2019-12-11] MEDS: HEPARIN SOD (PORCINE) 5000UNITS/ML 1ML VIAL/SYRINGE SC SCH ×3 (05:46→21:02)
[2019-12-11 05:51] LABS: BASO % 0.5 % (0.0-1.0); EOS # 0.1 10^3/uL (0.0-0.5); EOS % 0.6 % (0.0-3.0); HEMOGLOBIN 10.3 g/dl (13.5-17.5); LYMPH # 0.3 10^3/uL (1.5-5.0); LYMPH % 4.4 % (24.0-44.0); MEAN CORPUSCULAR HEMOGLOBIN 33.8 pg (27.0-33.0); MEAN CORPUSCULAR HGB CONC 33.2 g/dl (32.0-36.5); MEAN CORPUSCULAR VOLUME 101.6 fl (80.0-96.0); MONO # 1.1 10^3/uL (0.0-0.8); MONO % 14.4 % (0.0-5.0); NEUTROPHILS # 6.2 10^3/uL (1.5-8.5); NEUTROPHILS % 79.3 % (36.0-66.0); PLATELET COUNT, AUTOMATED 187 10^3/uL (150-450); RED BLOOD COUNT 3.05 10^6/uL (4.30-6.10); WHITE BLOOD COUNT 7.8 10^3/uL (4.0-10.0)
[2019-12-11 06:00] VITALS: BP 132/76
[2019-12-11 06:22] LABS: CREATININE FOR GFR 2.07 MG/DL (0.70-1.30); GLOMERULAR FILTRATION RATE 33.5 (>42); POTASSIUM SERUM 5.4 MEQ/L (3.5-5.1)
--- NOTE | 2019-12-11 07:38 | IPNPDOC ---
Date Seen The patient was seen on 12/11/19. Progress Note SUBJECTIVE: patient was seen and examined at bedside this morning. Doing well. No acute events overnight. Reports improvement in diarrhea, now once per day, stool semi-formed. Denies chest pain, shortness of breath, palpitations, n/v or subjective fevers/chills. OBJECTIVE PHYSICAL EXAMINATION: VITAL SIGNS: Please see below. General: NAD, comfortable HEENT: PERRLA, EOMI, sclerae clear Neck: supple, normal ROM, no JVD Respiratory: lungs CTAB, no wheeze, no rales, no crackles CVS: RRR, normal S1, S2, no murmurs Abdo: soft, no masses, no hepatosplenomegaly, BS+, no rebound tenderness Extremities: no edema, pulses 2+ MSK: no joint deformities, normal ROM Neuro: no focal neuro deficits, moving all 4 extremities, CN2-12 intact. Strength 5/5 in all 4 extremities. No nystagmus. Psych: calm, cooperative, AAO x 3 LABORATORY DATA, IMAGING STUDIES, MICROBIOLOGY: Please see below DVT prophylaxis ordered?: Assessment and Plan: 74 y/o male with past medical history of CAD status post stents, chronic systolic and diastolic heart failure with EF of 20% in 2013, improved to 46% after AICD placement in 2014, gout, chronic renal insufficiency, stage III, GERD, hypertension, dyslipidemia, atrial fibrillation pyloric resection who presented to ER due to generalized weakness x1 day. He was recently hospitalized from 10/15 to 10/21 and treated for C.diff. diarrhea, RALPH, hyponatremia and discharged home with PO vancomycin which he states he has not finished yet. In November he was treated with 10 days of vancomycin. . He was started on vancomycin on November 13 as he had a repeat gastrointestinal panel done on November 13, which was positive for Campylobacter and C.diff. that he has on and off diarrhea still but his last bowel movements had formed stool. In ED, he was found to be hyponatremic to 119. Mr. Li is a 74 yo M with a PMHx of CAD (s/p stenting), chronic systolic and diastolic heart failure (EF20% in 2013, improved to 46% s/p AICD in 2014), gout, CKD III, GERD, HTN, HLD, Afib. He presented to [facility] ED with a 1 day hx of generalized weakness. He was hospitalized from 10/15 - 10/22/19 for c diff colitis, RALPH and hyponatremia, treated with PO vanc. He had a GI panel tested on 11/14/19, positive for campylobacter, and c diff. Noted to be hyponatreamic to 119 in the ED. Nephrology is consulted for assistance in management of hyponatremia. Hyponatremia: 2/2 dehydration and hypovolemia in setting of diarrhea/dehydration and chronic use of diuretics. Hold torsemide and spironolactone. Nephrology consulted. Salt tabs. Na improving. Discussed with Dr. Moseley, c/w salt tabs. Hyperkalemia: K 5.4. Patiromer one time (slightly reduced laxative effect as compared to kayexalate) Dr. Womack resumed torsemide 20 mg BID, stopped K tabs. Generalized weakness: 2/2 to dehydration, and hyponatremia. Treating c diff colitis/diarrhea. Vanco PO qid 12/07 - 12/11/19. GI panel pending. Switch patient to dificid 200 mg PO BID x 10 days. CKD stage 3: creatinine at baseline Chronic systolic and diastolic CHF (last known EF 45%): euvolemic. Dr. Moseley resumed torsemide 20 mg PO bid. Atrial Fibrillation: rate controlled. Not on AC as prior hx of melena on eliquis.ASA. HTN: continue bisoprolol, hydralazine HLD: lipitor Hypomagnesemia: replace Gout/hyperuricemia: allopurinol Glaucoma: home medications continued DVT prophylaxis: heparin, SCDs, TEDs Dispo: plan DC 12/12/19 pending improvement in Na, K. VS, I&O, 24H, Fishbone Vital Signs/I&O Vital Signs Date Time Temp Pulse Resp B/P (MAP) Pulse Ox O2 Delivery O2 Flow Rate FiO2 12/11/19 06:00 98.6 83 16 132/76 (94) 97 Room Air I&O- Last 24 Hours up to 6 AM 12/11/19 06:00 Intake Total 870 ml Output Total 0 ml Balance 870 ml Laboratory Data 24H LABS Laboratory Tests 2 12/11/19 05:39: Immature Granulocyte % (Auto) 0.8, Neutrophils (%) (Auto) 79.3H, Lymphocytes (%) (Auto) 4.4L, Monocytes (%) (Auto) 14.4H, Eosinophils (%) (Auto) 0.6, Basophils (%) (Auto) 0.5, Neutrophils # (Auto) 6.2, Lymphocytes # (Auto) 0.3L, Monocytes # (Auto) 1.1H, Eosinophils # (Auto) 0.1, Basophils # (Auto) 0.0, Nucleated Red Blood Cells % (auto) 2.8H, Anion Gap 8, Glomerular Filtration Rate 33.5L, Calcium Level 9.0 CBC/BMP Laboratory Tests 12/11/19 05:39 Microbiology Microbiology 12/09/19 Campylobacter (PCR), Received Pending 12/09/19 Clostridium difficile Toxin A&B PCR, Received Pending 12/09/19 Plesiomonas shigelloides (PCR), Received Pending 12/09/19 Salmonella (PCR)(BRIAN), Received Pending 12/09/19 Vibrio Species (PCR), Received Pending 12/09/19 Vibrio Cholerae (PCR), Received Pending 12/09/19 Yersinia enterocolitica (PCR), Received Pending 12/09/19 Enteroaggregative E. coli (PCR), Received Pending 12/09/19 Enteropathogenic E. coli (PCR), Received Pending 12/09/19 Enterotoxigenic E. coli (PCR), Received Pending 12/09/19 E. coli Shiga-like Toxin (PCR), Received Pending 12/09/19 Escherichia coli 0157 (PCR), Received Pending 12/09/19 Enteroinvasive E. coli/Shigella PCR, Received Pending 12/09/19 Cryptosporidium (PCR), Received Pending 12/09/19 Cyclospora cayetanensis (PCR), Received Pending 12/09/19 Entamoeba histolytica (PCR), Received Pending 12/09/19 Giardia lamblia (PCR), Received Pending 12/09/19 Adenovirus Type F 40/41 (PCR), Received Pending 12/09/19 Astrovirus (PCR), Received Pending 12/09/19 Norovirus GI/GII (PCR), Received Pending 12/09/19 Rotavirus A (PCR), Received Pending 12/09/19 Sapovirus I/II/IV/V (PCR), Received Pending NIESHA PERRY MD Dec 11, 2019 07:38
--- NOTE | 2019-12-11 08:18 | IPN ---
DATE: 12/10/2019 Mr. Li is seen this morning at his bedside. He reports feeling cold last night and is wearing two layers of clothes right now. He denies any dyspnea, chest pain, leg edema, nausea or vomiting. His diarrhea is still ongoing although improved. No fever or chills. PHYSICAL EXAMINATION: Temperature is 97.8 degrees Fahrenheit, heart is 74 per minute and respiratory rate is 18 per minute, blood pressure is 151/78 mmHg and oxygen saturation 97% on room air. HEAD: Atraumatic. There is no oral thrush or ulcers. NECK: Supple. JVD difficult to be assessed. HEART: Heart sounds are regular. LUNGS: Clear to auscultation. ABDOMEN: Soft and nontender. Bowel sounds are normal. EXTREMITIES: Without any cyanosis or clubbing. NEUROLOGIC: No focal deficits. LABS: Todays labs show WBC of 8.8, hemoglobin 10.3, hematocrit 30.4. Sodium 126, potassium 4.8, CO2 22, BUN 35 and creatinine 1.95. Glucose 76 and calcium 8.9. PROBLEMS: 1. Hyponatremia. Sodium level is essentially unchanged for the last 48 hours. He was started on oral sodium chloride tablets last evening and prior to this blood test received only one dose. He is going to have another two doses today and then will recheck his chemistries tomorrow. I will continue to hold off on his diuretic. 2. Congestive heart failure. His volume status remains very well-compensated. We will continue to hold diuretics. 3. Acute kidney injury superimposed on chronic kidney disease, no change in kidney function noticed. Electrolytes are otherwise stable hyponatremia. 4. Anemia, his anemia is also stable at present and does not need any urgent intervention. 5. C. Diff colitis. Patient remains on oral Vancomycin. I would suggest to consider switching to Dificid as he has been on oral Vancomycin for a few weeks without resolution of his diarrhea. MTDD
[2019-12-11] MEDS: bisoproloL fumarate 5 MG TAB PO SCH ×2 (08:59→21:02)
[2019-12-11] MEDS: PANTOPRAZOLE 40MG TAB (PROTONIX) PO SCH (09:00)
[2019-12-11] MEDS: ISOSORBIDE DIN. (ISORDIL) 20 MG TAB PO SCH ×2 (09:00→21:03)
[2019-12-11] MEDS: **hydrALAZINE** 50 MG TAB PO SCH ×2 (09:00→21:03)
[2019-12-11] MEDS: ATORVASTATIN 20 MG TAB PO SCH (09:00)
[2019-12-11] MEDS: POTASSIUM CHLORIDE 10 MEQ SR TABLET PO SCH (09:01)
[2019-12-11] MEDS: SODIUM CHLORIDE 1 GM TAB PO SCH ×3 (09:01→21:02)
[2019-12-11] MEDS: MAGNESIUM OXIDE 400 MG TAB (MAG-OX) PO SCH ×2 (09:01→21:03)
[2019-12-11] MEDS: allopurinoL 100 MG TAB PO SCH (09:02)
[2019-12-11] MEDS: FERROUS SULFATE 325MG TAB PO SCH ×2 (09:02→21:03)
[2019-12-11] MEDS: SUCRALFATE 1 GM TAB PO SCH ×2 (09:02→21:03)
[2019-12-11] MEDS ORDERED: TORSEMIDE 20 MG TAB PO ONE (10:00)
[2019-12-11] MEDS ORDERED: PATIROMER SORBITEX CALCIUM 8.4 GM POWDER PACKET (VELTASSA) PO ONE (11:00)
[2019-12-11 14:00] VITALS: BP 132/82
[2019-12-11] MEDS: FIDAXOMICIN 200 MG TAB (DIFICID) PO SCH ×2 (14:52→21:02)
--- NOTE | 2019-12-11 15:25 | IPN ---
DATE: 12/11/2019 SUBJECTIVE: Mr. Li is seen this morning at his bedside. He is feeling about the same and reports that he had a semi-formed stool this morning. His diarrhea has improved. His appetite is also getting better. He denies any nausea or vomiting. He has been off diuretics since admission due to severe hyponatremia. His sodium level has improved to 129 this morning. PHYSICAL EXAMINATION: VITAL SIGNS: Temperature is 98.6 degrees Fahrenheit, heart rate is 92 per minute and respiratory rate is 16 per minute. Blood pressure 134/76 mmHg and oxygen saturation is 97% on room air. HEENT: Head is atraumatic. Pupils equal and reactive to light. Sclera anicteric. There is no oral thrush or ulcers. NECK: Supple and JVD seems to be about 7 to 8 cm above the sternal angle. HEART: Regular. LUNGS: Few basilar rales. ABDOMEN: Soft and nontender. Bowel sounds are normal. EXTREMITIES: Without any cyanosis or clubbing. There is no peripheral edema. NEUROLOGIC: He is awake, alert and oriented x3. LABS: Todays labs showed a WBC 7.8, hemoglobin 10.3 and hematocrit 31. Sodium 129, potassium is 5.4, CO2 23, BUN 36 and creatinine 2.0. Calcium level is 9.0 and glucose is 89. PROBLEMS: 1. Hyponatremia. Sodium is gradually improving. He was given some oral sodium chloride tablets. Diuretics have been on hold since admission. I am going to put him on oral sodium chloride tablets 1 gram t.i.d. I am also starting furosemide 20 mg b.i.d. 2. Hyperkalemia, this is new and unexpected. He is not receiving any potassium sparing diuretic at this time. He does have potassium chloride 20 mEq daily that he was receiving and I am going to stop it. I am also going to resume diuretic with furosemide 20 mg b.i.d. and his electrolytes will be repeated this afternoon and again tomorrow morning. 3. Congestive heart failure. Patient has a known history of combined systolic and diastolic congestive heart failure. His diuretics have been on hold due to dehydration and hyponatremia. I am starting furosemide 20 mg b.i.d. with first dose this morning. 4. C. Diff colitis, continues to improve. He remains on oral Vancomycin. 5. Hypertension. Blood pressure is well-controlled on current medications and no changes are being made today. 6. Disposition, patient wants to go home and I have told him that he is likely to be ready for discharge in the next 24 hours. ANNIE
[2019-12-11 16:54] LABS: CALCIUM LEVEL 8.9 MG/DL (8.8-10.2); CREATININE FOR GFR 1.98 MG/DL (0.70-1.30); GLOMERULAR FILTRATION RATE 35.3 (>42); POTASSIUM SERUM 4.8 MEQ/L (3.5-5.1)
[2019-12-11] MEDS: TORSEMIDE 20 MG TAB PO SCH (17:09)
[2019-12-11] MEDS: LATANOPROST 0.005% OPHTH SOLN 2.5 ML OU SCH (21:00)
[2019-12-11] MEDS: ASPIRIN 81 MG ENTERIC TAB PO SCH (21:02)
[2019-12-11] MEDS: VITAMIN D 1,000 INTERNATIONAL UNITS TABLET PO SCH (21:02)
[2019-12-11 22:00] VITALS: BP 134/76
[2019-12-12 06:00] VITALS: BP 143/74
[2019-12-12] MEDS: HEPARIN SOD (PORCINE) 5000UNITS/ML 1ML VIAL/SYRINGE SC SCH ×2 (06:17→14:00)
[2019-12-12 07:44] LABS: BASO % 0.4 % (0.0-1.0); EOS # 0.1 10^3/uL (0.0-0.5); EOS % 0.9 % (0.0-3.0); HEMATOCRIT 28.6 % (42.0-52.0); HEMOGLOBIN 9.5 g/dl (13.5-17.5); LYMPH # 0.4 10^3/uL (1.5-5.0); LYMPH % 6.1 % (24.0-44.0); MEAN CORPUSCULAR HEMOGLOBIN 33.6 pg (27.0-33.0); MEAN CORPUSCULAR HGB CONC 33.2 g/dl (32.0-36.5); MEAN CORPUSCULAR VOLUME 101.1 fl (80.0-96.0); MONO % 15.2 % (0.0-5.0); NEUTROPHILS # 5.1 10^3/uL (1.5-8.5); NEUTROPHILS % 76.5 % (36.0-66.0); PLATELET COUNT, AUTOMATED 175 10^3/uL (150-450); RED BLOOD COUNT 2.83 10^6/uL (4.30-6.10); WHITE BLOOD COUNT 6.7 10^3/uL (4.0-10.0)
[2019-12-12 08:04] LABS: CALCIUM LEVEL 9.3 MG/DL (8.8-10.2); CREATININE FOR GFR 1.82 MG/DL (0.70-1.30); GLOMERULAR FILTRATION RATE 38.9 (>42); POTASSIUM SERUM 4.5 MEQ/L (3.5-5.1)
[2019-12-12] MEDS: FIDAXOMICIN 200 MG TAB (DIFICID) PO SCH (08:56)
[2019-12-12] MEDS: ISOSORBIDE DIN. (ISORDIL) 20 MG TAB PO SCH (08:56)
[2019-12-12] MEDS: **hydrALAZINE** 50 MG TAB PO SCH (08:56)
[2019-12-12 08:57] VITALS: BP 136/74
[2019-12-12] MEDS: allopurinoL 100 MG TAB PO SCH (08:57)
[2019-12-12] MEDS: bisoproloL fumarate 5 MG TAB PO SCH (08:57)
[2019-12-12] MEDS: PANTOPRAZOLE 40MG TAB (PROTONIX) PO SCH (08:57)
[2019-12-12] MEDS: SUCRALFATE 1 GM TAB PO SCH (08:57)
[2019-12-12] MEDS: CALCITRIOL 0.25 MCG CAP (S0169) PO SCH (08:57)
[2019-12-12] MEDS: TORSEMIDE 20 MG TAB PO SCH (08:57)
[2019-12-12] MEDS: FERROUS SULFATE 325MG TAB PO SCH (08:57)
[2019-12-12] MEDS: SODIUM CHLORIDE 1 GM TAB PO SCH (08:57)
[2019-12-12] MEDS: ATORVASTATIN 20 MG TAB PO SCH (08:57)
[2019-12-12] MEDS: MAGNESIUM OXIDE 400 MG TAB (MAG-OX) PO SCH (08:58)
--- NOTE | 2019-12-12 10:15 | DS.PDOC ---
Discharge Summary General Date of Admission Dec 07, 2019 at 21:56 Date of Discharge 12/12/19 Attending Physician: NIESHA PERRY MD Specialist/Consultants Involve: OH MOSELEY MD @ Discharge Summary PROCEDURES PERFORMED DURING STAY: [None]. ADMITTING DIAGNOSES: generalized weakness RALPH on CKD Hyponatremia Systolic CHF Atriafl Fibrillation HTN C diff colitis DISCHARGE DIAGNOSES: generalized weakness RALPH on CKD Hyponatremia Systolic CHF Atriafl Fibrillation HTN C diff colitis COMPLICATIONS/CHIEF COMPLAINT: Acute On Chronic Renal Insufficency. HISTORY OF PRESENT ILLNESS: Pt is a 74 y/o male who presents to ER due to generalized weakness x1 day. He was recently hospitalized and treated for C.diff. and discharged home with PO vancomycin which he states he has not finished yet. He states that he has on and off diarrhea still but his last bowel movement which was this am had formed stool. Denies CP, abdominal pain, n/v/d, fever chills. . HOSPITAL COURSE: Mr. Li is a 74 yo M with a PMHx of CAD (s/p stenting), chronic systolic and diastolic heart failure (EF20% in 2013, improved to 46% s/p AICD in 2015), gout, CKD III, GERD, HTN, HLD, Afib. He presented to [facility] ED with a 1 day hx of generalized weakness. He was hospitalized from 10/15 - 10/22/19 for c diff colitis, RALPH and hyponatremia, treated with PO vanc. He had a GI panel tested on 11/14/19, positive for campylobacter, and c diff. Noted to be hyponatreamic to 119 in the ED. Nephrology was consulted for assistance in management of hyponatremia. Hyponatremia: 2/2 dehydration and hypovolemia in setting of diarrhea/dehydration and chronic use of diuretics. Hold torsemide and spironolactone. Nephrology consulted. Salt tabs. Na improved. Discussed with Dr. Moseley, c/w salt tabs. Hyperkalemia: normalized. Dr. Womack resumed torsemide 20 mg BID. resumed Kcl tabs as back on diuretic. C diff colitis: 2/2 to dehydration, and hyponatremia. Treating c diff colitis/diarrhea. Vanco PO qid 12/07 - 12/11/19. GI panel pending. Switch patient to dificid 200 mg PO BID x 10 days. Diarrhea resolved. CKD stage 3: creatinine at baseline Chronic systolic and diastolic CHF (last known EF 45%): euvolemic. Dr. Moseley resumed torsemide 20 mg PO bid. Atrial Fibrillation: rate controlled. Not on AC as prior hx of melena on eliquis.ASA. HTN: continue bisoprolol, hydralazine HLD: lipitor Hypomagnesemia: replace Gout/hyperuricemia: allopurinol Glaucoma: home medications continued DVT prophylaxis: heparin, SCDs, TEDs DISCHARGE MEDICATIONS: Please see below. ALLERGIES: Please see below. PHYSICAL EXAMINATION ON DISCHARGE: VITAL SIGNS: Please see below. General: NAD, comfortable HEENT: PERRLA, EOMI, sclerae clear Neck: supple, normal ROM, no JVD Respiratory: lungs CTAB, no wheeze, no rales, no crackles CVS: RRR, normal S1, S2, no murmurs Abdo: soft, no masses, no hepatosplenomegaly, BS+, no rebound tenderness Extremities: no edema, pulses 2+ MSK: no joint deformities, normal ROM Neuro: no focal neuro deficits, moving all 4 extremities, CN2-12 intact. Strength 5/5 in all 4 extremities. No nystagmus. Psych: calm, cooperative, AAO x 3 LABORATORY DATA: Please see below. IMAGING: CT head (17/11/19): FINDINGS: Brain: The brain demonstrates diffuse volume loss. There is white matter hypodensity most consistent with chronic small vessel ischemic change. No visible evolving territorial infarct. No hemorrhage. An old transcortical medial left frontoparietal infarct. Focal, chronic appearing cerebellar infarcts. Focal, chronic appearing lacunar infarcts in the thalami. There are chronic ischemic changes in the basal ganglia regions. These findings are unchanged compared to the prior study. Cerebral ventricles: The ventricles are enlarged in keeping with volume loss. Bones/joints: Unremarkable. No acute fracture. Paranasal sinuses: Visualized sinuses are unremarkable. No fluid levels. Mastoid air cells: Visualized mastoid air cells are well aerated. Orbital cavity: Thinning of the lenses of the globes consistent with prior lens surgery. Soft tissues: Unremarkable. IMPRESSION: No acute intracranial abnormality seen CXR (12/07/19): FINDINGS: Tubes, catheters and devices: There is a right subclavian ICD device in place with its single lead projecting over the expected location of the right ventricle. Lungs: There is right basilar atelectasis. No lung consolidation or pulmonary edema is noted. Pleural space: Unremarkable. No pleural effusion or pneumothorax is identified. Heart/Mediastinum: The cardiac silhouette is enlarged, which is unchanged compared to the prior chest x-rays on 10/16/2019 and 02/06/2018. Vasculature: There are atherosclerotic calcifications of the aorta. Bones/joints: There are chronic compression deformities of T5, T6, and L1, which are better visualized in the CT chest on 10/16/2019 and can also be seen in the prior chest x-ray on 02/06/2018. IMPRESSION: 1. No radiographic evidence for an acute cardiopulmonary process. 2. Cardiomegaly, which is similar in appearance compared to the prior chest x-rays on 10/16/2019 and 02/06/2018. PROGNOSIS good ACTIVITY: [As tolerated]. DIET: 2G salt DISCHARGE PLAN: Home with PCP follow up DISPOSITION: Home DISCHARGE INSTRUCTIONS: Please medications as prescribed Please follow up with her primary care provider within 3 days. I'll up with with Dr. Moseley within 1 week. Return to the ED if developing worsening diarrhea, fatigue, weakness, dizziness, chest pain, shortness of breath. ITEMS TO FOLLOWUP ON ON OUTPATIENT: To repeat BMP to assess for hyponatremia and hyperkalemia. Assess for resolution of diarrhea secondary to C. difficile colitis after treatment with Dificid course DISCHARGE CONDITION: [Stable]. TIME SPENT ON DISCHARGE: Greater than 30 minutes. Vital Signs/I&Os Vital Signs Date Time Temp Pulse Resp B/P (MAP) Pulse Ox O2 Delivery O2 Flow Rate FiO2 12/12/19 08:57 82 136/74 12/12/19 06:00 95.6 19 95 Room Air I&O- Last 24 Hours up to 6 AM 12/12/19 06:00 Intake Total 1170 ml Balance 1170 ml Laboratory Data Labs 24H Laboratory Tests 2 12/11/19 16:21: Anion Gap 10, Glomerular Filtration Rate 35.3L, Calcium Level 8.9 12/12/19 07:23: Anion Gap 10, Glomerular Filtration Rate 38.9L, Calcium Level 9.3 12/12/19 07:24: Immature Granulocyte % (Auto) 0.9, Neutrophils (%) (Auto) 76.5H, Lymphocytes (%) (Auto) 6.1L, Monocytes (%) (Auto) 15.2H, Eosinophils (%) (Auto) 0.9, Basophils (%) (Auto) 0.4, Neutrophils # (Auto) 5.1, Lymphocytes # (Auto) 0.4L, Monocytes # (Auto) 1.0H, Eosinophils # (Auto) 0.1, Basophils # (Auto) 0.0, Nucleated Red Blood Cells % (auto) 1.6H CBC/BMP Laboratory Tests 12/11/19 16:21 12/12/19 07:23 12/12/19 07:24 Microbiology Microbiology 12/09/19 Campylobacter (PCR), Received Pending 12/09/19 Clostridium difficile Toxin A&B PCR, Received Pending 12/09/19 Plesiomonas shigelloides (PCR), Received Pending 12/09/19 Salmonella (PCR)(BRIAN), Received Pending 12/09/19 Vibrio Species (PCR), Received Pending 12/09/19 Vibrio Cholerae (PCR), Received Pending 12/09/19 Yersinia enterocolitica (PCR), Received Pending 12/09/19 Enteroaggregative E. coli (PCR), Received Pending 12/09/19 Enteropathogenic E. coli (PCR), Received Pending 12/09/19 Enterotoxigenic E. coli (PCR), Received Pending 12/09/19 E. coli Shiga-like Toxin (PCR), Received Pending 12/09/19 Escherichia coli 0157 (PCR), Received Pending 12/09/19 Enteroinvasive E. coli/Shigella PCR, Received Pending 12/09/19 Cryptosporidium (PCR), Received Pending 12/09/19 Cyclospora cayetanensis (PCR), Received Pending 12/09/19 Entamoeba histolytica (PCR), Received Pending 12/09/19 Giardia lamblia (PCR), Received Pending 12/09/19 Adenovirus Type F 40/41 (PCR), Received Pending 12/09/19 Astrovirus (PCR), Received Pending 12/09/19 Norovirus GI/GII (PCR), Received Pending 12/09/19 Rotavirus A (PCR), Received Pending 12/09/19 Sapovirus I/II/IV/V (PCR), Received Pending Discharge Medications Scheduled Allopurinol (Allopurinol) 100 Mg Tab, 100 MG PO DAILY, (Reported) Aspirin (Aspirin EC) 81 Mg Tablet.dr, 81 MG PO QHS, (Reported) Atorvastatin Calcium (Atorvastatin Calcium) 40 Mg Tab, 40 MG PO DAILY, (Reported) Bisoprolol Fumarate (Bisoprolol Fumarate) 5 Mg Tablet, 5 MG PO BID Calcitriol (Calcitriol) 0.25 Mcg Cap, 0.25 MCG PO Q2D, (Reported) Cholecalciferol (Vitamin D3) (Vitamin D3) 1,000 Unit Tablet, 1,000 UNITS PO QHS, (Reported) Ferrous Sulfate (Ferrous Sulfate) 325 Mg Tab, 325 MG PO BID, (Reported) Fidaxomicin (Dificid) 200 Mg Tablet, 200 MG PO BID Hydralazine HCl (Hydralazine HCl) 50 Mg Tab, 50 MG PO BID, (Reported) Isosorbide Dinitrate (Isosorbide Dinitrate) 20 Mg Tablet, 20 MG PO BID, (Reported) Latanoprost (Xalatan) 0.005% 2.5ML Drops, 1 DROP OU QHS, (Reported) Levothyroxine Sodium (Levothyroxine Sodium) 50 Mcg Tab, 50 MCG PO DAILY, (Reported) Magnesium Oxide (Magnesium Oxide) 250 Mg Tab, 250 MG PO DAILY, (Reported) Pantoprazole Sodium (Pantoprazole Sodium) 40 Mg Tablet.dr, 40 MG PO BID, (Reported) Potassium Chloride (Klor-Con M10) 10 Meq Tab.er.prt, 20 MEQ PO DAILY Sodium Chloride (Sodium Chloride) 1 Gm Tablet, 1 GM PO TID Sucralfate (Carafate) 1 Gm Tablet, 1 GM PO BID, (Reported) Torsemide (Torsemide) 20 Mg Tablet, 20 MG PO BID@0900,1700 Scheduled PRN Acetaminophen (Acetaminophen) 500 Mg Tablet, 1,000 MG PO Q12HP PRN for PAIN Hydroxyzine HCl (Hydroxyzine HCl) 10 Mg Tablet, 20 MG PO TID PRN for ITCHING, (Reported) Nitroglycerin (Nitrostat) 0.4 Mg Subl, 0.4 MG SL NITRO PRN for CHEST PAIN, (Reported) Allergies Coded Allergies: Penicillins (Verified Allergy, Severe, fainting/shock, 12/07/19) Sulfa (Sulfonamide Antibiotics) (Verified Allergy, Severe, ITCH/BURN/THROAT TIGHTENS, 12/07/19) Quinolones (Verified Allergy, Unknown, unknown, 12/07/19) NIESHA PERRY MD Dec 12, 2019 10:15
[2019-12-12] MEDS ORDERED: SODI1TAB6 PO (10:27)
[2019-12-12] MEDS ORDERED: TORS20TA2 PO (10:27)
[2019-12-12] MEDS ORDERED: ACET-683 PO (10:27)
[2019-12-12] MEDS ORDERED: DIFI200T PO (10:27)
[2019-12-12] MEDS ORDERED: KLOR10TA76 PO (10:27)
[2019-12-12] MEDS ORDERED: BISO5TAB14 PO (10:27)
--- NOTE | 2019-12-12 14:29 | IPN ---
DATE: 12/12/2019 SUBJECTIVE: Mr. Li is seen this morning at his bedside. He is feeling well and continues to have some loose stools. He now has been on Dificid instead of Vancomycin. He denies any dyspnea, chest pain, nausea or vomiting. Diuretic has been started at a decreased dose. PHYSICAL EXAMINATION: VITAL SIGNS: Temperature 95.6 degrees Fahrenheit, heart rate 82 per minute and respiratory rate 18 per minute. Blood pressure 136/74 mmHg and oxygen saturation 95% on room air. HEAD: Atraumatic. NECK: Supple. JVD difficult to be assessed. HEART: Heart sounds are regular. LUNGS: Clear to auscultation. ABDOMEN: Soft and nontender. Bowel sounds are normal. EXTREMITIES: Without any cyanosis or clubbing. There is no peripheral edema. NEUROLOGIC: He is awake, alert and oriented x3. LABS: Todays labs showed WBC count of 6.7, hemoglobin 9.5 and hematocrit 28.6. Sodium is up to 134, potassium is 4.5, CO2 23, BUN 37 and creatinine 1.82. Glucose 88 and calcium is 9.3. PROBLEMS: 1. Hyponatremia. Sodium level has improved nicely. He remains on oral sodium chloride and also diuretic was resumed yesterday. 2. Acute kidney injury superimposed on chronic kidney disease. Kidney function is slightly improved and stable. This is about his baseline function. 3. Congestive heart failure, volume status is reasonably well-compensated. He is on furosemide 20 mg b.i.d. He will continue with current dose and follow-up in the office for further adjustment in one week. 4. Hyperkalemia, potassium level has also corrected. I am going to resume his potassium chloride 20 mEq once a day as he is now back on diuretic. 5. Anemia, at present his anemia is stable and we will continue to monitor without any intervention. 6. C. Diff colitis. The diarrhea is improving and the patient is currently on Dificid. 7. Disposition. From a renal standpoint the patient can be discharged home and follow-up in the office in one week as an outpatient. ANNIE
[2019-12-13] MEDS ORDERED: POTASSIUM CHLORIDE 10 MEQ SR TABLET PO SCH (09:00)
== END 2019-12-12 14:25 | disposition home or self-care (01) | DRG 641 ==
LOC: M ED 18:40 → M ED INP 21:56 → M PCU 12-08 00:53 → M MS5PR 12-09 14:13
PROVIDERS: ADMIT Family Medicine; ATTEND Family Medicine
DX: E87.1 Hypo-osmolality and hyponatremia (principal); I50.42 Chronic combined systolic (congestive) and diastolic (congestive) heart failure; I13.0 Hypertensive heart and chronic kidney disease with heart failure and stage 1 through stage 4 chronic kidney disease, or unspecified chronic kidney disease; N17.9 Acute kidney failure, unspecified; A04.72 Enterocolitis due to Clostridium difficile, not specified as recurrent; E87.6 Hypokalemia; I25.10 Atherosclerotic heart disease of native coronary artery without angina pectoris; M10.9 Gout, unspecified; N18.30 Chronic kidney disease, stage 3 unspecified; E78.5 Hyperlipidemia, unspecified; H40.9 Unspecified glaucoma; R53.1 Weakness; E83.42 Hypomagnesemia; E86.0 Dehydration; I48.91 Unspecified atrial fibrillation; Z95.810 Presence of automatic (implantable) cardiac defibrillator; Z95.5 Presence of coronary angioplasty implant and graft; Z98.49 Cataract extraction status, unspecified eye; Z90.49 Acquired absence of other specified parts of digestive tract; Z87.891 Personal history of nicotine dependence; Z79.82 Long term (current) use of aspirin; Z88.2 Allergy status to sulfonamides; Z88.0 Allergy status to penicillin; Z88.1 Allergy status to other antibiotic agents

== ENCOUNTER 2020-09-08 21:14 | Observation (INO) | payer MEDICARE ==
[~2020-09-08] VITALS: Ht 165.1 cm; Wt 61.8 kg
[~2020-09-08 21:14] MED LIST changes: +ACET-683 PO; +D31000TA2 PO; +DIFI200T PO; +KLOR10TA76 PO; +LATANOPROST 0.005% OPHTH SOLN 2.5 ML OU SCH; -LISI40TA PO; +LISI40TA4 PO; +SODI1TAB6 PO; +VANC125C3 PO
[2020-09-08 22:17] LABS: BASO % 0.1 % (0.0-1.0); EOS % 0.3 % (0.0-3.0); HEMATOCRIT 36.5 % (42.0-52.0); HEMOGLOBIN 12.7 g/dl (13.5-17.5); LYMPH # 0.4 10^3/uL (1.5-5.0); LYMPH % 5.8 % (24.0-44.0); MEAN CORPUSCULAR HEMOGLOBIN 33.2 pg (27.0-33.0); MEAN CORPUSCULAR HGB CONC 34.8 g/dl (32.0-36.5); MEAN CORPUSCULAR VOLUME 95.5 fl (80.0-96.0); MONO # 0.8 10^3/uL (0.0-0.8); MONO % 11.1 % (2.0-8.0); NEUTROPHILS % 81.8 % (36.0-66.0); PLATELET COUNT, AUTOMATED 204 10^3/uL (150-450); RED BLOOD COUNT 3.82 10^6/uL (4.30-6.10); WHITE BLOOD COUNT 7.4 10^3/uL (4.0-10.0)
[2020-09-08 22:28] LABS: INR 0.91; PROTHROMBIN TIME 12.4 SECONDS (12.5-14.3)
[2020-09-08 22:52] LABS: BLOOD UREA NITROGEN 66 MG/DL (7-18); CARBON DIOXIDE LEVEL 29 MEQ/L (21-32); CHLORIDE LEVEL 81 MEQ/L (98-107); CK-MB VALUE MASS 1.3 NG/ML (<3.6); CPK CREATINE PHOSPHOKINASE 52 U/L (39-308); CREATININE FOR GFR 2.75 MG/DL (0.70-1.30); ETHYL ALCOHOL (ETHANOL) < 0.003 % (0.000-0.010); GLOMERULAR FILTRATION RATE 24.1 (>42); GLUCOSE, FASTING 136 MG/DL (70-100); MAGNESIUM LEVEL 2.5 MG/DL (1.8-2.4); POTASSIUM SERUM 3.6 MEQ/L (3.5-5.1); SODIUM LEVEL 122 MEQ/L (136-145); TROPONIN I < 0.02 NG/ML (< 0.10)
--- NOTE | 2020-09-08 23:30 | REPVR ---
PROCEDURE INFORMATION: Exam: CT Head Without Contrast Exam date and time: 09/08/2020 9:52 PM Age: 75 years old Clinical indication: Injury or trauma; Fall; Blunt trauma (contusions or hematomas); Additional info: Fall/hit head TECHNIQUE: Imaging protocol: Computed tomography of the head without contrast. Radiation optimization: All CT scans at this facility use at least one of these dose optimization techniques: automated exposure control; mA and/or kV adjustment per patient size (includes targeted exams where dose is matched to clinical indication); or iterative reconstruction. COMPARISON: CT Head without contrast 12/07/2019 7:25 PM FINDINGS: Brain: No acute intracranial hemorrhage is seen. There is no CT evidence for an acute large vessel territorial infarct. There are chronic infarcts involving the superomedial portion of the left parietal lobe, superior portions of both cerebellar hemispheres, posteroinferior portion of the right cerebellum, head of the right caudate nucleus, bilateral thalami, and bilateral basal ganglia, which are similar in appearance compared to the prior CT head on 12/07/2019. There are non-specific foci of low attenuation in the periventricular and subcortical white matter, which are likely the sequela of chronic small vessel ischemic injury and are similar in appearance compared to the prior CT head on 12/07/2019. Cerebral ventricles: The ventricles are mildly dilated in proportion to the sulci, which is compatible with mild generalized cerebral volume loss that is similar in appearance compared to the prior CT head on 12/05/2019. Paranasal sinuses: There is mild polypoid opacification of the base of the left maxillary sinus. There is thickening of the posterior wall of the right maxillary sinus. No air-fluid levels are seen in the sinuses. Mastoid air cells: The mastoid air cells are well aerated. Auditory system: There are soft tissues opacities in the external auditory canals, which likely represent cerumen. Bones/joints: The skull is intact. No suspicious osteolytic or osteoblastic lesion. Soft tissues: Unremarkable. No soft tissue fluid collection. IMPRESSION: Intact skull. No acute intracranial hemorrhage or acute intracranial abnormality. Electronically signed by: Maged Hagen On 09/08/2020 23:29:47 PM
--- NOTE | 2020-09-08 23:30 | REPVR ---
PROCEDURE INFORMATION: Exam: CT Cervical Spine Without Contrast Exam date and time: 09/08/2020 9:52 PM Age: 75 years old Clinical indication: Injury or trauma; Fall; Blunt trauma; Additional info: hit head TECHNIQUE: Imaging protocol: Computed tomography images of the cervical spine without contrast. Radiation optimization: All CT scans at this facility use at least one of these dose optimization techniques: automated exposure control; mA and/or kV adjustment per patient size (includes targeted exams where dose is matched to clinical indication); or iterative reconstruction. COMPARISON: CT Head without contrast 12/07/2019 7:25 PM FINDINGS: Vertebrae: There is no acute fracture or subluxation in the cervical spine. There is a chronic moderate anterior wedge compression fracture of C7 and a chronic mild anterior wedge compression fracture of T1 without any a radiolucent fracture line or retropulsion of the cortex. C2-C3: The disc height is preserved. No disc herniation, spinal canal stenosis, or neural foraminal stenosis is noted. The facet joints are unremarkable. C3-C4: The disc height is preserved. There is a broad central protrusion and mild osteoarthritis of the facet joints. No spinal canal or neural foraminal stenosis is noted. C4-C5: The disc height is preserved. No disc herniation, spinal canal stenosis, or neural foraminal stenosis is noted. There is mild osteoarthritis of the left facet joint. C5-C6: The disc height is preserved. No disc herniation, spinal canal stenosis, or neural foraminal stenosis is noted. The facet joints are unremarkable. C6-C7: The disc height is preserved. No disc herniation, spinal canal stenosis, or neural foraminal stenosis is noted. The facet joints are unremarkable. C7-T1: The disc height is preserved. No disc herniation, spinal canal stenosis, or neural foraminal stenosis is noted. The facet joints are unremarkable. T1-T2: The disc height is preserved. No disc herniation, spinal canal stenosis, or neural foraminal stenosis is noted. The facet joints are unremarkable. Other bones/joints: The bones have a demineralized appearance. Soft tissues: Unremarkable. No soft tissue fluid collection. Dental: Multiple teeth are missing. There are several dental caries and periapical abscesses. The teeth were not fully imaged. Prevertebral Space: No prevertebral soft tissue swelling. Vasculature: There are atherosclerotic calcifications. Lungs: The imaged lung apices are clear. The lungs were not fully imaged. IMPRESSION: 1. No acute fracture or subluxation in the cervical spine. 2. Chronic moderate anterior wedge compression fracture of C7. 3. Chronic mild anterior wedge compression fracture of T1. 4. Several dental caries and periapical abscesses. Electronically signed by: Maged Hagen On 09/08/2020 23:29:41 PM
--- NOTE | 2020-09-08 23:34 | REPVR ---
PROCEDURE INFORMATION: Exam: XR Chest Exam date and time: 09/08/2020 9:59 PM Age: 75 years old Clinical indication: Other: Syncope; Additional info: Syncope/near-syncope TECHNIQUE: Imaging protocol: XR of the chest. Views: 1 view. COMPARISON: CR PORTABLE CHEST X-RAY 12/07/2019 7:52 PM FINDINGS: Tubes, catheters and devices: Right approach single lead pacemaker/defibrillator. Lungs: Unremarkable. No consolidation. Pleural spaces: Unremarkable. No pleural effusion. No pneumothorax. Heart/Mediastinum: Cardiomegaly. Bones/joints: Degenerative changes of the spine. IMPRESSION: No acute abnormality. Electronically signed by: Charlie Murphy On 09/08/2020 23:34:07 PM
[2020-09-09 00:06] LABS: AMPHETAMINES LEVEL URINE NEGATIVE (NEGATIVE); BARBITURATES URINE NEGATIVE (NEGATIVE); BENZODIAZEPINES URINE NEGATIVE (NEGATIVE); CANNABINOIDS URINE NEGATIVE (NEGATIVE); COCAINE METABOLITE URINE NEGATIVE (NEGATIVE); METHADONE URINE NEGATIVE (NEGATIVE); OPIATES URINE NEGATIVE (NEGATIVE); PHENCYCLIDINE URINE NEGATIVE (NEGATIVE)
[2020-09-09] MEDS ORDERED: MAALOX 30 ML SUSP *UDC PO PRN (00:25)
[2020-09-09] MEDS ORDERED: ACETAMINOPHEN TAB 650MG DOSE (2X325MG) PO PRN (00:25)
[2020-09-09] MEDS ORDERED: MOM 30ML SUSPENSION UDC PO PRN (00:25)
[2020-09-09] MEDS ORDERED: NS 1,000 ML IV SCH (00:25)
--- NOTE | 2020-09-09 00:39 | HPEPDOC ---
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 Patient states that he had stood up off his couch and was on the way to go to the bathroom when suddenly he syncopized. Patient states that he vaguely remembers falling and denies pre fall dizziness or post fall grogginess. Patients states that he struck his head when he fell. Patient states that he was not able to get up after he fell and had to be helped up by his son simply because he felt weak. Patient states that at the time of my exam, he does not believe he feels sick. Son states that he has had poor oral intake for the past 3-4 days. He denies fevers, chills, headaches, blurry vision, unilateral weakness, chest pain, sob, abd pain, n/v/d/c, recent illness.] PAST MEDICAL HISTORY: 1. [Please see below. PAST SURGICAL HISTORY: 1. [B/l cataract removal and blethoplasty]. 2. [Cardiac catheterization with stenting]. 3. [AICD placement 4. Watchman device placement 5. Appendectomy 6. Pyloric resection]. SOCIAL HISTORY: Tobacco use:[former] ETOH: [rarely] Illicit drug use: [denies] FAMILY HISTORY: Reviewed - none pertinent ALLERGIES: Please see below. REVIEW OF SYSTEMS: CONSTITUTIONAL: [See HPI]. HEENT: [Denies uri sx]. CARDIOVASCULAR: [Denies chest pain, palpitations]. RESPIRATORY: [Denies sob, wheezing]. GASTROINTESTINAL: [See HPI]. GENITOURINARY: [Denies dysuria]. SKIN: [Denies rash]. MUSCULOSKELETAL: [Denies acute joint/back pain]. NEUROLOGICAL: [See HPI]. ENDOCRINE: [Denies hx of DM]. HEMATOLOGIC/LYMPHATIC: [Denies easy bruising]. HOME MEDICATIONS: Please see below. PHYSICAL EXAMINATION: VITAL SIGNS: Please see below. GENERAL APPEARANCE: [This is a 75 y/o male who is alert and oriented to all questioning. He does not appear to be in any acute respiratory distress.]. HEENT: [No mass or lesion. EOMI. No scleral icterus. Nares patent. oral mucosa dry.]. CARDIOVASCULAR: [Irregularly irregular rhythm.]. LUNGS: [Good air flow b/l. No wheezing, rales, rhonchi.]. ABDOMEN: [Soft, nontender]. MUSCULOSKELETAL: [No joint deformity]. EXTREMITIES: [No peripheral edema noted. No overlying skin changes. Pulses intact.]. NEUROLOGICAL: [Speech clear. A+Ox3. No focal deficits.]. PSYCHIATRIC:Mood and affect appear appropriate.]. LABORATORY DATA: See below. IMAGING: [Cervical spine CT: FINDINGS: Vertebrae: There is no acute fracture or subluxation in the cervical spine. There is a chronic moderate anterior wedge compression fracture of C7 and a chronic mild anterior wedge compression fracture of T1 without any a radiolucent fracture line or retropulsion of the cortex. C2-C3: The disc height is preserved. No disc herniation, spinal canal stenosis, or neural foraminal stenosis is noted. The facet joints are unremarkable. C3-C4: The disc height is preserved. There is a broad central protrusion and mild osteoarthritis of the facet joints. No spinal canal or neural foraminal stenosis is noted. C4-C5: The disc height is preserved. No disc herniation, spinal canal stenosis, or neural foraminal stenosis is noted. There is mild osteoarthritis of the left facet joint. C5-C6: The disc height is preserved. No disc herniation, spinal canal stenosis, or neural foraminal stenosis is noted. The facet joints are unremarkable. C6-C7: The disc height is preserved. No disc herniation, spinal canal stenosis, or neural foraminal stenosis is noted. The facet joints are unremarkable. C7-T1: The disc height is preserved. No disc herniation, spinal canal stenosis, or neural foraminal stenosis is noted. The facet joints are unremarkable. T1-T2: The disc height is preserved. No disc herniation, spinal canal stenosis, or neural foraminal stenosis is noted. The facet joints are unremarkable. Other bones/joints: The bones have a demineralized appearance. Soft tissues: Unremarkable. No soft tissue fluid collection. Dental: Multiple teeth are missing. There are several dental caries and periapical abscesses. The teeth were not fully imaged. Prevertebral Space: No prevertebral soft tissue swelling. Vasculature: There are atherosclerotic calcifications. Lungs: The imaged lung apices are clear. The lungs were not fully imaged. IMPRESSION: 1. No acute fracture or subluxation in the cervical spine. 2. Chronic moderate anterior wedge compression fracture of C7. 3. Chronic mild anterior wedge compression fracture of T1. 4. Several dental caries and periapical abscesses. Head CT: FINDINGS: Brain: No acute intracranial hemorrhage is seen. There is no CT evidence for an acute large vessel territorial infarct. There are chronic infarcts involving the superomedial portion of the left parietal lobe, superior portions of both cerebellar hemispheres, posteroinferior portion of the right cerebellum, head of the right caudate nucleus, bilateral thalami, and bilateral basal ganglia, which are similar in appearance compared to the prior CT head on 12/07/2019. There are non-specific foci of low attenuation in the periventricular and subcortical white matter, which are likely the sequela of chronic small vessel ischemic injury and are similar in appearance compared to the prior CT head on 12/07/2019. Cerebral ventricles: The ventricles are mildly dilated in proportion to the sulci, which is compatible with mild generalized cerebral volume loss that is similar in appearance compared to the prior CT head on 12/05/2019. Paranasal sinuses: There is mild polypoid opacification of the base of the left maxillary sinus. There is thickening of the posterior wall of the right maxillary sinus. No air-fluid levels are seen in the sinuses. Mastoid air cells: The mastoid air cells are well aerated. Auditory system: There are soft tissues opacities in the external auditory canals, which likely represent cerumen. Bones/joints: The skull is intact. No suspicious osteolytic or osteoblastic lesion. Soft tissues: Unremarkable. No soft tissue fluid collection. IMPRESSION: Intact skull. No acute intracranial hemorrhage or acute intracranial abnormality. CXR: FINDINGS: Tubes, catheters and devices: Right approach single lead pacemaker/defibrillator. Lungs: Unremarkable. No consolidation. Pleural spaces: Unremarkable. No pleural effusion. No pneumothorax. Heart/Mediastinum: Cardiomegaly. Bones/joints: Degenerative changes of the spine. IMPRESSION: No acute abnormality.] MICROBIOLOGY: Please see below. 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 Of note, patietn found to have sodium of 122 and ralph with cr of 2.75 from baseline 1.8 in the ED.]. . PLAN: 1. [Syncope - CT head in the ed was negative - Carotid us, repeat echo (last was in 2019 per my chart review) - neuro checks - will check an orthostat - fluids - admit to med surg under obs with tele 2. Hyponatremia - Seems to be chronic. Patient has had this level of hyponatremia on past admissions - Will start ns ivf for now - will recheck sodium in the am and adjust ivf as necessary, needs to be adjusted slowly 3. RALPH - most likely pre renal d/t poor oral intake - renal us - urine electrolytes - ivf, as stated - holding nephrotoxic meds 4. CHF - patient not in acute exacerbation - will monitor patients volume status closely while administering ivf as patient could easily exacerbate - continue isosorbide, bisoprolol, asa 5. HTN - continue hydralazine 6. CAD - continue nitro 7. GERD - continue protonix, carafate 8. HLD - continue simvastatin 9. Hypothyroidism - continue synthroid DVT prophylaxis - heparin]. Vital Signs Vital Signs Date Time Temp Pulse Resp B/P (MAP) Pulse Ox O2 Delivery O2 Flow Rate FiO2 09/08/20 22:12 09/08/20 21:15 98.0 73 16 97 Room Air Laboratory Data Labs 24H Laboratory Tests 2 09/08/20 21:49: Immature Granulocyte % (Auto) 0.9, Neutrophils (%) (Auto) 81.8H, Lymphocytes (%) (Auto) 5.8L, Monocytes (%) (Auto) 11.1H, Eosinophils (%) (Auto) 0.3, Basophils (%) (Auto) 0.1, Neutrophils # (Auto) 6.0, Lymphocytes # (Auto) 0.4L, Monocytes # (Auto) 0.8, Eosinophils # (Auto) 0.0, Basophils # (Auto) 0.0, Nucleated Red Blood Cells % (auto) 0.0, Prothrombin Time 12.4, Prothromb Time International Ratio 0.91, Anion Gap 12, Glomerular Filtration Rate 24.1L, Calcium Level 9.0, Magnesium Level 2.5H, Total Creatine Kinase 52, Creatine Kinase MB 1.3, Creatine Kinase MB Relative Index 2.50, Troponin I < 0.02, Thyroid Stimulating Hormone (TSH) 2.490, Urine Opiates Screen NEGATIVE, Urine Methadone Screen NEGATIVE, Urine Barbiturates Screen NEGATIVE, Urine Phencyclidine Screen NEGATIVE, Urine Amphetamines Screen NEGATIVE, Urine Benzodiazepines Screen NEGATIVE, Urine Cocaine Metabolite Screen NEGATIVE, Urine Cannabinoids Screen NEGATIVE, Ethyl Alcohol Level < 0.003 09/09/20 00:06: CBC/BMP Laboratory Tests 09/08/20 21:49 Home Medications Scheduled Allopurinol (Allopurinol) 100 Mg Tab, 100 MG PO DAILY Aspirin (Aspirin EC) 81 Mg Tablet.dr, 81 MG PO QPM TAKES AT DINNERTIME Atorvastatin Calcium (Atorvastatin Calcium) 40 Mg Tab, 40 MG PO DAILY Bisoprolol Fumarate (Bisoprolol Fumarate) 5 Mg Tablet, 5 MG PO BID Calcitriol (Calcitriol) 0.25 Mcg Cap, 0.5 MCG PO 3XW TUESDAY, TUESDAY AND TUESDAY Calcitriol (Calcitriol) 0.25 Mcg Capsule, 0.25 MCG PO 4XWK TUESDAY, TUESDAY, TUESDAY, AND TUESDAY Cholecalciferol (Vitamin D3) (Vitamin D3) 1,000 Unit Tablet, 1,000 UNITS PO QPM TAKES AT DINNERTIME Ferrous Sulfate (Ferrous Sulfate) 325 Mg Tab, 325 MG PO BID Hydralazine HCl (Hydralazine HCl) 50 Mg Tab, 50 MG PO BID Isosorbide Dinitrate (Isosorbide Dinitrate) 20 Mg Tablet, 20 MG PO BID L.acidoph/L.bulg/B.bif/S.therm (Bacid Caplet) 1 Each Tablet, 1 TAB PO DAILY Latanoprost (Xalatan) 0.005% 2.5ML Drops, 1 DROP OU QHS Levothyroxine Sodium (Levothyroxine Sodium) 50 Mcg Tab, 50 MCG PO DAILY Magnesium Oxide (Magnesium Oxide) 400 Mg Tablet, 400 MG PO BID Pantoprazole Sodium (Pantoprazole Sodium) 20 Mg Tablet.dr, 20 MG PO BID Spironolactone (Spironolactone) 25 Mg Tablet, 25 MG PO DAILY Sucralfate (Carafate) 1 Gm Tablet, 1 GM PO DAILY Torsemide (Torsemide) 100 Mg Tablet, 50 MG PO BID Scheduled PRN Acetaminophen (Tylenol Extra Strength) 500 Mg Tablet, 500 MG PO Q4H PRN for PAIN LEVEL 1-5 Benzonatate (Benzonatate) 200 Mg Capsule, 200 MG PO TID PRN for COUGH MDD 3 Clobetasol Propionate (Temovate) 15 Gm Oint...g., 1 DOSE TOP BID PRN for RASH APPLY TO ARMS Hydroxyzine HCl (Hydroxyzine HCl) 10 Mg Tablet, 10 MG PO TID PRN for ITCHING Nitroglycerin (Nitrostat) 0.4 Mg Subl, 0.4 MG SL NITRO PRN for CHEST PAIN Allergies Coded Allergies: Penicillins (Verified Allergy, Severe, fainting/shock, 12/07/19) Sulfa (Sulfonamide Antibiotics) (Verified Allergy, Severe, ITCH/BURN/THROAT TIGHTENS, 12/07/19) Quinolones (Verified Allergy, Unknown, unknown, 12/07/19) A-FIB/CHADSVASC A-FIB History Current/History of A-Fib/PAF?: Yes Current PO Anticoag Therapy: No (s/p watchman device) VERNA PABON Sep 09, 2020 00:39
[2020-09-09 01:16] LABS: RSV AMPLIFICATION NEGATIVE (NEGATIVE)
[2020-09-09 01:47] LABS: APPEARANCE, URINE CLEAR (CLEAR); BACTERIA, URINE AUTO NEGATIVE (NEGATIVE); BILIRUBIN, URINE AUTO NEGATIVE (NEGATIVE); BLOOD, URINE BLOOD NEGATIVE (NEGATIVE); COLOR, URINE YELLOW (YELLOW); GLUCOSE, URINE (UA) AUTO NEGATIVE (NEGATIVE); KETONE, URINE AUTO NEGATIVE (NEGATIVE); LEUKOCYTE ESTERASE, URINE AUTO NEGATIVE (NEGATIVE); NITRITE, URINE AUTO NEGATIVE (NEGATIVE); PROTEIN, URINE AUTO NEGATIVE (NEGATIVE); RBC, URINE AUTO 0 /HPF (0-3); SPECIFIC GRAVITY URINE AUTO 1.005 (1.002-1.035); SQUAMOUS EPITHELIAL CELL UR AU 0 /HPF (0-6); UROBILINOGEN, URINE AUTO 0.2 mg/dL (0.0-2.0); WBC, URINE AUTO 0 /HPF (0-3)
[2020-09-09] MEDS ORDERED: TEMO0.0517 TOP (02:03)
[2020-09-09] MEDS ORDERED: ACET-897 PO (02:03)
[2020-09-09] MEDS ORDERED: PANT20TA6 PO (02:03)
[2020-09-09] MEDS ORDERED: BISO5TAB14 PO (02:03)
[2020-09-09] MEDS ORDERED: TORS100T PO (02:03)
[2020-09-09] MEDS ORDERED: BACITAB PO (02:03)
[2020-09-09] MEDS ORDERED: BENZ200C70 PO (02:03)
[2020-09-09] MEDS ORDERED: CALC1CAP31 PO (02:03)
[2020-09-09] MEDS ORDERED: MAGN400T3 PO (02:03)
[2020-09-09] MEDS ORDERED: SPIR-10 PO (02:03)
[2020-09-09 02:15] LABS: CREATININE,RANDOM URINE 35.3 MG/DL
[2020-09-09] MEDS ORDERED: BENZONATATE 100 MG CAP PO PRN (02:45)
[2020-09-09] MEDS ORDERED: NITROGLYCERIN 0.4 MG SUBL TABLET SL PRN (02:45)
[2020-09-09] MEDS ORDERED: hydrOXYzine 10 MG TAB PO PRN (02:45)
[2020-09-09] MEDS ORDERED: CLOBETASOL PROP 0.05% OINT 30 GM TOP PRN (02:45)
--- NOTE | 2020-09-09 03:04 | REPVR ---
PROCEDURE INFORMATION: Exam: US Retroperitoneal Limited, Kidneys Exam date and time: 09/09/2020 2:27 AM Age: 75 years old Clinical indication: Abnormal findings; Abnormal lab test; Abnormal kidney function lab tests; Additional info: Syncope TECHNIQUE: Imaging protocol: Real-time ultrasound of the retroperitoneum with image documentation. Examination was focused on the kidneys. COMPARISON: CT ABD PELVIS W/O CONTRAST 02/25/2018 12:17 PM FINDINGS: Right kidney: The right kidney measures 10.1 cm in length. There is no renal cortical thinning. The renal cortical echogenicity is within normal limits. There is a 1.3 cm x 1 cm x 0.8 cm benign-appearing cyst arising from the upper pole of the right kidney, which is stable compared to the prior CT abdomen and pelvis on 02/25/2018 and for which follow-up imaging is not necessary. There is no hydronephrosis. No obvious stones are seen in the renal collecting system. Left kidney: The left kidney measures 10.5 cm in length. There is no renal cortical thinning. The renal cortical echogenicity is within normal limits. There is an 8.7 cm x 6 cm x 5.7 cm benign-appearing exophytic cyst arising from the interpolar region of the left kidney, which is stable compared to the prior CT abdomen and pelvis on 02/25/2018 and for which follow-up imaging is not necessary. There is no hydronephrosis. No obvious stones are seen in the renal collecting system. Bladder: The urinary bladder is unremarkable. IMPRESSION: 1. No hydronephrosis. 2. Bilateral benign-appearing renal cysts, which are stable compared to the prior CT abdomen and pelvis on 02/25/2018 and for which follow-up imaging is not necessary. Electronically signed by: Maged Hagen On 09/09/2020 03:03:55 AM
--- NOTE | 2020-09-09 03:04 | REPVR ---
PROCEDURE INFORMATION: Exam: US Duplex Bilateral Extracranial Arteries Exam date and time: 09/09/2020 2:27 AM Age: 75 years old Clinical indication: Syncope and collapse TECHNIQUE: Imaging protocol: Real-time Duplex ultrasound scan of the bilateral carotid and vertebral arteries combining ceballos scale, color Doppler and spectral waveform analysis. Bilateral exam. COMPARISON: CT Spine,cervical w/o contrast 09/08/2020 9:51:07 PM FINDINGS: Right common carotid artery: Atherosclerotic calcifications are present. No occlusion or significant stenosis. Waveforms are normal. Peak systolic velocity of 112.2 cm/s. Right internal carotid artery: Moderate stenosis (50-69%) involving the proximal portion of the right internal carotid artery is noted secondary to calcified atherosclerotic plaque. Waveforms are normal. Peak systolic velocity of 138.8 cm/s. Right ICA/CCA ratio: 1.24. Within normal limits (<2). Right external carotid artery: No significant stenosis in the origin. Peak systolic velocity of 100.7 cm/s. Right vertebral artery: Unremarkable. Antegrade flow. Peak systolic velocity of 37.9 cm/s. Left common carotid artery: Atherosclerotic calcifications are present. No occlusion or significant stenosis. Waveforms are normal. Peak systolic velocity of 143.4 cm/s. Left internal carotid artery: Atherosclerotic calcifications are present. No occlusion or significant stenosis. Waveforms are normal. Peak systolic velocity of 81 cm/s. Left ICA/CCA ratio: 0.56. Within normal limits (<2). Left external carotid artery: Moderate stenosis (50-69%) in the origin secondary to calcified atherosclerotic plaque. Peak systolic velocity of 171.2 cm/s. Left vertebral artery: Unremarkable. Antegrade flow. Peak systolic velocity of 25.2 cm/s. IMPRESSION: 1. Moderate stenosis (50-69%) involving the proximal portion of the right internal carotid artery. 2. Moderate stenosis (50-69%) in the origin of the left external carotid artery. REFERENCES: SRU CRITERIA. The degree of internal carotid artery stenosis is based on criteria defined by the Society of Radiologists in Ultrasound (SRU). Normal is no stenosis. Mild is less than 50% stenosis. Moderate is 50-69% stenosis. Severe is greater than 69% stenosis to near occlusion. Near occlusion is a markedly narrowed lumen. Total occlusion is no detectable patent lumen. Electronically signed by: Maged Hagen On 09/09/2020 03:04:01 AM
[2020-09-09 03:25] LABS: CALCIUM LEVEL 8.8 MG/DL (8.8-10.2); CREATININE FOR GFR 2.51 MG/DL (0.70-1.30); GLOMERULAR FILTRATION RATE 26.7 (>42); POTASSIUM SERUM 3.5 MEQ/L (3.5-5.1)
[2020-09-09] MEDS ORDERED: LEVOTHYROXINE 50MCG TABLET (0.05MG) PO SCH (06:00)
[2020-09-09 06:07] LABS: HEMOGLOBIN 12.1 g/dl (13.5-17.5); MEAN CORPUSCULAR HEMOGLOBIN 33.2 pg (27.0-33.0); MEAN CORPUSCULAR HGB CONC 34.6 g/dl (32.0-36.5); MEAN CORPUSCULAR VOLUME 96.2 fl (80.0-96.0); PLATELET COUNT, AUTOMATED 204 10^3/uL (150-450); RED BLOOD COUNT 3.64 10^6/uL (4.30-6.10); WHITE BLOOD COUNT 6.8 10^3/uL (4.0-10.0)
[2020-09-09 06:31] LABS: CALCIUM LEVEL 8.5 MG/DL (8.8-10.2); CREATININE FOR GFR 2.44 MG/DL (0.70-1.30); GLOMERULAR FILTRATION RATE 27.6 (>42); MAGNESIUM LEVEL 2.7 MG/DL (1.8-2.4); POTASSIUM SERUM 3.4 MEQ/L (3.5-5.1)
--- NOTE | 2020-09-09 08:27 | ECGEPIP ---
[facility] - ED Test Date: 2020-09-08 Pat Name: BRYCE KNOX Department: Room: [place] [address] Gender: Male [address] Reporter: TAMIE : 1945 Requested By: CARLOS Cavanaugh Order Number: [id number] Reading MD: Virgil Prescott Measurements Intervals [place] Rate: 73 P: ME: QRS: -10 QRSD: 98 T: 193 QT: 402 QTc: 442 Interpretive Statements Atrial fibrillation with premature ventricular or aberrantly conducted complexes Left ventricular hypertrophy with repolarization abnormality ( [place] product ) SIMILAR TO 12/07/19 Electronically Signed on 09-09-2020 8:26:52 EDT by Virgil Prescott
[2020-09-09] MEDS ORDERED: **hydrALAZINE** 50 MG TAB PO SCH (09:00)
[2020-09-09] MEDS ORDERED: PANTOPRAZOLE 20 MG TAB PO SCH (09:00)
[2020-09-09] MEDS ORDERED: FERROUS SULFATE 325MG TAB PO SCH (09:00)
[2020-09-09] MEDS ORDERED: ATORVASTATIN 20 MG TAB PO SCH (09:00)
[2020-09-09] MEDS ORDERED: LACTOBACILLUS ACIDOPHILUS CAP (BACID) PO SCH (09:00)
[2020-09-09] MEDS ORDERED: HEPARIN SOD (PORCINE) 5000UNITS/ML 1ML VIAL/SYRINGE SC SCH (09:00)
[2020-09-09] MEDS ORDERED: SUCRALFATE 1 GM TAB PO SCH (09:00)
[2020-09-09] MEDS ORDERED: MAGNESIUM OXIDE 400MG TAB (MAG-OX) PO SCH (09:00)
[2020-09-09] MEDS ORDERED: ISOSORBIDE DIN. (ISORDIL) 20 MG TAB PO SCH (09:00)
[2020-09-09] MEDS ORDERED: bisoproloL fumarate 5 MG TAB PO SCH (09:00)
[2020-09-09 11:45] LABS: CREATININE FOR GFR 2.3 MG/DL (0.70-1.30); GLOMERULAR FILTRATION RATE 29.6 (>42); POTASSIUM SERUM 3.4 MEQ/L (3.5-5.1)
[2020-09-09] MEDS ORDERED: POTASSIUM CHLORIDE 10 MEQ SR TABLET PO ONE (12:00)
[2020-09-09 12:49] VITALS: BP 109/70
--- NOTE | 2020-09-09 16:04 | DS.PDOC ---
Discharge Summary General Date of Admission Sep 08, 2020 at 21:15 Date of Discharge 09/09/2020 Primary Care Physician: Erinn Mcdowell MD Attending Physician: ADOLPH ALVARADO DO Discharge Summary PROCEDURES PERFORMED DURING STAY: None. ADMITTING DIAGNOSES: 1. Syncope 2. Hyponatremia 3. RALPH on CKD 4. CHF 5. Hypertension 6. CAD 7. GERD 8. Hyperlipidemia 9. Hypothyroidism DISCHARGE DIAGNOSES: 1. Syncope, most likely orthostatic hypotension, resolved. 2. Chronic hyponatremia, improved 3. Acute kidney injury on CKD, improved 4. Congestive heart failure 5. Hypertension 6. Coronary artery disease 7. GERD 8. Hyperlipidemia 9. Hypothyroidism COMPLICATIONS/CHIEF COMPLAINT: Hyponatremia, Syncope And Collapse. HISTORY OF PRESENT ILLNESS: Patient is a 75-year-old male who presented to the ED with his son after an episode of syncope. Patient states he stood up off the couch on his way to the bathroom when he suddenly passed out. Patient states he vaguely remembers falling and denies prefall dizziness or post fall grogginess. Patient says he struck his head when he fell. Patient states that he was not able to get up afterwards and was helped by his son because he felt too weak. Patient states that he does not believe he feels sick. Patient's son states that he has had poor oral intake for the last 3 to 4 days. Patient denied any fevers, chills, headaches, blurry vision, unilateral weakness, chest pain, shortness of breath, abdominal pain, nausea, vomiting, diarrhea, constipation or recent illness HOSPITAL COURSE: Patient was feeling much better in the morning when I saw him on 09/09/2020. Patient had work with physical therapy and did not have any dizziness or other symptoms. Physical therapy stated the patient did very well and was safe to go home back to his previous level. Patient was able to eat lunch. Patient was found to have chronic hyponatremia which he states he sees nephrology for. Patient also has chronic kidney disease and his creatinine is mildly above his baseline at the time of discharge. Patient sodium was 129 at the time of discharge which is about where the patient has been according to our labs dating back to February 2018. Patient was very adamant about going home and since the patient was cleared by physical therapy and a follow-up appointment with the patient's primary care provider was made for tomorrow morning, patient was deemed ready for discharge on 09/09/2020. DISCHARGE MEDICATIONS: Please see below. ALLERGIES: Please see below. PHYSICAL EXAMINATION ON DISCHARGE: VITAL SIGNS: Please see below. General: Alert and oriented male patient who was sitting up in bed when I walked into the room. Patient did not appear to be in any acute distress. HEENT: Normocephalic, atraumatic, moist mucous membranes. Neck: No lymphadenopathy or thyromegaly Cardiac: Regular rate and rhythm, no murmurs, normal S1, normal S2 Pulm: Clear to auscultation bilaterally. No wheezes, rhonchi, rales Abd: Nondistended, nontender to palpation, normal bowel sounds Ext: No edema bilateral lower extremities LABORATORY DATA: Please see below. IMAGING: CT of the cervical spine performed without contrast in 09/08/2020 was reported to show no acute fracture or subluxation of the cervical spine, chronic moderate anterior wedge compression fracture of C7, chronic mild anterior wedge compression fracture of T1. Severe several dental caries and periapical abscesses CT of the head performed without contrast on 09/08/2020 was reported to show intact skull, no acute intracranial hemorrhage or acute intracranial abnormality. Chest x-ray performed on 09/08/2020 was reported to show no acute abnormality. Renal ultrasound performed on 09/09/2020 is reported to show no hydronephrosis, bilateral benign-appearing renal cysts, which are stable compared to prior CT abdomen and pelvis on 02/25/2018 and for which follow-up imaging is not necessary. Carotid ultrasound performed on 09/09/2020 (50 to 69%) is reported to show moderate stenosis involving the proximal portion of the right internal carotid artery, moderate stenosis (50 to 69%) in the origin of the left external carotid artery PROGNOSIS: Fair ACTIVITY: As tolerated. DIET: Regular, follow fluid restriction prescribed by nephrology DISCHARGE PLAN: Discharge home DISPOSITION: . DISCHARGE INSTRUCTIONS: 1. Follow-up with Amita Olmstead at [facility] at 9:30 AM on 09/10/2020 2. Follow-up with nephrology for chronic kidney disease and chronic hyponatremia ITEMS TO FOLLOWUP ON ON OUTPATIENT: 1. Kidney function and sodium level. DISCHARGE CONDITION: Stable. TIME SPENT ON DISCHARGE: Greater than 30 minutes. Vital Signs/I&Os Vital Signs Date Time Temp Pulse Resp B/P (MAP) Pulse Ox O2 Delivery O2 Flow Rate FiO2 09/09/20 12:49 109/70 09/09/20 12:48 98.0 76 18 98 Room Air I&O- Last 24 Hours up to 6 AM 09/09/20 06:00 Output Total 800 ml Balance -800 ml Laboratory Data Labs 24H Laboratory Tests 2 09/08/20 21:49: Immature Granulocyte % (Auto) 0.9, Neutrophils (%) (Auto) 81.8H, Lymphocytes (%) (Auto) 5.8L, Monocytes (%) (Auto) 11.1H, Eosinophils (%) (Auto) 0.3, Basophils (%) (Auto) 0.1, Neutrophils # (Auto) 6.0, Lymphocytes # (Auto) 0.4L, Monocytes # (Auto) 0.8, Eosinophils # (Auto) 0.0, Basophils # (Auto) 0.0, Nucleated Red Blood Cells % (auto) 0.0, Prothrombin Time 12.4, Prothromb Time International Ratio 0.91, Anion Gap 12, Glomerular Filtration Rate 24.1L, Calcium Level 9.0, Magnesium Level 2.5H, Total Creatine Kinase 52, Creatine Kinase MB 1.3, Creatine Kinase MB Relative Index 2.50, Troponin I < 0.02, Thyroid Stimulating Hormone (TSH) 2.490, Urine Opiates Screen NEGATIVE, Urine Methadone Screen NEGATIVE, Urine Barbiturates Screen NEGATIVE, Urine Phencyclidine Screen NEGATIVE, Urine Amphetamines Screen NEGATIVE, Urine Benzodiazepines Screen NEGATIVE, Urine Cocaine Metabolite Screen NEGATIVE, Urine Cannabinoids Screen NEGATIVE, Ethyl Alcohol Level < 0.003 09/09/20 00:06: Coronavirus (COVID-19)(PCR) NEGATIVE, Influenza Type A (RT-PCR) NEGATIVE, Influenza Type B (RT-PCR) NEGATIVE, Respiratory Syncytial Virus (PCR) NEGATIVE 09/09/20 01:34: Urine Color YELLOW, Urine Appearance CLEAR, Urine pH 6.0, Urine Specific [place] 1.005, Urine Protein NEGATIVE, Urine Glucose (Auto)(UA) NEGATIVE, Urine Ketones (Auto) NEGATIVE, Urine Blood NEGATIVE, Urine Nitrite NEGATIVE, Urine Bilirubin NEGATIVE, Urine Urobilinogen 0.2, Urine Leukocyte Esterase (Auto) NEGATIVE, Urine WBC (Auto) 0, Urine RBC (Auto) 0, Urine Hyaline Casts (Auto) 1, Urine Bacteria (Auto) NEGATIVE, Urine Squamous Epithelial Cells 0, Urine Sperm (Auto) , Urine Osmolality 184, Urine Random Creatinine 35.3, Urine Random Sodium 16 09/09/20 02:49: Anion Gap 10, Glomerular Filtration Rate 26.7L, Calcium Level 8.8 09/09/20 05:37: Nucleated Red Blood Cells % (auto) 0.0, Anion Gap 9, Glomerular Filtration Rate 27.6L, Calcium Level 8.5L, Magnesium Level 2.7H 09/09/20 10:38: Anion Gap 12, Glomerular Filtration Rate 29.6L, Calcium Level 9.0 CBC/BMP Laboratory Tests 09/08/20 21:49 09/09/20 02:49 09/09/20 05:37 09/09/20 10:38 Discharge Medications Scheduled Allopurinol (Allopurinol) 100 Mg Tab, 100 MG PO DAILY, (Reported) Aspirin (Aspirin EC) 81 Mg Tablet.dr, 81 MG PO QPM, (Reported) TAKES AT DINNERTIME Atorvastatin Calcium (Atorvastatin Calcium) 40 Mg Tab, 40 MG PO DAILY, (Reported) Bisoprolol Fumarate (Bisoprolol Fumarate) 5 Mg Tablet, 5 MG PO BID, (Reported) Calcitriol (Calcitriol) 0.25 Mcg Cap, 0.5 MCG PO 3XW, (Reported) TUESDAY, TUESDAY AND TUESDAY Calcitriol (Calcitriol) 0.25 Mcg Capsule, 0.25 MCG PO 4XWK, (Reported) TUESDAY, TUESDAY, TUESDAY, AND TUESDAY Cholecalciferol (Vitamin D3) (Vitamin D3) 1,000 Unit Tablet, 1,000 UNITS PO QPM, (Reported) TAKES AT DINNERTIME Ferrous Sulfate (Ferrous Sulfate) 325 Mg Tab, 325 MG PO BID, (Reported) Hydralazine HCl (Hydralazine HCl) 50 Mg Tab, 50 MG PO BID, (Reported) Isosorbide Dinitrate (Isosorbide Dinitrate) 20 Mg Tablet, 20 MG PO BID, (Reported) L.acidoph/L.bulg/B.bif/S.therm (Bacid Caplet) 1 Each Tablet, 1 TAB PO DAILY, (Reported) Latanoprost (Xalatan) 0.005% 2.5ML Drops, 1 DROP OU QHS, (Reported) Levothyroxine Sodium (Levothyroxine Sodium) 50 Mcg Tab, 50 MCG PO DAILY, (Reported) Magnesium Oxide (Magnesium Oxide) 400 Mg Tablet, 400 MG PO BID, (Reported) Pantoprazole Sodium (Pantoprazole Sodium) 20 Mg Tablet.dr, 20 MG PO BID, (Reported) Spironolactone (Spironolactone) 25 Mg Tablet, 25 MG PO DAILY, (Reported) Sucralfate (Carafate) 1 Gm Tablet, 1 GM PO DAILY, (Reported) Torsemide (Torsemide) 100 Mg Tablet, 50 MG PO BID, (Reported) Scheduled PRN Acetaminophen (Tylenol Extra Strength) 500 Mg Tablet, 500 MG PO Q4H PRN for PAIN LEVEL 1-5, (Reported) Benzonatate (Benzonatate) 200 Mg Capsule, 200 MG PO TID PRN for COUGH, (Reported) MDD 3 Clobetasol Propionate (Temovate) 15 Gm Oint...g., 1 DOSE TOP BID PRN for RASH, (Reported) APPLY TO ARMS Hydroxyzine HCl (Hydroxyzine HCl) 10 Mg Tablet, 10 MG PO TID PRN for ITCHING, (Reported) Nitroglycerin (Nitrostat) 0.4 Mg Subl, 0.4 MG SL NITRO PRN for CHEST PAIN, (Reported) Allergies Coded Allergies: Penicillins (Verified Allergy, Severe, fainting/shock, 12/07/19) Sulfa (Sulfonamide Antibiotics) (Verified Allergy, Severe, ITCH/BURN/THROAT TIGHTENS, 12/07/19) Quinolones (Verified Allergy, Unknown, unknown, 12/07/19) ADOLPH ALVARADO DO Sep 09, 2020 16:04
[2020-09-09 17:56] VITALS: BP 108/54
[2020-09-09] MEDS ORDERED: ASPIRIN 81MG ENTERIC TABLET PO SCH (18:00)
--- NOTE | 2020-09-10 07:57 | ECHO ---
ECHOCARDIOGRAM DATE OF PROCEDURE: 09/09/2020 Age: 75 Gender: Male Height: 165 cm Weight: 62 kg INDICATION: Syncope MEASUREMENTS: IVS 0.7 cm LV 5.6 cm LVPW 1.2 cm LA 4.8 cm Aorta 3.2 cm Left atrium volume index 63 IVC 1.7 FINDINGS: This study is of acceptable technical quality. There is underlying atrial fibrillation with wide QRS complex and on demand ventricular pacing. Left ventricle is borderline dilated. There is severe global hypokinesis especially pronounced in the apical segments. Overall estimated LVEF of around 30 to 35%, calculated LVEF by computer was 40%. Right ventricle does not appear grossly enlarged. There is severe biatrial enlargement. There is an echo artifact in right-sided heart chambers, corresponding to ICD lead. Aortic valve is sclerotic, but tricuspid and has grossly preserved mobility. There are also degenerative abnormalities of the mitral valve with mitral annular calcifications. Tricuspid and pulmonic valves appear normal. No pericardial effusion is noted. Inferior vena cava is normal size. Aortic root is normal. Aortic arch and abdominal aorta were not well seen. Doppler interrogation of aortic valve reveals no significant stenosis and mild insufficiency. There is also mild mitral and tricuspid insufficiency. Calculated pulmonary artery pressure is in mid to high 30's, corresponding to mild pulmonary hypertension. Pulmonic valve is functionally competent. Evaluation of diastolic function is inconclusive due to underlying atrial fibrillation. CONCLUSIONS: 1. Study is of acceptable technical quality, underlying atrial fibrillation with wide QRS complex and on demand RV pacing. 2. Mildly dilated left ventricle with global hypokinesis especially pronounced in apical segment and calculated LVEF of 40%. In my opinion, it is a slightly optimistic number and I estimate EF around 30 to 35%. 3. Aortic sclerosis with no significant stenosis and mild insufficiency. 4. No additional significant valvular disease. 5. Likely normal central venous pressure and mild pulmonary hypertension. 6. Severe biatrial enlargement, consistent with atrial fibrillation. MTDD
== END 2020-09-09 17:58 | disposition home or self-care (01) ==
LOC: M ED 21:14 → UNDOADMOB 21:15 → M ED INP 21:15
PROVIDERS: ADMIT Internal Medicine; ATTEND Internal Medicine
DX: R55 Syncope and collapse (principal); E87.1 Hypo-osmolality and hyponatremia; N17.9 Acute kidney failure, unspecified; N18.30 Chronic kidney disease, stage 3 unspecified; I65.23 Occlusion and stenosis of bilateral carotid arteries; I50.41 Acute combined systolic (congestive) and diastolic (congestive) heart failure; I13.0 Hypertensive heart and chronic kidney disease with heart failure and stage 1 through stage 4 chronic kidney disease, or unspecified chronic kidney disease; I25.10 Atherosclerotic heart disease of native coronary artery without angina pectoris; K21.9 Gastro-esophageal reflux disease without esophagitis; E78.5 Hyperlipidemia, unspecified; E03.9 Hypothyroidism, unspecified; I48.91 Unspecified atrial fibrillation; Z79.899 Other long term (current) drug therapy; Z79.82 Long term (current) use of aspirin; Z88.0 Allergy status to penicillin; Z88.2 Allergy status to sulfonamides; Z88.1 Allergy status to other antibiotic agents; Z87.891 Personal history of nicotine dependence; Z95.5 Presence of coronary angioplasty implant and graft
CPT/HCPCS: 36415; 70450; 71045; 72125; 76775; 80048; 80307; 81001; 82077; 82550; 82553; 82570; 83735; 83935; 84300; 84443; 84484; 85025; 85027; 85610; 87631; 93005; 93041; 93306; 93880; 94760; 96360; 96361; 96372; 97116; 97161; 99285; G0378; J1644

== ENCOUNTER 2020-09-27 21:21 | Inpatient (IN) | payer MEDICARE ==
[~2020-09-27] VITALS: Ht 165.1 cm; Wt 60.0 kg
[~2020-09-27 21:21] MED LIST changes: +ACET-897 PO; +BACITAB PO; +ISOS20TA4 PO; -ISOS20TAB PO; -KLOR10TA76 PO; -LATANOPROST 0.005% OPHTH SOLN 2.5 ML OU SCH; +MAGN400T33 PO; +PANT20TA6 PO; +POTA-136 PO; +TEMO0.0517 TOP
[2020-09-27 21:46] LABS: BASO % 0.5 % (0.0-1.0); EOS % 0.7 % (0.0-3.0); HEMOGLOBIN 11.3 g/dl (13.5-17.5); LYMPH # 0.6 10^3/uL (1.5-5.0); LYMPH % 9.7 % (24.0-44.0); MEAN CORPUSCULAR HGB CONC 34.2 g/dl (32.0-36.5); MEAN CORPUSCULAR VOLUME 99.4 fl (80.0-96.0); MONO # 0.5 10^3/uL (0.0-0.8); MONO % 9.3 % (2.0-8.0); NEUTROPHILS # 4.5 10^3/uL (1.5-8.5); NEUTROPHILS % 78.7 % (36.0-66.0); PLATELET COUNT, AUTOMATED 209 10^3/uL (150-450); RED BLOOD COUNT 3.32 10^6/uL (4.30-6.10); WHITE BLOOD COUNT 5.7 10^3/uL (4.0-10.0)
[2020-09-27] MEDS ORDERED: NS 1,000 ML IV ONE (22:15)
[2020-09-27 22:30] LABS: ALBUMIN 3.3 GM/DL (3.2-5.2); ALT/SGPT 35 U/L (12-78); BILIRUBIN,DIRECT 0.3 MG/DL (0.0-0.2); BILIRUBIN,TOTAL 0.7 MG/DL (0.2-1.0); BLOOD UREA NITROGEN 40 MG/DL (7-18); CARBON DIOXIDE LEVEL 26 MEQ/L (21-32); CHLORIDE LEVEL 83 MEQ/L (98-107); CK-MB VALUE MASS < 1.0 NG/ML (<3.6); CPK CREATINE PHOSPHOKINASE 38 U/L (39-308); CREATININE FOR GFR 2.71 MG/DL (0.70-1.30); GLOMERULAR FILTRATION RATE 24.5 (>42); GLUCOSE, FASTING 97 MG/DL (70-100); MB/CK RELATIVE INDEX 2.63 (< OR =4); POTASSIUM SERUM 3.7 MEQ/L (3.5-5.1); SODIUM LEVEL 122 MEQ/L (136-145); TOTAL PROTEIN 7.2 GM/DL (6.4-8.2); TROPONIN I < 0.02 NG/ML (< 0.10)
[2020-09-28] VITALS (7 sets, daily range): BP systolic 93–128; BP diastolic 48–61
[2020-09-28] MEDS ORDERED: NS 1,000 ML in IV 1 EA IV ONE (00:20)
[2020-09-28] MEDS ORDERED: cefTRIAXone SOD 1 GM in D5W MINI-BAG PLUS 50 ML IV ONE (00:35)
[2020-09-28 01:22] LABS: RSV AMPLIFICATION NEGATIVE (NEGATIVE)
[2020-09-28] MEDS ORDERED: HOME MED LIST COMPLETE! XX SCH (01:25)
[2020-09-28] MEDS ORDERED: MOM 30ML SUSPENSION UDC PO PRN (03:20)
[2020-09-28] MEDS ORDERED: BENZONATATE 100MG CAPSULE PO PRN (03:20)
[2020-09-28] MEDS ORDERED: ACETAMINOPHEN TAB 650MG DOSE (2X325MG) PO PRN (03:20)
[2020-09-28] MEDS ORDERED: LORazepam 2 MG TAB PO PRN (03:20)
[2020-09-28] MEDS: NS 1,000 ML IV SCH ×2 (03:58→10:03)
[2020-09-28] MEDS: THIAMINE 100 MG TAB PO SCH ×2 (04:54→20:50)
[2020-09-28] MEDS ORDERED: NS 500 ML IV ONE (05:10)
[2020-09-28 05:35] LABS: SODIUM,RANDOM URINE 64 MEQ/L; UREA NITROGEN RANDOM URINE 102 MG/DL
[2020-09-28 07:00] LABS: HEMATOCRIT 28.9 % (42.0-52.0); HEMOGLOBIN 9.9 g/dl (13.5-17.5); MEAN CORPUSCULAR HEMOGLOBIN 33.7 pg (27.0-33.0); MEAN CORPUSCULAR HGB CONC 34.3 g/dl (32.0-36.5); MEAN CORPUSCULAR VOLUME 98.3 fl (80.0-96.0); PLATELET COUNT, AUTOMATED 174 10^3/uL (150-450); RED BLOOD COUNT 2.94 10^6/uL (4.30-6.10); WHITE BLOOD COUNT 5.2 10^3/uL (4.0-10.0)
[2020-09-28 07:27] LABS: ALBUMIN 2.6 GM/DL (3.2-5.2); BILIRUBIN,TOTAL 0.6 MG/DL (0.2-1.0); CALCIUM LEVEL 8.3 MG/DL (8.8-10.2); CREATININE FOR GFR 2.09 MG/DL (0.70-1.30); POTASSIUM SERUM 4.1 MEQ/L (3.5-5.1)
[2020-09-28] MEDS ORDERED: CALCITRIOL 0.25 MCG CAP (S0169) PO SCH (09:00)
[2020-09-28] MEDS: ISOSORBIDE DIN. (ISORDIL) 20 MG TAB PO SCH ×2 (09:00→20:51)
[2020-09-28] MEDS ORDERED: LEVOTHYROXINE 50MCG TABLET (0.05MG) PO SCH (09:00)
[2020-09-28] MEDS: bisoproloL fumarate 5 MG TAB PO SCH ×2 (09:00→20:51)
[2020-09-28] MEDS: PANTOPRAZOLE 20 MG TAB PO SCH ×2 (09:59→20:50)
[2020-09-28] MEDS: FOLIC ACID 1 MG TAB PO SCH (10:00)
[2020-09-28] MEDS: MULTIVITAMINS/MINERALS THERAP 1 TAB PO SCH (10:00)
[2020-09-28] MEDS: SUCRALFATE 1 GM TAB PO SCH (10:00)
[2020-09-28] MEDS: ATORVASTATIN 20 MG TAB PO SCH (10:00)
[2020-09-28] MEDS: DOCUSATE SODIUM 100MG CAPSULE PO SCH ×2 (10:00→20:49)
[2020-09-28] MEDS: MAGNESIUM OXIDE 400MG TAB (MAG-OX) PO SCH ×2 (10:00→20:50)
[2020-09-28] MEDS: HEPARIN SOD (PORCINE) 5000UNITS/ML 1ML VIAL/SYRINGE SC SCH ×2 (10:03→20:51)
[2020-09-28] MEDS: allopurinoL 100 MG TAB PO SCH (10:03)
[2020-09-28] MEDS ORDERED: ASPIRIN 81MG ENTERIC TABLET PO SCH (18:00)
[2020-09-28] MEDS ORDERED: ONDANSETRON 4MG/2ML VIAL IV PRN (18:20)
[2020-09-28] MEDS ORDERED: MORPHINE 2 MG/ML 1ML VIAL (J2270) IV PRN (18:25)
[2020-09-28] MEDS ORDERED: METOCLOPRAMIDE INJ 10MG/2ML VIAL (J2765 PER 1) IV PRN (19:10)
[2020-09-28] MEDS: OXAZEPAM 10 MG CAP PO SCH (20:49)
[2020-09-28] MEDS ORDERED: LATANOPROST 0.005% OPHTH SOLN 2.5 ML OU SCH (21:00)
[2020-09-29] MEDS: OXAZEPAM 10 MG CAP PO SCH (05:10)
[2020-09-29] MEDS: NS 1,000 ML IV SCH (05:10)
[2020-09-29 06:00] VITALS: BP 116/54
[2020-09-29] MEDS ORDERED: LEVOTHYROXINE 50MCG TABLET (0.05MG) PO SCH (06:00)
[2020-09-29 06:06] LABS: HEMATOCRIT 25.5 % (42.0-52.0); HEMOGLOBIN 8.4 g/dl (13.5-17.5); MEAN CORPUSCULAR HEMOGLOBIN 33.5 pg (27.0-33.0); MEAN CORPUSCULAR HGB CONC 32.9 g/dl (32.0-36.5); MEAN CORPUSCULAR VOLUME 101.6 fl (80.0-96.0); PLATELET COUNT, AUTOMATED 150 10^3/uL (150-450); RED BLOOD COUNT 2.51 10^6/uL (4.30-6.10); WHITE BLOOD COUNT 5.6 10^3/uL (4.0-10.0)
[2020-09-29 06:22] LABS: ALBUMIN 2.3 GM/DL (3.2-5.2); CALCIUM LEVEL 8.5 MG/DL (8.8-10.2); CREATININE FOR GFR 1.91 MG/DL (0.70-1.30); GLOMERULAR FILTRATION RATE 36.7 (>42); PHOSPHORUS LEVEL 2.2 MG/DL (2.5-4.9); POTASSIUM SERUM 4.2 MEQ/L (3.5-5.1)
[2020-09-29] MEDS: MULTIVITAMINS/MINERALS THERAP 1 TAB PO SCH (08:41)
[2020-09-29] MEDS: ATORVASTATIN 20 MG TAB PO SCH (08:42)
[2020-09-29] MEDS: allopurinoL 100 MG TAB PO SCH (08:42)
[2020-09-29] MEDS: MAGNESIUM OXIDE 400MG TAB (MAG-OX) PO SCH (08:42)
[2020-09-29] MEDS: bisoproloL fumarate 5 MG TAB PO SCH (08:42)
[2020-09-29] MEDS: SUCRALFATE 1 GM TAB PO SCH (08:42)
[2020-09-29] MEDS: DOCUSATE SODIUM 100MG CAPSULE PO SCH (08:42)
[2020-09-29] MEDS: THIAMINE 100 MG TAB PO SCH (08:42)
[2020-09-29] MEDS: FOLIC ACID 1 MG TAB PO SCH (08:42)
[2020-09-29] MEDS: HEPARIN SOD (PORCINE) 5000UNITS/ML 1ML VIAL/SYRINGE SC SCH (08:43)
[2020-09-29] MEDS: ISOSORBIDE DIN. (ISORDIL) 20 MG TAB PO SCH (08:47)
[2020-09-29] MEDS: PANTOPRAZOLE 20 MG TAB PO SCH (08:47)
[2020-09-29] MEDS ORDERED: CALCITRIOL 0.25 MCG CAP (S0169) PO SCH (09:00)
[2020-09-29 12:48] VITALS: BP 109/56
[2020-09-29 12:50] VITALS: BP_SYST 105; BP_SYST 91; BP_DIAS 51; BP_DIAS 53; BP_DIAS 54
[2020-09-29] MEDS ORDERED: TORS20TA2 PO (13:11)
== END 2020-09-29 14:26 | disposition home or self-care (01) | DRG 641 ==
LOC: M ED 21:21 → M ED INP 21:22 → ENRESERV 09-28 03:41 → M MSPAV 09-28 04:20
PROVIDERS: ADMIT Family Medicine; ATTEND Family Medicine
DX: E86.9 Volume depletion, unspecified (principal); I50.32 Chronic diastolic (congestive) heart failure; I13.0 Hypertensive heart and chronic kidney disease with heart failure and stage 1 through stage 4 chronic kidney disease, or unspecified chronic kidney disease; N17.9 Acute kidney failure, unspecified; E87.2 Acidosis; I95.9 Hypotension, unspecified; R55 Syncope and collapse; E03.9 Hypothyroidism, unspecified; I25.10 Atherosclerotic heart disease of native coronary artery without angina pectoris; E87.1 Hypo-osmolality and hyponatremia; E86.0 Dehydration; N18.30 Chronic kidney disease, stage 3 unspecified; M10.9 Gout, unspecified; F10.10 Alcohol abuse, uncomplicated; K21.9 Gastro-esophageal reflux disease without esophagitis; E78.5 Hyperlipidemia, unspecified; I48.91 Unspecified atrial fibrillation; Z98.49 Cataract extraction status, unspecified eye; Z90.49 Acquired absence of other specified parts of digestive tract; Z87.891 Personal history of nicotine dependence; Z20.822 Contact with and (suspected) exposure to COVID-19; Z79.82 Long term (current) use of aspirin; Z79.899 Other long term (current) drug therapy; Z88.0 Allergy status to penicillin; Z88.1 Allergy status to other antibiotic agents; Z88.2 Allergy status to sulfonamides

== ENCOUNTER 2020-10-04 11:50 | Inpatient (IN) | payer MEDICARE ==
[~2020-10-04] VITALS: Ht 165.1 cm; Wt 60.9 kg
[2020-10-04] MEDS: CALCITONIN NASAL SPRAY 3.7 ML BTL SCH (09:00)
[2020-10-04] MEDS: CALCITRIOL 0.25 MCG CAP (S0169) PO SCH (09:00)
[~2020-10-04 11:50] MED LIST changes: -ISOS20TA4 PO; +ISOS20TAB PO; +KLOR10TA76 PO; +MAGN400T3 PO; -MAGN400T33 PO; -POTA-136 PO
--- NOTE | 2020-10-04 12:30 | REP ---
INDICATION: TRAUMA. COMPARISON: PA and lateral chest dated 02/06/2018. Portable chest dated 09/27/2020. TECHNIQUE: Portable AP chest with the patient upright. FINDINGS: There is no pneumothorax, hemothorax or pulmonary contusion. No fractures are identified. There is chronic mild interstitial coarsening. Nine. There is chronic cardiomegaly. There is a pacemaker entering from the right, unchanged. No free subdiaphragmatic air. IMPRESSION: There are chronic findings as described. No acute findings are identified. <Electronically signed by Dae Worley > 10/04/20 [id number]
[2020-10-04 12:35] LABS: HEMATOCRIT 24.2 % (42.0-52.0); HEMOGLOBIN 8.2 g/dl (13.5-17.5); MEAN CORPUSCULAR HEMOGLOBIN 33.9 pg (27.0-33.0); MEAN CORPUSCULAR HGB CONC 33.9 g/dl (32.0-36.5); PLATELET COUNT, AUTOMATED 173 10^3/uL (150-450); RED BLOOD COUNT 2.42 10^6/uL (4.30-6.10)
[2020-10-04 12:41] LABS: WHITE BLOOD COUNT 18.5 10^3/uL (4.0-10.0)
[2020-10-04 13:09] LABS: ALBUMIN 2.4 GM/DL (3.2-5.2); ALT/SGPT 20 U/L (12-78); BILIRUBIN,DIRECT 0.3 MG/DL (0.0-0.2); BILIRUBIN,TOTAL 0.7 MG/DL (0.2-1.0); CK-MB VALUE MASS < 1.0 NG/ML (<3.6); CPK CREATINE PHOSPHOKINASE 61 U/L (39-308); MB/CK RELATIVE INDEX 1.64 (< OR =4); TOTAL PROTEIN 5.9 GM/DL (6.4-8.2); TROPONIN I < 0.02 NG/ML (< 0.10)
[2020-10-04 13:17] LABS: LYMPHOCYTES 1 % (16-44); MONOCYTES 4 % (0-5); MYELOCYTES 1 % (0-0); NEUTROPHILS 81 % (28-66)
[2020-10-04 13:19] LABS: POLYCHROMASIA 1+
[2020-10-04 13:20] LABS: PLATELET ESTIMATE NORMAL (NORMAL); SCHISTOCYTES 1+
[2020-10-04 13:21] LABS: OVALOCYTES 1+
[2020-10-04 13:23] LABS: PLATELET CLUMPS SMALL AMT
[2020-10-04 14:24] LABS: RSV AMPLIFICATION NEGATIVE (NEGATIVE)
--- NOTE | 2020-10-04 14:29 | REP ---
INDICATION: diarrhea and abdominal pain. COMPARISON: Abdomen/pelvis CT without IV or bowel contrast dated 10/16/2019. TECHNIQUE: Abdomen/pelvis CT without IV or bowel contrast. FINDINGS: The visualized lung gallegos are unremarkable. The hepatic parenchyma is unremarkable. There is a 5 mm calcification in the gallbladder neck as an interval change. The gallbladder is otherwise unremarkable. There is no biliary duct dilatation. There are calcifications in the mesentery of the right upper lobe, unchanged, likely calcified mesenteric nodes. The pancreas and spleen are unremarkable. The left adrenal at the confluence of the mediolateral leaves slightly larger in size than the right, however this is stable and unchanged, likely congenital variation. The unenhanced kidneys are unremarkable. The abdominal aorta in demonstrates an infrarenal 3.3 cm aneurysm, unchanged. There is calcified atheroma. There is no periaortic hematoma. No periaortic adenopathy. There is no bowel distention or obstruction. There is wall thickening of the colon from the cecum to the rectosigmoid colon compatible with colitis, infectious versus inflammatory, in the appropriate clinical setting. There is no ascites. No adenopathy. Pelvis: There is no adenopathy or ascites. The bladder is unremarkable. Prostatic of this are incidentally identified. There is grade 3 compression deformity of the L1 vertebral body. This was grade 2 compression previously. There is grade 1 compression of the L2 superior endplate, unchanged. IMPRESSION: Wall thickening of almost the entire colon compatible with infectious versus inflammatory colitis in the appropriate clinical setting. There is no mesenteric adenopathy or ascites. There is no bowel distention or obstruction. 3.3 cm abdominal aortic aneurysm, unchanged. 5 mm calcification in the gallbladder neck as an interval change. The gallbladder is otherwise unremarkable. Compression deformities of the L1 and L2 vertebral bodies as described. These are likely insufficiency compression fractures. There are no retropulsed fragments. <Electronically signed by Dae Worley > 10/04/20 [id number]
[2020-10-04] MEDS ORDERED: VANCOMYCIN ORAL SOL 250MG/5ML ORAL SYRINGE PO ONE (16:10)
[2020-10-04] MEDS ORDERED: TORS20TA2 PO (16:11)
[2020-10-04] MEDS ORDERED: HOME MED LIST COMPLETE! XX SCH (16:15)
[2020-10-04] MEDS ORDERED: CLOBETASOL PROP 0.05% OINT 30 GM TOP PRN (16:35)
[2020-10-04] MEDS ORDERED: MAALOX 30 ML SUSP *UDC PO PRN (16:35)
[2020-10-04] MEDS ORDERED: BENZONATATE 100 MG CAP PO PRN (16:35)
--- NOTE | 2020-10-04 17:00 | HPEPDOC ---
[facility] Medical History & Physical Date of Admission Oct 04, 2020 Date of Service: Oct 04, 2020 Primary Care Physician: Erinn Mcdowell MD Attending Physician: ADOLPH ALVARADO DO History and Physical CHIEF COMPLAINT: Weakness and diarrhea HISTORY OF PRESENT ILLNESS: Patient is a 75-year-old male who presented to the emergency department due to weakness and diarrhea today. Patient states that starting on Tuesday he started having watery diarrhea. Patient said the diarrhea is been getting worse to the point where he is having 10-12 watery nonbloody bowel movements a day. Patient has become so weak that has been unable to get off the couch. Patient had his called the ambulance today as he was unable to get off the couch get to the commode which is right next to him. Patient has been having a history of falls recently and was most recently admitted 1 week ago for a fall with syncope. Patient states that he does not have any abdominal pain at this time. Patient did vomit once on Tuesday but has not been nauseous since then. Patient does not report any numbness but does report weakness. Patient states he has not urinated very much over the past 2 days. Patient has been only able to eat a few Ensure shakes as he does not have an appetite. Patient was found to have C. difficile colitis in the emergency department. PAST MEDICAL HISTORY: 1. Hypothyroidism. 2. Coronary artery disease with stenting. 3. Congestive heart failure with mixed systolic and diastolic dysfunction 4. Chronic kidney disease stage III 5. Gout 6. Hypertension 7. Dyslipidemia 8. Chronic atrial fibrillation status post watchman procedure PAST SURGICAL HISTORY: 1. Watchman procedure. 2. AICD placement. 3. Pyloric resection. 4. Cataract surgery 6 5. Appendectomy SOCIAL HISTORY: Patient currently lives at home with his . Patient says he drinks beer occasionally and denies any tobacco use or illicit drug use. 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 REVIEW OF SYSTEMS: General: Patient denies fevers HEENT: Patient denies headaches Cardiovascular: Patient denies chest pain Respiratory: Patient denies shortness of breath, cough GI: Patient reports abdominal pain and diarrhea but denies any nausea or vomiting : Patient reports decreased urination Extremities: Patient denies swelling or pain in extremities Neurological: Patient denies numbness or tingling in legs Skin: Patient denies any new rashes or lesions. Hematologic: Patient denies any easy bruising. Lymphatic: Patient denies any lumps lumps or bumps in neck, axilla, or groin HOME MEDICATIONS: Please see below. PHYSICAL EXAMINATION: VITAL SIGNS: Temperature 96.7, pulse 84, respiratory rate 22, blood pressure 120/56, pulse oximetry 100% on room air. General: Alert and oriented male patient who appeared very tired laying in bed when I walked in the room. Patient not appear to be in any acute distress. HEENT: Normocephalic, atraumatic, moist mucous membranes. Neck: No lymphadenopathy or thyromegaly Cardiac: Regular rate and rhythm, no murmurs, normal S1, normal S2 Pulm: Clear to auscultation bilaterally. No wheezes, rhonchi, rales Abd: Nondistended, tenderness throughout the abdomen to palpation, no rebound tenderness, normal hyperactive bowel sounds Ext: No edema bilateral lower extremities, dorsalis pedis pulses 2/4 bilaterally Neuro: Patient is able to move all 4 extremities on command and reported equal sensation to light touch in bilateral upper and lower extremities Skin: Skin of the head, neck, back, upper and lower extremities was examined not show any evidence of rash Musculoskeletal: Patient did have tenderness over the paraspinal muscles of the bilateral lumbar region around L2-L4 LABORATORY DATA: See below. IMAGING: Chest x-ray performed on 10/04/2020 is reported to show there are chronic findings described as mild interstitial coarsening and chronic cardiomegaly. No acute findings are identified. CT of the abdomen and pelvis without contrast performed on 10/04/2020 is reported to show wall thickening of almost the entire colon compatible with infectious versus inflammatory colitis in the appropriate clinical setting. There is no mesenteric adenopathy or ascites. There is no bowel distention or obstruction. 3.3 cm abdominal aortic aneurysm, unchanged. 5 mm calcification of the g allbladder neck as in interval change. The gallbladder is otherwise unremarkable. Compression deformities of the L1 and L2 vertebral bodies described as grade 3 compression deformity to the L1 vertebral body. This was grade 2 compression previously. There is grade 1 compression of the L2 superior endplate, unchanged. There are no retropulsed fragments. MICROBIOLOGY: Please see below. ASSESSMENT: 75-year-old male who presented with weakness and diarrhea who was found to have C. difficile colitis. . PLAN: 1. C. difficile colitis. Patient did not have C. difficile colitis that was identified at [facility] in September 2019 in October 2019. Patient had a GI panel performed in November 2019 which was negative for C. difficile. Patient was treated with oral vancomycin at that time. Patient will be treated with 125 mg of oral vancomycin every 6 hours. Because patient has had C. difficile about a year ago, he does not meet criteria for fidaxomicin at this point. Patient should have a pulsed tapered regimen. Patient should be on 125 mg 4 times daily for 10 to 14 days then 125 mg twice daily for 7 days then 125 mg once daily for 7 days then 125 mg every 2 to 3 days for 2 to 8 weeks in order to treat the patient. If questions arise, or the patient is not respond ing to initial treatment, infectious disease can be consulted on Tuesday. 2. Weakness. At this time, patient is most likely weaker than he has been due to the C. difficile colitis. Patient will receive 1 L of IV fluids as the patient appears dehydrated on examination. Patient is also mildly hyponatremic which I believe is due to the diarrhea. We will continue to monitor the patient's electrolytes and hydration status as the patient improves. Physical and occupational therapy has been ordered 3. L1 and 2 compression fractures. Patient will be given calcitonin intranasally to help with the pain. These may be from the patient's falls that he has had in the month of August. 4. Hyponatremia. This is most likely due to the patient's diarrhea and dehydration. Patient will be given 1 L normal saline and we will continue to monitor. 5. Hypokalemia. This will be repleted. 6. Hypertension. Continue patient's home blood pressure medications with hold parameters 7. Chronic atrial fibrillation. Continue patient's home medications. Patient has watchman device in place so he is not on oral anticoagulation. 8. Hyperlipidemia. Continue patient's home medications. 9. Coronary artery disease. Continue patient's home aspirin. 10. Chronic kidney disease stage III. We will monitor the patient's creatinine and avoid nephrotoxic agents. 11. DVT prophylaxis: Lovenox 12. CODE STATUS: Full code Disposition: Patient will be admitted to the medical surgical floor for tr eatment of C. difficile colitis and weakness. I do expect greater than 2 midnight stay. Vital Signs Vital Signs Date Time Temp Pulse Resp B/P (MAP) Pulse Ox O2 Delivery O2 Flow Rate FiO2 10/04/20 12:41 84 120/56 (77) 85 100/56 (71) 85 105/55 (72) 10/04/20 11:59 96.7 22 100 Room Air Laboratory Data Labs 24H Laboratory Tests 2 10/04/20 12:15: Neutrophils (%) (Auto) , Nucleated Red Blood Cells % (auto) 0.0, Neutrophils 81H, Band Neutrophils 13H, Lymphocytes (Manual) 1L, Monocytes (Manual) 4, Myelocytes 1H, Polychromasia 1+, Macrocytosis 1+, Schistocytes 1+, Ovalocytes 1+, Platelet Estimate NORMAL, Clumped Platelets SMALL AMT, Lactic Acid Level 1.6, Total Bilirubin 0.7, Direct Bilirubin 0.3H, Aspartate Amino Transf (AST/SGOT) 14, Alanine Aminotransferase (ALT/SGPT) 20, Alkaline Phosphatase 84, Total Creatine Kinase 61, Creatine Kinase MB < 1.0, Creatine Kinase MB Relative Index 1.64, Troponin I < 0.02, Total Protein 5.9L, Albumin 2.4L, Albumin/Globulin Ratio 0.7, Thyroid Stimulating Hormone (TSH) 1.900 10/04/20 12:29: POC Glucose (Misc Panel) 111H, POC Sodium (Misc Panel) 128L, POC Potassium (Misc Panel) 3.4L, POC Chloride (Misc Panel) 92L, POC Total CO2 (Misc Panel) 26.0, POC Blood Urea Nitrogen (Misc Panel 43H, POC Ionized Calcium (Misc Panel) 4.6, POC Creatinine (Misc Panel) 1.7H, POC Hematocrit (Misc Panel) 27.0L 10/04/20 13:32: Coronavirus (COVID-19)(PCR) NEGATIVE, Influenza Type A (RT-PCR) NEGATIVE, Infl uenza Type B (RT-PCR) NEGATIVE, Respiratory Syncytial Virus (PCR) NEGATIVE CBC/BMP Laboratory Tests 10/04/20 12:15 Microbiology Microbiology 10/04/20 Gastrointestinal Tract Panel (PCR) - Final, Complete Clostridium Difficile A/B 10/04/20 Blood Culture, Received Pending 10/04/20 Blood Culture, Received Pending Home Medications Scheduled Allopurinol (Allopurinol) 100 Mg Tab, 100 MG PO DAILY Aspirin (Aspirin EC) 81 Mg Tablet.dr, 81 MG PO QPM TAKES AT DINNERTIME Atorvastatin Calcium (Atorvastatin Calcium) 40 Mg Tab, 40 MG PO DAILY Bisoprolol Fumarate (Bisoprolol Fumarate) 5 Mg Tablet, 5 MG PO BID Calcitriol (Calcitriol) 0.25 Mcg Cap, 0.5 MCG PO 3XW TUESDAY, TUESDAY AND TUESDAY Calcitriol (Calcitriol) 0.25 Mcg Capsule, 0.25 MCG PO 4XWK TUESDAY, TUESDAY, TUESDAY, AND TUESDAY Cholecalciferol (Vitamin D3) (Vitamin D3) 1,000 Unit Tablet, 1,000 UNITS PO QPM TAKES AT DINNERTIME Ferrous Sulfate (Ferrous Sulfate) 325 Mg Tab, 325 MG PO BID Hydralazine HCl (Hydralazine HCl) 50 Mg Tab, 50 MG PO BID Isosorbide Dinitrate (Isosorbide Dinitrate) 20 Mg Tablet, 20 MG PO BID L.acidoph/L.bulg/B.bif/S.therm (Bacid Caplet) 1 Each Tablet, 1 TAB PO DAILY Latanoprost (Xalatan) 0.005% 2.5ML Drops, 1 DROP OU QHS Levothyroxine Sodium (Levothyroxine Sodium) 50 Mcg Tab, 50 MCG PO DAILY Magnesium Oxide (Magnesium Oxide) 400 Mg Tablet, 400 MG PO BID Pantoprazole Sodium (Pantoprazole Sodium) 20 Mg Tablet.dr, 20 MG PO BID Spironolactone (Spironolactone) 25 Mg Tablet, 25 MG PO DAILY Sucralfate (Carafate) 1 Gm Tablet, 1 GM PO DAILY Torsemide (Torsemide) 20 Mg Tablet, 20 MG PO BID Scheduled PRN Acetaminophen (Tylenol Extra Strength) 500 Mg Tablet, 500 MG PO Q4H PRN for PAIN LEVEL 1-5 Benzonatate (Benzonatate) 200 Mg Capsule, 200 MG PO TID PRN for COUGH MDD 3 Clobetasol Propionate (Temovate) 15 Gm Oint...g., 1 DOSE TOP BID PRN for RASH APPLY TO ARMS Nitroglycerin (Nitrostat) 0.4 Mg Subl, 0.4 MG SL NITRO PRN for CHEST PAIN Allergies Coded Allergies: Penicillins (Verified Allergy, Severe, fainting/shock, 12/07/19) Sulfa (Sulfonamide Antibiotics) (Verified Allergy, Severe, ITCH/BURN/THROAT TIGHTENS, 12/07/19) Quinolones (Verified Allergy, Unknown, unknown, 12/07/19) A-FIB/CHADSVASC A-FIB History Current/History of A-Fib/PAF?: No Current PO Anticoag Therapy: No Treatment Reason Anticoagulant not given: Other Other reason anticoagulant not: Watchman device ADOLPH ALVARADO DO Oct 04, 2020 17:00
[2020-10-04] MEDS ORDERED: NS 1,000 ML IV SCH (18:00)
[2020-10-04] MEDS: MAGNESIUM OXIDE 400MG TAB (MAG-OX) PO SCH (19:17)
[2020-10-04] MEDS: VITAMIN D 1,000 INTERNATIONAL UNITS TABLET PO SCH (19:17)
[2020-10-04] MEDS: FERROUS SULFATE 325MG TAB PO SCH (19:17)
[2020-10-04] MEDS: ASPIRIN 81MG ENTERIC TABLET PO SCH (19:17)
[2020-10-04 20:36] VITALS: BP 127/58
[2020-10-04] MEDS: bisoproloL fumarate 5 MG TAB PO SCH (21:00)
[2020-10-04] MEDS: **hydrALAZINE** 50 MG TAB PO SCH (21:00)
[2020-10-04] MEDS: ISOSORBIDE DIN. (ISORDIL) 20 MG TAB PO SCH (21:00)
[2020-10-04] MEDS: LATANOPROST 0.005% OPHTH SOLN 2.5 ML OU SCH (21:53)
[2020-10-04] MEDS: TORSEMIDE 20 MG TAB PO SCH (21:53)
[2020-10-04] MEDS: PANTOPRAZOLE 20 MG TAB PO SCH (21:53)
[2020-10-04] MEDS: VANCOMYCIN ORAL SOL 250MG/5ML ORAL SYRINGE PO SCH (23:33)
[2020-10-05] MEDS: LEVOTHYROXINE 50MCG TABLET (0.05MG) PO SCH (05:41)
[2020-10-05] MEDS: VANCOMYCIN ORAL SOL 250MG/5ML ORAL SYRINGE PO SCH ×4 (05:42→23:49)
[2020-10-05 06:00] VITALS: BP 127/62
[2020-10-05 06:16] LABS: HEMATOCRIT 24.1 % (42.0-52.0); HEMOGLOBIN 8.1 g/dl (13.5-17.5); MEAN CORPUSCULAR HEMOGLOBIN 33.3 pg (27.0-33.0); MEAN CORPUSCULAR HGB CONC 33.6 g/dl (32.0-36.5); MEAN CORPUSCULAR VOLUME 99.2 fl (80.0-96.0); PLATELET COUNT, AUTOMATED 185 10^3/uL (150-450); RED BLOOD COUNT 2.43 10^6/uL (4.30-6.10); WHITE BLOOD COUNT 19.3 10^3/uL (4.0-10.0)
[2020-10-05 06:33] LABS: CALCIUM LEVEL 7.7 MG/DL (8.8-10.2); CREATININE FOR GFR 1.3 MG/DL (0.70-1.30); GLOMERULAR FILTRATION RATE 57.1 (>42); MAGNESIUM LEVEL 1.4 MG/DL (1.8-2.4); POTASSIUM SERUM 2.9 MEQ/L (3.5-5.1)
[2020-10-05] MEDS: TORSEMIDE 20 MG TAB PO SCH ×2 (08:30→18:01)
[2020-10-05] MEDS: CALCITONIN NASAL SPRAY 3.7 ML BTL SCH (08:30)
[2020-10-05] MEDS: CALCITRIOL 0.25 MCG CAP (S0169) PO SCH (08:30)
[2020-10-05] MEDS: POTASSIUM CHLORIDE 10 MEQ SR TABLET PO SCH ×3 (08:31→12:09)
[2020-10-05] MEDS: ATORVASTATIN 20 MG TAB PO SCH (08:31)
[2020-10-05] MEDS: FERROUS SULFATE 325MG TAB PO SCH ×2 (08:31→20:40)
[2020-10-05] MEDS: LACTOBACILLUS ACIDOPHILUS CAP (BACID) PO SCH (08:31)
[2020-10-05] MEDS: MAGNESIUM OXIDE 400MG TAB (MAG-OX) PO SCH ×2 (08:31→20:39)
[2020-10-05] MEDS: allopurinoL 100 MG TAB PO SCH (08:31)
[2020-10-05] MEDS: PANTOPRAZOLE 20 MG TAB PO SCH ×2 (08:32→20:40)
[2020-10-05] MEDS: SUCRALFATE 1 GM TAB PO SCH (08:32)
[2020-10-05] MEDS: SPIRONOLACTONE 25 MG TAB PO SCH (08:32)
[2020-10-05] MEDS: bisoproloL fumarate 5 MG TAB PO SCH ×2 (08:32→21:00)
[2020-10-05] MEDS: **hydrALAZINE** 50 MG TAB PO SCH ×2 (08:33→21:00)
[2020-10-05] MEDS: ISOSORBIDE DIN. (ISORDIL) 20 MG TAB PO SCH ×2 (08:33→21:00)
[2020-10-05] MEDS: ENOXAPARIN 30MG/0.3ML SYRINGE (J1650 PER 10MG) SC SCH (08:33)
--- NOTE | 2020-10-05 16:22 | IPNPDOC ---
Text Note Date of Service The patient was seen on 10/05/20. NOTE Subjective: Patient is a 75-year-old male presented emergency department yeste rday due to weakness and diarrhea. Patient was diagnosed with C. difficile colitis. Patient continued to have diarrhea overnight however, during the day today it has slowed down. Patient has started work-up and appetite and is feeling more hungry. Patient says his abdominal pain has improved. Review of systems: General: Patient denies fevers HEENT: Patient denies headaches Cardiovascular: Patient denies chest pain Respiratory: Patient denies shortness of breath, cough GI: Patient reports improvement in his abdominal pain and diarrhea. Patient denies nausea or vomiting Physical exam: Vitals: See below General: Alert and oriented male patient who was laying in bed when I walked in the room. Patient not appear to be in any acute distress. HEENT: Normocephalic, atraumatic, moist mucous membranes. Neck: No lymphadenopathy or thyromegaly Cardiac: Regular rate and rhythm, no murmurs, normal S1, normal S2 Pulm: Clear to auscultation bilaterally. No wheezes, rhonchi, rales Abd: Nondistended, mild abdominal pain to palpation, no rebound tenderness, normal bowel sounds Ext: No edema bilateral lower extremities Labs: See below Imaging: No new imaging has been performed Assessment/plan: 75-year-old male presented with weakness and diarrhea was found to have C. difficile colitis 1. C. difficile colitis. Patient will continue with oral vancomycin 125 mg 4 times daily for 14 days. See H&P for pulse dose taper once the patient is discharged. 2. Weakness. Patient is well weakness is most likely due to C. difficile colitis. Patient received a liter of fluids and is feeling little better. Hyponatremia has slightly resolved. PT and OT have been ordered. 3. L1 and L2 compression fractures. Calcitonin intranasally. This was given this morning. We will continue to monitor. 4. Hyponatremia. Most likely due to dehydration and diarrhea. This has improved. 5. Hypokalemia. This will be repleted. 6. Hypertension. Continue patient's home blood pressure medications with hold parameters. 7. Chronic atrial fibrillation. Continue patient's home medications. Patient has watchman device in place who is now on oral coagulation outpatient. 8. Hyperlipidemia. Continue patient's on medications. 9. Coronary artery disease. Continue patient's home aspirin. 10. Chronic kidney disease stage III. Monitor patient's creatinine avoid nephrotoxic agents. DVT Prophylaxis: Lovenox Disposition: Pending improvement in diarrhea and weakness. VS,Fishbone, I+O VS, Fishbone, I+O Laboratory Tests 10/05/20 05:32 Vital Signs Date Time Temp Pulse Resp B/P (MAP) Pulse Ox O2 Delivery O2 Flow Rate FiO2 10/05/20 08:33 121/59 10/05/20 08:32 89 10/05/20 06:00 98.6 18 94 Room Air I&O- Last 24 Hours up to 6 AM 10/05/20 06:00 Intake Total 1300 ml Output Total 200 ml Balance 1100 ml ADOLPH ALVARADO DO Oct 05, 2020 16:22
[2020-10-05] MEDS: VITAMIN D 1,000 INTERNATIONAL UNITS TABLET PO SCH (17:43)
[2020-10-05] MEDS: ASPIRIN 81MG ENTERIC TABLET PO SCH (17:43)
--- NOTE | 2020-10-05 20:16 | ECGEPIP ---
[facility] - ED Test Date: 2020-10-04 Pat Name: BRYCE KNOX Department: Room: - Gender: Male [employer] Gat[employer]r: LR : 1945 Requested By: MONA Garcia Order Number: [id number] Reading MD: Marina Mead Measurements Intervals [place] Rate: 83 P: [place]: QRS: -22 QRSD: 98 T: 205 QT: 338 QTc: 397 Interpretive Statements strial fibrillation ST & T wave abnormality, consider anterolateral ischemia Electronically Signed on 10-05-2020 20:15:56 EDT by Marina Mead
[2020-10-05] MEDS: LATANOPROST 0.005% OPHTH SOLN 2.5 ML OU SCH (20:40)
[2020-10-05 21:00] VITALS: BP 100/48
[2020-10-06] MEDS: LEVOTHYROXINE 50MCG TABLET (0.05MG) PO SCH (05:40)
[2020-10-06] MEDS: VANCOMYCIN ORAL SOL 250MG/5ML ORAL SYRINGE PO SCH ×4 (05:41→23:16)
[2020-10-06 05:56] LABS: HEMATOCRIT 24.1 % (42.0-52.0); HEMOGLOBIN 8.2 g/dl (13.5-17.5); MEAN CORPUSCULAR HEMOGLOBIN 33.6 pg (27.0-33.0); MEAN CORPUSCULAR VOLUME 98.8 fl (80.0-96.0); PLATELET COUNT, AUTOMATED 199 10^3/uL (150-450); RED BLOOD COUNT 2.44 10^6/uL (4.30-6.10); WHITE BLOOD COUNT 15.8 10^3/uL (4.0-10.0)
[2020-10-06 06:00] VITALS: BP 109/50
[2020-10-06 06:27] LABS: CALCIUM LEVEL 8.1 MG/DL (8.8-10.2); CREATININE FOR GFR 1.41 MG/DL (0.70-1.30); MAGNESIUM LEVEL 1.6 MG/DL (1.8-2.4); POTASSIUM SERUM 3.5 MEQ/L (3.5-5.1)
[2020-10-06] MEDS: FERROUS SULFATE 325MG TAB PO SCH ×2 (08:42→20:26)
[2020-10-06] MEDS: LACTOBACILLUS ACIDOPHILUS CAP (BACID) PO SCH (08:42)
[2020-10-06] MEDS: CALCITRIOL 0.25 MCG CAP (S0169) PO SCH (08:42)
[2020-10-06] MEDS: ENOXAPARIN 30MG/0.3ML SYRINGE (J1650 PER 10MG) SC SCH (08:42)
[2020-10-06] MEDS: ATORVASTATIN 20 MG TAB PO SCH (08:42)
[2020-10-06] MEDS: TORSEMIDE 20 MG TAB PO SCH ×2 (08:42→17:14)
[2020-10-06] MEDS: SPIRONOLACTONE 25 MG TAB PO SCH (08:42)
[2020-10-06] MEDS: MAGNESIUM OXIDE 400MG TAB (MAG-OX) PO SCH ×2 (08:43→20:26)
[2020-10-06] MEDS: ISOSORBIDE DIN. (ISORDIL) 20 MG TAB PO SCH ×2 (08:45→20:22)
[2020-10-06] MEDS: allopurinoL 100 MG TAB PO SCH (08:45)
[2020-10-06] MEDS: bisoproloL fumarate 5 MG TAB PO SCH ×2 (08:45→20:27)
[2020-10-06] MEDS: CALCITONIN NASAL SPRAY 3.7 ML BTL SCH (08:46)
[2020-10-06] MEDS: **hydrALAZINE** 50 MG TAB PO SCH ×2 (08:47→20:22)
[2020-10-06] MEDS: PANTOPRAZOLE 20 MG TAB PO SCH ×2 (08:50→20:29)
[2020-10-06] MEDS: SUCRALFATE 1 GM TAB PO SCH (08:50)
--- NOTE | 2020-10-06 11:36 | IPNPDOC ---
Text Note Date of Service The patient was seen on 10/06/20. NOTE Subjective: Patient is a 75-year-old male presented the emergency department 2 days ago due to weakness and diarrhea. Patient was diagnosed with C. difficile colitis. Patient was doing better and states his bowel movements have become more solid. They have also slowed down. Patient still feels weak and has been working with physical therapy. Patient says abdominal pain is also improved. Review of systems: General: Patient denies fevers HEENT: Patient denies headaches Cardiovascular: Patient denies chest pain Respiratory: Patient denies shortness of breath, cough GI: Patient reports improvement in abdominal pain and diarrhea. Patient denies nausea, vomiting, Physical exam: Vitals: See below General: Alert and oriented male patient who was laying bed when I was in the room. Patient did not appear to be in any acute distress. HEENT: Normocephalic, atraumatic, moist mucous membranes. Neck: No lymphadenopathy or thyromegaly Cardiac: Regular rate and rhythm, no murmurs, normal S1, normal S2 Pulm: Clear to auscultation bilaterally. No wheezes, rhonchi, rales Abd: Nondistended, mild tenderness to palpation, no rebound tenderness, normoactive bowel sounds. Ext: No edema bilateral lower extremities Labs: See below Imaging: No new imaging has been performed Assessment/plan: 75-year-old male presented with weakness and diarrhea was found to have C. difficile colitis 1. C. difficile colitis. Patient will continue on oral vancomycin 125 mg 4 times daily for 14 days. See H&P for pulse dose taper once patient is discharged. 2. Weakness. Patient will continue to work with physical therapy. Patient's weakness is exacerbated by patient C. difficile colitis. 3. L1 and L2 compression fractures. Patient's pain is improved with calcitonin intranasally. Continue. 4. Hyponatremia. Most likely due to dehydration and diarrhea. This is improved. Continue to monitor. 5. Hypokalemia. This is resolved. Continue to monitor. Diuretics were held yesterday afternoon. 6. Hypertension. Continue patient's home blood pressure medications with hold parameters. 7. Chronic atrial fibrillation. Continue patient's home medications. Patient has watchman device in place and is not on oral anticoagulation outpatient. 8. Hyperlipidemia. Continue patient's home medications. 9. Coronary artery disease. Continue patient's home aspirin. 10. CKD stage III. Monitor patient's creatinine and avoid nephrotoxic agents. DVT Prophylaxis: Lovenox Disposition: Pending improvement in diarrhea weakness VS,Alanna, I+O VS, Kathiae, I+O Laboratory Tests 10/06/20 05:31 Vital Signs Date Time Temp Pulse Resp B/P (MAP) Pulse Ox O2 Delivery O2 Flow Rate FiO2 10/06/20 08:45 131/66 10/06/20 08:45 106 10/06/20 06:00 97.8 17 97 Room Air I&O- Last 24 Hours up to 6 AM 10/06/20 06:00 Intake Total 820 ml Output Total 200 ml Balance 620 ml ADOLPH ALVARADO DO Oct 06, 2020 11:36
[2020-10-06 14:00] VITALS: BP 114/80
[2020-10-06] MEDS: ASPIRIN 81MG ENTERIC TABLET PO SCH (17:14)
[2020-10-06] MEDS: VITAMIN D 1,000 INTERNATIONAL UNITS TABLET PO SCH (17:14)
[2020-10-06] MEDS: LATANOPROST 0.005% OPHTH SOLN 2.5 ML OU SCH (20:26)
[2020-10-06 22:00] VITALS: BP 121/55
[2020-10-07 04:56] VITALS: BP 127/63
[2020-10-07] MEDS: LEVOTHYROXINE 50MCG TABLET (0.05MG) PO SCH (05:11)
[2020-10-07] MEDS: VANCOMYCIN ORAL SOL 250MG/5ML ORAL SYRINGE PO SCH ×3 (05:11→17:10)
[2020-10-07 06:00] LABS: HEMATOCRIT 25.6 % (42.0-52.0); HEMOGLOBIN 8.5 g/dl (13.5-17.5); MEAN CORPUSCULAR HEMOGLOBIN 33.5 pg (27.0-33.0); MEAN CORPUSCULAR HGB CONC 33.2 g/dl (32.0-36.5); MEAN CORPUSCULAR VOLUME 100.8 fl (80.0-96.0); PLATELET COUNT, AUTOMATED 250 10^3/uL (150-450); RED BLOOD COUNT 2.54 10^6/uL (4.30-6.10); WHITE BLOOD COUNT 9.9 10^3/uL (4.0-10.0)
[2020-10-07 06:19] LABS: CALCIUM LEVEL 8.3 MG/DL (8.8-10.2); CREATININE FOR GFR 1.41 MG/DL (0.70-1.30); MAGNESIUM LEVEL 1.7 MG/DL (1.8-2.4); POTASSIUM SERUM 3.5 MEQ/L (3.5-5.1)
[2020-10-07] MEDS: **hydrALAZINE** 50 MG TAB PO SCH ×2 (09:00→20:18)
[2020-10-07] MEDS: ISOSORBIDE DIN. (ISORDIL) 20 MG TAB PO SCH ×2 (09:00→20:19)
[2020-10-07] MEDS: TORSEMIDE 20 MG TAB PO SCH ×2 (09:37→17:12)
[2020-10-07] MEDS: MAGNESIUM OXIDE 400MG TAB (MAG-OX) PO SCH ×2 (09:37→20:53)
[2020-10-07] MEDS: bisoproloL fumarate 5 MG TAB PO SCH ×2 (09:37→20:19)
[2020-10-07] MEDS: SPIRONOLACTONE 25 MG TAB PO SCH (09:37)
[2020-10-07] MEDS: FERROUS SULFATE 325MG TAB PO SCH ×2 (09:38→20:54)
[2020-10-07] MEDS: SUCRALFATE 1 GM TAB PO SCH (09:38)
[2020-10-07] MEDS: LACTOBACILLUS ACIDOPHILUS CAP (BACID) PO SCH (09:38)
[2020-10-07] MEDS: allopurinoL 100 MG TAB PO SCH (09:38)
[2020-10-07] MEDS: CALCITRIOL 0.25 MCG CAP (S0169) PO SCH (09:38)
[2020-10-07] MEDS: ATORVASTATIN 20 MG TAB PO SCH (09:38)
[2020-10-07] MEDS: ENOXAPARIN 30MG/0.3ML SYRINGE (J1650 PER 10MG) SC SCH (09:39)
[2020-10-07] MEDS: CALCITONIN NASAL SPRAY 3.7 ML BTL SCH (09:40)
[2020-10-07] MEDS: PANTOPRAZOLE 20 MG TAB PO SCH ×2 (09:57→20:53)
[2020-10-07 14:00] VITALS: BP 114/60
[2020-10-07] MEDS ORDERED: DIFI200T PO (14:02)
[2020-10-07] MEDS: VITAMIN D 1,000 INTERNATIONAL UNITS TABLET PO SCH (17:10)
[2020-10-07] MEDS: ASPIRIN 81MG ENTERIC TABLET PO SCH (17:10)
--- NOTE | 2020-10-07 17:59 | IPNPDOC ---
Text Note Date of Service The patient was seen on 10/07/20. NOTE Subjective: No any acute events overnight. Patient reported 4 bowel movements overnight, from liquid to semiformed. Objective: GENERAL APPEARANCE: NAD HEENT: no scleral icterus, no JVD, EOMI CARDIOVASCULAR: S1S2 LUNGS: CTA ABDOMEN: soft & not tender w palpation MUSCULOSKELETAL: no cyanosis, no swelling INTEGUMENT: no generalized pallor NEUROLOGICAL: cranial nerve function from 2-12 intact, follows commands, speech not dysarthric Assessment and plan Patient is 75 years old male with past medical history of hyperlipidemia, hypertension, atrial fibrillation, coronary artery disease presented to hospital with diarrhea secondary to C. difficile colitis C. difficile colitis Recurrent I changed vancomycin p.o. to fidaxomicin p.o. Patient will need Zinplava after DC Weakness Secondary to C. difficile colitis PT/OT L1/L2 compression fracture Patient received calcitonin with positive effect Continue calcitriol I will add alendronate Hyponatremia Improved Hypokalemia Resolved Hypertension Blood pressure under control Continue hold meds Chronic atrial fibrillation Heart rate under control Oral target anticoagulation was discontinued after watchman device placement Hyperlipidemia Continue statin Coronary artery disease Continue home meds RALPH Secondary to dehydration Torsemide on hold VS,Fishbone, I+O VS, Fishbone, I+O Laboratory Tests 10/07/20 05:24 Vital Signs Date Time Temp Pulse Resp B/P (MAP) Pulse Ox O2 Delivery O2 Flow Rate FiO2 10/07/20 14:00 97.3 83 18 114/60 (78) 91 Room Air I&O- Last 24 Hours up to 6 AM 10/07/20 06:00 Intake Total 990 ml Output Total 0 ml Balance 990 ml GER LOWRY DO Oct 07, 2020 17:59
[2020-10-07] MEDS: ACETAMINOPHEN TAB 650MG DOSE (2X325MG) PO PRN (18:07)
[2020-10-07] MEDS: FIDAXOMICIN 200 MG TAB (DIFICID) PO SCH (20:53)
[2020-10-07] MEDS: LATANOPROST 0.005% OPHTH SOLN 2.5 ML OU SCH (21:06)
[2020-10-07 22:00] VITALS: BP 111/53
[2020-10-08 05:40] LABS: HEMATOCRIT 25.3 % (42.0-52.0); HEMOGLOBIN 8.4 g/dl (13.5-17.5); MEAN CORPUSCULAR HEMOGLOBIN 33.6 pg (27.0-33.0); MEAN CORPUSCULAR HGB CONC 33.2 g/dl (32.0-36.5); MEAN CORPUSCULAR VOLUME 101.2 fl (80.0-96.0); PLATELET COUNT, AUTOMATED 281 10^3/uL (150-450); WHITE BLOOD COUNT 10.4 10^3/uL (4.0-10.0)
[2020-10-08 06:00] VITALS: BP 112/57
[2020-10-08 06:08] LABS: CALCIUM LEVEL 8.8 MG/DL (8.8-10.2); CREATININE FOR GFR 1.5 MG/DL (0.70-1.30); GLOMERULAR FILTRATION RATE 48.4 (>42); MAGNESIUM LEVEL 1.5 MG/DL (1.8-2.4); POTASSIUM SERUM 3.8 MEQ/L (3.5-5.1)
[2020-10-08] MEDS: LEVOTHYROXINE 50MCG TABLET (0.05MG) PO SCH (06:45)
[2020-10-08] MEDS ORDERED: ALENDRONATE 35MG TABLET PO SCH (07:00)
[2020-10-08] MEDS: ISOSORBIDE DIN. (ISORDIL) 20 MG TAB PO SCH ×2 (09:00→20:22)
[2020-10-08] MEDS: **hydrALAZINE** 50 MG TAB PO SCH ×2 (09:00→20:21)
[2020-10-08] MEDS: ACETAMINOPHEN TAB 650MG DOSE (2X325MG) PO PRN (10:13)
[2020-10-08] MEDS: ENOXAPARIN 30MG/0.3ML SYRINGE (J1650 PER 10MG) SC SCH (10:14)
[2020-10-08] MEDS: LACTOBACILLUS ACIDOPHILUS CAP (BACID) PO SCH (10:14)
[2020-10-08] MEDS: FIDAXOMICIN 200 MG TAB (DIFICID) PO SCH ×2 (10:14→20:29)
[2020-10-08] MEDS: CALCITRIOL 0.25 MCG CAP (S0169) PO SCH (10:14)
[2020-10-08] MEDS: PANTOPRAZOLE 20 MG TAB PO SCH (10:15)
[2020-10-08] MEDS: FERROUS SULFATE 325MG TAB PO SCH ×2 (10:15→20:29)
[2020-10-08] MEDS: MAGNESIUM OXIDE 400MG TAB (MAG-OX) PO SCH ×2 (10:15→20:29)
[2020-10-08] MEDS: SUCRALFATE 1 GM TAB PO SCH (10:15)
[2020-10-08] MEDS: allopurinoL 100 MG TAB PO SCH (10:15)
[2020-10-08] MEDS: ATORVASTATIN 20 MG TAB PO SCH (10:15)
[2020-10-08] MEDS: bisoproloL fumarate 5 MG TAB PO SCH ×2 (10:21→20:29)
[2020-10-08] MEDS: SPIRONOLACTONE 25 MG TAB PO SCH (10:22)
[2020-10-08 14:00] VITALS: BP 110/52
[2020-10-08] MEDS ORDERED: NS 1,000 ML IV SCH (16:40)
--- NOTE | 2020-10-08 16:40 | IPNPDOC ---
Text Note Date of Service The patient was seen on 10/08/20. NOTE Subjective: No any acute events overnight. Patient stated that he continues to have diarrhea up to 4 bowel movements overnight Objective: GENERAL APPEARANCE: NAD HEENT: no scleral icterus, no JVD, EOMI CARDIOVASCULAR: S1S2 LUNGS: CTA ABDOMEN: soft & not tender w palpation MUSCULOSKELETAL: no cyanosis, no swelling INTEGUMENT: no generalized pallor NEUROLOGICAL: cranial nerve function from 2-12 intact, follows commands, speech not dysarthric Assessment and plan Patient is 75 years old male with past medical history of hyperlipidemia, hypertension, atrial fibrillation, coronary artery disease presented to hospital with diarrhea secondary to C. difficile colitis C. difficile colitis Recurrent I changed vancomycin p.o. to fidaxomicin p.o. Patient will need Zinplava after DC Weakness Secondary to C. difficile colitis PT/OT L1/L2 compression fracture Patient received calcitonin with positive effect Continue calcitriol Continue alendronate Hyponatremia Improved Hypokalemia Resolved Hypertension Blood pressure under control Continue hold meds Chronic atrial fibrillation Heart rate under control Oral target anticoagulation was discontinued after watchman device placement Hyperlipidemia Continue statin Coronary artery disease Continue home meds RALPH Secondary to dehydration Torsemide on hold I will put on hold spironolactone and allopurinol VS,Fishbone, I+O VS, Fishbone, I+O Laboratory Tests 10/08/20 05:16 Vital Signs Date Time Temp Pulse Resp B/P (MAP) Pulse Ox O2 Delivery O2 Flow Rate FiO2 10/08/20 14:00 97.7 64 16 110/52 (71) 98 Room Air I&O- Last 24 Hours up to 6 AM 10/08/20 06:00 Intake Total 1910 ml Balance 1910 ml GER LOWRY DO Oct 08, 2020 16:40
[2020-10-08] MEDS: ASPIRIN 81MG ENTERIC TABLET PO SCH (17:10)
[2020-10-08] MEDS: VITAMIN D 1,000 INTERNATIONAL UNITS TABLET PO SCH (17:10)
[2020-10-08 20:20] VITALS: BP 129/55
[2020-10-08] MEDS: LATANOPROST 0.005% OPHTH SOLN 2.5 ML OU SCH (20:29)
[2020-10-08 22:32] LABS: CREATININE FOR GFR 1.5 MG/DL (0.70-1.30); GLOMERULAR FILTRATION RATE 48.4 (>42); POTASSIUM SERUM 3.9 MEQ/L (3.5-5.1)
--- NOTE | 2020-10-08 22:46 | REPVR ---
PROCEDURE INFORMATION: Exam: XR Chest Exam date and time: 10/08/20 (9:15pm) Age: 75 years old Clinical indication: Rales TECHNIQUE: Imaging protocol: Portable CXR Views: 1 view COMPARISON: Portable CXR of 10/04/20 FINDINGS: Lungs: Unremarkable. No consolidation. Pleural spaces: Unremarkable. No pleural effusions. No pneumothorax. Heart/Mediastinum: Stable cardiomegaly. ICD device remains (stable position) (with 2 shock coils). Bones/joints: Unremarkable. IMPRESSION: No acute findings. Lung gallegos remain clear. In general, a similar appearance was noted 4 days ago. Electronically signed by: Sade Ahmadi On 10/08/2020 22:45:44 PM
[2020-10-08] MEDS ORDERED: NS 1,000 ML IV ONE (23:15)
[2020-10-09] MEDS: ACETAMINOPHEN TAB 650MG DOSE (2X325MG) PO PRN (02:44)
[2020-10-09 05:54] VITALS: BP 126/94
[2020-10-09 06:02] LABS: HEMATOCRIT 24.1 % (42.0-52.0); HEMOGLOBIN 8.1 g/dl (13.5-17.5); MEAN CORPUSCULAR HEMOGLOBIN 33.5 pg (27.0-33.0); MEAN CORPUSCULAR HGB CONC 33.6 g/dl (32.0-36.5); MEAN CORPUSCULAR VOLUME 99.6 fl (80.0-96.0); PLATELET COUNT, AUTOMATED 306 10^3/uL (150-450); RED BLOOD COUNT 2.42 10^6/uL (4.30-6.10)
[2020-10-09] MEDS: LEVOTHYROXINE 50MCG TABLET (0.05MG) PO SCH (06:16)
[2020-10-09 06:26] LABS: CREATININE FOR GFR 1.43 MG/DL (0.70-1.30); GLOMERULAR FILTRATION RATE 51.2 (>42); MAGNESIUM LEVEL 1.5 MG/DL (1.8-2.4); POTASSIUM SERUM 3.8 MEQ/L (3.5-5.1)
[2020-10-09] MEDS: LACTOBACILLUS ACIDOPHILUS CAP (BACID) PO SCH (10:02)
[2020-10-09] MEDS: FIDAXOMICIN 200 MG TAB (DIFICID) PO SCH ×2 (10:02→20:30)
[2020-10-09] MEDS: FERROUS SULFATE 325MG TAB PO SCH ×2 (10:03→20:30)
[2020-10-09] MEDS: MAGNESIUM OXIDE 400MG TAB (MAG-OX) PO SCH ×2 (10:03→20:31)
[2020-10-09] MEDS: TORSEMIDE 20 MG TAB PO SCH ×2 (10:03→18:04)
[2020-10-09] MEDS: SUCRALFATE 1 GM TAB PO SCH (10:03)
[2020-10-09] MEDS: ATORVASTATIN 20 MG TAB PO SCH (10:04)
[2020-10-09] MEDS: CALCITRIOL 0.25 MCG CAP (S0169) PO SCH (10:04)
[2020-10-09] MEDS: ENOXAPARIN 30MG/0.3ML SYRINGE (J1650 PER 10MG) SC SCH (10:05)
[2020-10-09] MEDS: SPIRONOLACTONE 25 MG TAB PO SCH (10:05)
[2020-10-09] MEDS: ISOSORBIDE DIN. (ISORDIL) 20 MG TAB PO SCH ×2 (10:06→20:22)
[2020-10-09] MEDS: **hydrALAZINE** 50 MG TAB PO SCH ×2 (10:06→20:22)
[2020-10-09] MEDS: bisoproloL fumarate 5 MG TAB PO SCH ×2 (10:07→20:30)
[2020-10-09 14:00] VITALS: BP 129/54
--- NOTE | 2020-10-09 17:39 | IPNPDOC ---
Text Note Date of Service The patient was seen on 10/09/20. NOTE Subjective: No any acute events overnight. Patient stated that frequency of bowel movement improved and he had 2 bowel movements overnight Objective: GENERAL APPEARANCE: NAD HEENT: no scleral icterus, no JVD, EOMI CARDIOVASCULAR: S1S2 LUNGS: CTA ABDOMEN: soft & not tender w palpation MUSCULOSKELETAL: no cyanosis, no swelling INTEGUMENT: no generalized pallor NEUROLOGICAL: cranial nerve function from 2-12 intact, follows commands, speech not dysarthric Assessment and plan Patient is 75 years old male with past medical history of hyperlipidemia, hypertension, atrial fibrillation, coronary artery disease presented to hospital with diarrhea secondary to C. difficile colitis C. difficile colitis Recurrent I changed vancomycin p.o. to fidaxomicin p.o. unfortunately patient cannot afford fidaxomicin in the outpatient settings. I will prescribe him vancomycin with taper Patient will need Zinplava after DC Weakness Secondary to C. difficile colitis PT/OT L1/L2 compression fracture Patient received calcitonin with positive effect Continue calcitriol Continue alendronate Hyponatremia Improved Hypokalemia Resolved Hypertension Blood pressure under control Continue hold meds Chronic atrial fibrillation Heart rate under control Oral target anticoagulation was discontinued after watchman device placement Hyperlipidemia Continue statin Coronary artery disease Continue home meds RALPH Secondary to dehydration Improved Systolic CHF BNP significantly elevated I restarted torsemide Previous echo showed ejection fraction around 30 to 35% with severe biatrial enlargement. I will repeat echo to understand dynamic in the light of significantly elevated BNP. I will discuss with crisis clinician administration of Entresto. VS,Fishbone, I+O VS, Fishbone, I+O Laboratory Tests 10/08/20 21:08 10/09/20 05:37 Vital Signs Date Time Temp Pulse Resp B/P (MAP) Pulse Ox O2 Delivery O2 Flow Rate FiO2 10/09/20 14:00 97.9 70 16 129/54 (79) 98 Room Air I&O- Last 24 Hours up to 6 AM 10/09/20 06:00 Intake Total 1480 ml Output Total 100 ml Balance 1380 ml GER LOWRY DO Oct 09, 2020 17:39
[2020-10-09] MEDS ORDERED: VANC1CAP6 PO (17:40)
[2020-10-09] MEDS: VITAMIN D 1,000 INTERNATIONAL UNITS TABLET PO SCH (18:04)
[2020-10-09] MEDS: ASPIRIN 81MG ENTERIC TABLET PO SCH (18:04)
--- NOTE | 2020-10-09 19:27 | ECHO ---
ECHOCARDIOGRAM DATE OF PROCEDURE: 10/09/2020 DIAGNOSIS: CHF Age: Gender: Male Height: 165 cm Weight: 61 kg REFERRING PHYSICIAN: Humza Corral M.D. MEASUREMENTS: IVS 0.8 LV 5.6 LVPW 1.3 LA 5.4 Aorta 3.2 IVC 1.7 FINDINGS: This study is of fair technical quality with somewhat challenging visualization. Patient is in atrial fibrillation with controlled rate and wide QRS complex. Left ventricle is borderline dilated. There is global hypokinesis that is more pronounced in the septum and apex. I estimate overall ejection fraction (EF) in the neighborhood of 30-35%. Right ventricle is of normal size and systolic function. There is severe biatrial enlargement. Aortic valve is tricuspid and it is sclerotic, but mobility is relatively preserved. Mitral valve also exhibits degenerative abnormalities, but mobility of leaflets is preserved. Tricuspid valve appears normal. Pulmonic valve was poorly visualized, but grossly appears normal. No pericardial effusion is noted. Inferior vena cava is of normal size, but there is reduced collapse with inspiration, indicative of likely elevated central venous pressure. Aortic root is normal. Aortic arch and abdominal aorta were not well visualized. Doppler interrogation reveals mild to moderate aortic insufficiency and trivial aortic stenosis with mean gradient only 6 mmHg. There is probably moderately severe mitral insufficiency, likely related to LV dysfunction. Mild tricuspid insufficiency is noted. Calculated pulmonary artery pressure is around 50 mmHg, corresponding to moderate pulmonary hypertension. Evaluation of diastolic function is inconclusive due to underlying atrial fibrillation. CONCLUSIONS: 1. Study is of fair technical quality. Underlying atrial fibrillation with controlled rate and wide QRS complex. 2. Mildly dilated left ventricle with global hypokinesis, more pronounced in the septum and apex and overall estimated left ventricular ejection fraction (LVEF) of approximately 30-35%. 3. Normal right ventricular (RV) size and systolic function. 4. Severe biatrial enlargement. 5. Mild to moderate aortic insufficiency. 6. Probably moderately severe mitral insufficiency secondary to LV dysfunction. 7. Elevated central venous pressure and at least moderate pulmonary hypertension. 8. Echo artifact in right-sided heart chambers consistent with pacemaker or implantable cardioverter-defibrillator leads. MTDD
[2020-10-09] MEDS: LATANOPROST 0.005% OPHTH SOLN 2.5 ML OU SCH (20:30)
[2020-10-09 22:00] VITALS: BP 123/54
[2020-10-10] MEDS: LEVOTHYROXINE 50MCG TABLET (0.05MG) PO SCH (05:29)
[2020-10-10 06:00] VITALS: BP 122/55
[2020-10-10 06:05] LABS: HEMOGLOBIN 8.3 g/dl (13.5-17.5); MEAN CORPUSCULAR HEMOGLOBIN 33.5 pg (27.0-33.0); MEAN CORPUSCULAR HGB CONC 33.2 g/dl (32.0-36.5); MEAN CORPUSCULAR VOLUME 100.8 fl (80.0-96.0); PLATELET COUNT, AUTOMATED 371 10^3/uL (150-450); RED BLOOD COUNT 2.48 10^6/uL (4.30-6.10); WHITE BLOOD COUNT 9.8 10^3/uL (4.0-10.0)
[2020-10-10 06:29] LABS: CALCIUM LEVEL 9.5 MG/DL (8.8-10.2); CREATININE FOR GFR 1.42 MG/DL (0.70-1.30); GLOMERULAR FILTRATION RATE 51.6 (>42); MAGNESIUM LEVEL 1.5 MG/DL (1.8-2.4); POTASSIUM SERUM 4.2 MEQ/L (3.5-5.1)
[2020-10-10 08:26] LABS: PERCENT SATURATION 23.8 % (19.7-50.0)
[2020-10-10 09:42] LABS: FOLATE 7.1 NG/ML
[2020-10-10] MEDS: **hydrALAZINE** 50 MG TAB PO SCH (10:01)
[2020-10-10 10:02] VITALS: BP 121/54
[2020-10-10] MEDS: bisoproloL fumarate 5 MG TAB PO SCH (10:02)
[2020-10-10] MEDS: MAGNESIUM OXIDE 400MG TAB (MAG-OX) PO SCH (10:03)
[2020-10-10] MEDS: TORSEMIDE 20 MG TAB PO SCH (10:03)
[2020-10-10] MEDS: FIDAXOMICIN 200 MG TAB (DIFICID) PO SCH (10:03)
[2020-10-10] MEDS: FERROUS SULFATE 325MG TAB PO SCH (10:03)
[2020-10-10] MEDS: CALCITRIOL 0.25 MCG CAP (S0169) PO SCH (10:03)
[2020-10-10] MEDS: SPIRONOLACTONE 25 MG TAB PO SCH (10:04)
[2020-10-10] MEDS: SUCRALFATE 1 GM TAB PO SCH (10:04)
[2020-10-10] MEDS: ISOSORBIDE DIN. (ISORDIL) 20 MG TAB PO SCH (10:04)
[2020-10-10] MEDS: ATORVASTATIN 20 MG TAB PO SCH (10:04)
[2020-10-10] MEDS: LACTOBACILLUS ACIDOPHILUS CAP (BACID) PO SCH (10:04)
[2020-10-10] MEDS: ENOXAPARIN 30MG/0.3ML SYRINGE (J1650 PER 10MG) SC SCH (10:05)
[2020-10-10] MEDS ORDERED: RANI15TA PO (13:02)
[2020-10-10 14:00] VITALS: BP 121/60
--- NOTE | 2020-10-10 18:38 | DS.PDOC ---
Discharge Summary General Date of Admission Oct 04, 2020 at 16:32 Date of Discharge 10/10/20 Discharge Summary PROCEDURES PERFORMED DURING STAY: [None]. ADMITTING DIAGNOSES: C. difficile colitis Weakness L1/L2 compression fracture Hyponatremia Hypokalemia Hypertension Chronic atrial fibrillation Hyperlipidemia RALPH Coronary artery disease Systolic CHF DISCHARGE DIAGNOSES: C. difficile colitis Weakness L1/L2 compression fracture Hyponatremia Hypokalemia Hypertension Chronic atrial fibrillation Hyperlipidemia RALPH Coronary artery disease Systolic CHF COMPLICATIONS/CHIEF COMPLAINT: C. Difficile Colitis. HISTORY OF PRESENT ILLNESS:Patient is a 75-year-old male who presented to the emergency department due to weakness and diarrhea today. Patient states that starting on Tuesday he started having watery diarrhea. Patient said the diarrhea is been getting worse to the point where he is having 10-12 watery nonbloody bowel movements a day. Patient has become so weak that has been unable to get off the couch. Patient had his called the ambulance today as he was unable to get off the couch get to the commode which is right next to him. Patient has been having a history of falls recently and was most recently admitted 1 week ago for a fall with syncope. Patient states that he does not have any abdominal pain at this time. Patient did vomit once on Tuesday but has not been nauseous since then. Patient does not report any numbness but does report weakness. Patient states he has not urinated very much over the past 2 days. Patient has been only able to eat a few Ensure shakes as he does not have an appetite. Patient was found to have C. difficile colitis in the emergency department. HOSPITAL COURSE: During hospital stay the following issue addressed C. difficile colitis Recurrent I changed vancomycin p.o. to fidaxomicin p.o. unfortunately patient cannot afford fidaxomicin in the outpatient settings. I will prescribe him vancomycin with taper. Patient will need follow-up with ID specialist Patient will need Zinplava after DC Weakness Secondary to C. difficile colitis PT/OT L1/L2 compression fracture Patient received calcitonin with positive effect Continue calcitriol Continue alendronate Hyponatremia Improved Hypokalemia Resolved Hypertension Blood pressure under control Continue hold meds Chronic atrial fibrillation Heart rate under control Oral target anticoagulation was discontinued after watchman device placement Hyperlipidemia Continue statin Coronary artery disease Continue home meds RALPH Secondary to dehydration Improved Systolic CHF BNP significantly elevated I restarted torsemide Previous echo showed ejection fraction around 30 to 35% with severe biatrial enlargement. Repeated echo showed ejection fraction 30 to 35% Patient will need close follow-up with potato chip packaging machine operator to discuss Entresto and possible AICD placement DISCHARGE MEDICATIONS: Please see below. ALLERGIES: Please see below. PHYSICAL EXAMINATION ON DISCHARGE: VITAL SIGNS: Please see below. GENERAL APPEARANCE: NAD HEENT: no scleral icterus, no JVD, EOMI CARDIOVASCULAR: S1S2 LUNGS: CTA ABDOMEN: soft & not tender w palpation MUSCULOSKELETAL: no cyanosis, no swelling INTEGUMENT: no generalized pallor NEUROLOGICAL: cranial nerve function from 2-12 intact, follows commands, speech not dysarthric LABORATORY DATA: Please see below. PROGNOSIS: Fair ACTIVITY: [As tolerated]. DIET: Cardiac . DISCHARGE INSTRUCTIONS: On Tuesday Zinplava infusion. Follow-up with ID specialist for taper of vancomycin ITEMS TO FOLLOWUP ON ON OUTPATIENT: With ID specialist, potato chip packaging machine operator in 3 to 5 days and PCP in 3 to 5 days DISCHARGE CONDITION: [Stable]. TIME SPENT ON DISCHARGE: 40minutes. Vital Signs/I&Os Vital Signs Date Time Temp Pulse Resp B/P (MAP) Pulse Ox O2 Delivery O2 Flow Rate FiO2 10/10/20 14:00 97.6 72 18 121/60 (80) 97 Room Air I&O- Last 24 Hours up to 6 AM 10/10/20 06:00 Intake Total 1680 ml Output Total 200 ml Balance 1480 ml Laboratory Data Labs 24H Laboratory Tests 2 10/10/20 05:34: Nucleated Red Blood Cells % (auto) 0.0, Anion Gap 8, Glomerular Filtration Rate 51.6, Calcium Level 9.5, Magnesium Level 1.5L, Iron Level 50L, Total Iron Binding Capacity 210L, Transferrin % Saturation 23.8, Vitamin B12 Level 784, Folate 7.1 CBC/BMP Laboratory Tests 10/10/20 05:34 Microbiology Microbiology 10/04/20 Gastrointestinal Tract Panel (PCR) - Final, Complete Clostridium Difficile A/B 10/04/20 Blood Culture - Final, Complete NO GROWTH AFTER 5 DAYS 10/04/20 Blood Culture - Final, Complete NO GROWTH AFTER 5 DAYS Discharge Medications Scheduled Allopurinol (Allopurinol) 100 Mg Tab, 100 MG PO DAILY, (Reported) Aspirin (Aspirin EC) 81 Mg Tablet.dr, 81 MG PO QPM, (Reported) TAKES AT DINNERTIME Atorvastatin Calcium (Atorvastatin Calcium) 40 Mg Tab, 40 MG PO DAILY, (Reported) Bisoprolol Fumarate (Bisoprolol Fumarate) 5 Mg Tablet, 5 MG PO BID, (Reported) Calcitriol (Calcitriol) 0.25 Mcg Cap, 0.5 MCG PO 3XW, (Reported) TUESDAY, TUESDAY AND TUESDAY Calcitriol (Calcitriol) 0.25 Mcg Capsule, 0.25 MCG PO 4XWK, (Reported) TUESDAY, TUESDAY, TUESDAY, AND TUESDAY Cholecalciferol (Vitamin D3) (Vitamin D3) 1,000 Unit Tablet, 1,000 UNITS PO QPM, (Reported) TAKES AT DINNERTIME Ferrous Sulfate (Ferrous Sulfate) 325 Mg Tab, 325 MG PO BID, (Reported) Hydralazine HCl (Hydralazine HCl) 50 Mg Tab, 50 MG PO BID, (Reported) Isosorbide Dinitrate (Isosorbide Dinitrate) 20 Mg Tablet, 20 MG PO BID, (Reported) L.acidoph/L.bulg/B.bif/S.therm (Bacid Caplet) 1 Each Tablet, 1 TAB PO DAILY, (Reported) Latanoprost (Xalatan) 0.005% 2.5ML Drops, 1 DROP OU QHS, (Reported) Levothyroxine Sodium (Levothyroxine Sodium) 50 Mcg Tab, 50 MCG PO DAILY, (Reported) Magnesium Oxide (Magnesium Oxide) 400 Mg Tablet, 400 MG PO BID, (Reported) Ranitidine Hcl (Ranitidine HCl) 150 Mg Tablet, 150 MG PO BID Spironolactone (Spironolactone) 25 Mg Tablet, 25 MG PO DAILY, (Reported) Sucralfate (Carafate) 1 Gm Tablet, 1 GM PO DAILY, (Reported) Torsemide (Torsemide) 20 Mg Tablet, 20 MG PO BID, (Reported) Vancomycin HCl (Vancocin HCl) 125 Mg Capsule, 1 CAP PO QID Scheduled PRN Acetaminophen (Tylenol Extra Strength) 500 Mg Tablet, 500 MG PO Q4H PRN for PAIN LEVEL 1-5, (Reported) Benzonatate (Benzonatate) 200 Mg Capsule, 200 MG PO TID PRN for COUGH, (Reported) MDD 3 Clobetasol Propionate (Temovate) 15 Gm Oint...g., 1 DOSE TOP BID PRN for RASH, (Reported) APPLY TO ARMS Nitroglycerin (Nitrostat) 0.4 Mg Subl, 0.4 MG SL NITRO PRN for CHEST PAIN, (Reported) Allergies Coded Allergies: Penicillins (Verified Allergy, Severe, fainting/shock, 12/07/19) Sulfa (Sulfonamide Antibiotics) (Verified Allergy, Severe, ITCH/BURN/THROAT TIGHTENS, 12/07/19) Quinolones (Verified Allergy, Unknown, unknown, 12/07/19) GER LOWRY DO Oct 10, 2020 18:38
== END 2020-10-10 17:13 | disposition home health service (06) | DRG 372 ==
LOC: EDBD 11:50 → M ED 11:50 → M ED INP 16:32 → ENRESERV 18:26 → M MSPAV 20:36
PROVIDERS: ADMIT Family Medicine; ATTEND Internal Medicine
DX: A04.71 Enterocolitis due to Clostridium difficile, recurrent (principal); E87.1 Hypo-osmolality and hyponatremia; I48.20 Chronic atrial fibrillation, unspecified; I50.42 Chronic combined systolic (congestive) and diastolic (congestive) heart failure; N17.9 Acute kidney failure, unspecified; S32.010A Wedge compression fracture of first lumbar vertebra, initial encounter for closed fracture; S32.020A Wedge compression fracture of second lumbar vertebra, initial encounter for closed fracture; I13.0 Hypertensive heart and chronic kidney disease with heart failure and stage 1 through stage 4 chronic kidney disease, or unspecified chronic kidney disease; E87.6 Hypokalemia; N18.30 Chronic kidney disease, stage 3 unspecified; E86.0 Dehydration; I25.10 Atherosclerotic heart disease of native coronary artery without angina pectoris; Z79.82 Long term (current) use of aspirin; Z79.899 Other long term (current) drug therapy; Z88.0 Allergy status to penicillin; Z88.2 Allergy status to sulfonamides; Z88.8 Allergy status to other drugs, medicaments and biological substances; M10.9 Gout, unspecified; E78.5 Hyperlipidemia, unspecified

== ENCOUNTER → 2020-10-13 | Outpatient (CLI) | payer MEDICARE ==
[~2020-10-13] VITALS: Ht 165.1 cm; Wt 60.9 kg
[~2020-10-13] MED LIST changes: +BEZLOTOXUMAB in NS 100 ML OVER 1 HR IV ONE; +RANI15TA PO
[2020-10-13 13:45] VITALS: BP 138/63
[2020-10-13 15:34] VITALS: BP 139/68
== END ==
LOC: M INFU 13:32
PROVIDERS: ATTEND Internal Medicine
DX: A04.72 Enterocolitis due to Clostridium difficile, not specified as recurrent (principal); Z88.0 Allergy status to penicillin; Z88.2 Allergy status to sulfonamides
CPT/HCPCS: 96365; J0565

== ENCOUNTER → 2020-10-20 | Outpatient (CLI) | payer MEDICARE ==
[~2020-10-20] MED LIST changes: -BEZLOTOXUMAB in NS 100 ML OVER 1 HR IV ONE
--- NOTE | 2020-10-20 15:16 | REP ---
INDICATION: PERSONAL H/O NICOTINE DEPENDENT. COMPARISON: Multiple the latest 10/16/[address] without contrast TECHNIQUE: Axial noncontrast images from the thoracic inlet to the upper abdomen using low-dose lung screening technique (LDCT). As per the protocol only lung window images were sent to the read station for interpretation FINDINGS: Once again, there is scattered asymmetric and ground-glass opacities seen throughout the lung gallegos status quo. Once again, there are calcified granulomas status quo. In the right lower lobe a 1.2 cm sized nodular density has developed. In the right upper lobe a new 4 mm size nodule has also developed. Grossly, the mediastinum and pulmonary vinicio are unchanged. Grossly, the imaged upper abdomen and imaged osseous structures are unchanged. IMPRESSION: New lung nodules as described above. According to the revised Fleischner society criteria PET-CT is warranted at this time. <Electronically signed by Asad Goodson > 10/20/20 [id number]
== END ==
LOC: M RAD 14:22
PROVIDERS: ATTEND Nurse Practitioner Family
DX: Z87.891 Personal history of nicotine dependence (principal)

== ENCOUNTER → 2020-11-10 | Outpatient (CLI) | payer MEDICARE ==
[~2020-11-10] MED LIST changes: -KLOR10TA76 PO; +POTA-136 PO
--- NOTE | 2020-11-11 10:39 | REP ---
INDICATION: DIAGNOSING LUNG NODULE R91.1. COMPARISON: Prior low-dose screening CT examination of the lungs of 10/20/[address] examination of the abdomen and pelvis of 10/04/2020. There are no prior PET CTs for comparison. TECHNIQUE: After the intravenous administration of 8.81 mCi of FDG 18 triplane whole-body PET-CT was performed from the skull base to the mid thigh. FINDINGS: There is no abnormal hypermetabolic activity seen in the neck, chest, abdomen, or pelvis. There is slight hypermetabolism seen in the L1 vertebral body having a maximal SUV value of 3.6. This is seen in conjunction with a grade 2/3 compression deformity. IMPRESSION: There is some hypermetabolism seen in a compression fracture involving L1 as described above. The exact age of this compression fracture cannot be determined by this exam. This needs to be correlated clinically. The finding likely represents acute upon chronic change. There is no abnormal hypermetabolic activity seen in the chest particularly in the 1.2 cm size nodule in the right lower lobe. Follow-up, however, is suggested secondary to the patient's history of tobacco abuse. <Electronically signed by Asad Goodson > 11/11/20 [id number]
== END ==
LOC: M PLARAD 14:03
PROVIDERS: ATTEND Family Medicine
DX: R91.1 Solitary pulmonary nodule (principal)
CPT/HCPCS: 78815; A9552

== ENCOUNTER → 2020-11-17 | Outpatient (REF) | payer MEDICARE ==
[~2020-11-17] MED LIST changes: +ISOS20TA4 PO; -ISOS20TAB PO; -MAGN400T3 PO; +MAGN400T33 PO
[2020-11-17 14:38] LABS: ALBUMIN 3.4 GM/DL (3.2-5.2); BILIRUBIN,TOTAL 0.5 MG/DL (0.2-1.0); CALCIUM LEVEL 9.2 MG/DL (8.8-10.2); CHOLESTEROL RISK RATIO 1.343 (<5); CREATININE FOR GFR 1.96 MG/DL (0.70-1.30); FREE T4 1.37 NG/DL (0.76-1.46); GLOMERULAR FILTRATION RATE 35.6 (>42); MAGNESIUM LEVEL 2.3 MG/DL (1.8-2.4); POTASSIUM SERUM 4.1 MEQ/L (3.5-5.1); THYROID STIMULATING HORMONE 2.86 uIU/ML (0.358-3.740); TOTAL PROTEIN 7.3 GM/DL (6.4-8.2)
== END ==
LOC: M LAB REF 13:29
PROVIDERS: ATTEND Nurse Practitioner Family
DX: N18.32 Chronic kidney disease, stage 3b (principal); E03.9 Hypothyroidism, unspecified; E83.42 Hypomagnesemia

== ENCOUNTER → 2021-01-09 | Outpatient (REF) | payer MEDICARE ==
[~2021-01-09] MED LIST changes: -ISOS20TA4 PO; +ISOS20TAB PO
[2021-01-09 17:15] LABS: CLOSTRIDIUM DIFFICILE PCR POSITIVE (NEGATIVE)
== END ==
LOC: M SFHCPLAZ 14:42
PROVIDERS: ATTEND Internal Medicine Infectious Disease
DX: A04.72 Enterocolitis due to Clostridium difficile, not specified as recurrent (principal)

== ENCOUNTER 2021-01-11 08:47 | Inpatient (IN) | payer MEDICARE ==
[~2021-01-11] VITALS: Ht 165.1 cm; Wt 71.1 kg
[2021-01-11] VITALS (33 sets, daily range): BP systolic 84–116; BP diastolic 45–62
[~2021-01-11 08:47] MED LIST changes: +ISOS20TA4 PO; -ISOS20TAB PO
[2021-01-11] MEDS ORDERED: NS 1,650 ML in IV 1 EA IV ONE (09:05)
[2021-01-11 09:19] LABS: VENOUS BASE EXCESS -14.7 (-2.0-2.0); VENOUS O2 SATURATION 62.6 % (60.0-80.0); VENOUS PARTIAL PRESSURE CO2 42.9 mmHg (38.0-50.0); VENOUS PARTIAL PRESSURE O2 40.7 mmHg (30.0-50.0); VENOUS PH 7.132 UNITS (7.330-7.430); VENOUS STANDARD HCO3 12.9 MEQ/L; VENOUS TOTAL CO2 15.3 MEQ/L (24.0-28.0)
[2021-01-11] MEDS ORDERED: MEROPENEM INJ 1 GM in IV 1 EA IV ONE (09:20)
[2021-01-11 09:30] LABS: HEMATOCRIT 45.7 % (42.0-52.0); HEMOGLOBIN 15.7 g/dl (13.5-17.5); MEAN CORPUSCULAR HEMOGLOBIN 32.8 pg (27.0-33.0); MEAN CORPUSCULAR HGB CONC 34.4 g/dl (32.0-36.5); MEAN CORPUSCULAR VOLUME 95.4 fl (80.0-96.0); PLATELET COUNT, AUTOMATED 172 10^3/uL (150-450); RED BLOOD COUNT 4.79 10^6/uL (4.30-6.10); WHITE BLOOD COUNT 5.1 10^3/uL (4.0-10.0)
[2021-01-11] MEDS ORDERED: metroNIDAZOLE 500 MG in IV 1 EA IV ONE (09:50)
[2021-01-11] MEDS ORDERED: VANCOMYCIN ORAL SOL 250MG/5ML ORAL SYRINGE PO ONE (09:50)
[2021-01-11 10:00] LABS: RSV AMPLIFICATION NEGATIVE (NEGATIVE)
[2021-01-11 10:01] LABS: ALBUMIN 4.3 GM/DL (3.2-5.2); ALT/SGPT 43 U/L (12-78); AMYLASE 67 U/L (25-115); BILIRUBIN,DIRECT 0.4 MG/DL (0.0-0.2); BILIRUBIN,TOTAL 0.9 MG/DL (0.2-1.0); BLOOD UREA NITROGEN 89 MG/DL (7-18); CALCIUM LEVEL 9.4 MG/DL (8.8-10.2); CARBON DIOXIDE LEVEL 15 MEQ/L (21-32); CHLORIDE LEVEL 86 MEQ/L (98-107); CK-MB VALUE MASS 5.3 NG/ML (<3.6); CPK CREATINE PHOSPHOKINASE 124 U/L (39-308); CREATININE FOR GFR 4.89 MG/DL (0.70-1.30); GLOMERULAR FILTRATION RATE 12.4 (>42); GLUCOSE, FASTING 182 MG/DL (70-100); LIPASE 83 U/L (73-393); MAGNESIUM LEVEL 3.7 MG/DL (1.8-2.4); MB/CK RELATIVE INDEX 4.27 (< OR =4); POTASSIUM SERUM 2.3 MEQ/L (3.5-5.1); SODIUM LEVEL 126 MEQ/L (136-145); TOTAL PROTEIN 9.1 GM/DL (6.4-8.2); TROPONIN I < 0.02 NG/ML (< 0.10)
[2021-01-11 10:05] LABS: LYMPHOCYTES 1 % (16-44); METAMYELOCYTES 5 % (0-0); MONOCYTES 10 % (0-5); NEUTROPHILS 36 % (28-66)
[2021-01-11 10:07] LABS: OVALOCYTES 1+
[2021-01-11 10:09] LABS: PLATELET ESTIMATE NORMAL (NORMAL)
[2021-01-11 10:10] LABS: BURR CELLS 1+; SCHISTOCYTES 1+
[2021-01-11 10:12] LABS: PLATELET CLUMPS SMALL AMT
[2021-01-11] MEDS ORDERED: KCL 10MEQ/100ML SWI (KRUN) 10 MEQ in IV 1 EA IV ONE (10:15)
[2021-01-11] MEDS ORDERED: POTASSIUM CHLORIDE 10MEQ SR TABLET PO ONE (10:15)
[2021-01-11] MEDS ORDERED: PANT20TA6 PO (10:25)
[2021-01-11] MEDS ORDERED: HOME MED LIST COMPLETE! XX SCH (10:30)
[2021-01-11] MEDS ORDERED: NS 500 ML IV ONE ×2 (10:45→12:30)
[2021-01-11] MEDS ORDERED: BENZONATATE 100MG CAPSULE PO PRN (12:45)
[2021-01-11 12:53] LABS: VENOUS BASE EXCESS -15.8 (-2.0-2.0); VENOUS HCO3 11.6 MEQ/L (23.0-27.0); VENOUS O2 SATURATION 77.9 % (60.0-80.0); VENOUS PARTIAL PRESSURE CO2 32.7 mmHg (38.0-50.0); VENOUS PARTIAL PRESSURE O2 51.1 mmHg (30.0-50.0); VENOUS PH 7.167 UNITS (7.330-7.430); VENOUS STANDARD HCO3 12.3 MEQ/L; VENOUS TOTAL CO2 12.6 MEQ/L (24.0-28.0)
[2021-01-11 13:38] LABS: BLOOD UREA NITROGEN 81 MG/DL (7-18); CALCIUM LEVEL 7.4 MG/DL (8.8-10.2); CARBON DIOXIDE LEVEL 14 MEQ/L (21-32); CHLORIDE LEVEL 99 MEQ/L (98-107); CREATININE FOR GFR 4.29 MG/DL (0.70-1.30); GLOMERULAR FILTRATION RATE 14.4 (>42); GLUCOSE, FASTING 122 MG/DL (70-100); SODIUM LEVEL 133 MEQ/L (136-145)
[2021-01-11] MEDS ORDERED: KCL 20MEQ IN 100ML SWI (KRUN) 20 MEQ in IV 1 EA IV ONE ×6 (13:45→21:00)
[2021-01-11] MEDS ORDERED: metroNIDAZOLE (FLAGYL) 500MG TABLET PO SCH (14:00)
[2021-01-11 14:29] LABS: CK-MB VALUE MASS 4.1 NG/ML (<3.6); CPK CREATINE PHOSPHOKINASE 99 U/L (39-308); MB/CK RELATIVE INDEX 4.14 (< OR =4); TROPONIN I < 0.02 NG/ML (< 0.10)
[2021-01-11] MEDS: KCL 10MEQ/100ML SWI (KRUN) X 2 DOSES (20MEQ TOTAL) IV SCH ×4 (14:35→15:36)
[2021-01-11] MEDS: SUCRALFATE 1 GM TAB PO SCH (14:47)
[2021-01-11] MEDS ORDERED: NS 1,000 ML IV ONE (15:00)
[2021-01-11] MEDS: SODIUM BICARBONATE 100 MEQ, POTASSIUM CHLORIDE INJ 20 MEQ in D5W 1,000 ML IV SCH (16:04)
[2021-01-11] MEDS: NOREPINEPHRINE BITARTRATE 8 MG in D5W 492 ML IV SCH (16:07)
[2021-01-11] MEDS: LACTOBACILLUS ACIDOPHILUS CAP (BACID) PO SCH (17:16)
[2021-01-11] MEDS: ATORVASTATIN 20 MG TAB PO SCH (17:16)
[2021-01-11] MEDS: ASPIRIN 81MG ENTERIC TABLET PO SCH (17:16)
[2021-01-11] MEDS: VANCOMYCIN ORAL SOL 250MG/5ML ORAL SYRINGE PO SCH (17:41)
[2021-01-11 20:32] LABS: CREATININE FOR GFR 4.32 MG/DL (0.70-1.30); GLOMERULAR FILTRATION RATE 14.3 (>42); POTASSIUM SERUM 2.9 MEQ/L (3.5-5.1)
[2021-01-11] MEDS ORDERED: FIDAXOMICIN 200 MG TAB (DIFICID) PO ONE (21:00)
[2021-01-11] MEDS: LATANOPROST 0.005% OPHTH SOLN 2.5 ML OU SCH (21:26)
[2021-01-11] MEDS: FERROUS SULFATE 325MG TAB PO SCH (21:26)
[2021-01-11] MEDS: VITAMIN D 1,000 INTERNATIONAL UNITS TABLET PO SCH (21:32)
[2021-01-11] MEDS: PANTOPRAZOLE 20 MG TAB PO SCH (21:32)
[2021-01-11] MEDS: metroNIDAZOLE 500 MG in IV 1 EA IV SCH (23:02)
[2021-01-12] VITALS (81 sets, daily range): BP systolic 73–116; BP diastolic 41–66
[2021-01-12] MEDS: SODIUM BICARBONATE 100 MEQ, POTASSIUM CHLORIDE INJ 20 MEQ in D5W 1,000 ML IV SCH (02:00)
[2021-01-12 04:53] LABS: HEMATOCRIT 33.1 % (42.0-52.0); MEAN CORPUSCULAR HEMOGLOBIN 33.2 pg (27.0-33.0); MEAN CORPUSCULAR VOLUME 94.8 fl (80.0-96.0); PLATELET COUNT, AUTOMATED 125 10^3/uL (150-450); RED BLOOD COUNT 3.49 10^6/uL (4.30-6.10); WHITE BLOOD COUNT 9.5 10^3/uL (4.0-10.0)
[2021-01-12 05:06] LABS: HEMOGLOBIN 11.6 g/dl (13.5-17.5)
[2021-01-12] MEDS: NOREPINEPHRINE BITARTRATE 8 MG in D5W 492 ML IV SCH ×2 (05:20→12:59)
[2021-01-12 05:40] LABS: ALBUMIN 2.4 GM/DL (3.2-5.2); BILIRUBIN,TOTAL 0.5 MG/DL (0.2-1.0); CALCIUM LEVEL 7.4 MG/DL (8.8-10.2); CREATININE FOR GFR 4.37 MG/DL (0.70-1.30); GLOMERULAR FILTRATION RATE 14.1 (>42); MAGNESIUM LEVEL 2.6 MG/DL (1.8-2.4); POTASSIUM SERUM 2.6 MEQ/L (3.5-5.1)
[2021-01-12] MEDS ORDERED: NS 500 ML IV ONE ×3 (06:00→16:25)
[2021-01-12] MEDS: VANCOMYCIN ORAL SOL 250MG/5ML ORAL SYRINGE PO SCH ×4 (06:00→23:53)
[2021-01-12] MEDS: KCL 20MEQ IN 100ML SWI (KRUN) 20 MEQ in IV 1 EA IV SCH ×8 (06:28→21:25)
[2021-01-12] MEDS: LEVOTHYROXINE 50MCG TABLET (0.05MG) PO SCH (06:46)
[2021-01-12] MEDS: metroNIDAZOLE 500 MG in IV 1 EA IV SCH ×3 (07:22→22:29)
[2021-01-12] MEDS ORDERED: KCL 10MEQ/100ML SWI (KRUN) 10 MEQ in IV 1 EA IV SCH (08:00)
[2021-01-12] MEDS: LACTOBACILLUS ACIDOPHILUS CAP (BACID) PO SCH ×3 (08:22→17:31)
[2021-01-12] MEDS: SUCRALFATE 1 GM TAB PO SCH (08:22)
[2021-01-12] MEDS: PANTOPRAZOLE 20 MG TAB PO SCH (08:22)
[2021-01-12] MEDS: allopurinoL 100 MG TAB PO SCH (08:22)
[2021-01-12] MEDS: ATORVASTATIN 20 MG TAB PO SCH (08:23)
[2021-01-12] MEDS: CALCITRIOL 0.25 MCG CAP (S0169) PO SCH (08:23)
[2021-01-12] MEDS: FERROUS SULFATE 325MG TAB PO SCH ×2 (08:23→20:21)
[2021-01-12] MEDS ORDERED: FLUBLOK(EGG FREE)(QUAD)INFLUENZA VACC 0.5ML SYRINGE 18YRS & OLDER IM SCH (09:00)
[2021-01-12] MEDS ORDERED: FIDAXOMICIN 200 MG TAB (DIFICID) PO SCH (09:00)
[2021-01-12 10:31] LABS: METAMYELOCYTES 3 % (0-0); MONOCYTES 6 % (0-5); NEUTROPHILS 89 % (28-66); PLATELET ESTIMATE DECREASED (NORMAL)
[2021-01-12 10:32] LABS: BURR CELLS 1+; OVALOCYTES 1+
[2021-01-12] MEDS ORDERED: KCL 20MEQ IN 100ML SWI (KRUN) 20 MEQ in IV 1 EA IV ONE ×2 (10:50)
[2021-01-12 11:02] LABS: VENOUS BASE EXCESS -10.6 (-2.0-2.0); VENOUS HCO3 14.4 MEQ/L (23.0-27.0); VENOUS O2 SATURATION 99.5 % (60.0-80.0); VENOUS PARTIAL PRESSURE CO2 29.8 mmHg (38.0-50.0); VENOUS PARTIAL PRESSURE O2 204.1 mmHg (30.0-50.0); VENOUS PH 7.302 UNITS (7.330-7.430); VENOUS STANDARD HCO3 16.2 MEQ/L; VENOUS TOTAL CO2 15.3 MEQ/L (24.0-28.0)
[2021-01-12] MEDS: ACETAMINOPHEN 500 MG TAB PO PRN ×2 (11:12→20:23)
[2021-01-12 11:46] LABS: CALCIUM LEVEL 7.2 MG/DL (8.8-10.2); CREATININE FOR GFR 4.24 MG/DL (0.70-1.30); GLOMERULAR FILTRATION RATE 14.6 (>42); POTASSIUM SERUM 3.6 MEQ/L (3.5-5.1)
[2021-01-12] MEDS ORDERED: FLUBLOK(EGG FREE)(QUAD)INFLUENZA VACC 0.5ML SYRINGE 18YRS & OLDER IM ONE (13:00)
[2021-01-12] MEDS: SODIUM BICARBONATE 150 MEQ in D5W 1,000 ML IV SCH (14:57)
[2021-01-12] MEDS: FAMOTIDINE IV BAG 20 MG in IV 1 EA IV SCH (17:31)
[2021-01-12] MEDS: ASPIRIN 81MG ENTERIC TABLET PO SCH (17:31)
[2021-01-12 18:37] LABS: CREATININE FOR GFR 4.15 MG/DL (0.70-1.30)
[2021-01-12] MEDS: VITAMIN D 1,000 INTERNATIONAL UNITS TABLET PO SCH (20:21)
[2021-01-12] MEDS: LATANOPROST 0.005% OPHTH SOLN 2.5 ML OU SCH (20:21)
[2021-01-13] VITALS (80 sets, daily range): BP systolic 80–132; BP diastolic 46–74
[2021-01-13] MEDS: SODIUM BICARBONATE 150 MEQ in D5W 1,000 ML IV SCH (02:00)
[2021-01-13] MEDS: NOREPINEPHRINE BITARTRATE 8 MG in D5W 492 ML IV SCH (02:19)
[2021-01-13] MEDS: metroNIDAZOLE 500 MG in IV 1 EA IV SCH ×3 (05:42→22:26)
[2021-01-13] MEDS: VANCOMYCIN ORAL SOL 250MG/5ML ORAL SYRINGE PO SCH ×3 (05:42→18:15)
[2021-01-13] MEDS: LEVOTHYROXINE 50MCG TABLET (0.05MG) PO SCH (05:42)
[2021-01-13 06:29] LABS: BASO % 0.2 % (0.0-1.0); EOS % 0.4 % (0.0-3.0); HEMATOCRIT 30.9 % (42.0-52.0); HEMOGLOBIN 11.2 g/dl (13.5-17.5); LYMPH # 0.2 10^3/uL (1.5-5.0); LYMPH % 2.3 % (24.0-44.0); MEAN CORPUSCULAR HEMOGLOBIN 33.4 pg (27.0-33.0); MEAN CORPUSCULAR HGB CONC 36.2 g/dl (32.0-36.5); MEAN CORPUSCULAR VOLUME 92.2 fl (80.0-96.0); NEUTROPHILS # 9.3 10^3/uL (1.5-8.5); NEUTROPHILS % 87.3 % (36.0-66.0); PLATELET COUNT, AUTOMATED 105 10^3/uL (150-450); RED BLOOD COUNT 3.35 10^6/uL (4.30-6.10); WHITE BLOOD COUNT 10.6 10^3/uL (4.0-10.0)
[2021-01-13 06:44] LABS: ALBUMIN 2.1 GM/DL (3.2-5.2); BILIRUBIN,TOTAL 0.4 MG/DL (0.2-1.0); CALCIUM LEVEL 7.2 MG/DL (8.8-10.2); CREATININE FOR GFR 3.85 MG/DL (0.70-1.30); GLOMERULAR FILTRATION RATE 16.3 (>42); POTASSIUM SERUM 3.2 MEQ/L (3.5-5.1); TOTAL PROTEIN 5.3 GM/DL (6.4-8.2)
[2021-01-13] MEDS: FERROUS SULFATE 325MG TAB PO SCH ×2 (09:38→20:42)
[2021-01-13] MEDS: CALCITRIOL 0.25 MCG CAP (S0169) PO SCH (09:38)
[2021-01-13] MEDS: allopurinoL 100 MG TAB PO SCH (09:38)
[2021-01-13] MEDS: ATORVASTATIN 20 MG TAB PO SCH (09:38)
[2021-01-13] MEDS: FAMOTIDINE IV BAG 20 MG in IV 1 EA IV SCH ×2 (09:38→18:15)
[2021-01-13] MEDS: LACTOBACILLUS ACIDOPHILUS CAP (BACID) PO SCH ×3 (09:38→18:15)
[2021-01-13] MEDS: SODIUM BICARBONATE 50 MEQ in KCL 20MEQ IN 0.45NS 1000ML 1,000 ML IV SCH ×4 (10:00→20:09)
[2021-01-13] MEDS ORDERED: MAG SULF 1GM/100ML (MAG RUN) 1 GM in IV 1 EA IV SCH (12:00)
[2021-01-13] MEDS: ASPIRIN 81MG ENTERIC TABLET PO SCH (18:15)
[2021-01-13 19:24] LABS: CALCIUM LEVEL 7.7 MG/DL (8.8-10.2); CREATININE FOR GFR 3.32 MG/DL (0.70-1.30); GLOMERULAR FILTRATION RATE 19.4 (>42); POTASSIUM SERUM 2.7 MEQ/L (3.5-5.1)
[2021-01-13] MEDS: KCL 20MEQ IN 100ML SWI (KRUN) 20 MEQ in IV 1 EA IV SCH ×6 (20:05→22:26)
[2021-01-13] MEDS: VITAMIN D 1,000 INTERNATIONAL UNITS TABLET PO SCH (20:42)
[2021-01-13] MEDS: ACETAMINOPHEN 500 MG TAB PO PRN (20:42)
[2021-01-13] MEDS: LATANOPROST 0.005% OPHTH SOLN 2.5 ML OU SCH (20:43)
[2021-01-14] VITALS (31 sets, daily range): BP systolic 93–146; BP diastolic 50–91
[2021-01-14] MEDS: VANCOMYCIN ORAL SOL 250MG/5ML ORAL SYRINGE PO SCH ×5 (01:13→23:51)
[2021-01-14] MEDS: LEVOTHYROXINE 50MCG TABLET (0.05MG) PO SCH (06:09)
[2021-01-14] MEDS: metroNIDAZOLE 500 MG in IV 1 EA IV SCH ×3 (06:10→21:55)
[2021-01-14 06:20] LABS: HEMATOCRIT 31.2 % (42.0-52.0); MEAN CORPUSCULAR HEMOGLOBIN 32.6 pg (27.0-33.0); MEAN CORPUSCULAR HGB CONC 35.3 g/dl (32.0-36.5); MEAN CORPUSCULAR VOLUME 92.6 fl (80.0-96.0); RED BLOOD COUNT 3.37 10^6/uL (4.30-6.10); WHITE BLOOD COUNT 7.7 10^3/uL (4.0-10.0)
[2021-01-14 06:48] LABS: PLATELET COUNT, AUTOMATED 78 10^3/uL (150-450)
[2021-01-14 06:49] LABS: CREATININE FOR GFR 2.85 MG/DL (0.70-1.30); GLOMERULAR FILTRATION RATE 23.1 (>42)
[2021-01-14] MEDS: LACTOBACILLUS ACIDOPHILUS CAP (BACID) PO SCH ×3 (09:25→17:24)
[2021-01-14] MEDS: FERROUS SULFATE 325MG TAB PO SCH ×2 (09:25→21:17)
[2021-01-14] MEDS: ATORVASTATIN 20 MG TAB PO SCH (09:25)
[2021-01-14] MEDS: allopurinoL 100 MG TAB PO SCH (09:25)
[2021-01-14] MEDS: FAMOTIDINE IV BAG 20 MG in IV 1 EA IV SCH ×2 (09:25→20:31)
[2021-01-14] MEDS: CALCITRIOL 0.25 MCG CAP (S0169) PO SCH (09:26)
[2021-01-14] MEDS ORDERED: SODIUM CHLORIDE 0.9% INJ 10 ML SYR IV PRN (14:45)
[2021-01-14] MEDS: ACETAMINOPHEN 500 MG TAB PO PRN (17:24)
[2021-01-14] MEDS: SODIUM CHLORIDE 0.9% INJ 10 ML SYR IV SCH ×2 (17:25→23:08)
[2021-01-14] MEDS: ASPIRIN 81MG ENTERIC TABLET PO SCH (17:25)
[2021-01-14] MEDS ORDERED: NS 500 ML IV SCH (19:00)
[2021-01-14] MEDS: VITAMIN D 1,000 INTERNATIONAL UNITS TABLET PO SCH (21:17)
[2021-01-14] MEDS: LATANOPROST 0.005% OPHTH SOLN 2.5 ML OU SCH (21:17)
[2021-01-15] MEDS ORDERED: LORazepam 2 MG/ML VIAL IV STA (03:36)
[2021-01-15] MEDS ORDERED: OLANZapine INTRAMUSCULAR 10MG VIAL IM PRN (04:10)
[2021-01-15] MEDS: LEVOTHYROXINE 50MCG TABLET (0.05MG) PO SCH (05:42)
[2021-01-15] MEDS: VANCOMYCIN ORAL SOL 250MG/5ML ORAL SYRINGE PO SCH ×3 (05:43→17:14)
[2021-01-15] MEDS: metroNIDAZOLE 500 MG in IV 1 EA IV SCH ×2 (05:43→14:19)
[2021-01-15] MEDS: FAMOTIDINE IV BAG 20 MG in IV 1 EA IV SCH ×2 (06:51→18:18)
[2021-01-15] MEDS: LACTOBACILLUS ACIDOPHILUS CAP (BACID) PO SCH ×3 (08:00→17:13)
[2021-01-15 08:30] LABS: BASO % 0.3 % (0.0-1.0); EOS % 0.5 % (0.0-3.0); HEMOGLOBIN 11.8 g/dl (13.5-17.5); LYMPH # 0.5 10^3/uL (1.5-5.0); LYMPH % 7.9 % (24.0-44.0); MEAN CORPUSCULAR HEMOGLOBIN 32.3 pg (27.0-33.0); MEAN CORPUSCULAR HGB CONC 34.7 g/dl (32.0-36.5); MEAN CORPUSCULAR VOLUME 93.2 fl (80.0-96.0); MONO # 0.9 10^3/uL (0.0-0.8); MONO % 14.1 % (2.0-8.0); NEUTROPHILS # 4.7 10^3/uL (1.5-8.5); NEUTROPHILS % 76.1 % (36.0-66.0); RED BLOOD COUNT 3.65 10^6/uL (4.30-6.10); WHITE BLOOD COUNT 6.2 10^3/uL (4.0-10.0)
[2021-01-15 08:35] LABS: PLATELET COUNT, AUTOMATED 78 10^3/uL (150-450)
[2021-01-15 08:54] LABS: CALCIUM LEVEL 8.6 MG/DL (8.8-10.2); CREATININE FOR GFR 2.26 MG/DL (0.70-1.30); GLOMERULAR FILTRATION RATE 30.2 (>42); MAGNESIUM LEVEL 1.9 MG/DL (1.8-2.4); POTASSIUM SERUM 3.6 MEQ/L (3.5-5.1)
[2021-01-15] MEDS: diphenhydrAMINE 50MG CAP PO PRN ×3 (09:23→22:03)
[2021-01-15] MEDS: ATORVASTATIN 20 MG TAB PO SCH (12:23)
[2021-01-15] MEDS: FERROUS SULFATE 325MG TAB PO SCH ×2 (12:23→22:03)
[2021-01-15] MEDS: CALCITRIOL 0.25 MCG CAP (S0169) PO SCH (12:24)
[2021-01-15] MEDS: allopurinoL 100 MG TAB PO SCH (12:24)
[2021-01-15 13:15] VITALS: BP 140/69
[2021-01-15] MEDS: SODIUM BICARBONATE 100 MEQ in KCL 20MEQ IN D5W 1000ML 1,000 ML IV SCH ×2 (15:37)
[2021-01-15] MEDS ORDERED: NS 500 ML IV ONE (16:00)
[2021-01-15] MEDS: ASPIRIN 81MG ENTERIC TABLET PO SCH (17:13)
[2021-01-15] MEDS: ACETAMINOPHEN 500 MG TAB PO PRN (18:03)
[2021-01-15 22:00] VITALS: BP 134/83
[2021-01-15] MEDS: VITAMIN D 1,000 INTERNATIONAL UNITS TABLET PO SCH (22:03)
[2021-01-15] MEDS: VANICREAM MOISTURIZING SKIN CREAM 113GM TUBE TOP SCH (22:03)
[2021-01-15] MEDS: LATANOPROST 0.005% OPHTH SOLN 2.5 ML OU SCH (22:04)
[2021-01-15] MEDS: traZODone 25MG PER 1/2 TABLET PO PRN (22:05)
[2021-01-16] MEDS: VANCOMYCIN ORAL SOL 250MG/5ML ORAL SYRINGE PO SCH ×3 (00:12→12:26)
[2021-01-16] MEDS: LEVOTHYROXINE 50MCG TABLET (0.05MG) PO SCH (05:51)
[2021-01-16 05:56] VITALS: BP 123/53
[2021-01-16] MEDS: FAMOTIDINE IV BAG 20 MG in IV 1 EA IV SCH ×2 (06:55→18:17)
[2021-01-16] MEDS: SODIUM BICARBONATE 100 MEQ in KCL 20MEQ IN D5W 1000ML 1,000 ML IV SCH ×2 (09:14)
[2021-01-16] MEDS: ATORVASTATIN 20 MG TAB PO SCH (09:15)
[2021-01-16] MEDS: diphenhydrAMINE 50MG CAP PO PRN ×2 (09:15→21:06)
[2021-01-16] MEDS: LACTOBACILLUS ACIDOPHILUS CAP (BACID) PO SCH ×3 (09:15→18:17)
[2021-01-16] MEDS: LATANOPROST 0.005% OPHTH SOLN 2.5 ML OU SCH (09:15)
[2021-01-16] MEDS: FERROUS SULFATE 325MG TAB PO SCH ×2 (09:15→21:06)
[2021-01-16] MEDS: CALCITRIOL 0.25 MCG CAP (S0169) PO SCH (09:15)
[2021-01-16] MEDS: allopurinoL 100 MG TAB PO SCH (09:15)
[2021-01-16] MEDS: VANICREAM MOISTURIZING SKIN CREAM 113GM TUBE TOP SCH ×2 (09:16→21:12)
[2021-01-16 10:45] LABS: HEMATOCRIT 35.9 % (42.0-52.0); HEMOGLOBIN 12.4 g/dl (13.5-17.5); MEAN CORPUSCULAR HEMOGLOBIN 32.6 pg (27.0-33.0); MEAN CORPUSCULAR HGB CONC 34.5 g/dl (32.0-36.5); MEAN CORPUSCULAR VOLUME 94.5 fl (80.0-96.0); WHITE BLOOD COUNT 7.2 10^3/uL (4.0-10.0)
[2021-01-16 10:50] LABS: PLATELET COUNT, AUTOMATED 93 10^3/uL (150-450)
[2021-01-16 11:17] LABS: CALCIUM LEVEL 9.1 MG/DL (8.8-10.2); CREATININE FOR GFR 2.47 MG/DL (0.70-1.30); GLOMERULAR FILTRATION RATE 27.2 (>42); POTASSIUM SERUM 4.1 MEQ/L (3.5-5.1)
[2021-01-16] MEDS ORDERED: NS 500 ML IV ONE (12:05)
[2021-01-16] MEDS: NS 1,000 ML IV SCH (12:26)
[2021-01-16 14:00] VITALS: BP 142/72
[2021-01-16] MEDS: ASPIRIN 81MG ENTERIC TABLET PO SCH (18:17)
[2021-01-16] MEDS: FIDAXOMICIN 200 MG TAB (DIFICID) PO SCH (21:06)
[2021-01-16] MEDS: traZODone 25MG PER 1/2 TABLET PO PRN (21:06)
[2021-01-16] MEDS: VITAMIN D 1,000 INTERNATIONAL UNITS TABLET PO SCH (21:06)
[2021-01-16 21:49] VITALS: BP 134/78
[2021-01-16] MEDS ORDERED: NS 250 ML IV ONE (23:40)
[2021-01-16] MEDS: bisoproloL fumarate 5 MG TAB PO SCH (23:57)
[2021-01-17 04:16] LABS: BASO % 0.6 % (0.0-1.0); EOS # 0.1 10^3/uL (0.0-0.5); EOS % 1.5 % (0.0-3.0); HEMATOCRIT 34.1 % (42.0-52.0); HEMOGLOBIN 11.8 g/dl (13.5-17.5); LYMPH # 0.5 10^3/uL (1.5-5.0); LYMPH % 7.2 % (24.0-44.0); MEAN CORPUSCULAR HEMOGLOBIN 32.7 pg (27.0-33.0); MEAN CORPUSCULAR HGB CONC 34.6 g/dl (32.0-36.5); MEAN CORPUSCULAR VOLUME 94.5 fl (80.0-96.0); MONO # 0.7 10^3/uL (0.0-0.8); MONO % 10.8 % (2.0-8.0); NEUTROPHILS # 5.2 10^3/uL (1.5-8.5); NEUTROPHILS % 77.8 % (36.0-66.0); RED BLOOD COUNT 3.61 10^6/uL (4.30-6.10); WHITE BLOOD COUNT 6.7 10^3/uL (4.0-10.0)
[2021-01-17 04:20] LABS: PLATELET COUNT, AUTOMATED 96 10^3/uL (150-450)
[2021-01-17 04:42] LABS: CALCIUM LEVEL 8.1 MG/DL (8.8-10.2); CREATININE FOR GFR 2.07 MG/DL (0.70-1.30); GLOMERULAR FILTRATION RATE 33.4 (>42); MAGNESIUM LEVEL 1.8 MG/DL (1.8-2.4); POTASSIUM SERUM 4.3 MEQ/L (3.5-5.1); THYROID STIMULATING HORMONE 5.17 uIU/ML (0.358-3.740)
[2021-01-17] MEDS: LEVOTHYROXINE 50MCG TABLET (0.05MG) PO SCH (05:42)
[2021-01-17] MEDS: NS 1,000 ML IV SCH ×2 (05:46→21:54)
[2021-01-17 06:00] VITALS: BP 130/88
[2021-01-17] MEDS: FAMOTIDINE IV BAG 20 MG in IV 1 EA IV SCH ×2 (06:00→18:04)
[2021-01-17] MEDS: FIDAXOMICIN 200 MG TAB (DIFICID) PO SCH ×2 (09:30→20:00)
[2021-01-17] MEDS: ATORVASTATIN 20 MG TAB PO SCH (09:30)
[2021-01-17] MEDS: LACTOBACILLUS ACIDOPHILUS CAP (BACID) PO SCH ×3 (09:30→18:04)
[2021-01-17] MEDS: allopurinoL 100 MG TAB PO SCH (09:30)
[2021-01-17] MEDS: FERROUS SULFATE 325MG TAB PO SCH ×2 (09:30→20:00)
[2021-01-17] MEDS: CALCITRIOL 0.25 MCG CAP (S0169) PO SCH (09:30)
[2021-01-17] MEDS: bisoproloL fumarate 5 MG TAB PO SCH ×2 (09:30→20:03)
[2021-01-17] MEDS: VANICREAM MOISTURIZING SKIN CREAM 113GM TUBE TOP SCH ×2 (09:31→20:00)
[2021-01-17 14:00] VITALS: BP 129/86
[2021-01-17] MEDS: ASPIRIN 81MG ENTERIC TABLET PO SCH (18:04)
[2021-01-17] MEDS: traZODone 25MG PER 1/2 TABLET PO PRN (20:00)
[2021-01-17] MEDS: VITAMIN D 1,000 INTERNATIONAL UNITS TABLET PO SCH (20:00)
[2021-01-17] MEDS: TAMSULOSIN 0.4 MG CAP PO SCH (20:00)
[2021-01-17] MEDS: LATANOPROST 0.005% OPHTH SOLN 2.5 ML OU SCH (20:00)
[2021-01-17] MEDS: diphenhydrAMINE 50MG CAP PO PRN (20:00)
[2021-01-17 22:00] VITALS: BP 128/83
[2021-01-18 06:00] VITALS: BP 110/60
[2021-01-18] MEDS: LEVOTHYROXINE 50MCG TABLET (0.05MG) PO SCH (06:21)
[2021-01-18] MEDS: FAMOTIDINE IV BAG 20 MG in IV 1 EA IV SCH ×2 (06:21→17:07)
[2021-01-18 09:44] LABS: BASO % 0.6 % (0.0-1.0); EOS # 0.1 10^3/uL (0.0-0.5); EOS % 1.5 % (0.0-3.0); HEMATOCRIT 32.1 % (42.0-52.0); LYMPH # 0.5 10^3/uL (1.5-5.0); LYMPH % 7.3 % (24.0-44.0); MEAN CORPUSCULAR HGB CONC 34.3 g/dl (32.0-36.5); MEAN CORPUSCULAR VOLUME 96.4 fl (80.0-96.0); MONO # 0.5 10^3/uL (0.0-0.8); MONO % 7.3 % (2.0-8.0); NEUTROPHILS # 5.5 10^3/uL (1.5-8.5); RED BLOOD COUNT 3.33 10^6/uL (4.30-6.10); WHITE BLOOD COUNT 6.7 10^3/uL (4.0-10.0)
[2021-01-18 09:47] LABS: PLATELET COUNT, AUTOMATED 93 10^3/uL (150-450)
[2021-01-18 09:58] LABS: CALCIUM LEVEL 8.2 MG/DL (8.8-10.2); CREATININE FOR GFR 2.25 MG/DL (0.70-1.30); GLOMERULAR FILTRATION RATE 30.3 (>42); MAGNESIUM LEVEL 1.9 MG/DL (1.8-2.4); POTASSIUM SERUM 4.4 MEQ/L (3.5-5.1)
[2021-01-18] MEDS: bisoproloL fumarate 5 MG TAB PO SCH ×2 (10:35→23:33)
[2021-01-18] MEDS: ATORVASTATIN 20 MG TAB PO SCH (10:35)
[2021-01-18] MEDS: allopurinoL 100 MG TAB PO SCH (10:35)
[2021-01-18] MEDS: CALCITRIOL 0.25 MCG CAP (S0169) PO SCH (10:35)
[2021-01-18] MEDS: FIDAXOMICIN 200 MG TAB (DIFICID) PO SCH ×2 (10:36→23:31)
[2021-01-18] MEDS: VANICREAM MOISTURIZING SKIN CREAM 113GM TUBE TOP SCH ×2 (10:36→23:34)
[2021-01-18] MEDS: LACTOBACILLUS ACIDOPHILUS CAP (BACID) PO SCH ×3 (10:36→17:06)
[2021-01-18] MEDS: FERROUS SULFATE 325MG TAB PO SCH ×2 (10:36→23:31)
[2021-01-18 14:00] VITALS: BP 109/59
[2021-01-18] MEDS: NS 1,000 ML IV SCH (14:07)
[2021-01-18] MEDS ORDERED: DEXTROSE 50% 50 ML SYRINGE IV STA (16:03)
[2021-01-18] MEDS ORDERED: DEXTROSE 50% 50 ML SYRINGE As Ordered ONE (16:03)
[2021-01-18] MEDS: ASPIRIN 81MG ENTERIC TABLET PO SCH (17:06)
[2021-01-18 22:00] VITALS: BP 115/60
[2021-01-18] MEDS: SODIUM BICARBONATE 75 MEQ in D5W/0.45% SODIUM CHLORIDE 1,000 ML IV SCH (23:31)
[2021-01-18] MEDS: VITAMIN D 1,000 INTERNATIONAL UNITS TABLET PO SCH (23:31)
[2021-01-18] MEDS: diphenhydrAMINE 50MG CAP PO PRN (23:31)
[2021-01-18] MEDS: TAMSULOSIN 0.4 MG CAP PO SCH (23:31)
[2021-01-18] MEDS: LATANOPROST 0.005% OPHTH SOLN 2.5 ML OU SCH (23:34)
[2021-01-19 06:00] VITALS: BP 113/58
[2021-01-19] MEDS: FAMOTIDINE IV BAG 20 MG in IV 1 EA IV SCH ×2 (06:48→21:57)
[2021-01-19] MEDS: LEVOTHYROXINE 50MCG TABLET (0.05MG) PO SCH (06:48)
[2021-01-19 06:53] LABS: BASO % 0.6 % (0.0-1.0); EOS # 0.1 10^3/uL (0.0-0.5); EOS % 0.8 % (0.0-3.0); HEMATOCRIT 32.3 % (42.0-52.0); LYMPH # 0.3 10^3/uL (1.5-5.0); LYMPH % 5.2 % (24.0-44.0); MEAN CORPUSCULAR HEMOGLOBIN 33.1 pg (27.0-33.0); MEAN CORPUSCULAR HGB CONC 34.1 g/dl (32.0-36.5); MEAN CORPUSCULAR VOLUME 97.3 fl (80.0-96.0); MONO # 0.5 10^3/uL (0.0-0.8); MONO % 8.1 % (2.0-8.0); NEUTROPHILS # 5.5 10^3/uL (1.5-8.5); NEUTROPHILS % 84.2 % (36.0-66.0); RED BLOOD COUNT 3.32 10^6/uL (4.30-6.10); WHITE BLOOD COUNT 6.6 10^3/uL (4.0-10.0)
[2021-01-19 06:56] LABS: PLATELET COUNT, AUTOMATED 82 10^3/uL (150-450)
[2021-01-19 07:12] LABS: CALCIUM LEVEL 8.1 MG/DL (8.8-10.2); CREATININE FOR GFR 2.5 MG/DL (0.70-1.30); GLOMERULAR FILTRATION RATE 26.9 (>42); MAGNESIUM LEVEL 1.8 MG/DL (1.8-2.4)
[2021-01-19] MEDS: SODIUM BICARBONATE 75 MEQ in D5W/0.45% SODIUM CHLORIDE 1,000 ML IV SCH (08:27)
[2021-01-19] MEDS: bisoproloL fumarate 5 MG TAB PO SCH ×2 (09:00→21:00)
[2021-01-19] MEDS: LACTOBACILLUS ACIDOPHILUS CAP (BACID) PO SCH ×3 (09:22→17:47)
[2021-01-19] MEDS: CALCITRIOL 0.25 MCG CAP (S0169) PO SCH (09:23)
[2021-01-19] MEDS: FERROUS SULFATE 325MG TAB PO SCH ×2 (09:23→21:58)
[2021-01-19] MEDS: ATORVASTATIN 20 MG TAB PO SCH (09:23)
[2021-01-19] MEDS: FIDAXOMICIN 200 MG TAB (DIFICID) PO SCH ×2 (09:23→21:58)
[2021-01-19] MEDS: allopurinoL 100 MG TAB PO SCH (09:23)
[2021-01-19] MEDS: VANICREAM MOISTURIZING SKIN CREAM 113GM TUBE TOP SCH ×2 (09:30→21:59)
[2021-01-19 14:00] VITALS: BP 108/58
[2021-01-19] MEDS: ASPIRIN 81MG ENTERIC TABLET PO SCH (17:47)
[2021-01-19] MEDS: VITAMIN D 1,000 INTERNATIONAL UNITS TABLET PO SCH (21:58)
[2021-01-19] MEDS: TAMSULOSIN 0.4 MG CAP PO SCH (21:58)
[2021-01-19] MEDS: LATANOPROST 0.005% OPHTH SOLN 2.5 ML OU SCH (21:59)
[2021-01-19 22:00] VITALS: BP 108/59
[2021-01-20] MEDS: diphenhydrAMINE 50MG CAP PO PRN (00:35)
[2021-01-20] MEDS: traZODone 25MG PER 1/2 TABLET PO PRN (00:35)
[2021-01-20] MEDS ORDERED: FUROSEMIDE 20MG/2ML VIAL (J1940) IV ONE (03:35)
[2021-01-20] MEDS: IPRATROPIUM 0.5MG/ALBUTEROL 2.5MG INH SOL UD 3ML (DUONEB) NEB PRN (03:46)
[2021-01-20 04:04] LABS: BASO % 0.5 % (0.0-1.0); EOS % 0.5 % (0.0-3.0); HEMATOCRIT 32.5 % (42.0-52.0); HEMOGLOBIN 11.2 g/dl (13.5-17.5); LYMPH # 0.2 10^3/uL (1.5-5.0); LYMPH % 2.6 % (24.0-44.0); MEAN CORPUSCULAR HEMOGLOBIN 33.2 pg (27.0-33.0); MEAN CORPUSCULAR HGB CONC 34.5 g/dl (32.0-36.5); MEAN CORPUSCULAR VOLUME 96.4 fl (80.0-96.0); MONO # 0.6 10^3/uL (0.0-0.8); MONO % 7.4 % (2.0-8.0); NEUTROPHILS % 88.1 % (36.0-66.0); RED BLOOD COUNT 3.37 10^6/uL (4.30-6.10)
[2021-01-20 04:12] LABS: PLATELET COUNT, AUTOMATED 63 10^3/uL (150-450)
[2021-01-20 04:30] LABS: CALCIUM LEVEL 8.1 MG/DL (8.8-10.2); CREATININE FOR GFR 2.6 MG/DL (0.70-1.30); GLOMERULAR FILTRATION RATE 25.7 (>42); MAGNESIUM LEVEL 1.8 MG/DL (1.8-2.4); POTASSIUM SERUM 3.7 MEQ/L (3.5-5.1)
[2021-01-20 06:00] VITALS: BP 106/63
[2021-01-20] MEDS: FAMOTIDINE IV BAG 20 MG in IV 1 EA IV SCH ×2 (06:18→18:11)
[2021-01-20] MEDS: LEVOTHYROXINE 50MCG TABLET (0.05MG) PO SCH (06:18)
[2021-01-20] MEDS ORDERED: NS 1,000 ML IV SCH (08:45)
[2021-01-20] MEDS: ATORVASTATIN 20 MG TAB PO SCH (10:00)
[2021-01-20] MEDS: CALCITRIOL 0.25 MCG CAP (S0169) PO SCH (10:00)
[2021-01-20] MEDS: LACTOBACILLUS ACIDOPHILUS CAP (BACID) PO SCH ×3 (10:00→18:11)
[2021-01-20] MEDS: FERROUS SULFATE 325MG TAB PO SCH ×2 (10:00→20:26)
[2021-01-20] MEDS: allopurinoL 100 MG TAB PO SCH (10:00)
[2021-01-20] MEDS: FIDAXOMICIN 200 MG TAB (DIFICID) PO SCH ×2 (10:08→20:25)
[2021-01-20] MEDS: ACETAMINOPHEN 500 MG TAB PO PRN (10:08)
[2021-01-20] MEDS: bisoproloL fumarate 5 MG TAB PO SCH ×2 (10:08→20:26)
[2021-01-20] MEDS: VANICREAM MOISTURIZING SKIN CREAM 113GM TUBE TOP SCH ×2 (10:12→21:10)
[2021-01-20] MEDS ORDERED: FUROSEMIDE 100MG/10ML VIAL (J1940) IV ONE (11:00)
[2021-01-20 14:00] VITALS: BP 108/61
[2021-01-20] MEDS ORDERED: GOLYTELY SOLN 4000 ML BTL PO ONE (17:00)
[2021-01-20] MEDS: ASPIRIN 81MG ENTERIC TABLET PO SCH (18:11)
[2021-01-20] MEDS: VITAMIN D 1,000 INTERNATIONAL UNITS TABLET PO SCH (20:26)
[2021-01-20] MEDS: TAMSULOSIN 0.4 MG CAP PO SCH (20:26)
[2021-01-20] MEDS ORDERED: GLUCAGON INJ 1MG VIAL SC PRN (20:50)
[2021-01-20] MEDS ORDERED: DEXTROSE 50% 50 ML SYRINGE IV PRN (20:50)
[2021-01-20] MEDS ORDERED: GLUCOSE 4GM CHEW TABLET PO PRN (20:50)
[2021-01-20 21:00] VITALS: BP 102/62
[2021-01-20] MEDS: LATANOPROST 0.005% OPHTH SOLN 2.5 ML OU SCH (21:10)
[2021-01-21 05:50] VITALS: BP 107/62
[2021-01-21] MEDS ORDERED: MAGNESIUM CITRATE 300 ML BTL PO ONE (06:00)
[2021-01-21] MEDS: FAMOTIDINE IV BAG 20 MG in IV 1 EA IV SCH ×2 (06:02→18:56)
[2021-01-21] MEDS: LEVOTHYROXINE 50MCG TABLET (0.05MG) PO SCH (06:02)
[2021-01-21 06:49] LABS: BASO # 0.1 10^3/uL (0.0-0.2); BASO % 0.6 % (0.0-1.0); EOS % 0.4 % (0.0-3.0); HEMATOCRIT 32.1 % (42.0-52.0); HEMOGLOBIN 11.1 g/dl (13.5-17.5); LYMPH # 0.2 10^3/uL (1.5-5.0); LYMPH % 2.3 % (24.0-44.0); MEAN CORPUSCULAR HEMOGLOBIN 33.3 pg (27.0-33.0); MEAN CORPUSCULAR HGB CONC 34.6 g/dl (32.0-36.5); MEAN CORPUSCULAR VOLUME 96.4 fl (80.0-96.0); MONO # 0.5 10^3/uL (0.0-0.8); MONO % 6.3 % (2.0-8.0); NEUTROPHILS # 7.1 10^3/uL (1.5-8.5); NEUTROPHILS % 89.5 % (36.0-66.0); RED BLOOD COUNT 3.33 10^6/uL (4.30-6.10); WHITE BLOOD COUNT 7.9 10^3/uL (4.0-10.0)
[2021-01-21 06:52] LABS: PLATELET COUNT, AUTOMATED 50 10^3/uL (150-450)
[2021-01-21 06:59] LABS: CALCIUM LEVEL 8.4 MG/DL (8.8-10.2); CREATININE FOR GFR 2.73 MG/DL (0.70-1.30); GLOMERULAR FILTRATION RATE 24.3 (>42); MAGNESIUM LEVEL 1.8 MG/DL (1.8-2.4); POTASSIUM SERUM 4.1 MEQ/L (3.5-5.1)
[2021-01-21] MEDS: bisoproloL fumarate 5 MG TAB PO SCH ×2 (09:00→20:50)
[2021-01-21] MEDS: CALCITRIOL 0.25 MCG CAP (S0169) PO SCH (09:00)
[2021-01-21] MEDS: ATORVASTATIN 20 MG TAB PO SCH (09:00)
[2021-01-21] MEDS: VANICREAM MOISTURIZING SKIN CREAM 113GM TUBE TOP SCH ×2 (09:00→20:47)
[2021-01-21] MEDS: FERROUS SULFATE 325MG TAB PO SCH ×2 (09:00→20:46)
[2021-01-21] MEDS: allopurinoL 100 MG TAB PO SCH (09:00)
[2021-01-21] MEDS: FIDAXOMICIN 200 MG TAB (DIFICID) PO SCH ×2 (09:00→20:46)
[2021-01-21] MEDS: LACTOBACILLUS ACIDOPHILUS CAP (BACID) PO SCH ×4 (09:00→18:56)
[2021-01-21 09:18] VITALS: BP 147/65
[2021-01-21 11:34] VITALS: BP 126/71
[2021-01-21 11:50] VITALS: BP 115/62
[2021-01-21] MEDS ORDERED: FECAL MICROBIOTA PREPARATION 250 ML BTL (J3590) XX ONE (12:00)
[2021-01-21 12:50] VITALS: BP 124/63
[2021-01-21] MEDS: D10W 1,000 ML IV SCH (13:38)
[2021-01-21 15:05] LABS: ALBUMIN 2.1 GM/DL (3.2-5.2)
[2021-01-21] MEDS ORDERED: ETOMIDATE INJ 20MG/10ML VIAL As Ordered ONE (15:10)
[2021-01-21] MEDS ORDERED: propofoL 200 MG/20 ML VIAL As Ordered ONE (15:12)
[2021-01-21] MEDS ORDERED: PHENYLephrine 500MCG 5ML (100MCG/ML) SYRINGE As Ordered ONE (15:49)
[2021-01-21] MEDS: IPRATROPIUM 0.5MG/ALBUTEROL 2.5MG INH SOL UD 3ML (DUONEB) NEB PRN (17:12)
[2021-01-21] MEDS: ASPIRIN 81MG ENTERIC TABLET PO SCH ×2 (18:00→18:56)
[2021-01-21 20:00] VITALS: BP 110/64
[2021-01-21] MEDS: TAMSULOSIN 0.4 MG CAP PO SCH (20:45)
[2021-01-21] MEDS: VITAMIN D 1,000 INTERNATIONAL UNITS TABLET PO SCH (20:45)
[2021-01-21] MEDS: LATANOPROST 0.005% OPHTH SOLN 2.5 ML OU SCH (20:47)
[2021-01-22] VITALS (10 sets, daily range): BP systolic 92–145; BP diastolic 55–80
[2021-01-22 04:54] LABS: BASO # 0.1 10^3/uL (0.0-0.2); BASO % 0.6 % (0.0-1.0); EOS % 0.5 % (0.0-3.0); HEMATOCRIT 32.8 % (42.0-52.0); HEMOGLOBIN 10.9 g/dl (13.5-17.5); LYMPH # 0.3 10^3/uL (1.5-5.0); LYMPH % 3.6 % (24.0-44.0); MEAN CORPUSCULAR HEMOGLOBIN 32.8 pg (27.0-33.0); MEAN CORPUSCULAR HGB CONC 33.2 g/dl (32.0-36.5); MEAN CORPUSCULAR VOLUME 98.8 fl (80.0-96.0); MONO # 0.8 10^3/uL (0.0-0.8); MONO % 9.5 % (2.0-8.0); NEUTROPHILS # 6.7 10^3/uL (1.5-8.5); NEUTROPHILS % 84.8 % (36.0-66.0); RED BLOOD COUNT 3.32 10^6/uL (4.30-6.10); WHITE BLOOD COUNT 7.9 10^3/uL (4.0-10.0)
[2021-01-22 05:01] LABS: PLATELET COUNT, AUTOMATED 41 10^3/uL (150-450)
[2021-01-22 05:26] LABS: ALBUMIN 2.5 GM/DL (3.2-5.2); CALCIUM LEVEL 8.1 MG/DL (8.8-10.2); CREATININE FOR GFR 2.97 MG/DL (0.70-1.30); POTASSIUM SERUM 3.7 MEQ/L (3.5-5.1)
[2021-01-22] MEDS: LEVOTHYROXINE 50MCG TABLET (0.05MG) PO SCH (06:00)
[2021-01-22] MEDS: D10W 1,000 ML IV SCH (06:05)
[2021-01-22] MEDS: FAMOTIDINE IV BAG 20 MG in IV 1 EA IV SCH ×2 (06:27→18:23)
[2021-01-22] MEDS: LACTOBACILLUS ACIDOPHILUS CAP (BACID) PO SCH ×3 (08:00→18:24)
[2021-01-22] MEDS: bisoproloL fumarate 5 MG TAB PO SCH ×2 (09:00→22:08)
[2021-01-22] MEDS: CALCITRIOL 0.25 MCG CAP (S0169) PO SCH (09:00)
[2021-01-22] MEDS: VANICREAM MOISTURIZING SKIN CREAM 113GM TUBE TOP SCH ×2 (09:00→22:09)
[2021-01-22] MEDS: FERROUS SULFATE 325MG TAB PO SCH ×2 (09:00→22:10)
[2021-01-22] MEDS: allopurinoL 100 MG TAB PO SCH (10:35)
[2021-01-22] MEDS: ATORVASTATIN 20 MG TAB PO SCH (10:35)
[2021-01-22] MEDS: FIDAXOMICIN 200 MG TAB (DIFICID) PO SCH ×2 (10:35→22:04)
[2021-01-22] MEDS: IPRATROPIUM 0.5MG/ALBUTEROL 2.5MG INH SOL UD 3ML (DUONEB) NEB PRN (12:33)
[2021-01-22] MEDS: ASPIRIN 81MG ENTERIC TABLET PO SCH (18:24)
[2021-01-22] MEDS: TAMSULOSIN 0.4 MG CAP PO SCH (22:04)
[2021-01-22] MEDS: LATANOPROST 0.005% OPHTH SOLN 2.5 ML OU SCH (22:08)
[2021-01-22] MEDS: VITAMIN D 1,000 INTERNATIONAL UNITS TABLET PO SCH (22:10)
[2021-01-23 06:00] VITALS: BP 133/77
[2021-01-23] MEDS: D10W 1,000 ML IV SCH ×2 (06:05→18:41)
[2021-01-23 06:28] LABS: BASO % 0.5 % (0.0-1.0); EOS % 0.5 % (0.0-3.0); HEMATOCRIT 31.7 % (42.0-52.0); HEMOGLOBIN 10.9 g/dl (13.5-17.5); LYMPH # 0.4 10^3/uL (1.5-5.0); MEAN CORPUSCULAR HEMOGLOBIN 33.3 pg (27.0-33.0); MEAN CORPUSCULAR HGB CONC 34.4 g/dl (32.0-36.5); MEAN CORPUSCULAR VOLUME 96.9 fl (80.0-96.0); MONO # 0.6 10^3/uL (0.0-0.8); MONO % 7.6 % (2.0-8.0); NEUTROPHILS # 6.5 10^3/uL (1.5-8.5); NEUTROPHILS % 85.7 % (36.0-66.0); RED BLOOD COUNT 3.27 10^6/uL (4.30-6.10); WHITE BLOOD COUNT 7.6 10^3/uL (4.0-10.0)
[2021-01-23 06:31] LABS: PLATELET COUNT, AUTOMATED 28 10^3/uL (150-450)
[2021-01-23] MEDS: LEVOTHYROXINE 50MCG TABLET (0.05MG) PO SCH (06:44)
[2021-01-23] MEDS: FAMOTIDINE IV BAG 20 MG in IV 1 EA IV SCH ×2 (06:44→18:41)
[2021-01-23 06:54] LABS: CALCIUM LEVEL 8.1 MG/DL (8.8-10.2); CREATININE FOR GFR 2.95 MG/DL (0.70-1.30); GLOMERULAR FILTRATION RATE 22.2 (>42); POTASSIUM SERUM 3.8 MEQ/L (3.5-5.1)
[2021-01-23] MEDS: ATORVASTATIN 20 MG TAB PO SCH (08:59)
[2021-01-23] MEDS: allopurinoL 100 MG TAB PO SCH (08:59)
[2021-01-23] MEDS: FIDAXOMICIN 200 MG TAB (DIFICID) PO SCH ×2 (08:59→21:34)
[2021-01-23] MEDS: LACTOBACILLUS ACIDOPHILUS CAP (BACID) PO SCH ×3 (08:59→18:41)
[2021-01-23] MEDS: CALCITRIOL 0.25 MCG CAP (S0169) PO SCH (08:59)
[2021-01-23] MEDS: FERROUS SULFATE 325MG TAB PO SCH ×2 (08:59→21:34)
[2021-01-23] MEDS: bisoproloL fumarate 5 MG TAB PO SCH ×2 (09:00→21:34)
[2021-01-23] MEDS: VANICREAM MOISTURIZING SKIN CREAM 113GM TUBE TOP SCH ×2 (09:00→21:35)
[2021-01-23 10:22] LABS: INR 1.83; PROTHROMBIN TIME 21.5 SECONDS (12.7-14.5)
[2021-01-23 10:23] LABS: PARTIAL THROMBOPLASTIN TIME 46.6 SECONDS (25.9-37.0)
[2021-01-23 10:25] LABS: D-DIMER QUANT 3800.86 ng/ml (<500)
[2021-01-23] MEDS ORDERED: FUROSEMIDE 40MG/4ML VIAL (J1940) IV ONE (10:35)
[2021-01-23] MEDS: MUPIROCIN 2% OINT 22 GM TUBE TOP SCH ×3 (12:53→21:35)
[2021-01-23 14:00] VITALS: BP 128/72
[2021-01-23 14:28] VITALS: BP 128/72
[2021-01-23 14:59] VITALS: BP 120/67
[2021-01-23 16:55] VITALS: BP 114/58
[2021-01-23 18:08] LABS: HEMATOCRIT 33.4 % (42.0-52.0); HEMOGLOBIN 11.2 g/dl (13.5-17.5); MEAN CORPUSCULAR HGB CONC 33.5 g/dl (32.0-36.5); MEAN CORPUSCULAR VOLUME 98.5 fl (80.0-96.0); RED BLOOD COUNT 3.39 10^6/uL (4.30-6.10)
[2021-01-23 18:10] LABS: PLATELET COUNT, AUTOMATED 56 10^3/uL (150-450)
[2021-01-23] MEDS: ASPIRIN 81MG ENTERIC TABLET PO SCH (18:41)
[2021-01-23] MEDS: VITAMIN D 1,000 INTERNATIONAL UNITS TABLET PO SCH (21:34)
[2021-01-23] MEDS: TAMSULOSIN 0.4 MG CAP PO SCH (21:34)
[2021-01-23] MEDS: LATANOPROST 0.005% OPHTH SOLN 2.5 ML OU SCH (21:35)
[2021-01-23 22:00] VITALS: BP 127/57
[2021-01-24] VITALS (8 sets, daily range): BP systolic 118–138; BP diastolic 61–77
[2021-01-24] MEDS: LEVOTHYROXINE 50MCG TABLET (0.05MG) PO SCH (05:09)
[2021-01-24] MEDS: FAMOTIDINE IV BAG 20 MG in IV 1 EA IV SCH (06:17)
[2021-01-24] MEDS: LACTOBACILLUS ACIDOPHILUS CAP (BACID) PO SCH ×2 (08:00→12:52)
[2021-01-24 08:13] LABS: HEMATOCRIT 34.9 % (42.0-52.0); HEMOGLOBIN 11.4 g/dl (13.5-17.5); MEAN CORPUSCULAR HEMOGLOBIN 32.3 pg (27.0-33.0); MEAN CORPUSCULAR HGB CONC 32.7 g/dl (32.0-36.5); MEAN CORPUSCULAR VOLUME 98.9 fl (80.0-96.0); RED BLOOD COUNT 3.53 10^6/uL (4.30-6.10); WHITE BLOOD COUNT 5.6 10^3/uL (4.0-10.0)
[2021-01-24 08:21] LABS: PLATELET COUNT, AUTOMATED 46 10^3/uL (150-450)
[2021-01-24 08:49] LABS: CALCIUM LEVEL 8.3 MG/DL (8.8-10.2); CREATININE FOR GFR 3.18 MG/DL (0.70-1.30); GLOMERULAR FILTRATION RATE 20.4 (>42); POTASSIUM SERUM 4.5 MEQ/L (3.5-5.1)
[2021-01-24] MEDS: bisoproloL fumarate 5 MG TAB PO SCH (10:23)
[2021-01-24] MEDS: FIDAXOMICIN 200 MG TAB (DIFICID) PO SCH (10:23)
[2021-01-24] MEDS: CALCITRIOL 0.25 MCG CAP (S0169) PO SCH (10:24)
[2021-01-24] MEDS: VANICREAM MOISTURIZING SKIN CREAM 113GM TUBE TOP SCH (10:24)
[2021-01-24] MEDS: FERROUS SULFATE 325MG TAB PO SCH (10:24)
[2021-01-24] MEDS: allopurinoL 100 MG TAB PO SCH (10:24)
[2021-01-24] MEDS: ATORVASTATIN 20 MG TAB PO SCH (10:24)
[2021-01-24] MEDS: MUPIROCIN 2% OINT 22 GM TUBE TOP SCH ×2 (10:25→16:22)
[2021-01-24 15:39] LABS: HEMATOCRIT 32.3 % (42.0-52.0); HEMOGLOBIN 10.8 g/dl (13.5-17.5); MEAN CORPUSCULAR HGB CONC 33.4 g/dl (32.0-36.5); MEAN CORPUSCULAR VOLUME 98.8 fl (80.0-96.0); RED BLOOD COUNT 3.27 10^6/uL (4.30-6.10); WHITE BLOOD COUNT 5.2 10^3/uL (4.0-10.0)
[2021-01-24 15:40] LABS: PLATELET COUNT, AUTOMATED 77 10^3/uL (150-450)
== END 2021-01-24 17:25 | disposition expired | DRG 871 ==
LOC: M ED 08:47 → EDBD 08:47 → M ED INP 13:14 → ENRESERV 13:30 → M PCU 15:13 → M MSPAV 01-14 13:01 → M PCU 01-21 09:09 → M MSPAV 01-22 23:33
PROVIDERS: ADMIT Internal Medicine; ATTEND General Practice
PROC: 02HV33Z Insertion of Infusion Device into Superior Vena Cava, Percutaneous Approach (ICD-10-PCS; principal; 2021-01-11)
PROC: 3E0H8GC Introduction of Other Therapeutic Substance into Lower GI, Via Natural or Artificial Opening Endoscopic (ICD-10-PCS; 2021-01-21)
PROC: 30233J1 Transfusion of Nonautologous Serum Albumin into Peripheral Vein, Percutaneous Approach (ICD-10-PCS; 2021-01-21)
PROC: 30233R1 Transfusion of Nonautologous Platelets into Peripheral Vein, Percutaneous Approach (ICD-10-PCS; 2021-01-23)
DX: A41.9 Sepsis, unspecified organism (principal); R65.21 Severe sepsis with septic shock; G93.41 Metabolic encephalopathy; D65 Disseminated intravascular coagulation [defibrination syndrome]; I50.43 Acute on chronic combined systolic (congestive) and diastolic (congestive) heart failure; A04.71 Enterocolitis due to Clostridium difficile, recurrent; N17.9 Acute kidney failure, unspecified; I13.0 Hypertensive heart and chronic kidney disease with heart failure and stage 1 through stage 4 chronic kidney disease, or unspecified chronic kidney disease; I48.20 Chronic atrial fibrillation, unspecified; E87.2 Acidosis; E87.1 Hypo-osmolality and hyponatremia; N25.81 Secondary hyperparathyroidism of renal origin; E46 Unspecified protein-calorie malnutrition; E87.0 Hyperosmolality and hypernatremia; F03.91 Unspecified dementia, unspecified severity, with behavioral disturbance; I25.5 Ischemic cardiomyopathy; N18.30 Chronic kidney disease, stage 3 unspecified; E03.9 Hypothyroidism, unspecified; E83.41 Hypermagnesemia; E87.6 Hypokalemia; Z51.5 Encounter for palliative care; Z66 Do not resuscitate; E16.2 Hypoglycemia, unspecified; M10.9 Gout, unspecified; D69.6 Thrombocytopenia, unspecified; R53.1 Weakness; E78.5 Hyperlipidemia, unspecified; N41.9 Inflammatory disease of prostate, unspecified; K21.00 Gastro-esophageal reflux disease with esophagitis, without bleeding; I46.9 Cardiac arrest, cause unspecified; I25.10 Atherosclerotic heart disease of native coronary artery without angina pectoris; K63.89 Other specified diseases of intestine; Z95.5 Presence of coronary angioplasty implant and graft; Z95.810 Presence of automatic (implantable) cardiac defibrillator; Z98.49 Cataract extraction status, unspecified eye; Z90.49 Acquired absence of other specified parts of digestive tract; Z79.82 Long term (current) use of aspirin; Z79.899 Other long term (current) drug therapy; Z88.0 Allergy status to penicillin; Z88.2 Allergy status to sulfonamides; Z88.1 Allergy status to other antibiotic agents; Z20.822 Contact with and (suspected) exposure to COVID-19; R31.0 Gross hematuria